=== PATIENT | female | born 1955 | race Caucasian/White ===

== ENCOUNTER 2023-01-31 12:35 | Outpatient (OUT) | payer MEDICARE, SELFPAY ==
[2023-01-31 12:54] LABS: Basophils Percent Auto 0.3 % (0.2-2.0); Eosinophils Absolute Auto 0.2 10^3/uL (0.0-0.7); Eosinophils Percent Auto 2.9 % (0.9-7.0); Hematocrit 38.9 % (36.0-48.0); Hemoglobin 12.6 g/dL (12.0-16.0); Immature Granulocytes Abs Auto 0.02 10^3/uL (0.00-0.03); Immature Granulocytes Pct Auto 0.3 % (0.0-0.5); Lymphocytes Absolute Auto 1.9 10^3/uL (1.2-3.8); Lymphocytes Percent Auto 31.1 % (20.5-60.0); Mean Corpuscular HGB Conc 32.4 g/dL (29.9-35.2); Mean Corpuscular Hemoglobin 25.6 pg (26.7-34.0); Mean Corpuscular Volume 78.9 fL (81.0-99.0); Mean Platelet Volume 9.3 fL (9.5-13.5); Monocytes Absolute Auto 0.4 10^3/uL (0.3-0.8); Monocytes Percent Auto 7.4 % (1.7-12.0); Neutrophils Absolute Auto 3.5 10^3/uL (1.4-6.5); Platelet Count 317 10^3/uL (150-450); Red Blood Count 4.93 10^6/uL (4.20-5.40); Red Cell Distribution Width 15.5 % (11.0-15.0)
== END 2023-01-31 12:36 ==
LOC: LAB 12:41
PROVIDERS: PCP Family Medicine
DX: H02.839 Dermatochalasis of unspecified eye, unspecified eyelid (principal); H57.819 Brow ptosis, unspecified
CPT/HCPCS: 36415; 85025

== ENCOUNTER 2023-05-22 10:56 | Outpatient (OUT) | payer MEDICARE, SELFPAY ==
--- NOTE | 2023-05-22 10:59 | MM_ITS ---
Patient: FELIBERTO ARMENTA Exam Date: 05/22/2023 : 1955 Gender:F Ordering : DR HERACLIO SAMSON . Admission #: [id number] Family : Order #: [id number] CLICK HERE TO VIEW EXAM RADIOLOGY REPORT PROCEDURE: MM TOMOSYNTHESIS SCREENING BI COMPARISON: MG MAMM SCREEN 3D ANGIE CAD, 04/18/2022. MG MAMM SCREEN 3D ANGIE CAD, 04/08/2021. MG MAMM SCREEN ANGIE W CAD, 04/07/2020. MG MAMM ANGIE SCRN W CAD DIG, 07/22/2013. INDICATIONS: Screening Calculator Name NCI Breast Cancer Risk Assessment Tool 5 Year Breast Cancer Risk 2.20% Lifetime Breast Cancer Risk 7.20% Personal Breast Cancer No Personal Ovarian Cancer No Treatments None Family Cancers Sister with ?uterine cancer at age 43. LOCATION: The [facility] BREAST COMPOSITION: Heterogeneously dense,which may obscure small masses. FINDINGS: DIAGNOSTIC CATEGORY 2--BENIGN FINDING: RIGHT BREAST: No significant suspicious finding. Stable, chronic partially circumscribed mass versus cyst within anterior upper outer quadrant. No significant change has occurred. LEFT BREAST: No significant suspicious finding. No significant change has occurred. RECOMMENDATIONS: ROUTINE MAMMOGRAM AND CLINICAL EVALUATION IN 12 MONTHS. PLEASE NOTE: A NORMAL MAMMOGRAM DOES NOT EXCLUDE THE POSSIBILITY OF BREAST CANCER. A CLINICALLY SUSPICIOUS PALPABLE LUMP SHOULD BE BIOPSIED. Dictated by: Zaheer Rojas M.D. on 05/23/2023 at 15:19 Approved by: Zaheer Rojas M.D. on 05/23/2023 at 15:25
== END 2023-05-22 10:57 | disposition home or self-care (01) ==
LOC: MAMMO 10:56
PROVIDERS: PCP Family Medicine; Visit Provider Family Medicine
DX: Z12.31 Encounter for screening mammogram for malignant neoplasm of breast (principal)
CPT/HCPCS: 77063; 77067

== ENCOUNTER 2023-10-23 13:30 | Outpatient (OUT) | payer MEDICARE, SELFPAY ==
--- NOTE | 2023-10-23 13:37 | XR_ITS ---
[address] [address] Patient Name: FELIBERTO ARMENTA MRN: [id number] date: 1955 Sex: F Assigned Patient Location: [facility] Current Patient Location: LAB Accession/Order Number: [id number] Exam Date: 10/23/2023 13:45 Report Date: 10/23/2023 14:10 At the request of: HERACLIO SAMSON Procedure: XR DEXA axial skeleton EXAMINATION: XR DEXA axial skeleton, 10/23/2023 1:45 PM EDT HISTORY: Age Related Osteoporosis M81.0 COMPARISON: 2013 TECHNIQUE: Dual-energy X-ray absorptiometry (DEXA) bone density study performed for the axial skeleton. HISTORY: Age Related Osteoporosis M81.0 FINDINGS: Bone mineral density AP spine L2-L4 measures 0.949 g/sq cm. T score -2.1. WHO classification: Osteopenia Bone mineral density right femoral neck measures 0.696 g/sq cm. T score -2.5. WHO classification: Osteoporosis XR/XR DEXA axial skeleton IMPRESSION: Osteoporosis. High fracture risk Electronically authenticated by: ZOE GIBSON Date: 10/23/2023 14:10
--- NOTE | 2023-10-23 13:37 | XR_ITS ---
The [address] [address] Patient Name: FELIBERTO ARMENTA MRN: [id number] date: 1955 Sex: F Assigned Patient Location: [facility] Current Patient Location: [facility] Accession/Order Number: [id number] Exam Date: 10/23/2023 13:44 Report Date: 10/23/2023 15:31 At the request of: HERACLIO SAMSON Procedure: XR foot LT min 3V PROCEDURE: XR foot LT min 3V COMPARISON: 05/04/2021 HISTORY: Pain In Left Foot M79.672 FINDINGS: BONES:No acute fracture or dislocation. Subtalar fusion. Remote transverse osteotomy of the medial cuneiform. Surgical basilia and screw transfixing the midfoot hindfoot. SOFT TISSUES:Negative. No visible soft tissue swelling. EFFUSION:None visible. OTHER: No plain film abnormality to correspond to the patient's palpable abnormality demarcated with the BB marker XR/XR foot LT min 3V IMPRESSION: No acute radiographic abnormality Electronically authenticated by: ZOE GIBSON Date: 10/23/2023 15:31
== END 2023-10-23 13:31 | disposition home or self-care (01) ==
LOC: RAD 13:30
PROVIDERS: PCP Family Medicine; Visit Provider Family Medicine
DX: M81.0 Age-related osteoporosis without current pathological fracture (principal); M79.672 Pain in left foot; R53.83 Other fatigue; Z79.899 Other long term (current) drug therapy; E78.5 Hyperlipidemia, unspecified; Z12.11 Encounter for screening for malignant neoplasm of colon; R73.09 Other abnormal glucose
CPT/HCPCS: 73630; 77080

== ENCOUNTER 2023-10-25 11:11 | Outpatient (OUT) | payer MEDICARE, SELFPAY ==
[2023-10-25 11:27] LABS: Basophils Percent Auto 0.6 % (0.2-2.0); Eosinophils Absolute Auto 0.2 10^3/uL (0.0-0.7); Eosinophils Percent Auto 3.1 % (0.9-7.0); Hematocrit 40.6 % (36.0-48.0); Hemoglobin 12.8 g/dL (12.0-16.0); Immature Granulocytes Abs Auto 0.02 10^3/uL (0.00-0.03); Immature Granulocytes Pct Auto 0.4 % (0.0-0.5); Lymphocytes Absolute Auto 1.5 10^3/uL (1.2-3.8); Lymphocytes Percent Auto 29.4 % (20.5-60.0); Mean Corpuscular HGB Conc 31.5 g/dL (29.9-35.2); Mean Corpuscular Hemoglobin 26.2 pg (26.7-34.0); Mean Platelet Volume 9.6 fL (9.5-13.5); Monocytes Absolute Auto 0.4 10^3/uL (0.3-0.8); Monocytes Percent Auto 8.2 % (1.7-12.0); Neutrophils Percent Auto 58.3 % (43.0-75.0); Platelet Count 287 10^3/uL (150-450); Red Blood Count 4.89 10^6/uL (4.20-5.40); Red Cell Distribution Width 14.8 % (11.0-15.0); White Blood Count 5.1 10^3/uL (4.0-11.0)
[2023-10-25 11:54] LABS: Estimated Average Glucose 117 mg/dL; Glycohemoglobin A1C 5.7 % (4.5-6.2)
[2023-10-25 13:40] LABS: Free T4 1.05 ng/dL (0.76-1.46)
[2023-10-25 13:43] LABS: Alanine Aminotransferase 22 U/L (14-59); Albumin Globulin Ratio 1.1; Albumin Level 4.1 g/dL (3.4-5.0); Alkaline Phosphatase 64 U/L (46-116); Aspartate Amino Transferase 17 U/L (15-37); BUN Creatinine Ratio 16.2; Bilirubin Total 0.5 mg/dL (0.2-1.0); Calcium 9.3 mg/dL (8.5-10.1); Carbon Dioxide 26.2 mmol/L (21.0-32.0); Chloride 99 mmol/L (98-107); Chol HDL Ratio 2.9; Cholesterol 231 mg/dL (<=200); Estimated GFR (African America >60 (>=60); Estimated GFR (Non-African Ame >60 (>=60); Globulin 3.6 g/dL; Glucose 91 mg/dL (74-106); HDL Cholesterol 80 mg/dL (40-60); Potassium 4.2 mmol/L (3.5-5.1); Sodium 135 mmol/L (136-145); Thyroid Stimulating Hormone 2.095 uIU/mL (0.358-3.740); Total Protein 7.7 g/dL (6.4-8.2); Triglycerides 74 mg/dL (<=150); VLDL CHOLESTEROL 14.8 mg/dL
--- OUTSIDE RECORDS SUMMARY | 2023-10-29 10:39 | XMS_ITS | CCD ---
Author Name Unknown Address [address] [place] [address] Organization [facility] Care Team Providers Care 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 Name Role Phone Heraclio Gomez Primary Care Physician Heraclio Gomez MD Primary Care Provider [phone] KENYETTA, Luis Monterroso Attending Unavailable Patricia PROVIDER, Heraclio Referring Unavailabl e NILL, Luis Monterroso Attending Unavailable Oriy PROVIDER, Heraclio Referring Unavailabl e NILL, Luis Monterroso Attending Unavailable NILL, Luis Monterroso Attending Unavailable Heraclio Gomez MD Primary Care Provider [phone] KAYLIE CHARLES Referring Unavailable HERACLIO GOMEZ Primary Care Unavailable HOY ., DR PULLIAM Primary Care Unavailable HOY ., DR PULLIAM Admitting Unavailable HOY ., DR PULLIAM Consulting Unavailable HOY ., DR PULLIAM Attending Unavailable HOY ., DR PULLIAM Consulting Unavailable HOY ., DR PULLIAM Admitting Unavailable HOY ., DR PULLIAM Primary Care Unavailable HOY ., DR PULLIAM Attending Unavailable NILL ., DR SMITH Consulting Unavailable HOY ., DR PULLIAM Primary Care Unavailable NILL ., DR SMITH Attending Unavailable NILL ., DR SMITH Admitting Unavailable KAYLIE CHARLES Admitting Unavailable HOY ., DR PULLIAM Primary Care Unavailable KAYLIE CHARLES Attending Unavailable CONTRERAS .REINA Attending Unavailable JOHN SANCHEZ Consulting Unavailable HOY ., DR PULLIAM Primary Care Unavailable CONTRERAS .REINA Admitting Unavailable CONTRERAS .REINA Consulting Unavailable HOY ., DR PULLIAM Primary Care Unavailable NILL ., DR SMITH Attending Unavailable NILL ., DR SMITH Admitting Unavailable NILL ., DR SMITH Consulting Unavailable YVETTE CERNA Consulting Unava ilVEDA Thompson Consulting Unavailable HOY ., DR PULLIAM Admitting Unavailable HOY ., DR PULLIAM Primary Care Unavailable HOY ., DR PULLIAM Consulting Unavailable HOY ., DR PULLIAM Attending Unavailable ZIEBER, DR LESLY Monterroso Consulting Unavailable HOY ., DR PULLIAM Attending Unavailable HOY ., DR PULLIAM Referring Unavailable HOY ., DR PULLIAM Admitting Unavailable HOY ., DR PULLIAM Primary Care Unavailable HOY ., DR PULLIAM Consulting Unavailable ZIEBER, DR LESLY Monterroso Consulting Unavailable HOY ., DR PULLIAM Attending Unavailable HOY ., DR PULLIAM Admitting Unavailable HOY ., DR PULLIAM Primary Care Unavailable HOY ., DR PULLIAM Consulting Unavailable Hoy Heraclio CAMPO Primary Care Provider [phone] KAYLIE CHARLES Attending Unavailable HOY, HERACLIO M Primary Care Unavailable HOY, HERACLIO M Primary Care Unavailable KAYLIE CHARLES W Referring Unavailable HOY, HERACLIO M Primary Care Unavailable KAYLIE CHARLES W Referring Unavailable HOY, HERACLIO M Primary Care Unavailable HOY, HERACLIO M Primary Care Unavailable KAYLIE CHARLES Attending Unavailable HOY, HERACLIO M Primary Care Unavailable HOY, HERACLIO M Primary Care Unavailable KAYLIE CHARLES Attending Unavailable HOY, HERACLIO M Primary Care Unavailable KAYLIE CHARLES W Referring Unavailable HOY, HERACLIO M Primary Care Unavailable KAYLIE CHARLES Referring Unavailable HOY, HERACLIO M Primary Care Unavailable KAYLIE CHARLES Attending Unavailable HOY, HERACLIO M Primary Care Unavailable KAYLIE CHARLES Attending Unavailable HOY, HERACLIO M Primary Care Unavailable KAYLIE CHARLES Referring Unavailable HOY, HERACLIO M Primary Care Unavailable HOY, HERACLIO M Primary Care Unavailable HOY, HERACLIO M Primary Care Unavailable SHARYN BROWNING Attending Unavailable Allergies Allergy Classification Reported Allergen(s) Allergy Type Date of Onset Reaction(s) Facility (3 sources) Amoxicillin / Clavulanate; Translations: [amoxicillin-cla vulanate] Drug Allergy Unknown (qualifier value) General Surgery [facility] (20 sources) Simvastatin; Translations: [simvastatin] Drug Allergy 5 Unknown (qualifier value), GI Upset General Surgery Eveline (3 sources) Sulfonamides (Antibiotic); Translations: [sulfa drugs] Drug allergy Unknown (qualifier value) General Surgery [place] (2 sources) EPINEPHrine; Translations: [EPINEPHRINE] Drug Allergy 7 GI Upset [facility] (20 sources) Latex; Translations: [LATEX] Drug Allergy 4 Itching [facility] (20 sources) Sulfonamides (Antibiotic); Translations: [SULFA (SULFONAMIDE ANTIBIOTICS)] Drug Allergy 4 Rash [facility] (20 sources) Bee Sting; Translations: [BEE STING] Allergy to substance 2 Hives [facility] (1 source) Amoxicillin Drug Allergy [facility] (1 source) bee venom Drug allergy (disorder) [facility] (1 source) EPINEPHrine Drug Allergy 7 [facility] (1 source) Latex Drug allergy (disorder) 4 [facility] (1 source) Simvastatin Drug Allergy 5 [facility] (1 source) Sulfonamides (Antibiotic) Drug allergy (disorder) 4 [facility] Medications Current Medications Medication Drug Class(es) Dates Sig (Normalized) Sig (Original) meloxicam (7 sources) Nonsteroidal Anti-inflammatory Drug Start: 05-23-2022 meloxicam Refills(s) 0 Start Date: 05/23/22 Status: Ordered End: 08-30-2022 MELOXICAM ORAL Take 15 mg by mouth. 0 08/30/2022 Discontinued (Changing Therapy/Dosage Form) MELOXICAM ORAL T jimmy by mouth. 0 Active Comment on above: Take by mouth. Take 15 mg by mouth. oxyCODONE hydrochloride 5 mg oral tablet (1 source) Opioid Agonist Start: 3 End: 3 take 1 tablet by mouth every six hours as needed for pain oxyCODONE IR (ROXICODONE) 5 mg immediate release tablet Indications: Primary osteoarthritis of left foot Take 1 tablet by mouth every 6 hours as needed for pain for up to 7 days. for more severe postop pain after surgery. 28 tablet 0 08/30/2022 09/06/2022 Active Comment on above: Take 1 tablet by irene every 6 hours as needed for pain for up to 7 days. for more severe postop pain after surgery. Completed/Discontinued Medications Medication Drug Class(es) Dates Sig (Normalized) Sig (Original) acetaminophen 325 mg oral tablet (5 sources) Start: 3 End: 3 take 2 tablets by mouth every four hours acetaminophen (TYLENOL) 325 mg tablet Take 2 tablets by mouth every 4 hours while awake. after surgery on 09/05/22 until no longer needed. 0 08/30/2022 09/20/2022 Discontinued (Course of therapy completed) Comment on above: Take 2 tablets by [facility] every 4 hours while awake. after surgery on 09/05/22 until no longer needed. amLODIPine 5 mg oral tablet (20 sources) Dihydropyridine Calcium Channel Cally Start: 2 amLODIPine (NORVASC) 5 mg tablet cephalexin 500 mg oral capsule (5 sources) Cephalosporin Antibacterial Start: 3 End: 3 take 1 capsule by mouth four times daily cephALEXin (KEFLEX) 500 mg capsule Take 1 capsule by mouth four times daily. 20 capsule 0 08/30/2022 09/20/2022 Discontinued (Course of therapy completed) Comment on above: Take 1 capsule by [facility] four times daily. cycloSPORINE 0.5 mg/ml ophthalmic suspension (20 sources) Calcineurin Inhibitor Immunosuppressant Start: 2 RESTASIS 0.05 % ophthalmic emulsion fexofenadine hydrochloride 180 mg oral tablet (17 sources) Histamine-1 Receptor Antagonist take 1 tablet by mouth once daily fexofenadine (JACKY) 180 mg tablet Take 180 mg by mouth once daily. 0 Active Comment on above: Take 180 mg by mouth once daily. INV VITAMIN D3 5000 UNITS CAPSULE (IRB 19-1548) (17 sources) take 1 capsule by mouth once daily INV VITAMIN D3 5000 UNITS CAPSULE (IRB [id number]) Take 5,000 Units by mouth once daily. For Investigational Drug Use Only. PI: Ce Batista, PhD. Take one capsule by mouth daily for 3 months prior to surgery and 3 months after surgery. 0 Active Comment on above: Take 5,000 Units by mouth once daily. For Investigational Drug Use Only. PI: Ce Batista, PhD. Take one capsule by mouth daily for 3 months prior to surgery and 3 months after surgery. ketorolac tromethamine 10 mg oral tablet (5 sources) Nonsteroidal Anti-inflammatory Drug, Cyclooxygenase Inhibitor Start: 3 End: 3 take 1 tablet by mouth every six hours as needed keTORolac (TORADOL) 10 mg tablet Take 1 tablet by mouth every 6 hours as needed. for moderate level of postoperative pain after surgery on 09/05/22. 20 tablet 0 08/30/2022 09/20/2022 Discontinued (Course of therapy completed) Comment on above: Take 1 tablet by irene th every 6 hours as needed. for moderate level of postoperative pain after surgery on 09/05/22. lisinopril 10 mg oral tablet (1 source) Angiotensin Converting Enzyme Inhibitor Start: 3 take 1 tablet by mouth once daily lisinopril (ZESTRIL) 10 mg tablet Take 10 mg by mouth once daily. 0 10/31/2022 Active Comment on above: Take 10 mg by mouth once daily. melatonin 1 mg oral tablet (17 sources) take 1 tablet by mouth once daily melatonin 1 mg tablet Take 1 mg by mouth once daily. 0 Active Comment on above: Take 1 mg by mouth o nce daily. omeprazole 40 mg delayed release oral capsule (20 sources) Proton Pump Inhibitor Start: 1 omeprazole (PRILOSEC) 40 mg capsule ondansetron 4 mg disintegrating oral tablet (3 sources) Serotonin-3 Receptor Antagonist Start: 1 End: 3 ondansetron orally disintegrating (ZOFRAN ODT) 4 mg disintegrating tablet Problems Active Problems Problem Classification Problem Date Documented Date Episodic/Chronic Anxiety disorders (4 sources) Anxiety disorder, unspecified; Translations: [ANXIETY DISORDER UNSPECIFIED] Onset: 09-26-2022 Chronic Deficiency and other anemia (1 source) Anemia, unspecified; Translations: [ANEMIA UNSPECIFIED] Onset: 10-13-2022 Episodic Diabetes mellitus without complication (1 source) Other abnormal glucose; Translations: [OTHER ABNORMAL GLUCOSE] Onset: 10-13-2022 Episodic Disorders of lipid metabolism (4 sources) Pure hypercholesterolemia; Translations: [Pure hypercholesterolemia, unspecified] Onset: 10-13-2022 05-12-2022 Chronic Esophageal disorders (3 sources) Gastroesophageal reflux disease; Translations: [Gastro-esophageal reflux disease without esophagitis] Onset: 09-27-2022 05-12-2022 Chronic Essential hypertension (20 sources) Hypertensive disorder; Translations: [Essential (primary) hypertension] Onset: 08-17-2022 05-12-2022 Chronic Headache; including migraine (2 sources) Migraine 05-12-2022 Chronic Mood disorders (2 sources) Mood disorder 05-12-2022 Chronic Nonmalignant breast conditions (2 sources) Fibrocystic disease of breast 05-12-2022 Chronic Nonspecific chest pain (1 source) Chest pain, unspecified; Translations: [CHEST PAIN UNSPECIFIED] Onset: 09-27-2022 Episodic Nutritional deficiencies (4 sources) Vitamin D deficiency, unspecified; Translations: [VITAMIN D DEFICIENCY UNSPECIFIED] Onset: 10-09-2022 Chronic Osteoarthritis (20 sources) Osteoarthritis of left foot; Translations: [Primary osteoarthritis, left ankle and foot] Onset: 05-31-2022 Chronic Other aftercare (1 source) half-way (current) use of aspirin; Translations: [COURTROOM CLERK CURRENT USE OF ASPIRIN] Onset: 09-27-2022 Episodic Other aftercare (1 source) Other joint terminal attack controller (current) drug therapy; Translations: [OTH COURTROOM CLERK CURRENT DRUG THERAPY] Onset: 09-27-2022 Episodic Other and unspecified benign neoplasm (3 sources) History of polyp of colon; Translations: [Personal history of colonic polyps] Onset: 05-23-2022 Episodic Other and unspecified benign neoplasm (2 sources) Benign neoplasm of ascending colon; Translations: [Benign neoplasm of ascending colon] Onset: 07-19-2022 Episodic Other and unspecified benign neoplasm (1 source) Benign neoplasm of colon; Translations: [Benign neoplasm of colon, unspecified] Onset: 07-19-2022 Episodic Other and unspecified benign neoplasm (1 source) Adenomatous polyp of colon 07-19-2022 Episodic Other and unspecified benign neoplasm (4 sources) Personal history of colonic polyps; Translations: [PERSONAL HISTORY OF COLONIC POLYPS] Onset: 07-12-2022 Episodic Other and unspecified benign neoplasm (1 source) Benign neoplasm of cecum; Translations: [BENIGN NEOPLASM OF CECUM] Onset: 07-17-2022 Episodic Other and unspecified benign neoplasm (1 source) Benign neoplasm of ascending colon; Translations: [BENIGN NEOPLASM OF ASCENDING COLON] Onset: 07-17-2022 Episodic Other non-traumatic joint disorders (1 source) Ankle pain; Translations: [Pain in left ankle and joints of left foot] Episodic Other nutritional; endocrine; and metabolic disorders (20 sources) Body mass index 30+ - obesity; Translations: [Obesity, unspecified] Onset: 08-18-2022 05-23-2022 Chronic Other nutritional; endocrine; and metabolic disorders (1 source) Obesity, unspecified; Translations: [Obesity (BMI 30-39.9)] Onset: 08-18-2022 Chronic Other nutritional; endocrine; and metabolic disorders (14 sources) Obese class I; Translations: [Obesity, unspecified] Onset: 09-04-2022 09-04-2022 Chronic Other screening for suspected conditions (not mental disorders or infectious disease) (5 sources) Encounter for screening for malignant neoplasm of rectum; Translations: [Encounter for screening mammogram for malignant neoplasm of breast] Onset: 04-18-2022 Episodic Other upper respiratory disease (2 sources) Seasonal allergic rhinitis 05-12-2022 Chronic Residual codes; unclassified (2 sources) Pain; Translations: [Pain, unspecified] Episodic Spondylosis; intervertebral disc disorders; other back problems (2 sources) Low back pain 05-12-2022 Episodic Unclassified (1 source) APPOINTMENT CANCELLED Unclassified (4 sources) CONTACT W/AND (SUSP) EXPOS COVID-19; Translations: [CONTACT W/AND (SUSP) EXPOS COVID-19] Onset: 03-17-2022 Unclassified (3 sources) COUGH, UNSPECIFIED; Translations: [COUGH, UNSPECIFIED] Onset: 03-19-2022 Viral infection (1 source) COVID-19; Translations: [COVID-19] Onset: 09-27-2022 Past or Other Problems Problem Classification Problem Date Documented Da te Episodic/Chronic Acquired foot deformities (20 sources) Talipes planus; Translations: [Flat foot [pes planus] (acquired), left foot] Onset: 05-31-2022 Episodic Other connective tissue disease (3 sources) H/O: arthrodesis; Translations: [Arthrodesis status] Onset: 01-10-2023 Episodic Other upper respiratory infections (1 source) Acute sinusitis, unspecified; Translations: [ACUTE SINUSITIS UNSPECIFIED] Onset: 03-17-2022 Episodic Residual codes; unclassified (1 source) Pain, unspecified; Translations: [Pain] Onset: 05-31-2022 Episodic Unclassified (1 source) COUGH, UNSPECIFIED; Translations: [COUGH, UNSPECIFIED] Onset: 03-15-2022 Unclassified (1 source) CONTACT W/AND (SUSP) EXPOS COVID-19; Translations: [CONTACT W/AND (SUSP) EXPOS COVID-19] Onset: 03-14-2022 Results Test Name Value Interpretation Reference Range Facility [facility] 01-10-2023 CNOV Office Visit (ORAV[facility] ) -------- LEEELENITA ([id number]) 1955 F Date Time Provider Department 01/10/23 11:30 AM KAYLIE CHARLES During your visit today, we recorded the following information about you: Kaylie Charles MD 01/10/2023 12:58 PM Signed Elenita Lee returns today to follow up osteoarthritis of left foot. She states that she is having having any pain today. She states that she is having some rubbing of her heel in the boot. She is walking with cane. She states she believes she is doing better since her last visit. Surgery: left triple arthrodesis, proximal tibia bone graft harvest, large, 30 cc, hardware removal calcaneus, surgeon monitored fluoroscopy on 09/05/22 Do you have a metal allergy?: No Current Dx: osteoarthritis of left foot Injury:No Pt. Feels their overall condition is better. Is the patient having any pain? No 0 on a scale of 0 to 10 Current treatment plan includes: Weight Bearing Status: fully Weight bearing status:Full Ambulatory Aids:Cane Physical Therapy:No Home Exercise Program: No NSAIDS: Aleve : Taking as directed and feels it is helping. Pain medication: None Activity Levels: Normal PHYSICAL EXAM: left foot Physical examination reveals an alert and oriented patient who is in no acute distress while sitting and is of normal mood and affect. LMP (LMP Unknown) Gait Cycle: Normal No, Limp: Wearing Aircast boot. Inspection: Alignment: neutral Symmetry: Swelling: no. Redness: no. Ecchymosis: no Effusion: 0 Palpation: Warmth: no, Tenderness:No ROM: Ankle- Normal. Subtalar stable Strength: 5 Stability: Ligamentous instability: no Specialized Tests: negative Neurologic Status: normal. Vascular Status: normal Skin: Incision: well healed, clean, dry and intact XRAYS: Arthrodeses look good DX: (Z98.1) History of arthrodesis (primary encounter diagnosis) BWC/Work status: NA Plan: Patient is instructed on how to wean from the boot and given appropriate recommendations for arch support and shoewear selection. Follow-up as needed HPI explored in detail with patient and edited as necessary. At the conclusion of the visit the patient voiced understanding and agreement with the plan. The patient knows to call us or present to the nearest Emergency Department if the patients pain increases. Patient knows how to reach us if there are any questions or problems. This visit required reviewed the patient's medical records, updating historical information, assessing changes in physical examination, and review of all testing information. It required patient-provider interaction for the medical decision making as documented. The time and /or expertise required in this decision-making process, communicating the results as such with the patient and developing the treatment protocol is reflected in the charge capture section of these electronic medical records. This note was partially generated using [employer] voice recognition system, and there may be some incorrect words, spellings, and punctuation that were not noted in checking the note before saving. Kaylie Charles M.D. Allergies As of Date: 01/10/2023 Noted Allergy Reaction BEE STING 08/31/2021 4 - Hives LATEX 09/24/2013 9 - Itching SIMVASTATIN 08/13/2014 8 - GI Upset SULFA (SULFONAMIDE ANTIBIOTICS) 09/24/2013 2 - Rash Date Reviewed: 01/10/2023 Reviewed by: Yong Valiente MA - Fully Assessed Reason for Visit: Follow Up [171] Primary Visit Diagnosis:History of arthrodesis [Z98.1] Prescriptions as of 01/10/2023 - lisinopril (ZESTRIL) 10 mg tablet Take 10 mg by mouth once daily. - INV VITAMIN D3 5000 UNITS CAPSULE (IRB 19-1548) Take 5,000 Units by mouth once daily. For Investigational Drug Use Only. PI: Ce Batista, PhD. Take one capsule by mouth daily for 3 months prior to surgery and 3 months after surgery. - fexofenadine (JACKY) 180 mg tablet Take 180 mg by mouth once daily. - melatonin 1 mg tablet Take 1 mg by mouth once daily. - amLODIPine (NORVASC) 5 mg tablet - RESTASIS 0.05 % ophthalmic emulsion - omeprazole (PRILOSEC) 40 mg capsule Problem List As Of Date 01/10/2023 Noted Resolved Primary osteoarthritis of left foot [M19.072] 05/31/2022 Pes planus of left foot [M21.42] 05/31/2022 Acquired valgus deformity of left ankle [M21.07*05/31/2022 Hypertension [I10] 08/17/2022 Obesity (BMI 30-39.9) [E66.9] 08/18/2022 Obesity, Class I, BMI 30-34.9 [E66.9] 09/04/2022 History of arthrodesis [Z98.1] 01/10/2023 Encounter Status:Closed by KAYLIE CHARLES on 01/10/23 Normal [facility] XR FOOT 3V AP/LAT/OBL LTon 0 01-10-2023 XR FOOT 3V AP/LAT/OBL LT * * *Final Report* * * DATE OF EXAM: Jan 10 2023 11:14AM AFR [id number] - XR FOOT 3V AP/LAT/OBL LT / PROCEDURE REASON: Primary osteoarthritis of left foot * * * * Physician Interpretation * * * * EXAMINATION / TECHNIQUE: XR FOOT 3V AP/LAT/OBL LT HISTORY: LEFT FOOT POST OP Primary osteoarthritis of left foot COMPARISON: 11/29/2022. RESULT: Status post triple arthrodesis with intact hardware. Bony alignment is unchanged. No new acute bony abnormality is identified. IMPRESSION: Healing postoperative changes. Wall Taper Helper: PSCB Transcribe Date/Time: Jan 10 2023 12:42P Dictated by : ANTHONY PIERCE MD This examination was interpreted and the report reviewed and electronically signed by: ANTHONY PIERCE MD on Jan 10 2023 12:42PM EST [id number] Normal [facility] XR FOOT GENERAL 3V AP/LAT/OB L LEFTon 01-10-2023 [facility] CNOVon 11-29-2022 CNOV Office Visit (ORAV[facility] ) -------- ELENITA HOWARD ([id number]) 1955 F Date Time Provider Department 11/29/22 3:30 PM CAST TECH STACI DYKES During your visit today, we recorded the following information about you: Antonieta Pa Cast 11/30/2022 7:18 AM Signed PT ASSESSMENT - CASTING ROOM Elenita presents for cast removal. Applied pneumatic aircast walker to Left leg non-weight bearing Patient has been instructed in Care of boot.. Antonieta Pa Cast Beeper: [id number] Referring Provider: KAYLIE CHARLES [[id number]] Allergies As of Date: 11/29/2022 Noted Allergy Reaction BEE STING 08/31/2021 4 - Hives LATEX 09/24/2013 9 - Itching SIMVASTATIN 08/13/2014 8 - GI Upset SULFA (SULFONAMIDE ANTIBIOTICS) 09/24/2013 2 - Rash Date Reviewed: 11/29/2022 Reviewed by: Lizette Bowden RN - Fully Assessed Primary Visit Diagnosis:Primary osteoarthritis of left foot [M19.072] Prescriptions as of 11/30/2022 - INV VITAMIN D3 5000 UNITS CAPSULE (IRB 19-1548) Take 5,000 Units by mouth once daily. For Investigational Drug Use Only. PI: Ce Batista, PhD. Take one capsule by mouth daily for 3 months prior to surgery and 3 months after surgery. - fexofenadine (JACKY) 180 mg tablet Take 180 mg by mouth once daily. - melatonin 1 mg tablet Take 1 mg by mouth once daily. - amLODIPine (NORVASC) 5 mg tablet - RESTASIS 0.05 % ophthalmic emulsion - omeprazole (PRILOSEC) 40 mg capsule Problem List As Of Date 11/29/2022 Noted Resolved Primary osteoarthritis of left foot [M19.072] 05/31/2022 Pes planus of left foot [M21.42] 05/31/2022 Acquired valgus deformity of left ankle [M21.07*05/31/2022 Hypertension [I10] 08/17/2022 Obesity (BMI 30-39.9) [E66.9] 08/18/2022 Obesity, Class I, BMI 30-34.9 [E66.9] 09/04/2022 Encounter Status:Closed by ANTONIETA GALLAGHER on 11/30/22 Normal [facility] CNOV Office Visit (ORAVON ) -------- ELENITA HOWARD ([id number]) 1955 F Date Time Provider Department 11/29/22 1:00 PM KAYLIE CHARLES During your visit today, we recorded the following information about you: Kaylie Charles MD 11/30/2022 6:54 PM Signed POD 12 weeks Surgery: left triple arthrodesis, proximal tibia bone graft harvest, large, 30 cc, hardware removal calcaneus, surgeon monitored fluoroscopy on 09/05/22 Dressings: short leg weight bearing cast removed to check incision and get xrays and replaced with short leg cast Incision: dry/intact/well-approxim ated, no redness Sutures: NA Drain: NA Pin sites: NA Left foot pain: minimal Calf assessment: soft, non-tender, no complaints of pain Concerns: none currently Xrays done today: Good progression of healing Followup and plan: We will continue with casting right now and attempt to get the remainder of the arthrodeses solid. Follow-up in 4 weeks with x-rays Kaylie Charles MD Allergies As of Date: 11/29/2022 Noted Allergy Reaction BEE STING 08/31/2021 4 - Hives LATEX 09/24/2013 9 - Itching SIMVASTATIN 08/13/2014 8 - GI Upset SULFA (SULFONAMIDE ANTIBIOTICS) 09/24/2013 2 - Rash Date Reviewed: 11/29/2022 Reviewed by: Lizette Bowden RN - Fully Assessed Reason for Visit: Post Op [174] Primary Visit Diagnosis:Primary osteoarthritis of left foot [M19.072] Order(s):XR FOOT GENERAL 3V AP/LAT/OBL LEFT [[id number]] Order #: [id number] FUTURE Prescriptions as of 11/30/2022 - INV VITAMIN D3 5000 UNITS CAPSULE (IRB 19-1548) Take 5,000 Units by mouth once daily. For Investigational Drug Use Only. PI: Ce Batista, PhD. Take one capsule by mouth daily for 3 months prior to surgery and 3 months after surgery. - fexofenadine (JACKY) 180 mg tablet Take 180 mg by mouth once daily. - melatonin 1 mg tablet Take 1 mg by mouth once daily. - amLODIPine (NORVASC) 5 mg tablet - RESTASIS 0.05 % ophthalmic emulsion - omeprazole (PRILOSEC) 40 mg capsule Problem List As Of Date 11/29/2022 Noted Resolved Primary osteoarthritis of left foot [M19.072] 05/31/2022 Pes planus of left foot [M21.42] 05/31/2022 Acquired valgus deformity of left ankle [M21.07*05/31/2022 Hypertension [I10] 08/17/2022 Obesity (BMI 30-39.9) [E66.9] 08/18/2022 Obesity, Class I, BMI 30-34.9 [E66.9] 09/04/2022 Encounter Status:Closed by KAYLIE CHARLES on 11/30/[address] [facility] XR FOOT 3V AP/LAT/OBL LTon 0 11-29-2022 XR FOOT 3V AP/LAT/OBL LT * * *Final Report* * * DATE OF EXAM: Nov 29 2022 1:12PM AFR 5336 - XR FOOT 3V AP/LAT/OBL LT / PROCEDURE REASON: Primary osteoarthritis of left foot * * * * Physician Interpretation * * * * HISTORY (as given from clinical provider): Primary osteoarthritis of left foot . Additional history provided by the performing technologist (if any): LEFT FOOT POSTOP TECHNIQUE: XR FOOT 3V AP/LAT/OBL LT COMPARISON: 10/18/2022 RESULT: Triple hindfoot arthrodesis with intact hardware and solid appearing joint effusion. Mild osteoarthritis of the IP joint of the great toe and first MTP joint. Osteopenia. No fractures. No other significant abnormality. IMPRESSION: EXPECTED POSTOPERATIVE APPEARANCE Wall Taper Helper: MARIA L Transcribe Date/Time: Nov 29 2022 1:44P Dictated by : NATALIE CHOPRA MD This examination was interpreted and the report reviewed and electronically signed by: NATALIE CHOPRA MD on Nov 29 2022 1:44PM EST [id number] Normal [facility] XR FOOT GENERAL 3V AP/LAT/OB L LEFTon 11-29-2022 [facility] CNOVon 11-13-2022 CNOV Office Visit (ORAVON ) -------- ELENITA HOWARD ([id number]) 1955 F Date Time Provider Department 11/13/22 1:00 PM CAST TECH STACI ORSTACI During your visit today, we recorded the following information about you: Antonieta Pa Cast 11/13/2022 2:49 PM Signed PT ASSESSMENT - CASTING ROOM Elenita presents for cast removal. Applied short cast: to Left leg weight bearing Patient has been instructed in Care of cast.. Antonietabryson Pa Cast Beeper: [id number] Allergies As of Date: 11/13/2022 Noted Allergy Reaction BEE STING 08/31/2021 4 - Hives LATEX 09/24/2013 9 - Itching SIMVASTATIN 08/13/2014 8 - GI Upset SULFA (SULFONAMIDE ANTIBIOTICS) 09/24/2013 2 - Rash Date Reviewed: 10/18/2022 Reviewed by: Lizette Bowden RN - Fully Assessed Primary Visit Diagnosis:Primary osteoarthritis of left foot [M19.072] Prescriptions as of 11/13/2022 - INV VITAMIN D3 5000 UNITS CAPSULE (IRB 19-1548) Take 5,000 Units by mouth once daily. For Investigational Drug Use Only. PI: Ce Batista, PhD. Take one capsule by mouth daily for 3 months prior to surgery and 3 months after surgery. - fexofenadine (JACKY) 180 mg tablet Take 180 mg by mouth once daily. - melatonin 1 mg tablet Take 1 mg by mouth once daily. - amLODIPine (NORVASC) 5 mg tablet - RESTASIS 0.05 % ophthalmic emulsion - omeprazole (PRILOSEC) 40 mg capsule Problem List As Of Date 11/13/2022 Noted Resolved Primary osteoarthritis of left foot [M19.072] 05/31/2022 Pes planus of left foot [M21.42] 05/31/2022 Acquired valgus deformity of left ankle [M21.07*05/31/2022 Hypertension [I10] 08/17/2022 Obesity (BMI 30-39.9) [E66.9] 08/18/2022 Obesity, Class I, BMI 30-34.9 [E66.9] 09/04/2022 Encounter Status:Closed by ANTONIETA GALLAGHER on 11/13/22 Normal [facility] Arianna 10-24-2022 CNPN Telephone (ORAVON) -------- ELENITA HOWARD ([id number]) 1955 F Date Time Provider Department 10/24/22 KAYLIE CHARLES During your visit today, we recorded the following information about you: Mable Gay, CONSTANTINO 10/24/2022 10:42 AM Signed Just here 10/18/22 Had Left leg weight bearing cast applied She's not sure if it's the right size? The cast hangs over the shoe part by over an inch She will try to upload some photos via [employer] Maybe this is normal but she was hoping to just have someone look at the pictures and tell her what they think Doesn't live close; so she was hoping not to have to drive up here if at all possible, but will do whatever you need her to do Also: She is c/o her heel (still) being very tender where the screws are She thought extra padding was applied in this region but it's just still quite tender When up, she's using a walker/crutches and doing all she's supposed to be doing She's leaving out of the [place] about a week - so she's just trying to make sure it's all good/comfortable and not making anything worse She said thanks and she'll await your response: Pt is asking for a call back [phone] Allergies As of Date: 10/24/2022 Noted Allergy Reaction BEE STING 08/31/2021 4 - Hives LATEX 09/24/2013 9 - Itching SIMVASTATIN 08/13/2014 8 - GI Upset SULFA (SULFONAMIDE ANTIBIOTICS) 09/24/2013 2 - Rash Date Reviewed: 10/18/2022 Reviewed by: Lizette Bowden RN - Fully Assessed Reason for Visit: cast issue [Other] Prescriptions as of 10/24/2022 - INV VITAMIN D3 5000 UNITS CAPSULE (IRB 19-1548) Take 5,000 Units by mouth once daily. For Investigational Drug Use Only. PI: Ce Batista, PhD. Take one capsule by mouth daily for 3 months prior to surgery and 3 months after surgery. - fexofenadine (JACKY) 180 mg tablet Take 180 mg by mouth once daily. - melatonin 1 mg tablet Take 1 mg by mouth once daily. - amLODIPine (NORVASC) 5 mg tablet - RESTASIS 0.05 % ophthalmic emulsion - omeprazole (PRILOSEC) 40 mg capsule Problem List As Of Date 10/24/2022 Noted Resolved Primary osteoarthritis of left foot [M19.072] 05/31/2022 Pes planus of left foot [M21.42] 05/31/2022 Acquired valgus deformity of left ankle [M21.07*05/31/2022 Hypertension [I10] 08/17/2022 Obesity (BMI 30-39.9) [E66.9] 08/18/2022 Obesity, Class I, BMI 30-34.9 [E66.9] 09/04/2022 Encounter Status:Closed by LIZETTE BOWDEN RN on 10/24/[address] [facility] CNOVon 10-18-2022 CNOV Office Visit (ORAVON ) -------- ELENITA HOWARD ([id number]) 1955 F Date Time Provider Department 10/18/22 1:45 PM KAYLIE CHARLES During your visit today, we recorded the following information about you: Kaylie Charles MD 10/18/2022 9:06 PM Signed POD 6 weeks Surgery: left triple arthrodesis, proximal tibia bone graft harvest, large, 30 cc, Hardware removal calcaneus, Surgeon monitored fluoroscopy on 10/17/22 Dressings: postop splint and dressings removed to check incision and replaced with short leg non weight bearing cast Incision: dry/intact/well-approxim ated, no redness Sutures: inta Drain: NA Pin sites: NA Left foot pain: 0/10 Calf assessment: soft, non-tender, no complaints of pain Concerns: none currently Followup and plan: into short leg wb cast today, follow up in 6 weeks with xrays out of cast Kaylie Charles MD Allergies As of Date: 10/18/2022 Noted Allergy Reaction BEE STING 08/31/2021 4 - Hives LATEX 09/24/2013 9 - Itching SIMVASTATIN 08/13/2014 8 - GI Upset SULFA (SULFONAMIDE ANTIBIOTICS) 09/24/2013 2 - Rash Date Reviewed: 10/18/2022 Reviewed by: Lizette Bowden RN - Fully Assessed Primary Visit Diagnosis:Primary osteoarthritis of left foot [M19.072] Order(s):XR FOOT GENERAL 3V AP/LAT/OBL LEFT [[id number]] Order #: [id number] FUTURE Prescriptions as of 10/18/2022 - INV VITAMIN D3 5000 UNITS CAPSULE (IRB 19-1548) Take 5,000 Units by mouth once daily. For Investigational Drug Use Only. PI: Ce Batista, PhD. Take one capsule by mouth daily for 3 months prior to surgery and 3 months after surgery. - fexofenadine (JACKY) 180 mg tablet Take 180 mg by mouth once daily. - melatonin 1 mg tablet Take 1 mg by mouth once daily. - amLODIPine (NORVASC) 5 mg tablet - RESTASIS 0.05 % ophthalmic emulsion - omeprazole (PRILOSEC) 40 mg capsule Problem List As Of Date 10/18/2022 Noted Resolved Primary osteoarthritis of left foot [M19.072] 05/31/2022 Pes planus of left foot [M21.42] 05/31/2022 Acquired valgus deformity of left ankle [M21.07*05/31/2022 Hypertension [I10] 08/17/2022 Obesity (BMI 30-39.9) [E66.9] 08/18/2022 Obesity, Class I, BMI 30-34.9 [E66.9] 09/04/2022 Encounter Status:Closed by KAYLIE CHARLES on 10/18/22 [facility] Office Visit (ORAVON ) -------- ELENITA HOWARD ([id number]) 1955 F Date Time Provider Department 10/18/22 1:30 PM CAST TECH STACI DYKES During your visit today, we recorded the following information about you: Antonieta Pa Cast 10/19/2022 8:01 AM Signed PT ASSESSMENT - CASTING ROOM Elenita presents for cast removal. Applied short cast: to Left leg weight bearing Patient has been instructed in Care of cast.. Antonieta Pa Cast Beeper: [id number] Allergies As of Date: 10/18/2022 Noted Allergy Reaction BEE STING 08/31/2021 4 - Hives LATEX 09/24/2013 9 - Itching SIMVASTATIN 08/13/2014 8 - GI Upset SULFA (SULFONAMIDE ANTIBIOTICS) 09/24/2013 2 - Rash Date Reviewed: 10/18/2022 Reviewed by: Lizette Bowden RN - Fully Assessed Primary Visit Diagnosis:Primary osteoarthritis of left foot [M19.072] Prescriptions as of 10/19/2022 - INV VITAMIN D3 5000 UNITS CAPSULE (IRB 19-1548) Take 5,000 Units by mouth once daily. For Investigational Drug Use Only. PI: Ce Batista, PhD. Take one capsule by mouth daily for 3 months prior to surgery and 3 months after surgery. - fexofenadine (JACKY) 180 mg tablet Take 180 mg by mouth once daily. - melatonin 1 mg tablet Take 1 mg by mouth once daily. - amLODIPine (NORVASC) 5 mg tablet - RESTASIS 0.05 % ophthalmic emulsion - omeprazole (PRILOSEC) 40 mg capsule Problem List As Of Date 10/18/2022 Noted Resolved Primary osteoarthritis of left foot [M19.072] 05/31/2022 Pes planus of left foot [M21.42] 05/31/2022 Acquired valgus deformity of left ankle [M21.07*05/31/2022 Hypertension [I10] 08/17/2022 Obesity (BMI 30-39.9) [E66.9] 08/18/2022 Obesity, Class I, BMI 30-34.9 [E66.9] 09/04/2022 Encounter Status:Closed by ANTONIETA GALLAGHER on 10/19/[address] [facility] XR FOOT 3V AP/LAT/OBL LTon 0 10-18-2022 XR FOOT 3V AP/LAT/OBL LT * * *Final Report* * * DATE OF EXAM: Oct 18 2022 2:21PM AFR 5336 - XR FOOT 3V AP/LAT/OBL LT / PROCEDURE REASON: Primary osteoarthritis of left foot * * * * Physician Interpretation * * * * EXAMINATION / TECHNIQUE: XR FOOT 3V AP/LAT/OBL LT HISTORY: FX F/U LT FOOT Primary osteoarthritis of left foot COMPARISON: 05/31/2022 RESULT: Calcaneocuboid, talonavicular, and subtalar fusion with 2 subtalar screws, a talonavicular screw and staple plate, and 2 calcaneocuboid staple plates. Hardware appears intact. Soft tissue swelling. Mild degenerative changes elsewhere throughout the midfoot is similar to preoperative exam. IMPRESSION: Postoperative findings, as described. Wall Taper Helper: MARIA L Culverribe Date/Time: Oct 18 2022 3:34P Dictated by : BEBETO JIANG MD This examination was interpreted and the report reviewed and electronically signed by: BEBETO JIANG MD on Oct 18 2022 6:02PM EST [id number] Normal [facility] XR FOOT GENERAL 3V AP/LAT/OB L LEFTon 10-18-2022 [facility] INSULINon 10-10-2022 Insulin 10.1 uIU/mL Normal 2.6-24.9 [facility] Comment on above: Performed By: #### I NSULIN #### [facility] [address] [place] [address] Dr. Nj Sarabia CBC AUTO DIFFon 10-09-2022 BASO # 0.0 103/ul Normal 0.0-0.1 [facility] Comment on above: Performed By: #### I KRYSTIN #### [facility] [address] [place] [address] Dr. Nj Sarabia Basophils/100 WBC (Bld) 0.6 % Normal 0.2-2.0 [facility] Comment on above: Performed By: #### I KRYSTIN #### [facility] [address] [place] [address] Dr. Nj Sarabia EO # 0.2 103/ul Normal 0.0-0.7 [facility] Comment on above: Performed By: #### I KRYSTIN #### [facility] [address] [place] [address] Dr. Nj Sarabia Eosinophils/100 WBC (Bld) 5.1 % Normal 0.9-7.0 [facility] Comment on above: Performed By: #### I KRYSTIN #### [facility] [address] [place] [address] Dr. Nj Sarabia Erythrocyte distribution width (RBC) [Ratio] 13.7 % Normal 11.0-15.0 [facility] Comment on above: Performed By: #### I KRYSTIN #### [facility] [address] [place] [address] Dr. Nj Sarabia Hematocrit (Bld) [Volume fraction] 39.0 % Normal 36.0-48.0 [facility] Comment on above: Performed By: #### I KRYSTIN #### [facility] [address] [place] [address] Dr. Nj Sarabia Hemoglobin (Bld) [Mass/Vol] 12.7 g/dL Normal 12.0-16.0 [facility] Comment on above: Performed By: #### I KRYSTIN #### [facility] [address] [place] [address] Dr. Nj Sarabia IG # 0.01 10e3/ul Normal 0.00-0.03 [facility] Comment on above: Performed By: #### I KRYSTIN #### [facility] [address] [place] [address] Dr. Nj Sarabia IG % 0.2 % Normal 0.0-0.5 [facility] Comment on above: Performed By: #### I KRYSTIN #### [facility] [address] [place] [address] Dr. Nj Sarabia LYMPH # 2.1 103/ul Normal 1.2-3.8 [facility] Comment on above: Performed By: #### I KRYSTIN #### [facility] [address] [place] [address] Dr. Nj Sarabia Lymphocytes/100 WBC (Bld) 43.8 % Normal 20.5-60.0 [facility] Comment on above: Performed By: #### I KRYSTIN #### [facility] [address] [place] [address] Dr. Nj Sarabia MANUAL DIFF REQ NO Normal [facility] Comment on above: Performed By: #### I KRYSTIN #### [facility] [address] [place] [address] Dr. Nj Sarabia MCH (RBC) [Entitic mass] 27.1 pg Normal 26.7-34.0 [facility] Comment on above: Performed By: #### I KRYSTIN #### [facility] [address] [place] [address] Dr. Nj Sarabia MCHC (RBC) [Mass/Vol] 32.6 g/dL Normal 29.9-35.2 [facility] Comment on above: Performed By: #### I KRYSTIN #### [facility] [address] [address] [address] Nj Sarabia MCV (RBC) [Entitic vol] 83.3 fL Normal 81.0-99.0 [facility] Comment on above: Performed By: #### I KRYSTIN #### [facility] [address] [address] [address] Nj Sarabia MONO # 0.4 103/ul Normal 0.3-0.8 [facility] Comment on above: Performed By: #### I KRYSTIN #### [facility] [address] [address] [address] Nj Sarabia Monocytes/100 WBC (Bld) 9.1 % Normal 1.7-12.0 [facility] Comment on above: Performed By: #### I KRYSTIN #### [facility] [address] [address] [address] Nj Sarabia NEUT # 2.0 103/ul Normal 1.4-6.5 [facility] Comment on above: Performed By: #### I KRYSTIN #### [facility] [address] [address] [address] Nj Sarabia Neutrophils/100 WBC (Bld) 41.2 % Critically low 43.0-75.0 [facility] Comment on above: Performed By: #### I KRYSTIN #### [facility] [address] [address] [address] Nj Sarabia Platelet mean volume (Bld) [Entitic vol] 9.0 fL Critically low 9.5-13.5 [facility] Comment on above: Performed By: #### I KRYSTIN #### [facility] [address] [address] [address] Nj Sarabia PLT 330 103/ul Normal 150-450 [facility] Comment on above: Performed By: #### I KRYSTIN #### [facility] [address] [address] [address] Nj Sarabia RBC 4.68 106/ul Normal 4.20-5.40 [facility] Comment on above: Performed By: #### I KRYSTIN #### [facility] [address] [address] [address] Nj Sarabia WBC 4.8 103/ul Normal 4.0-11.0 [facility] Comment on above: Performed By: #### I KRYSTIN #### [facility] [address] [address] [address] Nj Sarabia FREE THYROXINE INDEX T7on FTI 2.99 Normal 1.30-4.50 [facility] Comment on above: Performed By: #### C MP #### [facility] [address] [address] [address] Nj Sarabia T3U 34.0 % Normal 30.0-39.0 [facility] Comment on above: Performed By: #### C MP #### [facility] [address] [place] [address] Dr. Nj Sarabia T4 [Mass/Vol] 8.80 ug/dL Normal 4.80-13.90 [facility] Comment on above: Performed By: #### C MP #### [facility] [address] [place] [address] Dr. Nj Sarabia GLYCOHEMOGLOBIN A1Con 2022 ADA RECOMMENDATION SEE BELOW Normal [facility] Comment on above: Result Comment: ADA RECOMMENDED LIMIT 4.0 - 6.0 ADA THERAPEUTIC TARGET < 7.0 ACTION SUGGESTED > 7.0 Performed By: #### A 1C #### [facility] [address] [place] [address] Dr. Nj Sarabia Glucose [Mass/Vol] 120 mg/dL Normal [facility] Comment on above: Performed By: #### A 1C #### [facility] [address] [place] [address] Dr. Nj Sarabia HbA1c (Bld) [Mass fraction] 5.8 % Normal 4.5-6.2 [facility] Comment on above: Performed By: #### A 1C #### [facility] [address] [place] [address] Dr. Nj Sarabia IRONon 10-09-2022 Iron [Mass/Vol] 46.0 ug/dL Critically low 50.0-170.0 [facility] Comment on above: Performed By: #### I KRYSTIN #### [facility] [address] [address] [address] Nj Sarabia LIPID PROFILEon 10-09-2022 CHOL-HDL RATIO NORM SEE BELOW Normal [facility] Comment on above: Result Comment: 3.3 - 4.4 LOW RISK 4.4 - 7.1 AVERAGE RISK 7.1 - 11.0 MODERATE RISK >11.0 HIGH RISK Performed By: #### C MP #### [facility] [address] [address] [address] Nj Sarabia Cholesterol [Mass/Vol] 244 mg/dL Critically high <=200 [facility] Comment on above: Performed By: #### C MP #### [facility] [address] [address] [address] Nj Sarabia Cholesterol in HDL [Mass/Vol] 71 mg/dL Critically high 40-60 [facility] Comment on above: Performed By: #### C MP #### [facility] [address] [address] [address] Nj Sarabia Cholesterol in LDL [Mass/Vol] 150.8 mg/dL Normal [facility] Comment on above: Performed By: #### C MP #### [facility] [address] [address] [address] Nj Sarabia Cholesterol.total/C holesterol in HDL [Mass ratio] 3.4 {ratio} Normal [facility] Comment on above: Performed By: #### C MP #### [facility] [id number] Nj Sarabia HDL NORMAL > or = 60 mg/dl - LO W CARDIOVASCULAR RISK <40 mg/dl - HIGH CARDIOVASCULAR RISK Normal [facility] Comment on above: Performed By: #### C MP #### [facility] [id number] Nj Sarabia LDL CALC NORMAL SEE BELOW Normal [facility] Comment on above: Result Comment: <100 mg/dl OPTIMAL 100 - 129 mg/dl NEAR OR ABOVE OPTIMAL 130 - 159 mg/dl BORDERLINE HIGH 160 - 189 mg/dl HIGH >190 mg/dl VERY HIGH Performed By: #### C MP #### [facility] [address] [address] [address] Nj Sarabia Triglyceride [Mass/Vol] 111 mg/dL Normal <=150 [facility] Comment on above: Performed By: #### C MP #### [facility] [address] [address] [address] Nj Sarabia VLDL CALC 22.2 mg/dL Normal [facility] Comment on above: Performed By: #### C MP #### [facility] [address] [address] [address] Nj Sarabia PROF 14(COMP METB)on 023 Albumin [Mass/Vol] 4.0 g/dL Normal 3.4-5.0 [facility] Comment on above: Performed By: #### C MP #### [facility] [address] [place] [address] Dr. Nj Sarabia Albumin/Globulin [Mass ratio] 1.1 {ratio} Normal [facility] Comment on above: Performed By: #### C MP #### [facility] [address] [place] [address] Dr. Nj Sarabia ALP [Catalytic activity/Vol] 88 U/L Normal 46-116 [facility] Comment on above: Performed By: #### C MP #### [facility] [address] [place] [address] Dr. Nj Sarabia ALT [Catalytic activity/Vol] 20 U/L Normal 14-59 [facility] Comment on above: Performed By: #### C MP #### [facility] [address] [place] [address] Dr. Nj Sarabia Anion gap [Moles/Vol] 11.8 mmol/L Normal [facility] Comment on above: Performed By: #### C MP #### [facility] [address] [place] [address] Dr. Nj Sarabia AST [Catalytic activity/Vol] 16 U/L Normal 15-37 [facility] Comment on above: Performed By: #### C MP #### [facility] [address] [address] [address] Nj Sarabia Bilirubin [Mass/Vol] 0.3 mg/dL Normal 0.2-1.0 [facility] Comment on above: Performed By: #### C MP #### [facility] [address] [address] [address] Nj Sarabia Calcium [Mass/Vol] 9.7 mg/dL Normal 8.5-10.1 [facility] Comment on above: Performed By: #### C MP #### [facility] [address] [address] [address] Nj Sarabia Chloride [Moles/Vol] 100 mmol/L Normal 98-107 [facility] Comment on above: Performed By: #### C MP #### [facility] [address] [place] [address] Dr. Nj Sarabia CO2 [Moles/Vol] 28.3 mmol/L Normal 21.0-32.0 [facility] Comment on above: Performed By: #### C MP #### [facility] [address] [place] [address] Dr. Nj Sarabia Creatinine [Mass/Vol] 0.74 mg/dL Normal 0.55-1.02 [facility] Comment on above: Performed By: #### C MP #### [facility] [address] [place] [address] Dr. Nj Sarabia EGFR-AF QATARI >60 Normal >=60 [facility] Comment on above: Performed By: #### C MP #### [facility] [address] [place] [address] Dr. Nj Sarabia EGFR-NON AF QATARI >60 Normal >=60 [facility] Comment on above: Performed By: #### C MP #### [facility] [address] [place] [address] Dr. Nj Sarabia Globulin (S) [Mass/Vol] 3.6 g/dL Normal [facility] Comment on above: Performed By: #### C MP #### [facility] [address] [place] [address] Dr. Nj Sarabia Glucose [Mass/Vol] 104 mg/dL Normal 74-106 [facility] Comment on above: Performed By: #### C MP #### [facility] [address] [address] [address] Nj Sarabia Potassium [Moles/Vol] 4.1 mmol/L Normal 3.5-5.1 [facility] Comment on above: Performed By: #### C MP #### [facility] [address] [address] [address] Nj Sarabia Protein [Mass/Vol] 7.6 g/dL Normal 6.4-8.2 [facility] Comment on above: Performed By: #### C MP #### [facility] [address] [place] [address] Dr. Nj Sarabia Sodium [Moles/Vol] 136 mmol/L Normal 136-145 [facility] Comment on above: Performed By: #### C MP #### [facility] [address] [place] [address] Dr. Nj Sarabia Urea nitrogen [Mass/Vol] 16.0 mg/dL Normal 7.0-18.0 [facility] Comment on above: Performed By: #### C MP #### [facility] [address] [place] [address] Dr. Nj Sarabia Urea nitrogen/Creatinine [Mass ratio] 21.6 mg/mg Normal [facility] Comment on above: Performed By: #### C MP #### [facility] [address] [place] [address] Dr. Nj Sarabia TSHon 10-09-2022 TSH 3.812 uIU/mL Critically high 0.358-3.740 [facility] Comment on above: Performed By: #### C MP #### [facility] [address] [place] [address] Dr. Nj Sarabia CBC AUTO DIFFon 09-26-2022 BASO # 0.0 103/ul Normal 0.0-0.1 [facility] Comment on above: Performed By: #### C BC #### [facility] [address] [place] [address] Dr. Nj Sarabia Basophils/100 WBC (Bld) 0.3 % Normal 0.2-2.0 [facility] Comment on above: Performed By: #### C BC #### [facility] [address] [place] [address] Dr. Nj Sarabia EO # 0.1 103/ul Normal 0.0-0.7 [facility] Comment on above: Performed By: #### C BC #### [facility] [address] [place] [address] Dr. Nj Sarabia Eosinophils/100 WBC (Bld) 1.8 % Normal 0.9-7.0 [facility] Comment on above: Performed By: #### C BC #### [facility] [address] [place] [address] Dr. Nj Sarabia Erythrocyte distribution width (RBC) [Ratio] 13.7 % Normal 11.0-15.0 [facility] Comment on above: Performed By: #### C BC #### [facility] [address] [place] [address] Dr. Nj Sarabia Hematocrit (Bld) [Volume fraction] 37.3 % Normal 36.0-48.0 [facility] Comment on above: Performed By: #### C BC #### [facility] [address] [place] [address] Dr. Nj Sarabia Hemoglobin (Bld) [Mass/Vol] 12.5 g/dL Normal 12.0-16.0 [facility] Comment on above: Performed By: #### C BC #### [facility] [address] [place] [address] Dr. Nj Sarabia IG # 0.02 10e3/ul Normal 0.00-0.03 [facility] Comment on above: Performed By: #### C BC #### [facility] [address] [place] [address] Dr. Nj Sarabia IG % 0.3 % Normal 0.0-0.5 [facility] Comment on above: Performed By: #### C BC #### [facility] [address] [place] [address] Dr. Nj Sarabia LYMPH # 1.5 103/ul Normal 1.2-3.8 [facility] Comment on above: Performed By: #### C BC #### [facility] [address] [place] [address] Dr. Nj Sarabia Lymphocytes/100 WBC (Bld) 21.8 % Normal 20.5-60.0 [facility] Comment on above: Performed By: #### C BC #### [facility] [address] [place] [address] Dr. Nj Sarabia MANUAL DIFF REQ NO Normal [facility] Comment on above: Performed By: #### C BC #### [facility] [address] [place] [address] Dr. Nj Sarabia MCH (RBC) [Entitic mass] 27.8 pg Normal 26.7-34.0 [facility] Comment on above: Performed By: #### C BC #### [facility] [address] [place] [address] Dr. Nj Sarabia MCHC (RBC) [Mass/Vol] 33.5 g/dL Normal 29.9-35.2 [facility] Comment on above: Performed By: #### C BC #### [facility] [address] [place] [address] Dr. Nj Sarabia MCV (RBC) [Entitic vol] 83.1 fL Normal 81.0-99.0 [facility] Comment on above: Performed By: #### C BC #### [facility] [address] [place] [address] Dr. Nj Sarabia MONO # 0.4 103/ul Normal 0.3-0.8 [facility] Comment on above: Performed By: #### C BC #### [facility] [address] [place] [address] Dr. Nj Sarabia Monocytes/100 WBC (Bld) 6.5 % Normal 1.7-12.0 [facility] Comment on above: Performed By: #### C BC #### [facility] [address] [place] [address] Dr. Nj Sarabia NEUT # 4.7 103/ul Normal 1.4-6.5 [facility] Comment on above: Performed By: #### C BC #### [facility] [address] [place] [address] Dr. Nj Sarabia Neutrophils/100 WBC (Bld) 69.3 % Normal 43.0-75.0 [facility] Comment on above: Performed By: #### C BC #### [facility] [address] [place] [address] Dr. Nj Sarabia Platelet mean volume (Bld) [Entitic vol] 9.3 fL Critically low 9.5-13.5 [facility] Comment on above: Performed By: #### C BC #### [facility] [address] [place] [address] Dr. Nj Sarabia PLT 367 103/ul Normal 150-450 [facility] Comment on above: Performed By: #### C BC #### [facility] [address] [place] [address] Dr. Nj Sarabia RBC 4.49 106/ul Normal 4.20-5.40 [facility] Comment on above: Performed By: #### C BC #### [facility] [address] [place] [address] Dr. Nj Sarabia WBC 6.8 103/ul Normal 4.0-11.0 [facility] Comment on above: Performed By: #### C BC #### [facility] [address] [place] [address] Dr. Nj Sarabia PROF CHEM 8 (BAS METB)on Anion gap [Moles/Vol] 12.9 mmol/L Normal [facility] Comment on above: Performed By: #### H STROPN, BMP #### [facility] [address] [place] [address] Dr. Nj Sarabia Calcium [Mass/Vol] 9.9 mg/dL Normal 8.5-10.1 [facility] Comment on above: Performed By: #### H STROPN, BMP #### [facility] [address] [place] [address] Dr. Nj Sarabia Chloride [Moles/Vol] 98 mmol/L Normal 98-107 [facility] Comment on above: Performed By: #### H STROPN, BMP #### [facility] [address] [address] [address] Nj Sarabia CO2 [Moles/Vol] 27.2 mmol/L Normal 21.0-32.0 [facility] Comment on above: Performed By: #### H STROPN, BMP #### [facility] [address] [address] [address] Nj Sarabia Creatinine [Mass/Vol] 0.67 mg/dL Normal 0.55-1.02 [facility] Comment on above: Performed By: #### H STROPN, BMP #### [facility] [address] [place] [address] Dr. Nj Sarabia EGFR-AF QATARI >60 Normal >=60 [facility] Comment on above: Performed By: #### H STROPN, BMP #### [facility] [address] [place] [address] Dr. Nj Sarabia EGFR-NON AF QATARI >60 Normal >=60 [facility] Comment on above: Performed By: #### H STROPN, BMP #### [facility] [address] [place] [address] Dr. Nj Sarabia Glucose [Mass/Vol] 113 mg/dL Critically high 74-106 [facility] Comment on above: Performed By: #### H STROPN, BMP #### [facility] [address] [place] [address] Dr. Nj Sarabia Potassium [Moles/Vol] 4.1 mmol/L Normal 3.5-5.1 [facility] Comment on above: Performed By: #### H STROPN, BMP #### [facility] [address] [place] [address] Dr. Nj Sarabia Sodium [Moles/Vol] 134 mmol/L Critically low 136-145 [facility] Comment on above: Performed By: #### H STROPN, BMP #### [facility] [address] [place] [address] Dr. Nj Sarabia Urea nitrogen [Mass/Vol] 17.0 mg/dL Normal 7.0-18.0 [facility] Comment on above: Performed By: #### H FRANCIA, SIENA #### [facility] [address] [place] [address] Dr. Nj Sarabia Urea nitrogen/Creatinine [Mass ratio] 25.4 mg/mg Normal [facility] Comment on above: Performed By: #### H FRANCIA, SIENA #### [facility] [address] [place] [address] Dr. Nj Sarabia TROPONIN, HIGH SENSITIVITYon 09-26-2022 HSTROP 11.4 pg/mL Normal 4.0-51.3 [facility] Comment on above: Result Comment: CUT- OFF POINTS HAVE BEEN ESTABLISHED BASED ON THE FOURTH UNIVERSAL DEFINITIONS OF MYOCARDIAL INFARCTION. THE UPPER REFERENCE LIMIT (URL) OF TROPONIN, DEFINED THE 99TH PERCENTILE OF cTnI DISTRIBUTION IN A REFERENCE POPULATION, HAS BEEN CONFIRMED THE DECISION THRESHOLD FOR OK DIAGNOSIS. Performed By: #### H FRANCIA, SIENA #### [facility] [address] [place] [address] Dr. Nj Sarabia XR CHEST 1 Von 09-26-2022 XR CHEST 1 V EXAM: XR CHEST 1 V HISTORY: Chest pain. COMPARISON: 03/15/2022. TECHNIQUE: AP erect portable view of the chest performed. FINDINGS: The trachea air column is unremarkable. The heart size is upper limits normal and stable. The lung macias are clear. There is no consolidation or infiltrate. There is no pleural effusion or pulmonary vascular congestion. There is no pneumothorax. There is no acute osseous abnormality. IMPRESSION: Unremarkable AP erect portable chest radiograph. Electronically authenticated by: JOHN SANCHEZ Date: 2022-09-26 12:42 Normal [facility] CNOVon 09-20-2022 CNOV Office Visit (ORAVON ) -------- ELENITA HOWARD ([id number]) 1955 F Date Time Provider Department 09/20/22 11:15 AM KAYLIE CHARLES During your visit today, we recorded the following information about you: Kaylie Charles MD 09/22/2022 4:59 PM Signed POD #15 Surgery: left triple arthrodesis, proximal tibia bone graft harvest, large, 30 cc, hardware removal calcaneus, surgeon monitored fluoroscopy on 09/05/22 She is doing very well, swelling has come down, skin healing nicely Dressings: short leg non weight bearing cast removed to check incision and remove sutures, replaced with same Incision: dry/intact/well-approxim ated, no redness Sutures: removed today Drain: NA Pin sites: NA Left foot pain: 0/10 Calf assessment: soft, non-tender, no complaints of pain Concerns: none currently Followup and plan: follow up at 6 weeks postop for xrays of left foot out of the cast Kaylie Charles MD Allergies As of Date: 09/20/2022 Noted Allergy Reaction BEE STING 08/31/2021 4 - Hives LATEX 09/24/2013 9 - Itching SIMVASTATIN 08/13/2014 8 - GI Upset SULFA (SULFONAMIDE ANTIBIOTICS) 09/24/2013 2 - Rash Date Reviewed: 09/20/2022 Reviewed by: Lizette Bowden RN - Fully Assessed Reason for Visit: Post Op [174] Wound Check [133] Suture Removal [105] Primary Visit Diagnosis:Primary osteoarthritis of left foot [M19.072] Order(s):XR FOOT GENERAL 3V AP/LAT/OBL LEFT [[id number]] Order #: [id number] FUTURE Prescriptions as of 09/22/2022 - INV VITAMIN D3 5000 UNITS CAPSULE (IRB 19-1548) Take 5,000 Units by mouth once daily. For Investigational Drug Use Only. PI: Ce Batista, PhD. Take one capsule by mouth daily for 3 months prior to surgery and 3 months after surgery. - fexofenadine (JACKY) 180 mg tablet Take 180 mg by mouth once daily. - melatonin 1 mg tablet Take 1 mg by mouth once daily. - amLODIPine (NORVASC) 5 mg tablet - RESTASIS 0.05 % ophthalmic emulsion - omeprazole (PRILOSEC) 40 mg capsule Medication notes this encounter ACETAMINOPHEN 325 MG TABLET >> Lizette Bowden RN 09/20/2022 11:03 AM she takes them prn now, not ATC KETOROLAC 10 MG TABLET >> Lizette Bowden RN 09/20/2022 11:02 AM completed medication as directed, no tablets left CEPHALEXIN 500 MG CAPSULE >> Lizette Bowden RN 09/20/2022 11:02 AM completed medication as directed, no capsules left Problem List As Of Date 09/20/2022 Noted Resolved Primary osteoarthritis of left foot [M19.072] 05/31/2022 Pes planus of left foot [M21.42] 05/31/2022 Acquired valgus deformity of left ankle [M21.07*05/31/2022 Hypertension [I10] 08/17/2022 Obesity (BMI 30-39.9) [E66.9] 08/18/2022 Obesity, Class I, BMI 30-34.9 [E66.9] 09/04/2022 Medications Discontinued During This Encounter Prescriptions - keTORolac (TORADOL) 10 mg tablet (Discontinued) Take 1 tablet by mouth every 6 hours as needed. for moderate level of postoperative pain after surgery on 09/05/22. - cephALEXin (KEFLEX) 500 mg capsule (Discontinued) Take 1 capsule by mouth four times daily. - acetaminophen (TYLENOL) 325 mg tablet (Discontinued) Take 2 tablets by mouth every 4 hours while awake. after surgery on 09/05/22 until no longer needed. Encounter Status:Closed by KAYLIE CHARLES on 09/22/[address] [facility] CNOV Office Visit (JANIA ) -------- ELENITA HOWARD ([id number]) 1955 F Date Time Provider Department 09/20/22 10:30 AM CAST TECH STACI DYKES During your visit today, we recorded the following information about you: Sarah Kelly LPN 09/20/2022 4:08 PM Signed PT ASSESSMENT - CASTING ROOM Elenita presents for cast removal. Applied short cast: to Left leg Patient has been instructed in Care of cast.. Sarah Kelly LPN Beeper: [id number] Allergies As of Date: 09/20/2022 Noted Allergy Reaction BEE STING 08/31/2021 4 - Hives LATEX 09/24/2013 9 - Itching SIMVASTATIN 08/13/2014 8 - GI Upset SULFA (SULFONAMIDE ANTIBIOTICS) 09/24/2013 2 - Rash Date Reviewed: 09/20/2022 Reviewed by: Lizette Bowden RN - Fully Assessed Primary Visit Diagnosis:Pain in left foot [M79.672] Prescriptions as of 09/20/2022 - INV VITAMIN D3 5000 UNITS CAPSULE (IRB 19-1548) Take 5,000 Units by mouth once daily. For Investigational Drug Use Only. PI: Ce Batista, PhD. Take one capsule by mouth daily for 3 months prior to surgery and 3 months after surgery. - fexofenadine (JACKY) 180 mg tablet Take 180 mg by mouth once daily. - melatonin 1 mg tablet Take 1 mg by mouth once daily. - amLODIPine (NORVASC) 5 mg tablet - RESTASIS 0.05 % ophthalmic emulsion - omeprazole (PRILOSEC) 40 mg capsule Problem List As Of Date 09/20/2022 Noted Resolved Primary osteoarthritis of left foot [M19.072] 05/31/2022 Pes planus of left foot [M21.42] 05/31/2022 Acquired valgus deformity of left ankle [M21.07*05/31/2022 Hypertension [I10] 08/17/2022 Obesity (BMI 30-39.9) [E66.9] 08/18/2022 Obesity, Class I, BMI 30-34.9 [E66.9] 09/04/2022 Encounter Status:Closed by SARAH KELLY on 09/20/[address] [facility] Arianna 09-15-2022 SAMUEL Telephone ([place]) -------- LEEELENITA ([id number]) 1955 F Date Time Provider Department 09/15/22 KAYLIE CHARLES During your visit today, we recorded the following information about you: Shama Benito Pss 09/15/2022 1:53 PM Signed Elenita Lee called today. : 1955 Allergies: Bee Sting, Latex, Simvastatin, and Sulfa (Sulfonamide Antibiotics) (home) Reason for call: Patient wondering if she is able to take aleve since she is out of ketorlac. Also wondering about weaning herself off oxycodone. Please advise and call patient Patient last appointment: 09/08/2022 The patients preferred pharmacy has been captured for this encounter? not asked Shama Benito Pss Yong Valiente MA 09/15/2022 2:37 PM Signed Placed call to patient. Let her know that she can back off the oxt if she feeling okay and wants to that she does not have to take it if she does want to. Also let her know that she can take the aleve but not at the same time she is taking the ketorlac Allergies As of Date: 09/15/2022 Noted Allergy Reaction BEE STING 08/31/2021 4 - Hives LATEX 09/24/2013 9 - Itching SIMVASTATIN 08/13/2014 8 - GI Upset SULFA (SULFONAMIDE ANTIBIOTICS) 09/24/2013 2 - Rash Date Reviewed: 09/05/2022 Reviewed by: Alesia Hair RN - Fully Assessed Reason for Visit: Patient Update [1234] Prescriptions as of 09/15/2022 - acetaminophen (TYLENOL) 325 mg tablet Take 2 tablets by mouth every 4 hours while awake. after surgery on 09/05/22 until no longer needed. - keTORolac (TORADOL) 10 mg tablet Take 1 tablet by mouth every 6 hours as needed. for moderate level of postoperative pain after surgery on 09/05/22. - cephALEXin (KEFLEX) 500 mg capsule Take 1 capsule by mouth four times daily. - INV VITAMIN D3 5000 UNITS CAPSULE (IRB 19-1548) Take 5,000 Units by mouth once daily. For Investigational Drug Use Only. PI: Ce Batista, PhD. Take one capsule by mouth daily for 3 months prior to surgery and 3 months after surgery. - fexofenadine (JACKY) 180 mg tablet Take 180 mg by mouth once daily. - melatonin 1 mg tablet Take 1 mg by mouth once daily. - amLODIPine (NORVASC) 5 mg tablet - RESTASIS 0.05 % ophthalmic emulsion - omeprazole (PRILOSEC) 40 mg capsule Problem List As Of Date 09/15/2022 Noted Resolved Primary osteoarthritis of left foot [M19.072] 05/31/2022 Pes planus of left foot [M21.42] 05/31/2022 Acquired valgus deformity of left ankle [M21.07*05/31/2022 Hypertension [I10] 08/17/2022 Obesity (BMI 30-39.9) [E66.9] 08/18/2022 Obesity, Class I, BMI 30-34.9 [E66.9] 09/04/2022 Encounter Status:Closed by YONG VALIENTE on 09/15/[address] [facility] CNOVon 09-08-2022 CNOV Office Visit (ORAVON ) -------- ELENITA HOWARD ([id number]) 1955 F Date Time Provider Department 09/08/22 10:00 AM CAST TECH STACI DYKES During your visit today, we recorded the following information about you: Sarah Kelly LPN 09/08/2022 11:37 AM Signed PT ASSESSMENT - CASTING ROOM Elenita presents for cast removal. Applied short cast: to Left leg Patient has been instructed in Care of cast.. Sarah Kelly LPN Beeper: [id number] Allergies As of Date: 09/08/2022 Noted Allergy Reaction BEE STING 08/31/2021 4 - Hives LATEX 09/24/2013 9 - Itching SIMVASTATIN 08/13/2014 8 - GI Upset SULFA (SULFONAMIDE ANTIBIOTICS) 09/24/2013 2 - Rash Date Reviewed: 09/05/2022 Reviewed by: Alesia Hair RN - Fully Assessed Primary Visit Diagnosis:Left ankle pain, unspecified chronicity [M25.572] Prescriptions as of 09/08/2022 - acetaminophen (TYLENOL) 325 mg tablet Take 2 tablets by mouth every 4 hours while awake. after surgery on 09/05/22 until no longer needed. - keTORolac (TORADOL) 10 mg tablet Take 1 tablet by mouth every 6 hours as needed. for moderate level of postoperative pain after surgery on 09/05/22. - cephALEXin (KEFLEX) 500 mg capsule Take 1 capsule by mouth four times daily. - INV VITAMIN D3 5000 UNITS CAPSULE (IRB 19-1548) Take 5,000 Units by mouth once daily. For Investigational Drug Use Only. PI: Ce Batista, PhD. Take one capsule by mouth daily for 3 months prior to surgery and 3 months after surgery. - fexofenadine (JACKY) 180 mg tablet Take 180 mg by mouth once daily. - melatonin 1 mg tablet Take 1 mg by mouth once daily. - amLODIPine (NORVASC) 5 mg tablet - RESTASIS 0.05 % ophthalmic emulsion - omeprazole (PRILOSEC) 40 mg capsule Problem List As Of Date 09/08/2022 Noted Resolved Primary osteoarthritis of left foot [M19.072] 05/31/2022 Pes planus of left foot [M21.42] 05/31/2022 Acquired valgus deformity of left ankle [M21.07*05/31/2022 Hypertension [I10] 08/17/2022 Obesity (BMI 30-39.9) [E66.9] 08/18/2022 Obesity, Class I, BMI 30-34.9 [E66.9] 09/04/2022 Encounter Status:Closed by SARAH KELLY on 09/08/[address] [facility] CNOVon 09-06-2022 CNOV Office Visit (ORAVON ) -------- ELENITA HOWARD ([id number]) 1955 F Date Time Provider Department 09/06/22 3:15 PM KAYLIE CHARLES During your visit today, we recorded the following information about you: Kyle D Peña Pickett 09/14/2022 8:56 AM Signed The appointment was cancelled for this patient. Kyle D Peña Pickett Allergies As of Date: 09/06/2022 Noted Allergy Reaction BEE STING 08/31/2021 4 - Hives LATEX 09/24/2013 9 - Itching SIMVASTATIN 08/13/2014 8 - GI Upset SULFA (SULFONAMIDE ANTIBIOTICS) 09/24/2013 2 - Rash Date Reviewed: 09/05/2022 Reviewed by: Alesia Hair, RN - Fully Assessed Reason for Visit: Post Op [174] Wound Check [133] Appointment Cancelled [1023] Primary Visit Diagnosis:Primary osteoarthritis of left foot [M19.072] Other Visit Diagnosis:APPOINTMENT CANCELLED Prescriptions as of 09/14/2022 - acetaminophen (TYLENOL) 325 mg tablet Take 2 tablets by mouth every 4 hours while awake. after surgery on 09/05/22 until no longer needed. - keTORolac (TORADOL) 10 mg tablet Take 1 tablet by mouth every 6 hours as needed. for moderate level of postoperative pain after surgery on 09/05/22. - cephALEXin (KEFLEX) 500 mg capsule Take 1 capsule by mouth four times daily. - INV VITAMIN D3 5000 UNITS CAPSULE (IRB 19-1548) Take 5,000 Units by mouth once daily. For Investigational Drug Use Only. PI: Ce Batista, PhD. Take one capsule by mouth daily for 3 months prior to surgery and 3 months after surgery. - fexofenadine (JACKY) 180 mg tablet Take 180 mg by mouth once daily. - melatonin 1 mg tablet Take 1 mg by mouth once daily. - amLODIPine (NORVASC) 5 mg tablet - RESTASIS 0.05 % ophthalmic emulsion - omeprazole (PRILOSEC) 40 mg capsule Problem List As Of Date 09/06/2022 Noted Resolved Primary osteoarthritis of left foot [M19.072] 05/31/2022 Pes planus of left foot [M21.42] 05/31/2022 Acquired valgus deformity of left ankle [M21.07*05/31/2022 Hypertension [I10] 08/17/2022 Obesity (BMI 30-39.9) [E66.9] 08/18/2022 Obesity, Class I, BMI 30-34.9 [E66.9] 09/04/2022 Encounter Status:Closed by KYLE SCHMIDT on 09/14/22 Normal [facility] HISTORY PHYSICALon HISTORY PHYSICAL HNO ID: [id number] Author: Hodan Townsend PA-C Service: ? 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 Kaylie Charles for consultation. My final recommendation will be communicated back to the requesting physician by way of shared medical record or letter. The patient has the following: ACTIVE PROBLEM LIST Primary Osteoarthritis of Left Foot Pes Planus of Left Foot Acquired Valgus Deformity of Left Ankle Hypertension Obesity (Bmi 30-39.9) Subjective CHIEF COMPLAINT: Primary osteoarthritis of left foot, Pes planus of left foot, acquired valgus deformity of left ankle HPI: Patient is a 66 year old female presenting to pre-anesthesia consultation. Patient has has been experiencing left foot pain for approximately 20 years. She has had 2 previous foot surgeries which have not helped. She wears a brace which does help somewhat. Pain is worse with walking but does get alleviated with rest. She has been diagnosed with primary osteoarthritis of left foot, pes planus of left foot, and acquired valgus deformity of left ankle and has been recommended for the above surgery. History reviewed. No pertinent past medical history. PAST SURGICAL HISTORY Procedure Laterality Date COLONOSCOPY SCREENING x3 PAST SURGICAL HISTORY OF Left foot surgery x 2 (2019) FAMILY HISTORY Problem Relation Age of Onset Heart Failure Mother at age 93 Heart Failure Father at age 53 Cancer Sister at age 42 SOCIAL HISTORY: Social History Tobacco Use Smoking status: Former Years: 2.00 Types: Cigarettes Quit date: 1974 Years since quittin.0 Smokeless tobacco: Never Tobacco comments: Social smoker Substance Use Topics Alcohol use: Yes Alcohol/week: 4.0 standard drinks Types: 4 Glasses of wine per week Drug use: Never MEDICATIONS: Prior to Admission medications as of 08/18/22 1454 Medication Sig Last Dose Taking INV VITAMIN D3 5000 UNITS CAPSULE (IRB 19-1548) Take 5,000 Units by mouth once daily. For Investigational Drug Use Only. PI: Ce Batista, PhD. Take one capsule by mouth daily for 3 months prior to surgery and 3 months after surgery. Taking Yes fexofenadine (JACKY ALLERGY) 180 mg tablet Take 180 mg by mouth once daily. Taking Yes melatonin 1 mg tablet Take 1 mg by mouth once daily. Taking Yes amLODIPine (NORVASC) 5 mg tablet Taking Yes RESTASIS 0.05 % ophthalmic emulsion Taking Yes omeprazole (PRILOSEC) 40 mg capsule Taking Yes MELOXICAM ORAL Take 15 mg by mouth. Taking Yes No medication comments found. CURRENT ALLERGIES: ALLERGIES Allergen Reactions Bee Sting Hives Latex Itching Simvastatin GI Upset Sulfa (Sulfonamide * Rash COVID VACCINATION STATUS: Fully vaccinated REVIEW OF SYSTEMS: PAIN ASSESSMENT: General: No weight loss, malaise or fevers. Neuro: No history of TIA's, stroke, TREAD TUBER MACHINE OPERATOR tumor, impaired sensorium, hemiplegia, paraplegia or quadraplegia. No neurological symptoms or problems. Respiratory: No history of current cough or dyspnea, or pneumonia in the past 6 weeks. No history of respiratory/pulmonary symptoms or problems. Cardiovascular: +HTN Negative for Recent OK, Angina, CAD, Chest Pain, CHF, DVT/PE GI: No history of GI symptoms or problems. No history of esophageal varices, recent ascites, or ETOH greater than 2 drinks per day. : +frequency, incontinence Negative for dysuria and hematuria Endocrine: No history of diabetes. Has not taken steroids within the past 30 days. No history of endocrinological symptoms or problems. Hematology: No history of bleeding or clotting disorder. Pt is not taking anti-coagulation or platelet medications. No history of hematological symptoms or problems. Oncology: No history of CA metastasis, chemo within 30 days, or radiotherapy within 90 days. Has not lost 10% of body wt in 6 months. No history of oncological symptoms or problems. Psych: No history of psychiatric symptoms or problems. Musculoskeletal: See HPI Skin: Negative for lesions, rash and itching. Objective PHYSICAL EXAM: VITALS: BP 143/82 Pulse 80 Temp (Src) 97.4 (Oral) Resp 16 Ht 5' 2 (1.58m) Wt 187 lb (84.8kg) SpO2 97% BMI 34.19 kg/(m2). General: Alert and oriented, obese Skin: Normal color, no rash, no lesions. HEENT: EOM, pupils equal, round and reactive. Cardiovascular: Normal S1 AND S2, no rubs, murmurs or gallops. No JVD. Pulse regular. Lungs: Normal breath sounds, no wheezes or crackles. Abdomen: Soft, non-tender, no rigidity. Extremities: No deformity, no edema or tenderness, no joint swelling or clubbing. Neurological: Nor (more content not included)... Normal [facility] Facesheeton 07-20-2022 Facesheet [id number] [id number]: 127 Normal [facility] General Surgery Office/Clini c Noteon 07-19-2022 General Surgery Office/Clinic Note Chief Complaint colonoscopy follow up HPI Staff 7 day post operative follow up post colonoscopy with cecal and ascending colon polypectomies. History of Present Illness 1 week s/p colonoscopy with polypectomy x 2; removal of small cecal tubular adenoma, and 5 mm tubulovillous adenoma from ascending colon; also with moderate sigmoid diverticulosis. doing well, denies abd pain or blood in stools. Review of Systems ROS - Provider Constitutional: no fever, no sweats, no weight loss. Eyes: no glasses, no blurred vision, no visual loss. ENMT: no dentures, no hoarseness, no swallowing difficulties, no hearing loss, no ear infection(s), no nose bleeds. Cardiovascular: normal blood pressure, no chest pain, regular heartbeat, no heart murmur. Respiratory: no shortness of breath, no cough, no asthma, no wheezing. Gastrointestinal: no nausea, no vomiting, no diarrhea, no constipation, no blood in stool, no change in bowel habits, no abdominal pain, no hepatitis. Genitourinary: no kidney stones, no urine infection, no dysuria. Musculoskeletal: no pain, no weakness. Skin: no changing moles, no rash, no skin lumps. Neurologic: no seizures, no epilepsy, no headache. Psychiatric: no emotional or psychiatric problem. Heme/Lymph: no bleeding problems, no anemia, no blood clots, no transfusions. Allergy/Immunologic: no swollen lymph nodes/glands, no IV drug abuse. Other: Additional ROS info: Except as noted in the above Review of Systems and in the History of Present Illness, all other systems have been reviewed and are negative or noncontributory. Assessment/Plan 1. Tubulovillous adenoma of colon (D12.6: Benign neoplasm of colon, unspecified) plan surveillance colonoscopy in 3 years; call sooner if problems/questions. 2. Benign neoplasm of ascending colon (D12.2: Benign neoplasm of ascending colon) see # 1 Follow-up No qualifying data available Problem List/Past Medical History Ongoing BMI 32.0-32.9,adult Fibrocystic breast disease GERD (gastroesophageal reflux disease) HTN (hypertension) Low back pain syndrome Migraines Mood disorder Personal history of colonic polyps Pure hypercholesterolemia Seasonal allergic rhinitis Tubular adenoma of colon Tubulovillous adenoma of colon Historical No qualifying data Procedure/Surgical History Colonoscopy (07/12/2022), CE - Cataract extraction, Colonoscopy, Colonoscopy, Cryocautery of cervix, Dilation and curettage, LASIK. Medications amLODIPine 5 mg Tab, 5 mg= 1 tab(s), Oral, Daily meloxicam omeprazole 40 mg Cap-DR, 40 mg= 1 cap(s), Oral, Daily Allergies Augmentin (Unknown) simvastatin (Unknown) sulfa drugs (Unknown) Social History Alcohol Current, Wine, Liquor, 1-2 times per week, 05/23/2022 Substance Abuse - Denies Substance Abuse, 05/23/2022 Tobacco Never (less than 100 in lifetime) Tobacco Use:. Never Smokeless Tobacco Use:., 05/23/2022 Family History Cancer: Sister. Cardiac arrest: Father. Heart disease: Father. Heart failure: Mother. Hyperlipidemia: Brother. Hypertension: Mother and Father. Normal [facility] Comment on above: Result Comment: Elec tronically Signed By: KENYETTA CAMPO, Luis Abraham\Date and Time Signed: 07/19/22 16:25 EST Reminderson 07-19-2022 Reminders - From: Mariam Shin LPN To: aMriam Shin LPN; Sent: 07/19/2022 16:00:02 EST Show up: 06/11/2025 07:00:00 EDT Subject: colonoscopy recall Due Date/Time: 07/12/2025 07:00:00 EST Reminder/Recall Patient is due for colonoscopy 07/12/2025 due to history of tubulovillous adenoma. Normal [facility] Outside Colonoscopyon 2021 Outside Colonoscopy [id number] 2019 [id number]: 127 Normal [facility] Pathology Noteon 07-17-2022 Pathology Note [id number] :127 Normal [facility] Lab Reportson 07-10-2022 Lab Reports [id number]: 127 Normal [facility]14 SARS-CoV-2 (COVID-19) RNA LAMONTE+probe Ql (Unsp spec) Not detected Normal NOT DETECTED [facility] Comment on above: Result Comment: When diagnostic testing is negative, the possibility of a false negative should be considered in the context of a patient's recent exposures and the presence of clinical signs and symptoms consistent with SARS-CoV-2. This test is not yet approved or cleared by the [place] FDA. When there are no FDA-approved or cleared tests available, and other criteria are met, FDA can make tests available under an emergency access mechanism called an Emergency Use Authorization (EUA). The EUA for this test is supported by the [place] of Health and Human Service's declaration that circumstances exist to justify the emergency use of in vitro diagnostics for the detection and/or diagnosis of the virus that causes COVID-19. This EUA will remain in effect for the duration of the COVID-19 declaration justifying emergency of IVDs, unless it is terminated or revoked by the FDA (after which the test may no longer be used). Performed By: #### C VDTBH #### [facility] [address] [address] [address] Nj Sarabia VITAMIN D 25 OHon 07-08-2022 VIT D 25-OH 46.4 ng/mL Normal [facility] Comment on above: Performed By: #### V ITAD #### [facility] [id number] Nj Sarabia VIT D RANGES SEE BELOW Normal [facility] Comment on above: Result Comment: <20 ng/mL Vit D deficient 20 - <30 ng/mL Vit D insufficient 30 - 100 ng/mL Vit D sufficient >100 ng/mL Potential Toxicity Performed By: #### V ITAD #### [facility] [address] [address] [address] Nj Sarabia CNOVon 05-31-2022 CNOV Office Visit (ORAVON ) -------- ELENITA HOWARD ([id number]) 1955 F Date Time Provider Department 05/31/22 2:30 PM KAYLIE CHARLES During your visit today, we recorded the following information about you: Kaylie Charles MD 05/31/2022 10:00 PM Signed New Patient Referring Physician: self Elenita Howard is a 66 year old female referred by self for her left foot pain. She states that she has been feeling this pain for about 2 years since her surgery of her joints in 2019. She states that her pain is only off and on when she is not wearing the brace. She states that her pain level is 4/10. She states that her pain feels achy when she is stepping on its. She states that does take medication when she is in a lot of pain. Do you have a metal allergy?: No Current Outpatient Medications Medication Sig Dispense Refill amLODIPine (NORVASC) 5 mg tablet RESTASIS 0.05 % ophthalmic emulsion omeprazole (PRILOSEC) 40 mg capsule ondansetron orally disintegrating (ZOFRAN ODT) 4 mg disintegrating tablet MELOXICAM ORAL Take by mouth. No current facility-administered medications for this visit. Allergies As of Date: 05/31/2022 Allergen Noted Reaction BEE STING 08/31/2021 Hives EPINEPHRINE 01/11/2017 GI Upset LATEX 09/24/2013 Itching SIMVASTATIN 08/13/2014 GI Upset SULFA (SULFONAMIDE ANTIBIOTICS) 09/24/2013 Rash Fully Assessed 05/31/2022 No past medical history on file. No past surgical history on file. Occupation: Retired -occupational requirements: none Recreational Activities: swimming Activities restrictions as follows: none Location: Foot Left Is the patient having any pain? Yes PAIN SCALE: 4 on a scale of 0-10 Pain Onset:gradual Does the pain radiate? No Associated Factors: swelling and weakness Precipitating Factors: Standing, Walking, and As day progresses Relieving Factors: resting and medications - NSAIDs Progression: Worsening Previous Treatment as follows: Injections and surgery PT ROS: Have you had any problems or treatment of the following? If yes please describe. Head:No Eyes:Yes: Ears, nose or throat: No Lungs: No Heart or blood pressure: Yes: Stomach or Bowels: No Kidney or Bladder: No Female organs: Yes: Nerve or mental illness: No DM: No Peripheral Vascular Disease: No Inflammatory Arthritis: Yes: Other: none Bleeding Disorders: No FAMILY HISTORY: Has any member of your immediate family (parents or siblings) had this same problem? If so , who? and what? No SOCIAL HISTORY Marital Status: Tobacco: Non-smoker, never smoked Alcohol: Social drinker -------- WORKERS' COMPENSATION CLAIM Have you missed work for this problem? No If yes, what dates have you missed? Pending Litigation? No What tests have been done for this problem? X-Rays The patient's pertinent medical history from [facility] has been reviewed. PFOMIS forms have been reviewed. The patient's history of present illness has been confirmed. PHYSICAL EXAM: left foot Physical examination reveals an alert and oriented patient who is in no acute distress while sitting and is of normal mood and affect. There were no vitals taken for this visit. Gait Cycle: Normal No, Limp: antalgic:left. Inspection: Alignment: calcaneal valgus and Pes planus Symmetry: Swelling: yes. Redness: no. Ecchymosis: no Effusion: 0 Palpation: Warmth: no, Tenderness: Subfibular ROM: Ankle- Extension:0 Ankle-Flexion:30 Ankle- Inversion: 0 Ankle- Eversion: 10. Strength: 5 Stability: Ligamentous instability: no Specialized Tests: Single inversion heel rise: Unable Neurologic Status: normal. Vascular Status: normal Skin: Incision: well healed, clean, dry and intact Right Upper Extremities:No gross abnormalities Left Upper Extremities:No gross abnormalities Xrays: Severe pes planus with arthritic changes in the foot, retained hardware Dx: (M19.072) Primary osteoarthritis of left foot (primary encounter diagnosis) (M21.42) Pes planus of left foot (M21.072) Acquired valgus deformity of left ankle Plan: I had lengthy discussion with the patient and her today concerning all options for treatment. I did prescribe a Gali brace. If she does decide to go ahead with surgery talked about a triple arthrodesis with the possibility of medial column correction also. Proximal tibia bone graft harvest. Preoperative vitamin D and physical therapy. Surgical risk benefits outcomes and postoperative course were discussed in great detail. HPI explored in detail with patient and edited as necessary. This visit required reviewed the patient's medical records, updating historical information, assessing changes in physical examination, and review of all testing information. It required patient-provide (more content not included)... Normal [facility] No Panel Informationon 05-31 [facility] XR FOOT 3V AP/LAT/OBL LTon 1 XR FOOT 3V AP/LAT/OBL LT * * *Final Report* * * DATE OF EXAM: May 31 2022 1:50PM AFR [id number] - XR FOOT 3V AP/LAT/OBL LT / PROCEDURE REASON: Pain * * * * Physician Interpretation * * * * HISTORY (as given from clinical provider): Pain . Additional history provided by the performing technologist (if any): LATERAL LEFT FOOT PAIN TECHNIQUE: XR FOOT 3V AP/LAT/OBL LT COMPARISON: None RESULT: Calcaneal osteotomy transfixed by 2 screws. This appears to be healed. Moderate pes planus. Evaluation of the subtalar joints is limited. Mild osteoarthritis of the first MTP joint. No other significant abnormality. IMPRESSION: NO ACUTE OSSEOUS ABNORMALITY OTHER FINDINGS DESCRIBED Wall Taper Helper: MARIA L Transcribe Date/Time: May 31 2022 3:12P Dictated by : NATALIE CHOPRA MD This examination was interpreted and the report reviewed and electronically signed by: NATALIE CHOPRA MD on May 31 2022 3:13PM EST [id number] Normal [facility] Consent for Procedure/Surger yon 05-25-2022 Consent for Procedure/Surgery [id number]: 127 Normal [facility] Ambulatory Visit Summaryon 1 Ambulatory Visit Summary ELENITA HOWARD :1955 Visit Date:05/23/2022 Ambulatory Visit Instructions Your Diagnosis Personal history of colonic polyps Your Care Team Attending Physician - KENYETTA CAMPO, Luis Monterroso Primary Care Physician - Patricia CAMPO, Heraclio Referring Physician - Heraclio Gomez MD This Is Your Medications List Contact prescribing physician if questions or concerns amlodipine (amLODIPine 5 mg Tab) meloxicam omeprazole (omeprazole 40 mg Cap-DR) Procedures Performed CE - Cataract extraction, Colonoscopy, Colonoscopy, Cryocautery of cervix, Dilation and curettage, LASIK. Discharge Vitals Heart Rate (Peripheral) 76 Respiratory Rate 16 Blood Pressure 126/80 Height 162.5 cm Height 64 in Weight 84.8 kg Weight 186.56 lb BMI 32.11 Medications What How Much When Instructions Unchanged amlodipine (amLODIPine 5 mg Tab) 1 Tablets By Mouth Every day Contact prescribing physician if questions or concerns Unchanged meloxicam Contact prescribing physician if questions or concerns Unchanged omeprazole (omeprazole 40 mg Cap-DR) 1 Capsules By Mouth Every day Contact prescribing physician if questions or concerns Allergies Augmentin (Unknown) simvastatin (Unknown) sulfa drugs (Unknown) Problems Ongoing - Any problem that you are currently receiving treatment for. BMI 32.0-32.9,adult Fibrocystic breast disease GERD (gastroesophageal reflux disease) HTN (hypertension) Low back pain syndrome Migraines Mood disorder Personal history of colonic polyps Pure hypercholesterolemia Seasonal allergic rhinitis Normal [facility] Physician Referralon 022 Physician Referral [id number]: 127 Normal [facility] MG MAMM SCREEN 3D ANGIE CADon 04-18-2022 MG MAMM SCREEN 3D ANGIE CAD Patient: ELENITA HOWARD Exam Date: 04/18/2022 : 1955 Gender:F Ordering : DR HERACLIO GOMEZ . Admission #: [id number] Family : Order #: [id number] CLICK HERE TO VIEW EXAM RADIOLOGY REPORT PROCEDURE: MAMMOGRAM SCREENING 3D BILATERAL CAD COMPARISON: MG MAMM SCREEN 3D ANGIE CAD, 04/08/2021. MG MAMM SCREEN ANGIE W CAD, 04/07/2020. INDICATIONS: Screening mammography Calculator Name NCI Breast Cancer Risk Assessment Tool 5 Year Breast Cancer Risk 2.20% Lifetime Breast Cancer Risk 7.60% Personal Breast Cancer No Personal Ovarian Cancer No Treatments None Family Cancers Sister with ?uterine cancer at age 43. LOCATION: [facility] BREAST COMPOSITION: Heterogeneously dense,which may obscure small masses. FINDINGS: DIAGNOSTIC CATEGORY 2--BENIGN FINDING: RIGHT BREAST: No significant suspicious finding. Stable, chronic small asymmetry and biopsy marker clip within upper-outer quadrant. No significant change has occurred. LEFT BREAST: No significant suspicious finding. No significant change has occurred. RECOMMENDATIONS: ROUTINE MAMMOGRAM AND CLINICAL EVALUATION IN 12 MONTHS. PLEASE NOTE: A NORMAL MAMMOGRAM DOES NOT EXCLUDE THE POSSIBILITY OF BREAST CANCER. A CLINICALLY SUSPICIOUS PALPABLE LUMP SHOULD BE BIOPSIED. Dictated by: Lesly Rojas M.D. on 04/19/2022 at 10:23 Approved by: Lesly Rojas M.D. on 04/19/2022 at 10:33 Normal [facility] CBC AUTO DIFFon 03-15-2022 BASO # 0.0 103/ul Normal 0.0-0.1 [facility] Comment on above: Performed By: #### C MP #### [facility] [address] [address] [address] Nj Sarabia Basophils/100 WBC (Bld) 0.6 % Normal 0.2-2.0 [facility] Comment on above: Performed By: #### C MP #### [facility] [address] [address] [address] Nj Sarabia EO # 0.2 103/ul Normal 0.0-0.7 [facility] Comment on above: Performed By: #### C MP #### [facility] [address] [address] [address] Nj Sarabia Eosinophils/100 WBC (Bld) 3.6 % Normal 0.9-7.0 [facility] Comment on above: Performed By: #### C MP #### [facility] [address] [address] [address] Nj Sarabia Erythrocyte distribution width (RBC) [Ratio] 13.4 % Normal 11.0-15.0 [facility] Comment on above: Performed By: #### C MP #### [facility] [address] [address] [address] Nj Sarabia Hematocrit (Bld) [Volume fraction] 40.3 % Normal 36.0-48.0 [facility] Comment on above: Performed By: #### C MP #### [facility] [address] [address] [address] Nj Sarabia Hemoglobin (Bld) [Mass/Vol] 13.1 g/dL Normal 12.0-16.0 [facility] Comment on above: Performed By: #### C MP #### [facility] [address] [address] [address] Nj Sarabia IG # 0.09 10e3/ul Critically high 0.00-0.03 [facility] Comment on above: Performed By: #### C MP #### [facility] [address] [place] [address] Dr. Nj Sarabia IG % 1.4 % Critically high 0.0-0.5 [facility] Comment on above: Performed By: #### C MP #### [facility] [address] [place] [address] Dr. Nj Sarabia LYMPH # 2.0 103/ul Normal 1.2-3.8 [facility] Comment on above: Performed By: #### C MP #### [facility] [address] [place] [address] Dr. Nj Sarabia Lymphocytes/100 WBC (Bld) 30.6 % Normal 20.5-60.0 [facility] Comment on above: Performed By: #### C MP #### [facility] [address] [place] [address] Dr. Nj Sarabia MANUAL DIFF REQ NO Normal [facility] Comment on above: Performed By: #### C MP #### [facility] [address] [place] [address] Dr. Nj Sarabia MCH (RBC) [Entitic mass] 27.5 pg Normal 26.7-34.0 [facility] Comment on above: Performed By: #### C MP #### [facility] [address] [place] [address] Dr. Nj Sarabia MCHC (RBC) [Mass/Vol] 32.5 g/dL Normal 29.9-35.2 [facility] Comment on above: Performed By: #### C MP #### [facility] [address] [place] [address] Dr. Nj Sarabia MCV (RBC) [Entitic vol] 84.5 fL Normal 81.0-99.0 [facility] Comment on above: Performed By: #### C MP #### [facility] [address] [place] [address] Dr. Nj Sarabia MONO # 0.5 103/ul Normal 0.3-0.8 [facility] Comment on above: Performed By: #### C MP #### [facility] [address] [place] [address] Dr. Nj Sarabia Monocytes/100 WBC (Bld) 7.6 % Normal 1.7-12.0 [facility] Comment on above: Performed By: #### C MP #### [facility] [address] [place] [address] Dr. Nj Sarabia NEUT # 3.6 103/ul Normal 1.4-6.5 [facility] Comment on above: Performed By: #### C MP #### [facility] [address] [place] [address] Dr. Nj Sarabia Neutrophils/100 WBC (Bld) 56.2 % Normal 43.0-75.0 [facility] Comment on above: Performed By: #### C MP #### [facility] [address] [place] [address] Dr. Nj Sarabia Platelet mean volume (Bld) [Entitic vol] 8.8 fL Critically low 9.5-13.5 [facility] Comment on above: Performed By: #### C MP #### [facility] [address] [place] [address] Dr. Nj Sarabia PLT 327 103/ul Normal 150-450 [facility] Comment on above: Performed By: #### C MP #### [facility] [address] [place] [address] Dr. jN Sarabia RBC 4.77 106/ul Normal 4.20-5.40 [facility] Comment on above: Performed By: #### C MP #### [facility] [address] [place] [address] Dr. Nj Sarabia WBC 6.4 103/ul Normal 4.0-11.0 [facility] Comment on above: Performed By: #### C MP #### [facility] [address] [place] [address] Dr. Nj Sarabia CULTURE SPUTUMon 03-15-2022 CULTURE SPUTUM Culture Observations : NORMAL RESPIRATORY KAVITA. Normal [facility] Comment on above: Performed By: #### C MP #### [facility] [address] [place] [address] Dr. Nj Sarabia LACTATE/LACTIC ACIDon 2021 Lactate [Moles/Vol] 1.3 mmol/L Normal 0.4-1.9 [facility] Comment on above: Performed By: #### L ACT #### [facility] [address] [place] [address] Dr. Nj Sarabia PROF 14(COMP METB)on 022 Albumin [Mass/Vol] 3.6 g/dL Normal 3.4-5.0 [facility] Comment on above: Performed By: #### C MP #### [facility] [address] [place] [address] Dr. Nj Sarabia Albumin/Globulin [Mass ratio] 0.9 {ratio} Normal [facility] Comment on above: Performed By: #### C MP #### [facility] [address] [place] [address] Dr. Nj Sarabia ALP [Catalytic activity/Vol] 62 U/L Normal 46-116 [facility] Comment on above: Performed By: #### C MP #### [facility] [address] [place] [address] Dr. Nj Sarabia ALT [Catalytic activity/Vol] 27 U/L Normal 14-59 [facility] Comment on above: Performed By: #### C MP #### [facility] [address] [place] [address] Dr. Nj Sarabia Anion gap [Moles/Vol] 14.7 mmol/L Normal [facility] Comment on above: Performed By: #### C MP #### [facility] [address] [place] [address] Dr. Nj Sarabia AST [Catalytic activity/Vol] 15 U/L Normal 15-37 [facility] Comment on above: Performed By: #### C MP #### [facility] [address] [place] [address] Dr. Nj Sarabia Bilirubin [Mass/Vol] 0.3 mg/dL Normal 0.2-1.0 [facility] Comment on above: Performed By: #### C MP #### [facility] [address] [place] [address] Dr. Nj Sarabia Calcium [Mass/Vol] 9.7 mg/dL Normal 8.5-10.1 [facility] Comment on above: Performed By: #### C MP #### [facility] [address] [address] [address] Nj Sarabia Chloride [Moles/Vol] 100 mmol/L Normal 98-107 [facility] Comment on above: Performed By: #### C MP #### [facility] [address] [address] [address] Nj Sarabia CO2 [Moles/Vol] 26.9 mmol/L Normal 21.0-32.0 [facility] Comment on above: Performed By: #### C MP #### [facility] [address] [place] [address] Dr. Nj Sarabia Creatinine [Mass/Vol] 0.93 mg/dL Normal 0.55-1.02 [facility] Comment on above: Performed By: #### C MP #### [facility] [address] [place] [address] Dr. Nj Sarabia EGFR-AF QATARI >60 Normal >=60 [facility] Comment on above: Performed By: #### C MP #### [facility] [address] [place] [address] Dr. Nj Sarabia EGFR-NON AF QATARI =60 Normal >=60 [facility] Comment on above: Performed By: #### C MP #### [facility] [address] [place] [address] Dr. Nj Sarabia Globulin (S) [Mass/Vol] 4.1 g/dL Normal [facility] Comment on above: Performed By: #### C MP #### [facility] [address] [address] [address] Nj Sarabia Glucose [Mass/Vol] 114 mg/dL Critically high 74-106 [facility] Comment on above: Performed By: #### C MP #### [facility] [address] [place] [address] Dr. Nj Sarabia Potassium [Moles/Vol] 3.6 mmol/L Normal 3.5-5.1 [facility] Comment on above: Performed By: #### C MP #### [facility] [address] [address] [address] Nj Sarabia Protein [Mass/Vol] 7.7 g/dL Normal 6.4-8.2 [facility] Comment on above: Performed By: #### C MP #### [facility] [address] [address] [address] Nj Sarabia Sodium [Moles/Vol] 138 mmol/L Normal 136-145 [facility] Comment on above: Performed By: #### C MP #### [facility] [address] [address] [address] Nj Sarabia Urea nitrogen [Mass/Vol] 10.0 mg/dL Normal 7.0-18.0 [facility] Comment on above: Performed By: #### C MP #### [facility] [address] [address] [address] Nj Sarabia Urea nitrogen/Creatinine [Mass ratio] 10.8 mg/mg Normal [facility] Comment on above: Performed By: #### C MP #### [facility] [address] [address] [address] Nj Sarabia SPUTUM GRAM STAINon 03-15-20 COMMENTS Normal [facility] Comment on above: Performed By: #### I KRYSTIN #### [facility] [address] [address] [address] Nj Sarabia DIPHTHEROIDS Normal [facility] Comment on above: Performed By: #### I KRYSTIN #### [facility] [address] [address] [address] Nj Sarabia EPITHELIALS <25 Normal [facility] Comment on above: Performed By: #### I KRYSTIN #### [facility] [address] [address] [address] Nj Sarabia FUNGAL ELEMENTS Normal [facility] Comment on above: Performed By: #### I KRYSTIN #### [facility] [address] [place] [address] Dr. Nj Sarabia GRAM NEG BACILLI Normal [facility] Comment on above: Performed By: #### I KRYSTIN #### [facility] [address] [address] [address] Nj Sarabia GRAM NEG DIPPLOCOCCI Normal [facility] Comment on above: Performed By: #### I KRYSTIN #### [facility] [address] [address] [address] Nj Sarabia GRAM POS BACILLI Normal [facility] Comment on above: Performed By: #### I KRYSTIN #### [facility] [address] [address] [address] Nj Sarabia GRAM POSITIVE COCCI MODERATE Normal [facility] Comment on above: Performed By: #### I KRYSTIN #### [facility] [address] [address] [address] Nj Sarabia WBC (Bld) [#/Vol] 10*3/uL Normal [facility] Comment on above: Performed By: #### I KRYSTIN #### [facility] [address] [address] [address] Nj Sarabia XR CHEST 2 Von 03-15-2022 XR CHEST 2 V EXAMINATION: XR CHES T 2 V HISTORY: Cough , chest pain COMPARISON: XR chest 09/01/2015 FINDINGS: LUNGS: Hyperexpanded lungs suggestive COPD with mild chronic interstitial changes within lung bases. No acute infiltrates. VASCULATURE: No increased pulmonary vasculature. PLEURA: No pneumothorax, effusion, or pleural thickening. CARDIAC: No cardiomegaly or cardiac silhouette abnormality. MEDIASTINUM: No visible mass or adenopathy. BONES: No fracture or visible bone lesion. OTHER: Negative. IMPRESSION: 1. No acute cardiopulmonary process. Electronically authenticated by: LESLY ROJAS Date: 2022-03-15 16:18 Normal [facility] Covid-19 PCR (CVDTBH)on SARS-CoV-2 (COVID-19) RNA LAMONTE+probe Ql (Unsp spec) Not detected Normal NOT DETECTED [facility] Comment on above: Result Comment: This test is not yet approved or cleared by the [place] FDA. When there are no FDA-approved or cleared tests available, and other criteria are met, FDA can make tests available under an emergency access mechanism called an Emergency Use Authorization (EUA). The EUA for this test is supported by the Deputy Sheriff Lieutenant of Health and Human Service's (HHS's) declaration that circumstances exist to justify the emergency use of in vitro diagnostics for the detection and/or diagnosis of the virus that causes COVID-19. This EUA will remain in effect (meaning this test can be used) for the duration of the COVID-19 declaration justifying emergency of IVDs, unless it is terminated or revoked by FDA (after which the test may no longer be used). When diagnostic testing is negative, the possibility of a false negative should be considered in the context of a patient's recent exposures and the presence of clinical signs and symptoms consistent with SARS-CoV-2. Performed By: #### I KRYSTIN #### [facility] [address] [place] [address] Dr. Nj Sarabia Urine Cultureon 03-08-2019 Bacteria identified Cx Nom (U) <9,000 colonies/ml mixed bacterial skin contaminants 2 Days PERFORMED BY: [place] [address] PATHOLOGIST [employer]PHOL[employer] MELY TAVERAS M.D. [facility] Comment on above: Performed By: #### C UU #### [address] Vital Signs Date Time Vital Sign Value Performing Clinician Facility 08-18-2022 14:42-0500 Diastolic blood pressure 82 mm[Hg] Pacc 2 Work Phone: [facility] 08-18-2022 14:42-0500 Heart rate 80 /min Pacc 2 Work Phone: [facility] 08-18-2022 14:42-0500 SaO2% (BldA) [Mass fraction] 97 % Pacc 2 Work Phone: [facility] 08-18-2022 14:42-0500 Systolic blood pressure 143 mm[Hg] Pacc 2 Work Phone: [facility] 08-18-2022 14:35-0500 Body height 157.5 cm Pacc 2 Work Phone: [facility] 08-18-2022 14:35-0500 Body temperature 97.39 [degF] Pacc 2 Work Phone: [facility] 08-18-2022 14:35-0500 Body weight 84.82 kg Pacc 2 Work Phone: [facility] 08-18-2022 14:35-0500 Respiratory rate 16 /min Pacc 2 Work Phone: [facility] 05-23-2022 13:51-0400 Blood Pressure Location Luis NILL [facility] 05-23-2022 13:51-0400 Diastolic blood pressure 80 mm[Hg] Luis NILL [facility] 05-23-2022 13:51-0400 Heart rate 76 /min Luis NILL [facility] 05-23-2022 13:51-0400 Respiratory rate 16 /min Luis NILL [facility] 05-23-2022 13:51-0400 Systolic blood pressure 126 mm[Hg] Luis NILL [facility] [place] Encounters Encounter Date Encounter Type Care Provider Facility Start: 08-23-2023 End: 08-23-2023 ambulatory SHARYN GUEVARACyrus Not Available Start: 01-10-2023 End: 01-10-2023 ambulatory KAYLIE CHARLES Facility:[facility] Start: 01-10-2023 End: 01-10-2023 Patient encounter procedure Kaylie Charles MD Work Phone: Orthopaedics Comment on above: 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) Start: 01-10-2023 End: 01-10-2023 Subsequent hospital visit by physician Daisha Cevallos [facility] Work Phone: Radiology Comment on above: Primary osteoarthrit is of left foot [M19.072] Start: 01-05-2023 ambulatory Kaylie Christianson Work Phone: [facility] Start: 01-05-2023 Patient encounter procedure Kaylie Charles MD Work Phone: Orthopaedics Comment on above: Upcoming appointment Start: 11-29-2022 End: 11-29-2022 ambulatory KAYLIE CHARLES Facility:[facility] Start: 11-29-2022 End: 11-29-2022 ambulatory KAYLIE CHARLES Facility:[facility] Start: 11-29-2022 End: 11-29-2022 Patient encounter procedure Kaylie Charles MD Work Phone: Orthopaedics Comment on above: Primary osteoarthrit is of left foot (Primary Dx) Start: 11-29-2022 End: 11-29-2022 Subsequent hospital visit by physician [facility]r [facility] Work Phone: Radiology Comment on above: Primary osteoarthrit is of left foot [M19.072] Start: 11-13-2022 End: 11-13-2022 ambulatory HERACLIO GOMEZ Facility:[facility] Start: 11-13-2022 End: 11-13-2022 Patient encounter procedure [employer] [place] Work Phone: Orthopaedics Comment on above: Primary osteoarthrit is of left foot (Primary Dx) Start: 10-24-2022 ambulatory Kaylie Christianson Work Phone: Orthopaedics Comment on above: Walking cast concern s Start: 10-24-2022 Telephone encounter Kaylie ellsworth MD Work Phone: Orthopaedics Comment on above: cast issue Start: 10-18-2022 End: 10-18-2022 ambulatory HERACLIO GOMEZ Facility:[facility] Start: 10-18-2022 End: 10-18-2022 Patient encounter procedure Kyalie Charles MD Work Phone: Orthopaedics Comment on above: Primary osteoarthrit is of left foot (Primary Dx) Start: 10-18-2022 End: 10-18-2022 Subsequent hospital visit by physician [facility] Work Phone: Radiology Comment on above: Primary osteoarthrit is of left foot [M19.072] Start: 10-09-2022 End: 10-10-[address] HERACLIO GOMEZ . Facility: Start: 09-26-2022 End: 09-26-2022 ambulatory REINA CONTRREAS . Facility: Start: 09-20-2022 End: 09-20-2022 ambulatory HERACLIO GOMEZ Facility:[facility] Start: 09-20-2022 End: 09-20-2022 Patient encounter procedure Kaylie Charles MD Work Phone: Orthopaedics Comment on above: Primary osteoarthrit is of left foot (Primary Dx) Start: 09-15-2022 Telephone encounter Kaylie ellsworth MD Work Phone: Orthopaedics Comment on above: Patient Update Start: 09-08-2022 End: 09-08-2022 ambulatory HERACLIO GOMEZ Facility:[facility] Start: 09-08-2022 End: 09-08-2022 Patient encounter procedure Prabhakar Reveles Staci Work Phone: Orthopaedics Comment on above: Left ankle pain, uns pecified chronicity (Primary Dx) Start: 09-06-2022 End: 09-06-2022 Patient encounter procedure Kaylie Charles MD Work Phone: Orthopaedics Comment on above: Primary osteoarthrit is of left foot (Primary Dx); APPOINTMENT CANCELLED Start: 08-30-2022 Refill Kaylie Christianson Work Phone: Orthopaedics Comment on above: Refill Request Start: 08-29-2022 ambulatory KAYLIE CHARLES Facility:[facility] Start: 08-23-2022 Orders Only Kaylie Christianson Work Phone: Orthopaedics Comment on above: Primary osteoarthrit is of left foot (Primary Dx) Start: 08-18-2022 End: 08-19-2022 ambulatory KAYLIE CHARLES Facility:[facility] Start: 08-18-2022 Encounter for other preprocedural examination KAYLIE CHARLES [facility] Start: 08-18-2022 End: 08-18-2022 Admission to establishment Pacc Av 2 Work Phone: [facility] Start: 08-18-2022 End: 08-18-2022 ambulatory Pacc 2 Work Phone: Pre Anesthesia Comment on above: Pre-op evaluation (P rimary Dx); Hypertension, unspecified type; Obesity (BMI 30-39.9) Start: 08-18-2022 End: 08-18-2022 Preprocedural examination done [facility] 2 Work Phone: Pre Anesthesia Start: 07-25-2022 Orders Only Kaylie Christianson Work Phone: Orthopaedics Comment on above: Primary osteoarthrit is of left foot (Primary Dx); Pes planus of left foot; Acquired valgus deformity of left ankle Start: 07-19-2022 End: 07-20-2022 ambulatory Luis PADILLA Facility:[facility] [place] [facility] Start: 07-19-2022 End: 07-19-2022 Patient encounter procedure Luis PADILLA General Surgery Nill/Said Eveline Start: 07-12-2022 End: 07-13-2022 ambulatory Luis PADILLA Facility:[id number] Start: 07-11-2022 Encounter for preprocedural laboratory examination DR LUIS PADILLA . [facility] Start: 07-08-2022 End: 07-09-[address] HERACLIO GOMEZ . Facility: Start: 05-31-2022 End: 05-31-2022 ambulatory KAYLIE CHARLES Facility:[facility] Start: 05-31-2022 End: 05-31-2022 Patient encounter procedure Kaylie Charles MD Work Phone: Orthopaedics Comment on above: Primary osteoarthrit is of left foot (Primary Dx); Pes planus of left foot; Acquired valgus deformity of left ankle Start: 05-31-2022 End: 05-31-2022 Subsequent hospital visit by physician [facility] Work Phone: Radiology Comment on above: Pain [R52] Start: 05-23-2022 End: 05-24-2022 ambulatory Luis PADILLA Facility:[facility] [place] [facility] Start: 05-23-2022 End: 05-23-2022 Patient encounter procedure Luis PADILLA General Surgery Nill/Said Eveline Start: 05-22-2022 Orders Only Kaylie Charles DDS Work Phone: [facility] [place] Comment on above: Pain (Primary Dx) Start: 04-28-2022 ambulatory Luis PADILLA Facility :[facility] Start: 04-27-2022 ambulatory Luis PADILLA Facility:[facility] Start: 04-18-2022 End: 04-19-[address] HERACLIO GOMEZ . Facility: Start: 03-15-2022 End: 03-16-[address] HERACLIO GOMEZ . Facility:[facility] Start: 03-14-2022 End: 03-14-[address] HERACLIO GOMEZ . Facility: Procedures Date Procedure Procedure Detail Performing Clinician Start: 01-10-2023 Radex foot complete minimum 3 views Kaylie Charles MD Work Phone: Start: 11-29-2022 Radex foot complete minimum 3 views Kaylie Charles MD Work Phone: Start: 10-18-2022 Radex foot complete minimum 3 views Kaylie Charles MD Work Phone: Start: 07-12-2022 Colonoscopy Luis VELAZQUEZ Start: 05-31-2022 Radex foot complete minimum 3 views Kaylie Charles MD Work Phone: Colonoscopy Luis PADILLA Cryosurgery of lesio n of cervix Luis PADILLA Dilation and curettage Bradly PADILLA Extraction of cataract Bradly PADILLA Laser assisted in si tu keratomileusis Luis PADILLA Plan of Treatment Date Care Activity Detail Author Start: 04-13-2023 Covid-19 Vaccine () Covid-19 Vaccine () [facility] Start: 04-13-2023 Influenza vaccination C [facility] Start: 08-13-2022 ADVANCE DIRECTIVE DISCUSSION ADVANCE DIRECTIVE DISCUSSION [facility] Start: 08-13-2022 DEPRESSION ASSESSMENT DEPRESSION ASS ESSMENT [facility] Start: 04-13-2022 Influenza vaccination INFLUENZA (#1) [facility] Start: 09-24-2021 COVID-19 VACCINE (4 - Booster for Pfizer series) COVID-19 VACCINE (4 - Booster for Pfizer series) [facility] Start: 08-13-2021 ADVANCE DIRECTIVE DISCUSSION ADVANCE DIRECTIVE DISCUSSION [facility] Start: 08-13-2021 DEPRESSION ASSESSMENT DEPRESSION ASS ESSMENT [facility] Start: 2019 BONE DENSITY BONE DENSITY [facility] Start: 2019 Bone Density Screening Bone Density Screening [facility] Start: 2019 Pneumococcal Vaccine : 65+ (1 - PCV) Pneumococcal Vaccine: 65+ (1 - PCV) [facility] Start: 2019 PNEUMOCOCCAL: 65+ (1 - PCV) PNEUMOCOCCAL: 65+ (1 - PCV) [facility] Start: 2014 RSV Vaccine (1 - 1-d ose 60+ series) RSV Vaccine (1 - 1-dose 60+ series) [facility] Start: 2004 SHINGRIX VACCINE (1 of 2) SHINGRIX VACCINE (1 of 2) [facility] Start: 1999 COLOGUARD (FIT-DNA) COLOGUARD (FIT-D NA) [facility] Start: 1999 Colonoscopy COLONOSCOPY [facility] Start: 1999 COLORECTAL CANCER SCREENING COLORECTAL CANCER SCREENING [facility] Start: [address] COLONOGRAPHY [facility] Start: 1999 DIABETES SCREEN DIABETES SCREEN [facility] Start: 1999 Diabetes Screening Diabetes Screenin g [facility] Start: 1999 FECAL OCCULT BLOOD FECAL OCCULT BLOO D [facility] Start: 1999 Lipid 1996 panel - Serum or Plasma Lipid Screening [facility] Start: 1999 LIPID SCREEN LIPID SCREEN [facility] Start: 1999 SIGMOIDOSCOPY SIGMOIDOSCOPY [facility] Start: 1994 Mammography [facility] Start: 1973 Urine microalbumin profile [facility] Start: 1972 ANNUAL PCP TEAM CAMPUS RECRUITING INTERNSHIP MANDY DISEASE VISIT ANNUAL PCP TEAM CHRONIC DISEASE VISIT [facility] Start: 1972 BP CONTROLLED (<130/80) BP CONTROLLE D (<130/80) [facility] Start: 1972 HEPATITIS C SCREENING HEPATITIS C SC EMILIA [facility] End: 10-19-2023 XR FOOT GENERAL 3V AP/LAT/OBL LEFT XR FOOT GENERAL 3V AP/LAT/OBL LEFT Radiology Routine Primary osteoarthritis of left foot 1 Occurrences starting 09/22/2022 until 10/19/2023 [facility] Work Phone: Comment on above: 1 Occurrences starti ng 09/22/2022 until 10/19/2023 End: 11-17-2023 XR FOOT GENERAL 3V AP/LAT/OBL LEFT XR FOOT GENERAL 3V AP/LAT/OBL LEFT Radiology Routine Primary osteoarthritis of left foot 1 Occurrences starting 10/18/2022 until 11/17/2023 [facility] Work Phone: Comment on above: 1 Occurrences starti ng 10/18/2022 until 11/17/2023 End: 12-30-2023 XR FOOT GENERAL 3V AP/LAT/OBL LEFT XR FOOT GENERAL 3V AP/LAT/OBL LEFT Radiology Routine Primary osteoarthritis of left foot 1 Occurrences starting 11/30/2022 until 12/30/2023 [facility] Work Phone: Comment on above: 1 Occurrences starti ng 11/30/2022 until 12/30/2023 [facility] Immunizations Immunization Date Immunization Notes Care Provider Fa cili 07-15-2020 influenza virus vacc ine, unspecified formulation [facility] Work Phone: [facility] Payers Date Payer Category Payer Medicare [employer] MEDICARE A ETNA MEDICARE PPO [id number] 2021-Present [phone] [address] [place] [address] PPO [id number] 1959 Private Health Insurance [id number] 1954 Unknown [id number] 27 1954 Unknown [id number] 27 1954 Unknown [id number] 27 1954 Unknown [id number] [id number] 27 1954 Unknown [id number] [id number] 93 1954 Unknown [id number] [id number] 93 1954 Unknown [id number] [id number] 93 1954 Unknown [id number] [id number] 93 1954 Unknown [id number] [id number] 93 1954 Unknown [id number] [id number] 93 1954 Unknown [id number] [id number] 93 1954 Unknown [id number] [id number] 93 1954 Unknown [id number] [id number] 93 1954 Unknown [id number] 259 Social History Date Type Detail Facility Start: 05-23-2022 Tobacco smoking status Never smoked tobacco (finding) [facility] Tobacco smoking status Never [facility] Start: 08-18-2022 End: 09-06-2022 Sex Assigned At Female [facility] Tobacco smoking status NHIS Tobacco smoking consumption unknown [facility] Work Phone: Start: 1955 Sex Assigned At Not on file [facility] Start: 08-18-2022 Tobacco smoking status NHIS Ex-smoker [facility] Work Phone: End: 08-13-1974 History of tobacco use Current smoker [facility] Work Phone: End: 08-13-1974 History of tobacco use Cigarette Smoker [facility] Work Phone: Start: 08-18-2022 Tobacco use and exposure Smokeless tobacco non-user [facility] Work Phone: Start: 08-18-2022 Alcohol intake Current drinke r of alcohol (finding) [facility] Start: 08-18-2022 End: 09-06-2022 Alcohol intake [facility] Start: 08-18-2022 Tobacco Comment Social smoker [facility] Medical Equipment Procedure Code Equipment Code Equipment Origin al Text Equipment Identifier Dates Chips Bone Graft Cancellous Bone 4-10 Mm Container 15 Cc Volume - [id number] Start: 09-05-2022 Elite Comp Impl Kit [id number] Legs [id number] Start: 09-05-2022 Functional Status Date Assessment Result Facility 05-23-2022 Functional Status N/A [facility] Clinical Notes 05-23-2022 to 01-10-2023 Roxanna Herring RT(R) - 01/10/2023 11:15 AM Mecca Charles MD - 01/10/2023 11:08 AM Mecca Charles MD - 11/29/2022 1:02 PM Roxanna Bruce RT(R) - 11/29/2022 12:45 PM EDTPatient Instructions Note Date & Type Note Facility 01-10-2023 Note HNO ID: [id number] Author: Roxanna Herring RT(R) Service: Radiology Author Type: Technologist Type: Progress Notes Filed: 01/10/2023 11:14 AM Note Text: Radiology Service Progress Note PATIENT NAME: Elenita Howard DATE OF SERVICE: January 10, 2023 TIME: 11:13 AM PATIENT IDENTITY VERIFICATION COMPLETED USING TWO (2) IDENTIFIERS: Name and Date of confirmed by patient verbally. FALL SCREENING: Has the patient had 2 falls in the last year or 1 fall with injury or currently using an Ambulatory Assistive Device (Walker, Cane, Wheelchair, Crutches, etc.)? Yes, Patient High Risk for Falls What interventions were put in place to prevent falls during this visit? Instructed Patient to Call for Help if Needed, Offered Assistance with Transfers/Clothing, Instructed Patient to Remain Seated (Not on Exam Table) Until Exam, and Increased Observations by Caregivers PATIENT GENDER DATA: Female. status: : No status: NO. PATIENT RELEVANT IMPLANT DATA REVIEWED: Not Applicable RADIOLOGY DEPARTMENT: General X-ray: Exam(s) Completed: Lower Extremity X-Ray(s): Foot, Left PERIPHERAL IV DATA: Not applicable SIGNED BY: Roxanna Herring RT(R) January 10, 2023 11:13 AM [facility] 01-10-2023 Note HNO ID: [id number] Author: Kaylie Charles MD Service: ? Author Type: Physician Type: Progress Notes Filed: 01/10/2023 12:58 PM Note Text: Elenita Howard returns today to follow up osteoarthritis of left foot. She states that she is having having any pain today. She states that she is having some rubbing of her heel in the boot. She is walking with cane. She states she believes she is doing better since her last visit. Surgery: left triple arthrodesis, proximal tibia bone graft harvest, large, 30 cc, hardware removal calcaneus, surgeon monitored fluoroscopy on 09/05/22 Do you have a metal allergy?: No Current Dx: osteoarthritis of left foot Injury:No Pt. Feels their overall condition is better. Is the patient having any pain? No 0 on a scale of 0 to 10 Current treatment plan includes: Weight Bearing Status: fully Weight bearing status:Full Ambulatory Aids:Cane Physical Therapy:No Home Exercise Program: No NSAIDS: Aleve : Taking as directed and feels it is helping. Pain medication: None Activity Levels: Normal PHYSICAL EXAM: left foot Physical examination reveals an alert and oriented patient who is in no acute distress while sitting and is of normal mood and affect. LMP (LMP Unknown) Gait Cycle: Normal No, Limp: Wearing Aircast boot. Inspection: Alignment: neutral Symmetry: Swelling: no. Redness: no. Ecchymosis: no Effusion: 0 Palpation: Warmth: no, Tenderness:No ROM: Ankle- Normal. Subtalar stable Strength: 5 Stability: Ligamentous instability: no Specialized Tests: negative Neurologic Status: normal. Vascular Status: normal Skin: Incision: well healed, clean, dry and intact XRAYS: Arthrodeses look good DX: (Z98.1) History of arthrodesis (primary encounter diagnosis) BWC/Work status: NA Plan: Patient is instructed on how to wean from the boot and given appropriate recommendations for arch support and shoewear selection. Follow-up as needed HPI explored in detail with patient and edited as necessary. At the conclusion of the visit the patient voiced understanding and agreement with the plan. The patient knows to call us or present to the nearest Emergency Department if the patients pain increases. Patient knows how to reach us if there are any questions or problems. This visit required reviewed the patient's medical records, updating historical information, assessing changes in physical examination, and review of all testing information. It required patient-provider interaction for the medical decision making as documented. The time and /or expertise required in this decision-making process, communicating the results as such with the patient and developing the treatment protocol is reflected in the charge capture section of these electronic medical records. This note was partially generated using Prolify voice recognition system, and there may be some incorrect words, spellings, and punctuation that were not noted in checking the note before saving. Kaylie Charles M.D. [facility] 01-10-2023 History of Present illness Narrative Radiology Service Progress Note PATIENT NAME: Elenita Howard DATE OF SERVICE: January 10, 2023 TIME: 11:13 AM PATIENT IDENTITY VERIFICATION COMPLETED USING TWO (2) IDENTIFIERS: Name and Date of confirmed by patient verbally. FALL SCREENING: Has the patient had 2 falls in the last year or 1 fall with injury or currently using an Ambulatory Assistive Device (Walker, Cane, Wheelchair, Crutches, etc.)? Yes, Patient High Risk for Falls What interventions were put in place to prevent falls during this visit? Instructed Patient to Call for Help if Needed, Offered Assistance with Transfers/Clothing, Instructed Patient to Remain Seated (Not on Exam Table) Until Exam, and Increased Observations by Caregivers PATIENT GENDER DATA: Female. status: : No status: NO. PATIENT RELEVANT IMPLANT DATA REVIEWED: Not Applicable RADIOLOGY DEPARTMENT: General X-ray: Exam(s) Completed: Lower Extremity X-Ray(s): Foot, Left PERIPHERAL IV DATA: Not applicable SIGNED BY: RT Carina(R) January 10, 2023 11:13 AM documented in this encounter [facility] 01-10-2023 History of Present illness Narrative Elenita Howard returns today to follow up osteoarthritis of left foot. She states that she is having having any pain today. She states that she is having some rubbing of her heel in the boot. She is walking with cane. She states she believes she is doing better since her last visit. Surgery: left triple arthrodesis, proximal tibia bone graft harvest, large, 30 cc, hardware removal calcaneus, surgeon monitored fluoroscopy on 09/05/22 Do you have a metal allergy?: No Current Dx: osteoarthritis of left foot Injury:No Pt. Feels their overall condition is better. Is the patient having any pain? No 0 on a scale of 0 to 10 Current treatment plan includes: Weight Bearing Status: fully Weight bearing status:Full Ambulatory Aids:Cane Physical Therapy:No Home Exercise Program: No NSAIDS: Aleve : Taking as directed and feels it is helping. Pain medication: None Activity Levels: Normal PHYSICAL EXAM: left foot Physical examination reveals an alert and oriented patient who is in no acute distress while sitting and is of normal mood and affect. LMP (LMP Unknown) Gait Cycle: Normal No, Limp: Wearing Aircast boot. Inspection: Alignment: neutral Symmetry: Swelling: no. Redness: no. Ecchymosis: no Effusion: 0 Palpation: Warmth: no, Tenderness:No ROM: Ankle- Normal. Subtalar stable Strength: 5 Stability: Ligamentous instability: no Specialized Tests: negative Neurologic Status: normal. Vascular Status: normal Skin: Incision: well healed, clean, dry and intact XRAYS: Arthrodeses look good DX: (Z98.1) History of arthrodesis (primary encounter diagnosis) BWC/Work status: NA Plan: Patient is instructed on how to wean from the boot and given appropriate recommendations for arch support and shoewear selection. Follow-up as needed HPI explored in detail with patient and edited as necessary. At the conclusion of the visit the patient voiced understanding and agreement with the plan. The patient knows to call us or present to the nearest Emergency Department if the patients pain increases. Patient knows how to reach us if there are any questions or problems. This visit required reviewed the patient's medical records, updating historical information, assessing changes in physical examination, and review of all testing information. It required patient-provider interaction for the medical decision making as documented. The time and /or expertise required in this decision-making process, communicating the results as such with the patient and developing the treatment protocol is reflected in the charge capture section of these electronic medical records. This note was partially generated using Prolify voice recognition system, and there may be some incorrect words, spellings, and punctuation that were not noted in checking the note before saving. Kaylie Charles M.D. documented in this encounter [facility] 11-30-2022 Note HNO ID: [id number] Author: Antonieta Pa Cast Service: ? Author Type: ? Type: Progress Notes Filed: 11/30/2022 7:18 AM Note Text: PT ASSESSMENT - CASTING ROOM Elenita presents for cast removal. Applied pneumatic aircast walker to Left leg non-weight bearing Patient has been instructed in Care of boot.. Antonieta Pa Cast Beeper: [id number] [facility] 11-29-2022 Note HNO ID: [id number] Author: Kaylie Charles MD Service: ? Author Type: Physician Type: Progress Notes Filed: 11/30/2022 6:54 PM Note Text: POD 12 weeks Surgery: left triple arthrodesis, proximal tibia bone graft harvest, large, 30 cc, hardware removal calcaneus, surgeon monitored fluoroscopy on 09/05/22 Dressings: short leg weight bearing cast removed to check incision and get xrays and replaced with short leg cast Incision: dry/intact/well-approximated, no redness Sutures: NA Drain: NA Pin sites: NA Left foot pain: minimal Calf assessment: soft, non-tender, no complaints of pain Concerns: none currently Xrays done today: Good progression of healing Followup and plan: We will continue with casting right now and attempt to get the remainder of the arthrodeses solid. Follow-up in 4 weeks with x-rays Kaylie Charles MD [facility] 11-29-2022 Note HNO ID: [id number] Author: RT Carina(R) Service: Radiology Author Type: Technologist Type: Progress Notes Filed: 11/29/2022 1:11 PM Note Text: Radiology Service Progress Note PATIENT NAME: Elenita Howard DATE OF SERVICE: November 29, 2022 TIME: 1:11 PM PATIENT IDENTITY VERIFICATION COMPLETED USING TWO (2) IDENTIFIERS: Name and Date of confirmed by patient verbally. FALL SCREENING: Has the patient had 2 falls in the last year or 1 fall with injury or currently using an Ambulatory Assistive Device (Walker, Cane, Wheelchair, Crutches, etc.)? Yes, Patient High Risk for Falls What interventions were put in place to prevent falls during this visit? Instructed Patient to Call for Help if Needed, Offered Assistance with Transfers/Clothing, and Instructed Patient to Remain Seated (Not on Exam Table) Until Exam PATIENT GENDER DATA: Female. status: : No status: NO. PATIENT RELEVANT IMPLANT DATA REVIEWED: Not Applicable RADIOLOGY DEPARTMENT: General X-ray: Exam(s) Completed: Lower Extremity X-Ray(s): Foot, Left PERIPHERAL IV DATA: Not applicable SIGNED BY: RT Carina(R) November 29, 2022 1:11 PM [facility] 11-29-2022 History of Present illness Narrative POD 12 weeks Surgery: left triple arthrodesis, proximal tibia bone graft harvest, large, 30 cc, hardware removal calcaneus, surgeon monitored fluoroscopy on 09/05/22 Dressings: short leg weight bearing cast removed to check incision and get xrays and replaced with short leg cast Incision: dry/intact/well-approximated, no redness Sutures: NA Drain: NA Pin sites: NA Left foot pain: minimal Calf assessment: soft, non-tender, no complaints of pain Concerns: none currently Xrays done today: Good progression of healing Followup and plan: We will continue with casting right now and attempt to get the remainder of the arthrodeses solid. Follow-up in 4 weeks with x-rays Kaylie Charles MD documented in this encounter [facility] 11-29-2022 History of Present illness Narrative Radiology Service Progress Note PATIENT NAME: Elenita Howard DATE OF SERVICE: November 29, 2022 TIME: 1:11 PM PATIENT IDENTITY VERIFICATION COMPLETED USING TWO (2) IDENTIFIERS: Name and Date of confirmed by patient verbally. FALL SCREENING: Has the patient had 2 falls in the last year or 1 fall with injury or currently using an Ambulatory Assistive Device (Walker, Cane, Wheelchair, Crutches, etc.)? Yes, Patient High Risk for Falls What interventions were put in place to prevent falls during this visit? Instructed Patient to Call for Help if Needed, Offered Assistance with Transfers/Clothing, and Instructed Patient to Remain Seated (Not on Exam Table) Until Exam PATIENT GENDER DATA: Female. status: : No status: NO. PATIENT RELEVANT IMPLANT DATA REVIEWED: Not Applicable RADIOLOGY DEPARTMENT: General X-ray: Exam(s) Completed: Lower Extremity X-Ray(s): Foot, Left PERIPHERAL IV DATA: Not applicable SIGNED BY: RT Carina(R) November 29, 2022 1:11 PM documented in this encounter [facility] 11-13-2022 Note HNO ID: [id number] Author: Antonieta Pa Cast Service: ? Author Type: ? Type: Progress Notes Filed: 11/13/2022 2:49 PM Note Text: PT ASSESSMENT - CASTING ROOM Elenita presents for cast removal. Applied short cast: to Left leg weight bearing Patient has been instructed in Care of cast.. Antonieta Pa Cast Beeper: [id number] [facility] 11-13-2022 History of Present illness Narrative PT ASSESSMENT - CASTING ROOM Elenita presents for cast removal. Applied short cast: to Left leg weight bearing Patient has been instructed in Care of cast.. Antonieta Pa Cast Beeper: [id number] documented in this encounter [facility] 10-24-2022 Miscellaneous Notes Just here 10/18/22 Had Left leg weight bearing cast applied She's not sure if it's the right size? The cast hangs over the shoe part by over an inch She will try to upload some photos via [employer] Maybe this is normal but she was hoping to just have someone look at the pictures and tell her what they think Doesn't live close; so she was hoping not to have to drive up here if at all possible, but will do whatever you need her to do Also: She is c/o her heel (still) being very tender where the screws are She thought extra padding was applied in this region but it's just still quite tender When up, she's using a walker/crutches and doing all she's supposed to be doing She's leaving out [place] the [place] about a week - so she's just trying to make sure it's all good/comfortable and not making anything worse She said thanks and she'll await your response: Pt is asking for a call back [phone] documented in this encounter [facility] 10-19-2022 Note HNO ID: [id number] Author: Antonieta Pa Cast Service: ? Author Type: ? Type: Progress Notes Filed: 10/19/2022 8:01 AM Note Text: PT ASSESSMENT - CASTING ROOM Elenita presents for cast removal. Applied short cast: to Left leg weight bearing Patient has been instructed in Care of cast.. Antonieta Thierno Cast Beeper: [id number] [facility] 10-18-2022 Note HNO ID: [id number] Author: Kaylie Charles MD Service: ? Author Type: Physician Type: Progress Notes Filed: 10/18/2022 9:06 PM Note Text: POD 6 weeks Surgery: left triple arthrodesis, proximal tibia bone graft harvest, large, 30 cc, Hardware removal calcaneus, Surgeon monitored fluoroscopy on 10/17/22 Dressings: postop splint and dressings removed to check incision and replaced with short leg non weight bearing cast Incision: dry/intact/well-approximated, no redness Sutures: inta Drain: NA Pin sites: NA Left foot pain: 0/10 Calf assessment: soft, non-tender, no complaints of pain Concerns: none currently Followup and plan: into short leg wb cast today, follow up in 6 weeks with xrays out of cast Kaylie Charles MD [facility] 10-18-2022 Note HNO ID: [id number] Author: RT Ella(R) Service: Radiology Author Type: Technologist Type: Progress Notes Filed: 10/18/2022 2:19 PM Note Text: Radiology Service Progress Note PATIENT NAME: Elenita Howard DATE OF SERVICE: October 18, 2022 TIME: 2:18 PM PATIENT IDENTITY VERIFICATION COMPLETED USING TWO (2) IDENTIFIERS: Name and Date of confirmed by patient verbally. FALL SCREENING: Has the patient had 2 falls in the last year or 1 fall with injury or currently using an Ambulatory Assistive Device (Walker, Cane, Wheelchair, Crutches, etc.)? Yes, Patient High Risk for Falls What interventions were put in place to prevent falls during this visit? Instructed Patient to Remain Seated (Not on Exam Table) Until Exam PATIENT GENDER DATA: Female. status: : No status: NO. PATIENT RELEVANT IMPLANT DATA REVIEWED: Not Applicable RADIOLOGY DEPARTMENT: General X-ray: Exam(s) Completed: Lower Extremity X-Ray(s): Foot, Left PERIPHERAL IV DATA: Not applicable SIGNED BY: RT ESPERANZA AND RT Ella(R) October 18, 2022 2:18 PM [facility] 10-18-2022 History of Present illness Narrative POD 6 weeks Surgery: left triple arthrodesis, proximal tibia bone graft harvest, large, 30 cc, Hardware removal calcaneus, Surgeon monitored fluoroscopy on 10/17/22 Dressings: postop splint and dressings removed to check incision and replaced with short leg non weight bearing cast Incision: dry/intact/well-approximated, no redness Sutures: inta Drain: NA Pin sites: NA Left foot pain: 0/10 Calf assessment: soft, non-tender, no complaints of pain Concerns: none currently Followup and plan: into short leg wb cast today, follow up in 6 weeks with xrays out of cast Kaylie Charles MD documented in this encounter [facility] 10-18-2022 History of Present illness Narrative Radiology Service Progress Note PATIENT NAME: Elenita Howard DATE OF SERVICE: October 18, 2022 TIME: 2:18 PM PATIENT IDENTITY VERIFICATION COMPLETED USING TWO (2) IDENTIFIERS: Name and Date of confirmed by patient verbally. FALL SCREENING: Has the patient had 2 falls in the last year or 1 fall with injury or currently using an Ambulatory Assistive Device (Walker, Cane, Wheelchair, Crutches, etc.)? Yes, Patient High Risk for Falls What interventions were put in place to prevent falls during this visit? Instructed Patient to Remain Seated (Not on Exam Table) Until Exam PATIENT GENDER DATA: Female. status: : No status: NO. PATIENT RELEVANT IMPLANT DATA REVIEWED: Not Applicable RADIOLOGY DEPARTMENT: General X-ray: Exam(s) Completed: Lower Extremity X-Ray(s): Foot, Left PERIPHERAL IV DATA: Not applicable SIGNED BY: RT ESPERANZA AND RT Ella(R) October 18, 2022 2:18 PM documented in this encounter [facility] 09-20-2022 Note HNO ID: [id number] Author: Sarah Kelly LPN Service: ? Author Type: LICENSED NURSE Type: Progress Notes Filed: 09/20/2022 4:08 PM Note Text: PT ASSESSMENT - CASTING ROOM Elenita presents for cast removal. Applied short cast: to Left leg Patient has been instructed in Care of cast.. Sarah Kelly LPN Beeper: [id number] [facility] 09-19-2022 Note HNO ID: [id number] Author: Kaylie Charles MD Service: ? Author Type: Physician Type: Progress Notes Filed: 09/22/2022 4:59 PM Note Text: POD #15 Surgery: left triple arthrodesis, proximal tibia bone graft harvest, large, 30 cc, hardware removal calcaneus, surgeon monitored fluoroscopy on 09/05/22 She is doing very well, swelling has come down, skin healing nicely Dressings: short leg non weight bearing cast removed to check incision and remove sutures, replaced with same Incision: dry/intact/well-approximated, no redness Sutures: removed today Drain: NA Pin sites: NA Left foot pain: 0/10 Calf assessment: soft, non-tender, no complaints of pain Concerns: none currently Followup and plan: follow up at 6 weeks postop for xrays of left foot out of the cast Kaylie Charles MD [facility] 09-19-2022 History of Present illness Narrative POD #15 Surgery: left triple arthrodesis, proximal tibia bone graft harvest, large, 30 cc, hardware removal calcaneus, surgeon monitored fluoroscopy on 09/05/22 She is doing very well, swelling has come down, skin healing nicely Dressings: short leg non weight bearing cast removed to check incision and remove sutures, replaced with same Incision: dry/intact/well-approximated, no redness Sutures: removed today Drain: NA Pin sites: NA Left foot pain: 0/10 Calf assessment: soft, non-tender, no complaints of pain Concerns: none currently Followup and plan: follow up at 6 weeks postop for xrays of left foot out of the cast Kaylie Charles MD documented in this encounter [facility] 09-15-2022 Miscellaneous Notes Placed call to patient. Let her know that she can back off the oxt if she feeling okay and wants to that she does not have to take it if she does want to. Also let her know that she can take the aleve but not at the same time she is taking the ketorlac Elenita Howard called today. : 1955 Allergies: Bee Sting, Latex, Simvastatin, and Sulfa (Sulfonamide Antibiotics) (home) Reason for call: Patient wondering if she is able to take aleve since she is out of ketorlac. Also wondering about weaning herself off oxycodone. Please advise and call patient Patient last appointment: 09/08/2022 The patients preferred pharmacy has been captured for this encounter? not asked Shama Benito Pss documented in this encounter [facility] 09-14-2022 Note HNO ID: [id number] Author: Kyle Pickett Service: ? Author Type: ? Type: Progress Notes Filed: 09/14/2022 8:56 AM Note Text: The appointment was cancelled for this patient. Kyle Pickett [facility] 09-14-2022 History of Present illness Narrative The appointment was cancelled for this patient. Kyle Pickett documented in this encounter [facility] 09-08-2022 Note HNO ID: [id number] Author: Sarah Kelly LPN Service: ? Author Type: LICENSED NURSE Type: Progress Notes Filed: 09/08/2022 11:37 AM Note Text: PT ASSESSMENT - CASTING ROOM Elenita presents for cast removal. Applied short cast: to Left leg Patient has been instructed in Care of cast.. Sarah Kelly LPN Beeper: [id number] [facility] 09-08-2022 History of Present illness Narrative PT ASSESSMENT - CASTING ROOM Elneita presents for cast removal. Applied short cast: to Left leg Patient has been instructed in Care of cast.. Sarah Kelly LPN Beeper: [id number] documented in this encounter [facility] 08-18-2022 History and physical note HISTORY AND PHYSICAL EXAMINATION SERVICE DATE: 08/18/2022 SERVICE TIME: 2:31 PM PRIMARY CARE PHYSICIAN: Heraclio Gomez MD, MD REASON FOR VISIT: Elenita Howard is a 66 year old female who is scheduled for LEFT arthrodesis triple, graft bone extremity lower at the request of Dr. Kaylie Charles for consultation. My final recommendation will be communicated back to the requesting physician by way of shared medical record or letter. The patient has the following: ACTIVE PROBLEM LIST Primary Osteoarthritis of Left Foot Pes Planus of Left Foot Acquired Valgus Deformity of Left Ankle Hypertension Obesity (Bmi 30-39.9) Subjective CHIEF COMPLAINT: Primary osteoarthritis of left foot, Pes planus of left foot, acquired valgus deformity of left ankle HPI: Patient is a 66 year old female presenting to pre-anesthesia consultation. Patient has has been experiencing left foot pain for approximately 20 years. She has had 2 previous foot surgeries which have not helped. She wears a brace which does help somewhat. Pain is worse with walking but does get alleviated with rest. She has been diagnosed with primary osteoarthritis of left foot, pes planus of left foot, and acquired valgus deformity of left ankle and has been recommended for the above surgery. History reviewed. No pertinent past medical history. PAST SURGICAL HISTORY Procedure Laterality Date COLONOSCOPY SCREENING x3 PAST SURGICAL HISTORY OF Left foot surgery x 2 (2019) FAMILY HISTORY Problem Relation Age of Onset Heart Failure Mother at age 93 Heart Failure Father at age 53 Cancer Sister at age 42 SOCIAL HISTORY: Social History Tobacco Use Smoking status: Former Years: 2.00 Types: Cigarettes Quit date: 1974 Years since quittin.0 Smokeless tobacco: Never Tobacco comments: Social smoker Substance Use Topics Alcohol use: Yes Alcohol/week: 4.0 standard drinks Types: 4 Glasses of wine per week Drug use: Never MEDICATIONS: Prior to Admission medications as of 08/18/22 3564 Medication Sig Last Dose Taking INV VITAMIN D3 5000 UNITS CAPSULE (IRB [id number]) Take 5,000 Units by mouth once daily. For Investigational Drug Use Only. PI: Ce Batista, PhD. Take one capsule by mouth daily for 3 months prior to surgery and 3 months after surgery. Taking Yes fexofenadine (JACKY ALLERGY) 180 mg tablet Take 180 mg by mouth once daily. Taking Yes melatonin 1 mg tablet Take 1 mg by mouth once daily. Taking Yes amLODIPine (NORVASC) 5 mg tablet Taking Yes RESTASIS 0.05 % ophthalmic emulsion Taking Yes omeprazole (PRILOSEC) 40 mg capsule Taking Yes MELOXICAM ORAL Take 15 mg by mouth. Taking Yes No medication comments found. CURRENT ALLERGIES: ALLERGIES Allergen Reactions Bee Sting Hives Latex Itching Simvastatin GI Upset Sulfa (Sulfonamide * Rash COVID VACCINATION STATUS: Fully vaccinated REVIEW OF SYSTEMS: PAIN ASSESSMENT: General: No weight loss, malaise or fevers. Neuro: No history of TIA's, stroke, TREAD TUBER MACHINE OPERATOR tumor, impaired sensorium, hemiplegia, paraplegia or quadraplegia. No neurological symptoms or problems. Respiratory: No history of current cough or dyspnea, or pneumonia in the past 6 weeks. No history of respiratory/pulmonary symptoms or problems. Cardiovascular: +HTN Negative for Recent OK, Angina, CAD, Chest Pain, CHF, DVT/PE GI: No history of GI symptoms or problems. No history of esophageal varices, recent ascites, or ETOH greater than 2 drinks per day. : +frequency, incontinence Negative for dysuria and hematuria Endocrine: No history of diabetes. Has not taken steroids within the past 30 days. No history of endocrinological symptoms or problems. Hematology: No history of bleeding or clotting disorder. Pt is not taking anti-coagulation or platelet medications. No history of hematological symptoms or problems. Oncology: No history of CA metastasis, chemo within 30 days, or radiotherapy within 90 days. Has not lost 10% of body wt in 6 months. No history of oncological symptoms or problems. Psych: No history of psychiatric symptoms or problems. Musculoskeletal: See HPI Skin: Negative for lesions, rash and itching. Objective PHYSICAL EXAM: VITALS: BP 143/82 Pulse 80 Temp (Src) 97.4 (Oral) Resp 16 Ht 5' 2 (1.58m) Wt 187 lb (84.8kg) SpO2 97% BMI 34.19 kg/(m^2). General: Alert and oriented, obese Skin: Normal color, no rash, no lesions. HEENT: EOM, pupils equal, round and reactive. Cardiovascular: Normal S1 & S2, no rubs, murmurs or gallops. No JVD. Pulse regular. Lungs: Normal breath sounds, no wheezes or crackles. Abdomen: Soft, non-tender, no rigidity. Extremities: No deformity, no edema or tenderness, no joint swelling or clubbing. Neurological: Normal cognition and motor skills. Pulses: Carotid and radial pulses normal +2. Diagnostic tests reviewed for today's visit: Lab Value Units Date High Low HB No results within date range. HCT No results within date range. WBC No results within date range. PLT No results within date range. NA No results within date range. K No results within date range. GLUC No results within date range. BUN No results within date range. CREAT No results within date range. PTSEC No results within date range. INR No results within date range. APTT No results within date range. ALT No results within date range. AST No results within date range. TBILI No results within date range. TSH No results within date range. Lab Value Units Date High Low HCGQT No results within date range. UHCG No results within date range. HCG, BODY* No results within date range. Lab Value Units Date High Low ABORHD No results within date range. ABSCREEN No results within date range. No results found for: HBA1C No new labs or tests Assessment/Plan 1. Pre-op evaluation Surgery scheduled on 09/05/22. 2. Hypertension, unspecified type BP 143/82. Taking amlodipine (Norvasc). Denies any CP, dizziness, double vision, or LRAOSE. Stable. 3. Obesity (BMI 30-39.9) BMI 34.20 METS: Limited due to foot pain Climb a flight of stairs or walk up a hill (5.50 METs) Patient denies any chest pain or undue shortness of breath with the above physical activity. ASA Class: 2 ANESTHESIA FINDINGS: Intubation History: No history of difficult intubation Significant Anesthesia Considerations: Postop nausea/vomiting with colonoscopy, but has had surgeries after and had no issues. Airway Exam: General: Normal appearance, BMI 34.20 Mallampati Score is CLASS II ULBT: Class I - Lower incisors can bite the upper lip above the bessie line Neck: Normal appearance and function, Distance from hyoid to mentum during neck extension is at least 3 finger breaths Mouth: Normal tongue size and Mouth opening greater than 2 finger breaths Dentition: Intact and Caps/crowns Airway History: No abnormal airway history STOP BANG Score: Criteria: Snoring Hypertension Age over 50 (66 year old) Score = 3 PLAN This patient is optimally prepared for surgery. CONSULTS: Patient does not require consults for optimization at this time. Request for outside labs sent to PCP, Dr. Heraclio Gomez, in [place], [place]. The Following Tests/Procedures Have Been Initiated: Labs not indicated per [facility] protocol, EKG not indicated per [facility] protocol Planned Anesthetic: General Instructions Given to Patient: Instructions located in the after visit summary. Patient given verbal and written preop instructions and voices comprehension and compliance. SIGNATURE: Hodan Townsend PA-C PATIENT NAME: Elenita Howard DATE: August 18, 2022 TIME: 3:48 PM documented in this encounter [facility] 08-17-2022 Instructions Hodan Townsend PA-C - 08/17/2022 1:30 PM EST PATIENT PREOPERATIVE INSTRUCTIONS Kaylie Charles MD has scheduled you for your procedure at this surgery center: [facility]: [phone] --[address] [place] [address]. Arrival Time for Surgery: - The Surgery Center or hospital where you are having surgery will call the afternoon before surgery (or Sunday for Sunday surgery) with a scheduled arrival time. - If you have not heard by 4 pm, please contact the surgery center above. Please be aware that emergency situations arise, which may delay or change your surgical time. If this happens, we will notify you as soon as possible and regret any inconvenience. Please read below carefully for your personalized instructions. Dietary Restrictions: - No solid food after midnight. - You may have 12 ounces of clear liquids (water, clear juices such as apple juice or gatorade, carbonated beverages, clear tea, black coffee, jello) until 2 hours before scheduled arrival at facility. - Do not drink any alcohol after midnight the night before your surgery. Medications: Unless instructed differently below, stay on all of your medications until your surgery. Approved medications to take the morning of surgery with a sip of water: amlodipine (Norvasc), omeprazole (Prilosec) If you start any new medications after today's visit, please contact the surgeon's office. Blood Thinning Medications: - Stop NSAIDS (Ibuprofen, Advil, Aleve, Motrin, Celebrex, Mobic (meloxicam), etc.) 7 days before surgery, as directed by your surgeon. - Stop Aspirin 7 days before surgery, as directed by your surgeon. - Stop Vitamin E, ALL multi-vitamins, herbals and dietary supplements 7 days before surgery. - You may take Tylenol (Acetaminophen) or any of your pain medications that do not contain aspirin or NSAIDS as needed. -Stop Melatonin 7 days before surgery. Important Reminders: - Candy, mints, and tobacco products are NOT permitted the morning of surgery. - Hearing aids, dentures and glasses may be worn the morning of surgery. - NO jewelry, body piercings, makeup, hairpins or contacts are to be worn the day of surgery. If you develop symptoms such as a fever, cold, or flu, or have other changes to your health within TWO DAYS of scheduled surgery or the morning of surgery, please contact the surgery center above. Personal Belongings: -Please have photo ID and insurance cards. -If you do not have a copy of advance directives on file with us, please bring a copy with you on the day of surgery. - Leave ALL valuables and money at home or with family members. For Outpatient Procedures: - YOU MUST HAVE A RESPONSIBLE WINDOW SASH INSTALLER TAKE YOU HOME. A SEASONAL GREENERY BUNDLER OR DEPUTY COMMONWEALTH'S ATTORNEY CANNOT BE MADE A RESPONSIBLE WINDOW SASH INSTALLER. - We recommend that a responsible person stays with you overnight to take care of you. - You cannot stay in a hotel alone after outpatient surgery. You will not be permitted to have your surgery, if you do not have someone to take care of you. If you already have an Advance Directive, please fax a copy to [phone] or email to for it to be added to your chart. If you do not have an Advance Directive, you can find the appropriate form and more information at [email or web address]. We recommend that you complete the Advance Directive form found on the website and bring it with you the day of your surgery. It can be witnessed and scanned into your chart that day. Hodan Townsend PA-C documented in this encounter [facility] 07-12-2022 Note OPERATIVE NOTE OPERATION DATE: 07/12/2022 PREOPERATIVE DIAGNOSIS: Personal history of colon polyps. POSTOPERATIVE DIAGNOSIS: Cecal and ascending colon polyps as well as sigmoid diverticulosis. PROCEDURE: Colonoscopy to cecum with cold snare polypectomy x2. SURGEON: Luis Padilla M.D. ANESTHESIA: Monitored anesthesia care. ESTIMATED BLOOD LOSS: Less than 1 mL. INDICATIONS AND CONSENT: Patient is a 66-year-old female presents for surveillance colonoscopy. Last colonoscopy was in January of 2017, at which time she had a cecal tubular adenoma removed. Indications, risks, benefits, alternatives of proceeding with colonoscopy were explained extensively to the patient, including the risks of bleeding, colon perforation or anesthetic complications. All of her questions were answered. Informed consent was obtained. PROCEDURE: Patient brought to the operating room, placed in the left lateral decubitus position. Monitored anesthesia care was provided. Rectal exam was performed which showed no masses or blood. The scope was inserted into the anal canal. Under direct visualization was advanced. It was advanced to the cecum where cecal markings were clearly identified. Within the cecum, there was noted to be a 3 mm, irregular polyp that was removed with cold snare with good hemostasis. In the ascending colon, there was noted to be a 5 mm sessile polyp on a fold that was removed with a cold snare with good hemostasis. No other mass lesions or polyps were noted. There was moderate sigmoid diverticulosis without inflammatory changes or scarring. The scope was retroflexed in the anal canal. There was noted to be some small internal/external hemorrhoids, as well as external anal skin tags. Patient tolerated procedure well, was sent to recovery room in good condition. Follow up colonoscopy should be in three years, but will depend on pathology results. CC: Heraclio Gomez M.D. [facility] 05-31-2022 Note HNO ID: [id number] Author: Kaylie Charles MD Service: ? Author Type: Physician Type: Progress Notes Filed: 05/31/2022 10:00 PM Note Text: New Patient Referring Physician: self Elenita Howard is a 66 year old female referred by self for her left foot pain. She states that she has been feeling this pain for about 2 years since her surgery of her joints in 2019. She states that her pain is only off and on when she is not wearing the brace. She states that her pain level is 4/10. She states that her pain feels achy when she is stepping on its. She states that does take medication when she is in a lot of pain. Do you have a metal allergy?: No Current Outpatient Medications Medication Sig Dispense Refill amLODIPine (NORVASC) 5 mg tablet RESTASIS 0.05 % ophthalmic emulsion omeprazole (PRILOSEC) 40 mg capsule ondansetron orally disintegrating (ZOFRAN ODT) 4 mg disintegrating tablet MELOXICAM ORAL Take by mouth. No current facility-administered medications for this visit. Allergies As of Date: 05/31/2022 Allergen Noted Reaction BEE STING 08/31/2021 Hives EPINEPHRINE 01/11/2017 GI Upset LATEX 09/24/2013 Itching SIMVASTATIN 08/13/2014 GI Upset SULFA (SULFONAMIDE ANTIBIOTICS) 09/24/2013 Rash Fully Assessed 05/31/2022 No past medical history on file. No past surgical history on file. Occupation: Retired -occupational requirements: none Recreational Activities: swimming Activities restrictions as follows: none Location: Foot Left Is the patient having any pain? Yes PAIN SCALE: 4 on a scale of 0-10 Pain Onset:gradual Does the pain radiate? No Associated Factors: swelling and weakness Precipitating Factors: Standing, Walking, and As day progresses Relieving Factors: resting and medications - NSAIDs Progression: Worsening Previous Treatment as follows: Injections and surgery PT ROS: Have you had any problems or treatment of the following? If yes please describe. Head:No Eyes:Yes: Ears, nose or throat: No Lungs: No Heart or blood pressure: Yes: Stomach or Bowels: No Kidney or Bladder: No Female organs: Yes: Nerve or mental illness: No DM: No Peripheral Vascular Disease: No Inflammatory Arthritis: Yes: Other: none Bleeding Disorders: No FAMILY HISTORY: Has any member of your immediate family (parents or siblings) had this same problem? If so , who? and what? No SOCIAL HISTORY Marital Status: Tobacco: Non-smoker, never smoked Alcohol: Social drinker ------- ------ WORKERS' COMPENSATION CLAIM Have you missed work for this problem? No If yes, what dates have you missed? Pending Litigation? No What tests have been done for this problem? X-Rays The patient's pertinent medical history from [facility] has been reviewed. PFOMIS forms have been reviewed. The patient's history of present illness has been confirmed. PHYSICAL EXAM: left foot Physical examination reveals an alert and oriented patient who is in no acute distress while sitting and is of normal mood and affect. There were no vitals taken for this visit. Gait Cycle: Normal No, Limp: antalgic:left. Inspection: Alignment: calcaneal valgus and Pes planus Symmetry: Swelling: yes. Redness: no. Ecchymosis: no Effusion: 0 Palpation: Warmth: no, Tenderness: Subfibular ROM: Ankle- Extension:0 Ankle-Flexion:30 Ankle- Inversion: 0 Ankle- Eversion: 10. Strength: 5 Stability: Ligamentous instability: no Specialized Tests: Single inversion heel rise: Unable Neurologic Status: normal. Vascular Status: normal Skin: Incision: well healed, clean, dry and intact Right Upper Extremities:No gross abnormalities Left Upper Extremities:No gross abnormalities Xrays: Severe pes planus with arthritic changes in the foot, retained hardware Dx: (M19.072) Primary osteoarthritis of left foot (primary encounter diagnosis) (M21.42) Pes planus of left foot (M21.072) Acquired valgus deformity of left ankle Plan: I had lengthy discussion with the patient and her today concerning all options for treatment. I did prescribe a Gali brace. If she does decide to go ahead with surgery talked about a triple arthrodesis with the possibility of medial column correction also. Proximal tibia bone graft harvest. Preoperative vitamin D and physical therapy. Surgical risk benefits outcomes and postoperative course were discussed in great detail. HPI explored in detail with patient and edited as necessary. This visit required reviewed the patient's medical records, updating historical information, assessing changes in physical examination, and review of all testing information. It required patient-provider interaction for the medical decision making as documented. The time and /or expertise required in this decision-making process, communicating the results as such with the pa (more content not included)... [facility] 05-31-2022 Note HNO ID: [id number] Author: Melanie Dotson RT(R) Service: Radiology Author Type: Technologist Type: Progress Notes Filed: 05/31/2022 1:49 PM Note Text: Radiology Service Progress Note PATIENT NAME: Elenita Howard DATE OF SERVICE: May 31, 2022 TIME: 1:41 PM PATIENT IDENTITY VERIFICATION COMPLETED USING TWO (2) IDENTIFIERS: Name and Date of confirmed by patient verbally. FALL SCREENING: Has the patient had 2 falls in the last year or 1 fall with injury or currently using an Ambulatory Assistive Device (Walker, Cane, Wheelchair, Crutches, etc.)? No PATIENT GENDER DATA: Female. status: : No status: NO. PATIENT RELEVANT IMPLANT DATA REVIEWED: Not Applicable RADIOLOGY DEPARTMENT: General X-ray: Exam(s) Completed: Lower Extremity X-Ray(s): Foot, Left and Wt. Bearing PERIPHERAL IV DATA: Not applicable SIGNED BY: RT Ella(R) May 31, 2022 1:41 PM [facility] 05-31-2022 History of Present illness Narrative New Patient Referring Physician: self Elenita Howard is a 66 year old female referred by self for her left foot pain. She states that she has been feeling this pain for about 2 years since her surgery of her joints in 2019. She states that her pain is only off and on when she is not wearing the brace. She states that her pain level is 4/10. She states that her pain feels achy when she is stepping on its. She states that does take medication when she is in a lot of pain. Do you have a metal allergy?: No Current Outpatient Medications Medication Sig Dispense Refill amLODIPine (NORVASC) 5 mg tablet RESTASIS 0.05 % ophthalmic emulsion omeprazole (PRILOSEC) 40 mg capsule ondansetron orally disintegrating (ZOFRAN ODT) 4 mg disintegrating tablet MELOXICAM ORAL Take by mouth. No current facility-administered medications for this visit. Allergies As of Date: 05/31/2022 Allergen Noted Reaction BEE STING 08/31/2021 Hives EPINEPHRINE 01/11/2017 GI Upset LATEX 09/24/2013 Itching SIMVASTATIN 08/13/2014 GI Upset SULFA (SULFONAMIDE ANTIBIOTICS) 09/24/2013 Rash Fully Assessed 05/31/2022 No past medical history on file. No past surgical history on file. Occupation: Retired -occupational requirements: none Recreational Activities: swimming Activities restrictions as follows: none Location: Foot Left Is the patient having any pain? Yes PAIN SCALE: 4 on a scale of 0-10 Pain Onset:gradual Does the pain radiate? No Associated Factors: swelling and weakness Precipitating Factors: Standing, Walking, and As day progresses Relieving Factors: resting and medications - NSAIDs Progression: Worsening Previous Treatment as follows: Injections and surgery PT ROS: Have you had any problems or treatment of the following? If yes please describe. Head:No Eyes:Yes: Ears, nose or throat: No Lungs: No Heart or blood pressure: Yes: Stomach or Bowels: No Kidney or Bladder: No Female organs: Yes: Nerve or mental illness: No DM: No Peripheral Vascular Disease: No Inflammatory Arthritis: Yes: Other: none Bleeding Disorders: No FAMILY HISTORY: Has any member of your immediate family (parents or siblings) had this same problem? If so , who? and what? No SOCIAL HISTORY Marital Status: Tobacco: Non-smoker, never smoked Alcohol: Social drinker WORKERS' COMPENSATION CLAIM Have you missed work for this problem? No If yes, what dates have you missed? Pending Litigation? No What tests have been done for this problem? X-Rays The patient's pertinent medical history from [facility] has been reviewed. PFOMIS forms have been reviewed. The patient's history of present illness has been confirmed. PHYSICAL EXAM: left foot Physical examination reveals an alert and oriented patient who is in no acute distress while sitting and is of normal mood and affect. There were no vitals taken for this visit. Gait Cycle: Normal No, Limp: antalgic:left. Inspection: Alignment: calcaneal valgus and Pes planus Symmetry: Swelling: yes. Redness: no. Ecchymosis: no Effusion: 0 Palpation: Warmth: no, Tenderness: Subfibular ROM: Ankle- Extension:0 Ankle-Flexion:30 Ankle- Inversion: 0 Ankle- Eversion: 10. Strength: 5 Stability: Ligamentous instability: no Specialized Tests: Single inversion heel rise: Unable Neurologic Status: normal. Vascular Status: normal Skin: Incision: well healed, clean, dry and intact Right Upper Extremities:No gross abnormalities Left Upper Extremities:No gross abnormalities Xrays: Severe pes planus with arthritic changes in the foot, retained hardware Dx: (M19.072) Primary osteoarthritis of left foot (primary encounter diagnosis) (M21.42) Pes planus of left foot (M21.072) Acquired valgus deformity of left ankle Plan: I had lengthy discussion with the patient and her today concerning all options for treatment. I did prescribe a Gali brace. If she does decide to go ahead with surgery talked about a triple arthrodesis with the possibility of medial column correction also. Proximal tibia bone graft harvest. Preoperative vitamin D and physical therapy. Surgical risk benefits outcomes and postoperative course were discussed in great detail. HPI explored in detail with patient and edited as necessary. This visit required reviewed the patient's medical records, updating historical information, assessing changes in physical examination, and review of all testing information. It required patient-provider interaction for the medical decision making as documented. The time and /or expertise required in this decision-making process, communicating the results as such with the patient and developing the treatment protocol is reflected in the charge capture section of these electronic medical records. This note was partially generated using [employer] voice recognition system, and there may be some incorrect words, spellings, and punctuation that were not noted in checking the note before saving. Kaylie Charles M.D. documented in this encounter [facility] 05-31-2022 History of Present illness Narrative Radiology Service Progress Note PATIENT NAME: Elenita Howard DATE OF SERVICE: May 31, 2022 TIME: 1:41 PM PATIENT IDENTITY VERIFICATION COMPLETED USING TWO (2) IDENTIFIERS: Name and Date of confirmed by patient verbally. FALL SCREENING: Has the patient had 2 falls in the last year or 1 fall with injury or currently using an Ambulatory Assistive Device (Walker, Cane, Wheelchair, Crutches, etc.)? No PATIENT GENDER DATA: Female. status: : No status: NO. PATIENT RELEVANT IMPLANT DATA REVIEWED: Not Applicable RADIOLOGY DEPARTMENT: General X-ray: Exam(s) Completed: Lower Extremity X-Ray(s): Foot, Left and Wt. Bearing PERIPHERAL IV DATA: Not applicable SIGNED BY: RT Ella(R) May 31, 2022 1:41 PM documented in this encounter [facility] 05-23-2022 Note Chief Complaint consultation for colonoscopy recall HPI Staff 66 year old female presents on consultation from Dr. Gomez for colonoscopy recall. Denies abdominal or rectal pain. No rectal bleeding or change in bowel habits. Denies nausea or vomiting. No unexplained weight loss. Last colonoscopy completed 01/2017 with tubular adenoma and chronic active inflammation. No known family history colon cancer. History of Present Illness 66 yo female with h/o htn, hypercholesterolemia, GERD, referred for surveillance colonoscopy; last colonoscopy 01/2017 with 4 mm tubular adenoma in cecum; denies change in bms or blood in stools, no previous abdominal operations; on meloxicam prn, no asa, no SBE prophylaxis; no fmhx of GI malignancy or IBD. no tobacco use. Review of Systems PHQ Score Initial Depression Screen Score: 0 ROS - Provider Constitutional: no fever, no sweats, no weight loss. Eyes: no glasses, no blurred vision, no visual loss. ENMT: no dentures, no hoarseness, no swallowing difficulties, no hearing loss, no ear infection(s), no nose bleeds. Cardiovascular: normal blood pressure, no chest pain, regular heartbeat, no heart murmur. Respiratory: no shortness of breath, no cough, no asthma, no wheezing. Gastrointestinal: no nausea, no vomiting, no diarrhea, no constipation, no blood in stool, no change in bowel habits, no abdominal pain, no hepatitis. Genitourinary: no kidney stones, no urine infection, no dysuria. Musculoskeletal: no pain, no weakness. Skin: no changing moles, no rash, no skin lumps. Neurologic: no seizures, no epilepsy, no headache. Psychiatric: no emotional or psychiatric problem. Heme/Lymph: no bleeding problems, no anemia, no blood clots, no transfusions. Allergy/Immunologic: no swollen lymph nodes/glands, no IV drug abuse. Other: Additional ROS info: Except as noted in the above Review of Systems and in the History of Present Illness, all other systems have been reviewed and are negative or noncontributory. Physical Exam Vitals & Measurements HR: 76(Peripheral) RR: 16 BP: 126/80 HT: 64 in HT: 162.5 cm WT: 84.8 kg WT: 186.56 lb BMI: 32.11 HEENT: normal conjunctiva, sclera clear, no scleral icterus, EOM intact, PERRLA, oral mucosa moist without lesions. Neck: trachea midline, no mass, symmetric, no thyromegaly or nodules, no adenopathy Respiratory: lungs CTA, respirations non labored. Cardiovascular: regular rate and rhythm, no murmur, no pedal edema or varicosities. Gastrointestinal: soft, non distended, no tenderness, no masses, no palpable hernias, diastasis recti no, no hepatosplenomegaly; normal bs Lymphatic: no cervical adenopathy, Musculoskeletal: normal gait, digits and nails without infection, nodes, cyanosis, clubbing. Skin: no rashes, no lesions, no ulcers, no subcutaneous nodules, induration. Psychiatric/Neuro: oriented to time, place, person, judgement normal, affect appropriate for age, insight intact, no focal deficits. Tests: review of old records completed, Discussed surgical options, risks, and possible complications with patient. Assessment/Plan 1. Personal history of colonic polyps (Z86.010: Personal history of colonic polyps) plan surveillance colonoscopy under anesthesia, informed consent obtained. Follow-up No qualifying data available Problem List/Past Medical History Ongoing BMI 32.0-32.9,adult Fibrocystic breast disease GERD (gastroesophageal reflux disease) HTN (hypertension) Low back pain syndrome Migraines Mood disorder Personal history of colonic polyps Pure hypercholesterolemia Seasonal allergic rhinitis Historical No qualifying data Procedure/Surgical History CE - Cataract extraction, Colonoscopy, Colonoscopy, Cryocautery of cervix, Dilation and curettage, LASIK. Medications amLODIPine 5 mg Tab, 5 mg= 1 tab(s), Oral, Daily meloxicam omeprazole 40 mg Cap-DR, 40 mg= 1 cap(s), Oral, Daily Allergies Augmentin (Unknown) simvastatin (Unknown) sulfa drugs (Unknown) Social History Alcohol Current, Wine, Liquor, 1-2 times per week, 05/23/2022 Substance Abuse - Denies Substance Abuse, 05/23/2022 Tobacco Never (less than 100 in lifetime) Tobacco Use:. Never Smokeless Tobacco Use:., 05/23/2022 Family History Cancer: Sister. Cardiac arrest: Father. Heart disease: Father. Heart failure: Mother. Hyperlipidemia: Brother. Hypertension: Mother and Father. [facility] Comment on above: Result Comment: Elec tronically Signed By: KENYETTA CAMPO, Luis Abraham\Date and Time Signed: 05/23/22 14:16 EDT Evaluation + Plan note No data available for this section General Surgery [place] Evaluation note Diagnosis Primary osteoarthritis of left foot- Primary Pes planus of left foot Acquired valgus deformity of left ankle [facility] [place] [facility] Diagnosis Pre-op evaluation- Primary Preoperative examination, unspecified Hypertension, unspecified type Obesity (BMI 30-39.9) Obesity, unspecified Primary osteoarthritis of left foot Pes planus of left foot Acquired valgus deformity of left ankle [facility] [place] [facility] Diagnosis Primary osteoarthritis of left foot- Primary Primary osteoarthritis of left foot Pes planus of left foot Acquired valgus deformity of left ankle documented [facility] [place] [facility]* Diagnosis Primary osteoarthritis of left foot- Primary Primary osteoarthritis of left foot Pes planus of left foot Acquired valgus deformity of left ankle [facility] [place] [facility] Diagnosis Primary osteoarthritis of left foot- Primary Pes planus of left foot Acquired valgus deformity of left ankle Primary osteoarthritis of left foot- Primary [facility] [place] [facility]* Diagnosis Pain- Primary Generalized pain Primary osteoarthritis of left foot- Primary [facility] [place] [facility]* Diagnosis Left ankle pain, unspecified chronicity- Primary [facility] Diagnosis Primary osteoarthritis of left foot- Primary APPOINTMENT CANCELLED documented [facility] [place] [facility]* Diagnosis Primary osteoarthritis of left foot- Primary [facility] [place] [facility]* Diagnosis Primary osteoarthritis of left foot- Primary documented in this encounter [facility] note* Diagnosis Primary osteoarthritis of left foot- Primary documented in this encounter [facility] note* Diagnosis Primary osteoarthritis of left foot- Primary documented in this encounter [facility] note* Diagnosis History of arthrodesis- Primary Arthrodesis status documented in this encounter [facility] note* Diagnosis Pain Generalized pain documented in this encounter [facility] note* Diagnosis Primary osteoarthritis of left foot documented in this encounter [facility] note* Diagnosis Primary osteoarthritis of left foot documented in this encounter [facility] Discharge instructions No data available for this section General Surgery [place] Progress note No data available for this section General Surgery [place] Reason for referral (narrative)* Diagnostic Procedure Only (Routine) - Closed Specialty Diagnoses / Procedures Referred By Monserratac t Referred To Contact XR IMAGING Diagnoses Pain Procedures XR FOOT GENERAL 3V AP/LAT/OBL LEFT RADEX FOOT COMPLETE MINIMUM 3 VIEWS Kaylie Charles DDS [address] [place] [address] Xr Imaging Referral ID Status Reason Start Date Expiration Date V isits Requested Visits Authorized [id number] Closed Auto-Generate d Referral 05/22/2022 06/21/2023 1 1 [facility] for referral (narrative)* Diagnostic Procedure Only (Routine) - Pending Review Specialty Diagnoses / Procedures Referred By Krystina black Referred To Contact XR IMAGING Diagnoses Primary osteoarthritis of left foot Procedures XR FOOT GENERAL 3V AP/LAT/OBL LEFT RADEX FOOT COMPLETE MINIMUM [address] [place] [address] [place] [address] Xr Imaging Referral ID Status Reason Start Date Expiration Date Visits Requested Visits Authorized [id number] Pending Review Auto-Generat ed Referral 09/22/2022 10/19/2023 1 1 [facility] for referral (narrative)* Diagnostic Procedure Only (Routine) - Pending Review Specialty Diagnoses / Procedures Referred By Contac t Referred To Contact XR IMAGING Diagnoses Primary osteoarthritis of left foot Procedures XR FOOT GENERAL 3V AP/LAT/OBL LEFT RADEX FOOT COMPLETE MINIMUM [address] [place] [address] [place] [address] Xr Imaging Referral ID Status Reason Start Date Expiration Date Visits Requested Visits Authorized [id number] Pending Review Auto-Generat ed Referral 10/18/2022 11/17/2023 1 1 [facility] for referral (narrative)* Diagnostic Procedure Only (Routine) - Pending Review Specialty Diagnoses / Procedures Referred By Contac t Referred To Contact XR IMAGING Diagnoses Primary osteoarthritis of left foot Procedures XR FOOT GENERAL 3V AP/LAT/OBL LEFT RADEX FOOT COMPLETE MINIMUM [address] [place] [address] [place] [address] Xr Imaging Referral ID Status Reason Start Date Expiration Date Visits Requested Visits Authorized [id number] Pending Review Auto-Generat ed Referral 11/30/2022 12/30/2023 1 1 T [facility] for referral (narrative)* Diagnostic Procedure Only (Routine) - Closed Specialty Diagnoses / Procedures Referred By Contac t Referred To Contact XR IMAGING Diagnoses Pain Procedures XR FOOT GENERAL 3V AP/LAT/OBL LEFT RADEX FOOT COMPLETE MINIMUM 3 VIEWS Kaylie Charles, DMD [address] [place] [address] [place] [address] Referral ID Status Reason Start Date Expiration Date V isits Requested Visits Authorized [id number] Closed Auto-Generate d Referral 05/22/2022 06/21/2023 1 1 [facility] for referral (narrative)* Diagnostic Procedure Only (Routine) - Closed Specialty Diagnoses / Procedures Referred By Contac t Referred To Contact XR IMAGING Diagnoses Primary osteoarthritis of left foot Procedures XR FOOT GENERAL 3V AP/LAT/OBL LEFT RADEX FOOT COMPLETE MINIMUM [address] [place] [address] [place] [address] [place] [address] Referral ID Status Reason Start Date Expiration Date V isits Requested Visits Authorized [id number] Closed Auto-Generate d Referral 09/22/2022 10/19/2023 1 1 [facility] for referral (narrative)* Diagnostic Procedure Only (Routine) - Closed Specialty Diagnoses / Procedures Referred By Contac t Referred To Contact XR IMAGING Diagnoses Primary osteoarthritis of left foot Procedures XR FOOT GENERAL 3V AP/LAT/OBL LEFT RADEX FOOT COMPLETE MINIMUM [address] [place] [address] [place] [address] [place] [address] Referral ID Status Reason Start Date Expiration Date V isits Requested Visits Authorized [id number] Closed Auto-Generate d Referral 11/30/2022 12/30/2023 1 1 [facility] for referral (narrative)* Diagnostic Procedure Only (Routine) - Closed Specialty Diagnoses / Procedures Referred By Contac t Referred To Contact XR IMAGING Diagnoses Primary osteoarthritis of left foot Procedures XR FOOT GENERAL 3V AP/LAT/OBL LEFT RADEX FOOT COMPLETE MINIMUM [address] [place] [address] [place] [address] [place] [address] Referral ID Status Reason Start Date Expiration Date V isits Requested Visits Authorized [id number] Closed Auto-Generate d Referral 10/18/2022 11/17/2023 1 1 [facility] Summary Purpose Family History No Family History Records FoundNo Family History Records FoundNo Family History Records FoundNo Family History Records FoundNo Family History Records FoundNo Family History Records Found Advance Directives No Advanced Directives Records FoundNo Advanced Directives Records FoundNo Advanced Directives Records FoundNo Advanced Directives Records FoundNo Advanced Directives Records FoundNo Advanced Directives Records Found Reason for Referral Specialty Diagnoses / Procedures Referred By Krystina black Referred To Contact [facility] Diagnoses Primary osteoarthritis of left foot Procedures CONSULT TO PHYSICAL THERAPY PHYSICAL THERAPY EVALUATION HIGH COMPLEX [address] [place] [address] [place] [address] [facility] [address] [place] [address] Referral ID Status Reason Start Date Expiration Date Visits Requested Visits Authorized [id number] Pending Review Auto-Generat ed Referral 08/23/2022 08/23/2023 1 1 Additional Source Comments INFORMATION SOURCE (unrecogn ized section and content) DATE CREATED AUTHOR 03/29/2019 [facility] DATE CREATED AUTHOR AUTHOR'S ORGANIZ ATION 07/22/2022 [facility] DATE CREATED AUTHOR AUTHOR'S ORGANIZ ATION 08/22/2022 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 Relationship Specialty Start Date End Date Heraclio Gomez MD PCP - General Family Medicine 09/10/15 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 Relationship Specialty Start Date End Date Heraclio Gomez MD PCP - General Family Medicine 09/10/15 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 Relationship Specialty Start Date End Date Heraclio Gomez MD PCP - General Family Medicine 09/10/15 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 Relationship Specialty Start Date End Date Heraclio Gomez MD PCP - General Family Medicine 09/10/15 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 Relationship Specialty Start Date End Date Heraclio Gomez MD PCP - General Family Medicine 09/10/15 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 Relationship Specialty Start Date End Date Heraclio Gomez MD PCP - General Family Medicine 09/10/15 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 Relationship Specialty Start Date End Date Heraclio Gomez MD PCP - General Family Medicine 09/10/15 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 Relationship Specialty Start Date End Date Heraclio Gomez MD PCP - General Family Medicine 09/10/15 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 Relationship Specialty Start Date End Date Heraclio Gomez MD PCP - General Family Medicine 09/10/15 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 Relationship Specialty Start Date End Date Heraclio Gomez MD PCP - General Family Medicine 09/10/15 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 Relationship Specialty Start Date End Date Heraclio Gomez MD PCP - General Family Medicine 09/10/15 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 Relationship Specialty Start Date End Date Heraclio Gomez MD PCP - General Family Medicine 09/10/15 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 Relationship Specialty Start Date End Date Heraclio Gomez MD PCP - General Family Medicine 09/10/15 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 Relationship Specialty Start Date End Date Heraclio Gomez MD PCP - General Family Medicine 09/10/15 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 Relationship Specialty Start Date End Date Heraclio Gomez MD PCP - General Family Medicine 09/10/15 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 Relationship Specialty Start Date End Date Heraclio Gomez MD PCP - General Family Medicine 09/10/15 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 Relationship Specialty Start Date End Date Heraclio Gomez MD PCP - General Family Medicine 09/10/15 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 Relationship Specialty Start Date End Date Heraclio Gomez MD PCP - General Family Medicine 09/10/15 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 Relationship Specialty Start Date End Date Heraclio Gomez MD PCP - General Family Medicine 09/10/15 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 Relationship Specialty Start Date End Date Heraclio Gomez MD PCP - General Family Medicine 09/10/15 Source Comments (unrecognize d section and content) In the event this informatio n is protected by the Federal Confidentiality of Alcohol and Drug Abuse Patient Records regulations: The Federal rules restrict any use of the information to criminally investigate or prosecute any alcohol or drug abuse patient.[facility] the event this information is protected by the Federal Confidentiality of Alcohol and Drug Abuse Patient Records regulations: The Federal rules restrict any use of the information to criminally investigate or prosecute any alcohol or drug abuse patient.[facility] the event this information is protected by the Federal Confidentiality of Alcohol and Drug Abuse Patient Records regulations: The Federal rules restrict any use of the information to criminally investigate or prosecute any alcohol or drug abuse patient.[facility] the event this information is protected by the Federal Confidentiality of Alcohol and Drug Abuse Patient Records regulations: The Federal rules restrict any use of the information to criminally investigate or prosecute any alcohol or drug abuse patient.[facility] the event this information is protected by the Federal Confidentiality of Alcohol and Drug Abuse Patient Records regulations: The Federal rules restrict any use of the information to criminally investigate or prosecute any alcohol or drug abuse patient.[facility] the event this information is protected by the Federal Confidentiality of Alcohol and Drug Abuse Patient Records regulations: The Federal rules restrict any use of the information to criminally investigate or prosecute any alcohol or drug abuse patient.[facility] the event this information is protected by the Federal Confidentiality of Alcohol and Drug Abuse Patient Records regulations: The Federal rules restrict any use of the information to criminally investigate or prosecute any alcohol or drug abuse patient.[facility] the event this information is protected by the Federal Confidentiality of Alcohol and Drug Abuse Patient Records regulations: The Federal rules restrict any use of the information to criminally investigate or prosecute any alcohol or drug abuse patient.[facility] the event this information is protected by the Federal Confidentiality of Alcohol and Drug Abuse Patient Records regulations: The Federal rules restrict any use of the information to criminally investigate or prosecute any alcohol or drug abuse patient.[facility] the event this information is protected by the Federal Confidentiality of Alcohol and Drug Abuse Patient Records regulations: The Federal rules restrict any use of the information to criminally investigate or prosecute any alcohol or drug abuse patient.[facility] the event this information is protected by the Federal Confidentiality of Alcohol and Drug Abuse Patient Records regulations: The Federal rules restrict any use of the information to criminally investigate or prosecute any alcohol or drug abuse patient.[facility] Center[facility] the event this information is protected by the Federal Confidentiality of Alcohol and Drug Abuse Patient Records regulations: The Federal rules restrict any use of the information to criminally investigate or prosecute any alcohol or drug abuse patient.[facility] Center[facility] the event this information is protected by the Federal Confidentiality of Alcohol and Drug Abuse Patient Records regulations: The Federal rules restrict any use of the information to criminally investigate or prosecute any alcohol or drug abuse patient.[facility] Center[facility] the event this information is protected by the Federal Confidentiality of Alcohol and Drug Abuse Patient Records regulations: The Federal rules restrict any use of the information to criminally investigate or prosecute any alcohol or drug abuse patient.[facility] Center[facility] the event this information is protected by the Federal Confidentiality of Alcohol and Drug Abuse Patient Records regulations: The Federal rules restrict any use of the information to criminally investigate or prosecute any alcohol or drug abuse patient.[facility] Center[facility] the event this information is protected by the Federal Confidentiality of Alcohol and Drug Abuse Patient Records regulations: The Federal rules restrict any use of the information to criminally investigate or prosecute any alcohol or drug abuse patient.[facility] Center[facility] the event this information is protected by the Federal Confidentiality of Alcohol and Drug Abuse Patient Records regulations: The Federal rules restrict any use of the information to criminally investigate or prosecute any alcohol or drug abuse patient.[facility] Center[facility] the event this information is protected by the Federal Confidentiality of Alcohol and Drug Abuse Patient Records regulations: The Federal rules restrict any use of the information to criminally investigate or prosecute any alcohol or drug abuse patient.[facility] Center[facility] the event this information is protected by the Federal Confidentiality of Alcohol and Drug Abuse Patient Records regulations: The Federal rules restrict any use of the information to criminally investigate or prosecute any alcohol or drug abuse patient.[facility] Center[facility] the event this information is protected by the Federal Confidentiality of Alcohol and Drug Abuse Patient Records regulations: The Federal rules restrict any use of the information to criminally investigate or prosecute any alcohol or drug abuse patient.[facility] Center[facility] the event this information is protected by the Federal Confidentiality of Alcohol and Drug Abuse Patient Records regulations: The Federal rules restrict any use of the information to criminally investigate or prosecute any alcohol or drug abuse patient.[facility] Reason for Visit (unrecogniz ed section and content) Reason Comments Radiology XR Specialty Diagnoses / Procedures Referred By Contac t Referred To Contact XR IMAGING Diagnoses Primary osteoarthritis of left foot Procedures XR FOOT GENERAL 3V AP/LAT/OBL LEFT RADEX FOOT COMPLETE MINIMUM [address] [place] [address] [place] [address] [place] [address] Referral ID Status Reason Start Date Expiration Date V isits Requested Visits Authorized [id number] Closed Auto-Generate d Referral 11/30/2022 12/30/2023 1 1 Reason Comments New Reason Onset Date Comments Refill Request 08/30/2022 Reason Onset Date Comments Post Op Wound Check Appointment Cancelled 09/14/2022 Reason Comments Patient Update Reason Comments Post Op Wound Check Suture Removal Reason Comments cast issue Reason Comments Post Op Reason Comments Follow Up Reason Comments Radio Gen RMP Specialty Diagnoses / Procedures Referred By Contac t Referred To Contact XR IMAGING Diagnoses Pain Procedures XR FOOT GENERAL 3V AP/LAT/OBL LEFT RADEX FOOT COMPLETE MINIMUM 3 VIEWS Kaylie Charles, DARLIN [address] [place] [address] [place] [address] Referral ID Status Reason Start Date Expiration Date V isits Requested Visits Authorized [id number] Closed Auto-Generate d Referral 05/22/2022 06/21/2023 1 1 Referral ID Status Reason Start Date Expiration Date V isits Requested Visits Authorized [id number] Closed Auto-Generate d Referral 09/22/2022 10/19/2023 1 1 Referral ID Status Reason Start Date Expiration Date V isits Requested Visits Authorized [id number] Closed Auto-Generate d Referral 10/18/2022 11/17/2023 1 1 FOR RECORDS PERTAINING TO PATIENTS WHO ARE OR HAVE BEEN ENROLLED IN A CHEMICAL DEPENDENCY/SUBSTANCEABUSE PROGRAM, SOME INFORMATION MAY BE OMITTED. This clinical summary was aggregated from multiple sources. Caution should be exercised in using it in the provision of clinical care. This summary normalizes information from multiple sources, and as a consequence, information in this document may materially change the coding, format and clinical context of patient data. In addition, data may be omitted in some cases. CLINICAL DECISIONS SHOULD BE BASED ON THE PRIMARY CLINICAL RECORDS. [employer] provides no warranty or guarantee of the accuracy or completeness of information in this document.
== END 2023-10-25 11:12 | disposition home or self-care (01) ==
LOC: LAB 10-29 10:30
PROVIDERS: PCP Family Medicine; Visit Provider Family Medicine
DX: R53.83 Other fatigue (principal); Z79.899 Other long term (current) drug therapy; E78.5 Hyperlipidemia, unspecified; Z12.11 Encounter for screening for malignant neoplasm of colon; R73.09 Other abnormal glucose
CPT/HCPCS: 36415; 80053; 80061; 83036; 84439; 84443; 85025

== ENCOUNTER 2023-11-08 07:29 | Outpatient (RCR) | payer MEDICARE, SELFPAY ==
[2023-11-08 10:00] VITALS: BP 144/86; PULSE 80; RESP 18; O2SAT 99
[2023-11-08] MEDS: DENOSUMAB 60 MG/ML SYRINGE SUBQ (10:18)
--- NOTE | 2023-11-08 10:24 | PC.NURSE ---
Patient is here for prolia injection, she had blood work completed. Vitals are stable, she tolerated injection well and denies any complaints. She was discharged home ambulatory.
== END 2023-11-08 10:26 | disposition home or self-care (01) ==
LOC: INF 07:29
PROVIDERS: PCP Family Medicine; Visit Provider Family Medicine
DX: M81.0 Age-related osteoporosis without current pathological fracture (principal)
CPT/HCPCS: 96372; J0897

== ENCOUNTER 2023-12-31 08:55 | Outpatient (RCR) | payer MEDICARE, SELFPAY | END 2024-02-06 15:40 | disposition home or self-care (01) | LOC: PT 08:55 | PROVIDERS: PCP Family Medicine; Visit Provider Family Medicine | DX: M19.072 Primary osteoarthritis, left ankle and foot (principal) | CPT/HCPCS: 20560; 97035; 97140; 97161 ==

== ENCOUNTER 2024-06-30 13:57 | Outpatient (OUT) | payer MEDICARE, SELFPAY ==
--- NOTE | 2024-06-30 14:03 | MM_ITS ---
Patient Name: FELIBERTO ARMENTA MR#: [id number] : 1955 Exam Date: 06/30/2024 Ordering Doctor: DR Flavio Gomez . RADIOLOGY REPORT PROCEDURE: MM TOMOSYNTHESIS SCREENING BI COMPARISON: MM TOMOSYNTHESIS SCREENING BI, 05/22/2023. MG MAMM SCREEN 3D ANGIE CAD, 04/18/2022. MG MAMM SCREEN 3D ANGIE CAD, 04/08/2021. MG MAMM ANGIE SCRN W CAD DIG, 07/22/2013. INDICATIONS: Screening Calculator Name NCI Breast Cancer Risk Assessment Tool 5 Year Breast Cancer Risk 2.30% Lifetime Breast Cancer Risk 6.90% Personal Breast Cancer No Personal Ovarian Cancer No Treatments None Family Cancers Sister with ?uterine cancer at age 43. LOCATION: [facility] BREAST COMPOSITION: The breasts are heterogeneously dense,which may obscure small masses. FINDINGS: DIAGNOSTIC CATEGORY 2--BENIGN FINDING: RIGHT BREAST: No significant suspicious finding. Stable asymmetric opacity/fibroglandular tissue. No significant change has occurred. LEFT BREAST: No significant suspicious finding. Stable asymmetric opacity/fibroglandular tissue. No significant change has occurred. RECOMMENDATIONS: ROUTINE MAMMOGRAM AND CLINICAL EVALUATION IN 12 MONTHS. PLEASE NOTE: A NORMAL MAMMOGRAM DOES NOT EXCLUDE THE POSSIBILITY OF BREAST CANCER. A CLINICALLY SUSPICIOUS PALPABLE LUMP SHOULD BE BIOPSIED. Dictated by: Zaheer Rojas M.D. on 06/30/2024 at 15:15 Approved by: Zaheer Rojas M.D. on 06/30/2024 at 15:19
== END 2024-06-30 13:58 | disposition home or self-care (01) ==
LOC: MAMMO 13:57
PROVIDERS: PCP Family Medicine; Visit Provider Family Medicine
DX: Z12.31 Encounter for screening mammogram for malignant neoplasm of breast (principal); Z80.8 Family history of malignant neoplasm of other organs or systems
CPT/HCPCS: 77063; 77067

== ENCOUNTER 2024-10-10 11:57 | Outpatient (OUT) | payer MEDICARE, SELFPAY ==
--- OUTSIDE RECORDS SUMMARY | 2024-10-10 12:16 | XMS_ITS | CCD ---
Author Organization [facility] CliniSytn Care Team Providers Care Pattern Grader Supervisor Name Role Phone Heraclio Gomez Primary Care Physician Heraclio Gomez MD Primary Care Provider [phone] Luis PADILLA Attending Unavailable Patricia PROVIDERHeraclio Referring Unavailabl e NILL, Luis Monterroso Attending Unavailable Oriy PROVIDER, Heraclio Referring Unavailabl e NILL, Luis Monterroso Attending Unavailable NILL, Luis Monterroso Attending Unavailable Heraclio Gomez MD Primary Care Provider [phone] KAYLIE CHARLES Referring Unavailable HERACLIO GOMEZ [...] .REINA Admitting Unavailable CONTRERAS .REINA Consulting Unavailable ORIY ., DR PULLIAM Primary Care Unavailable NILL ., DR SMITH Attending Unavailable NILL ., DR SMITH Admitting Unavailable NILL ., DR SMITH Consulting Unavailable ERYN, YVETTE VANESSA Consulting Unava VEDA Treadwell Consulting Unavailable HOY ., DR PULLIAM Admkeith Unavailable HOY ., DR PULLIAM Primary Care [...] Unavailable HOY ., DR PULLIAM Consulting Unavailable Oriy Heraclio CAMPO Primary Care Provider [phone] KAYLIE CHARLES Attending Unavailable HOY, HERACLIO M Primary Care Unavailable HOY, HERACLIO M Primary Care Unavailable KAYLIE CHARLES Referring Unavailable HOY, HERACLIO M Primary Care Unavailable KAYLIE CHARLES Referring Unavailable HOY, HERACLIO M Primary Care Unavailable HOY, HERACLIO M Primary Care Unavailable KAYLIE CHARLES Attending Unavailable HOY, HERACILO M Primary Care Unavailable HOY, HERACLIO M [...] Unavailable HOY, HERACLIO M Primary Care Unavailable Unavailable Primary Care Provider UnavailSHARYN Serra Attending Unavailable Allergies Allergy Classification Reported Allergen(s) Allergy Type Date of Onset Reaction(s) Facility (3 sources) Amoxicillin / Clavulanate; Translations: [amoxicillin-cla vulanate] Drug Allergy Unknown (qualifier value) General Surgery [facility] (20 sources) Simvastatin; Translations: [simvastatin] Drug Allergy 5 Unknown (qualifier value), GI Upset [facility] [place] (3 sources) Sulfonamides (Antibiotic); Translations: [sulfa drugs] Drug allergy Unknown (qualifier value) General Surgery [place] (2 sources) EPINEPHrine; Translations: [EPINEPHRINE] Drug Allergy 7 GI Upset [facility] (20 sources) Latex; Translations: [LATEX] Drug Allergy 4 Itching [facility] (20 sources) Sulfonamides (Antibiotic); Translations: [SULFA (SULFONAMIDE ANTIBIOTICS)] Drug Allergy 4 Rash, Unknown [facility] (20 sources) Bee Sting; Translations: [BEE STING] Allergy to substance 2 Hives [facility] (1 source) Amoxicillin Drug Allergy [facility] (1 source) bee venom Drug allergy (disorder) [facility] (1 source) EPINEPHrine Drug Allergy 7 [facility] (1 source) Latex Drug allergy (disorder) 4 [facility] (1 source) Simvastatin Drug Allergy 5 [facility] (1 source) Sulfonamides (Antibiotic) Drug allergy (disorder) 4 [facility] (3 sources) EPINEPHrine Drug Allergy 4 GI intolerance [facility] (3 sources) Honey bee venom Allergy to substance 2 Hives, Unknown [facility] (3 sources) Latex Allergy to substance 4 Itching [facility] (3 sources) Simvastatin Allergy to substance 5 GI intolerance, Unknown [facility] (3 sources) Amoxicillin-Pot Clavulanate Drug Allergy 4 Unknown [facility] Work Phone: Medications Current Medications Medication Drug Class(es) Dates Sig (Normalized) Sig (Original) calcitriol 0.32172 mg oral capsule (3 sources) Vitamin D3 Analog take 1 capsule by mouth in the morning calcitriol (Rocaltrol) 0.25 MCG capsule Take 0.25 mcg by mouth in the morning. Active ciclopirox 7.7 mg/ml topical cream (5 sources) Start: 09-01-2024 ciclopirox (Loprox) 0.77 % cream Indications: Onychomycosis Apply thin layer to affected area on feet once a day, 30 day supply 30 g 09/01/2024 Active Start: 09-01-2024 ciclopirox (Lo prox) 0.77 % cream Indications: Onychomycosis Apply thin layer to affected area on feet once a day, 30 day supply 30 g 09/01/2024 Active Start: 08-23-2023 End: 09-01-2024 Ciclopirox 8 % kit Indicatio ns: Onychomycosis Apply to affected nails once a day, remove once weekly to avoid build up, 30 day supply 6.6 mL 08/23/2023 09/01/2024 Discontinued (Ineffective) fexofenadine hydrochloride 180 mg oral tablet (20 sources) Histamine-1 Receptor Antagonist take 1 tablet by mouth in the morning fexofenadine (Shannan) 180 MG tablet Take 180 mg by mouth in the morning. Active Comment on above: Take 180 mg by mouth once daily. melatonin 1 mg oral capsule (20 sources) Melatonin 1 MG c apsule Take by mouth Active take 1 tablet by mouth once jerad y melatonin 1 mg tablet Take 1 mg by mouth once daily. 0 Active Comment on above: Take 1 mg by mouth o nce daily. meloxicam (7 sources) Nonsteroidal Anti-inflammatory Drug Start: 05-23-2022 meloxicam Refills(s) 0 Start Date: 05/23/22 Status: Ordered End: 08-30-2022 MELOXICAM ORAL Take 15 mg by mouth. 0 08/30/2022 Discontinued (Changing Therapy/Dosage Form) MELOXICAM ORAL T jimmy by mouth. 0 Active Comment on above: Take by mouth. Take 15 mg by mouth. oxyCODONE hydrochloride 5 mg oral tablet (1 source) Opioid Agonist Start: 08-30-19 End: 09-06-19 23 take 1 tablet by mouth every six [...] for more severe postop pain after surgery. triamcinolone acetonide 1 mg/ml topical cream (3 sources) Corticosteroid Start: 08-23-19 24 triamcinolone (Kenalog) 0.1 % cream Indications: Other atopic dermatitis Apply to affected area on back, up to twice a day when flared, do not use one the face, groin, or underarms, 30 day supply 80 g 08/23/2023 Active Completed/Discontinued Medications Medication Drug Class(es) Dates Sig (Normalized) Sig (Original) acetaminophen 325 mg oral tablet (8 sources) Start: 08-30-2022 End: 09-20-2022 take 2 tablets by mouth every four hours acetaminophen (TYLENOL) 325 mg tablet Take 2 tablets by mouth every 4 hours while awake. after surgery on 09/05/22 until no longer needed. 0 08/30/2022 09/20/2022 Discontinued (Course of therapy completed) [facility] as needed for pain acetaminophen (Tylenol 8 Hour) 650 MG ER tablet Take 650 mg by mouth every 8 (eight) hours if needed for mild pain Do not crush, chew, or split. Active Comment on above: Take 2 tablets by mo [facility] every 4 hours while awake. after surgery on 09/05/22 until no longer needed. amLODIPine 5 mg oral tablet (20 sources) Dihydropyridine Calcium Channel Cally Start: 2021 amLODIPine (NORVASC) 5 mg tablet cephalexin 500 mg oral capsule (5 sources) Cephalosporin Antibacterial Start: 2022 End: 2022 take 1 capsule by mouth four times daily cephALEXin (KEFLEX) 500 mg capsule Take 1 capsule by mouth four times daily. 20 capsule 0 08/30/2022 09/20/2022 Discontinued (Course of therapy completed) Comment on above: Take 1 capsule by mo [facility] four times daily. cycloSPORINE 0.5 mg/ml ophthalmic suspension (20 sources) Calcineurin Inhibitor Immunosuppressant Start: 2021 RESTASIS 0.05 % ophthalmic emulsion INV VITAMIN D3 5000 UNITS CAPSULE (IRB [...] sources) Nonsteroidal Anti-inflammatory Drug, Cyclooxygenase Inhibitor Start: 2022 End: 2022 take 1 tablet by mouth every six [...] on 09/05/22. lisinopril 10 mg oral tablet (4 sources) Angiotensin Converting Enzyme Inhibitor Start: 2022 take 1 tablet by mouth once daily lisinopril (ZESTRIL) 10 mg tablet Take 10 mg by mouth once daily. 0 10/31/2022 Active Comment on above: Take 10 mg by mouth once daily. omeprazole 40 mg delayed release oral capsule (20 sources) Proton Pump Inhibitor Start: 2020 omeprazole (PRILOSEC) 40 mg capsule ondansetron 4 mg disintegrating oral tablet (3 sources) Serotonin-3 Receptor Antagonist Start: 2020 End: 2022 ondansetron orally disintegrating (ZOFRAN ODT) 4 mg [...] disorders (2 sources) Mood disorder 05-12-2022 Chronic Mycoses (2 sources) Onychomycosis; Translations: [Tinea unguium] 09-01-2024 Episodic Nonmalignant breast conditions (2 sources) Fibrocystic disease of breast 05-12-2022 Chronic Nonspecific chest pain (1 source) Chest pain, unspecified; Translations: [CHEST PAIN UNSPECIFIED] Onset: 09-27-2022 Episodic Nutritional deficiencies (4 sources) Vitamin D deficiency, unspecified; Translations: [VITAMIN D DEFICIENCY UNSPECIFIED] Onset: 10-09-2022 Chronic Osteoarthritis (20 sources) Osteoarthritis of left foot; Translations: [Primary osteoarthritis, left ankle and foot] Onset: 05-31-2022 Chronic Other aftercare (1 source) [facility] (current) use of aspirin; Translations: [SUPERVISOR INTERNATIONAL RESERVATIONS CURRENT USE OF ASPIRIN] Onset: 09-27-2022 Episodic Other aftercare (1 source) Other [facility]p (current) drug therapy; Translations: [OTH NURSING HOME CURRENT DRUG THERAPY] Onset: 09-27-2022 Episodic Other [...] OF ASCENDING COLON] Onset: 07-17-2022 Episodic Other and unspecified benign neoplasm (2 sources) Melanocytic nevus of trunk; Translations: [Melanocytic nevi of trunk] 09-01-2024 Episodic Other non-traumatic joint disorders (1 source) [...] neoplasm of breast] Onset: 04-18-2022 Episodic Other skin disorders (2 sources) Seborrheic keratosis; Translations: [Other seborrheic keratosis] 09-01-2024 Episodic Other skin disorders (2 sources) Inflamed seborrheic keratosis; Translations: [Inflamed seborrheic keratosis] 09-01-2024 Episodic Other upper respiratory disease (2 sources) [...] Test Name Value Interpretation Reference Range Facility No Panel Informationon 09-01 [facility] CNOVon 01-10-2023 CNOV Office Visit (ORAVON ) -------- ELENITA HOWARD ([id number]) 1955 F Date Time Provider Department 01/10/23 11:30 AM KAYLIE CHARLES During your visit today, we recorded the following information about you: Kaylie Charles MD 01/10/2023 12:58 PM Signed Elenita Howard returns today to follow up [...] records. This note was partially generated using XLerant voice recognition system, and there may be [...] and 3 months after surgery. - fexofenadine (SHANNAN) 180 mg tablet Take 180 mg by [...] Encounter Status:Closed by KAYLIE CHARLES on 01/10/23 [facility] XR FOOT 3V AP/LAT/OBL LTon 0 [...] abnormality is identified. IMPRESSION: Healing postoperative changes. Director Of Physical Security: PSCB Transcribe Date/Time: Jan 10 2023 12:42P Dictated by : ANTHONY PIERCE MD This examination was interpreted and the report reviewed and electronically signed by: ANTHONY PIERCE MD on Jan 10 2023 12:42PM EST [id number] Normal [facility] XR FOOT GENERAL 3V AP/LAT/OB L LEFTon 01-10-2023 [facility] CNOVon 11-29-2022 CNOV Office Visit (ORAVON ) -------- ELENITA HOWARD ([id number]) 1955 F Date Time Provider Department 11/29/22 3:30 PM CAST TECH STACI ORAVON During your visit today, we recorded the following information about you: Antonietabryson Jhaveriey Cast 11/30/2022 7:18 AM Signed PT ASSESSMENT - CASTING ROOM Elenita presents for cast removal. Applied pneumatic aircast walker to Left leg non-weight bearing Patient has been instructed in Care of boot.. Antonieta Pa Cast Beeper: [id number] Referring Provider: KAYLIE CHARLES [[id number]] Allergies As [...] and 3 months after surgery. - fexofenadine (SHANNAN) 180 mg tablet Take 180 mg by [...] Encounter Status:Closed by ANTONIETA GALLAGHER on 11/30/22 [facility] CNOV Office Visit (JANIA ) -------- ELENITA HOWARD ([id number]) 1955 F Date Time Provider Department 11/29/22 [...] [M19.072] Order(s):XR FOOT GENERAL 3V AP/LAT/OBL LEFT [[id number]] Order #: [id number] FUTURE Prescriptions as of 11/30/2022 - INV VITAMIN D3 5000 UNITS CAPSULE (IRB [id number]) Take 5,000 Units by mouth once daily. For Investigational Drug Use Only. PI: Ce Batista, PhD. Take one capsule by mouth daily for 3 months prior to surgery and 3 months after surgery. - fexofenadine (SHANNAN) 180 mg tablet Take 180 mg by [...] Encounter Status:Closed by KAYLIE CHARLES on 11/30/22 Normal [facility] XR FOOT 3V AP/LAT/OBL LTon 0 - XR FOOT 3V AP/LAT/OBL LT * * [...] other significant abnormality. IMPRESSION: EXPECTED POSTOPERATIVE APPEARANCE Director Of Physical Security: MARIA L Transcribe Date/Time: Nov 29 2022 1:44P Dictated by : NATALIE CHOPRA MD This examination was interpreted and the report reviewed and electronically signed by: NATALIE CHOPRA MD on Nov 29 2022 1:44PM EST [id number] Normal [facility] XR FOOT GENERAL 3V AP/LAT/OB L LEFTon 11-29-2022 [facility] CNOVon 11-13-2022 CNOV Office Visit (ORAVON ) -------- ELENITA HOWARD ([id number]) 1955 F Date Time Provider Department 11/13/22 1:00 PM CAST TECH STACI DYKES During your visit today, we recorded the following information about you: Antonieta Pa Cast 11/13/2022 2:49 PM Signed PT ASSESSMENT - CASTING ROOM Elenita presents for cast removal. Applied short cast: to Left leg weight bearing Patient has been instructed in Care of cast.. Antonieta Pa Cast Beeper: [id number] Allergies As of Date: 11/13/2022 Noted Allergy [...] and 3 months after surgery. - fexofenadine (SHANNAN) 180 mg tablet Take 180 mg by [...] Encounter Status:Closed by ANTONIETA GALLAGHER on 11/13/22 [facility] Arianna 10-24-2022 SAMUEL Telephone (ORAVON) -------- ELENITA HOWARD ([id number]) 1955 F Date Time Provider Department 10/24/22 KAYLIE CHARLES During your visit today, we recorded the following information about you: Mable Gay RN 10/24/2022 10:42 AM Signed Just here 10/18/22 Had Left leg weight bearing cast applied She's not sure if it's the right size? The cast hangs over the shoe part by over an inch She will try to upload some photos via [employer] Maybe this is normal but she was [...] Pt is asking for a call back [phone] Allergies As of Date: 10/24/2022 Noted Allergy [...] and 3 months after surgery. - fexofenadine (SHANNAN) 180 mg tablet Take 180 mg by [...] Status:Closed by LIZETTE BOWDEN RN on 10/24/22 [facility] CNOVon 10-18-2022 CNOV Office Visit (ORAVON ) -------- ELENITA HOWARD ([id number]) 1955 F Date Time Provider Department 10/18/22 [...] [M19.072] Order(s):XR FOOT GENERAL 3V AP/LAT/OBL LEFT [[id number]] Order #: [id number] FUTURE Prescriptions as of 10/18/2022 - INV VITAMIN D3 5000 UNITS CAPSULE (IRB [id number]) Take 5,000 Units by mouth once daily. For Investigational Drug Use Only. PI: Ce Batista, PhD. Take one capsule by mouth daily for 3 months prior to surgery and 3 months after surgery. - fexofenadine (SHANNAN) 180 mg tablet Take 180 mg by [...] Encounter Status:Closed by KAYLIE CHARLES on 10/18/22 [facility] TYSONOV Office Visit (ORAVON ) -------- ELENITA HOWARD ([id number]) 1955 F Date Time Provider Department 10/18/22 1:30 PM [facility] STACI DYKES During your visit today, we recorded the following information about you: Antonieta Jhavericrystal Radford 10/19/2022 8:01 AM Signed PT ASSESSMENT - CASTING ROOM Elenita presents for cast removal. Applied short cast: to Left leg weight bearing Patient has been instructed in Care of cast.. Antonieta Pa Cast Beeper: [id number] Allergies As of Date: 10/18/2022 Noted Allergy [...] and 3 months after surgery. - fexofenadine (SHANNAN) 180 mg tablet Take 180 mg by [...] BMI 30-34.9 [E66.9] 09/04/2022 Encounter Status:Closed by THIERNO RADFORDROVERTON on 10/19/22 Normal [facility] XR FOOT 3V AP/LAT/OBL LTon 0 10-18-2022 [...] preoperative exam. IMPRESSION: Postoperative findings, as described. Director Of Physical Security: PSCB Transcribe Date/Time: Oct 18 2022 3:34P Dictated by : BEBETO JIANG MD This examination was interpreted and the report reviewed and electronically signed by: BEBETO JIANG MD on Oct 18 2022 6:02PM EST [id number] Normal [facility] XR FOOT GENERAL 3V AP/LAT/OB L LEFTon 10-18-2022 [facility] INSULINon 10-10-2022 Insulin 10.1 uIU/mL Normal 2.6-24.9 [facility] Comment on above: Performed By: #### I NSULIN #### [facility] [address] [place] [address] Dr. Nj Sarabia CBC AUTO DIFFon 10-09-2022 BASO # 0.0 103/ul Normal 0.0-0.1 [facility] Comment on above: Performed By: #### I KRYSTIN #### [facility] [address] [place] [address] Dr. Nj Sarabia Basophils/100 WBC (Bld) 0.6 % Normal 0.2-2.0 [facility] Comment on above: Performed By: #### I KRYSTIN #### [facility] [address] [place] [address] Dr. Nj Sarabia EO # 0.2 103/ul Normal 0.0-0.7 [facility] Comment on above: Performed By: #### I KRYSTIN #### [facility] [address] [place] [address] Dr. Nj Sarabia Eosinophils/100 WBC (Bld) 5.1 % Normal 0.9-7.0 [facility] Comment on above: Performed By: #### I KRYSTIN #### [facility] [address] [place] [address] Dr. Nj Sarabia Erythrocyte distribution width (RBC) [Ratio] 13.7 % Normal 11.0-15.0 [facility] Comment on above: Performed By: #### I KRYSTIN #### [facility] [address] [place] [address] Dr. Nj Sarabia Hematocrit (Bld) [Volume fraction] 39.0 % Normal 36.0-48.0 [facility] Comment on above: Performed By: #### I KRYSTIN #### [facility] [address] [place] [address] Dr. Nj Sarabia Hemoglobin (Bld) [Mass/Vol] 12.7 g/dL Normal 12.0-16.0 [facility] Comment on above: Performed By: #### I KRYSTIN #### [facility] [address] [place] [address] Dr. Nj Sarabia IG # 0.01 10e3/ul Normal 0.00-0.03 [facility] Comment on above: Performed By: #### I KRYSTIN #### [facility] [address] [place] [address] Dr. Nj Sarabia IG % 0.2 % Normal 0.0-0.5 [facility] Comment on above: Performed By: #### I KRYSTIN #### [facility] [address] [place] [address] Dr. Nj Sarabia LYMPH # 2.1 103/ul Normal 1.2-3.8 [facility] Comment on above: Performed By: #### I KRYSTIN #### [facility] [address] [place] [address] Dr. Nj Sarabia Lymphocytes/100 WBC (Bld) 43.8 % Normal 20.5-60.0 [facility] Comment on above: Performed By: #### I KRYSTIN #### [facility] [address] [place] [address] Dr. Nj Sarabia MANUAL DIFF REQ NO Normal [facility] Comment on above: Performed By: #### I KRYSTIN #### [facility] [address] [place] [address] Dr. Nj Sarabia MCH (RBC) [Entitic mass] 27.1 pg Normal 26.7-34.0 [facility] Comment on above: Performed By: #### I KRYSTIN #### [facility] [address] [place] [address] Dr. Nj Sarabia MCHC (RBC) [Mass/Vol] 32.6 g/dL Normal 29.9-35.2 [facility] Comment on above: Performed By: #### I KRYSTIN #### [facility] [address] [place] [address] Dr. Nj Sarabia MCV (RBC) [Entitic vol] 83.3 fL Normal 81.0-99.0 [facility] Comment on above: Performed By: #### I KRYSTIN #### [facility] [address] [place] [address] Dr. Nj Sarabia MONO # 0.4 103/ul Normal 0.3-0.8 [facility] Comment on above: Performed By: #### I KRYSTIN #### [facility] [address] [place] [address] Dr. Nj Sarabia Monocytes/100 WBC (Bld) 9.1 % Normal 1.7-12.0 [facility] Comment on above: Performed By: #### I KRYSTIN #### [facility] [address] [place] [address] Dr. Nj Sarabia NEUT # 2.0 103/ul Normal 1.4-6.5 [facility] Comment on above: Performed By: #### I KRYSTIN #### [facility] [address] [place] [address] Dr. Nj Sarabia Neutrophils/100 WBC (Bld) 41.2 % Critically low 43.0-75.0 [facility] Comment on above: Performed By: #### I KRYSTIN #### [facility] [address] [place] [address] Dr. Nj Sarabia Platelet mean volume (Bld) [Entitic vol] 9.0 fL Critically low 9.5-13.5 [facility] Comment on above: Performed By: #### I KRYSTIN #### [facility] [address] [place] [address] Dr. Nj Sarabia PLT 330 103/ul Normal 150-450 [facility] Comment on above: Performed By: #### I KRYSTIN #### [facility] [address] [place] [address] Dr. Nj Sarabia RBC 4.68 106/ul Normal 4.20-5.40 [facility] Comment on above: Performed By: #### I KRYSTIN #### [facility] [address] [place] [address] Dr. Nj Sarabia WBC 4.8 103/ul Normal 4.0-11.0 [facility] Comment on above: Performed By: #### I KRYSTIN #### [facility] [address] [place] [address] Dr. Nj Sarabia FREE THYROXINE INDEX T7on FTI 2.99 Normal 1.30-4.50 [facility] Comment on above: Performed By: #### C MP #### [facility] [address] [place] [address] Dr. Nj Sarabia T3U 34.0 % Normal 30.0-39.0 [facility] Comment on above: Performed By: #### C MP #### [facility] [address] [place] [address] Dr. Nj Sarabia T4 [Mass/Vol] 8.80 ug/dL Normal 4.80-13.90 [facility] Comment on above: Performed By: #### C MP #### [facility] [address] [place] [address] Dr. Nj Sarabia GLYCOHEMOGLOBIN A1Con 2022 ADA RECOMMENDATION SEE BELOW Normal [facility] Comment on above: Result Comment: ADA RECOMMENDED LIMIT 4.0 - 6.0 ADA THERAPEUTIC TARGET < 7.0 ACTION SUGGESTED > 7.0 Performed By: #### A 1C #### [facility] [address] [place] [address] Dr. Nj Sarabia Glucose [Mass/Vol] 120 mg/dL Normal [facility] Comment on above: Performed By: #### A 1C #### [facility] [address] [place] [address] Dr. Nj Sarabia HbA1c (Bld) [Mass fraction] 5.8 % Normal 4.5-6.2 [facility] Comment on above: Performed By: #### A 1C #### [facility] [address] [place] [address] Dr. Nj Sarabia IRONon 10-09-2022 Iron [Mass/Vol] 46.0 ug/dL Critically low 50.0-170.0 [facility] Comment on above: Performed By: #### I KRYSTIN #### [facility] [address] [place] [address] Dr. Nj Sarabia LIPID PROFILEon 10-09-2022 CHOL-HDL RATIO NORM SEE BELOW Normal [facility] Comment on above: Result Comment: 3.3 - 4.4 LOW RISK 4.4 - 7.1 AVERAGE RISK 7.1 - 11.0 MODERATE RISK >11.0 HIGH RISK Performed By: #### C MP #### [facility] [address] [place] [address] Dr. Nj Sarabia Cholesterol [Mass/Vol] 244 mg/dL Critically high <=200 [facility] Comment on above: Performed By: #### C MP #### [facility] [address] [place] [address] Dr. Nj Sarabia Cholesterol in HDL [Mass/Vol] 71 mg/dL Critically high 40-60 [facility] Comment on above: Performed By: #### C MP #### [facility] [address] [place] [address] Dr. Nj aSrabia Cholesterol in LDL [Mass/Vol] 150.8 mg/dL Normal [facility] Comment on above: Performed By: #### C MP #### [facility] [address] [place] [address] Dr. Nj Sarabia Cholesterol.total/C holesterol in HDL [Mass ratio] 3.4 {ratio} Normal [facility] Comment on above: Performed By: #### C MP #### [facility] [address] [id number] Dr. Nj Sarabia HDL NORMAL > or = 60 mg/dl - LO W CARDIOVASCULAR RISK <40 mg/dl - HIGH CARDIOVASCULAR RISK Normal [facility] Comment on above: Performed By: #### C MP #### [facility] [address] [address] [address] Nj Sarabia LDL CALC NORMAL SEE BELOW Normal [facility] Comment on above: Result Comment: <100 mg/dl OPTIMAL 100 - 129 mg/dl NEAR OR ABOVE OPTIMAL 130 - 159 mg/dl BORDERLINE HIGH 160 - 189 mg/dl HIGH >190 mg/dl VERY HIGH Performed By: #### C MP #### [facility] [address] [place] [address] Dr. Nj Sarabia Triglyceride [Mass/Vol] 111 mg/dL Normal <=150 [facility] Comment on above: Performed By: #### C MP #### [facility] [address] [address] [address] Nj Sarabia VLDL CALC 22.2 mg/dL Normal [facility] Comment on above: Performed By: #### C MP #### [facility] [address] [place] [address] Dr. Nj Sarabia PROF 14(COMP METB)on 023 Albumin [Mass/Vol] 4.0 g/dL Normal 3.4-5.0 [facility] Comment on above: Performed By: #### C MP #### [facility] [address] [place] [address] Dr. Nj Sarabia Albumin/Globulin [Mass ratio] 1.1 {ratio} Normal [facility] Comment on above: Performed By: #### C MP #### [facility] [address] [place] [address] Dr. Nj Sarabia ALP [Catalytic activity/Vol] 88 U/L Normal 46-116 [facility] Comment on above: Performed By: #### C MP #### [facility] [address] [place] [address] Dr. Nj Sarabia ALT [Catalytic activity/Vol] 20 U/L Normal 14-59 [facility] Comment on above: Performed By: #### C MP #### [facility] [address] [address] [address] Nj Sarabia Anion gap [Moles/Vol] 11.8 mmol/L Normal [facility] Comment on above: Performed By: #### C MP #### [facility] [address] [address] [address] Nj Sarabia AST [Catalytic activity/Vol] 16 U/L Normal 15-37 [facility] Comment on above: Performed By: #### C MP #### [facility] [address] [address] [address] Nj Sarabia Bilirubin [Mass/Vol] 0.3 mg/dL Normal 0.2-1.0 [facility] Comment on above: Performed By: #### C MP #### [facility] [address] [address] [address] Nj Sarabia Calcium [Mass/Vol] 9.7 mg/dL Normal 8.5-10.1 [facility] Comment on above: Performed By: #### C MP #### [facility] [address] [address] [address] Nj Sarabia Chloride [Moles/Vol] 100 mmol/L Normal 98-107 [facility] Comment on above: Performed By: #### C MP #### [facility] [address] [address] [address] Nj Sarabia CO2 [Moles/Vol] 28.3 mmol/L Normal 21.0-32.0 [facility] Comment on above: Performed By: #### C MP #### [facility] [address] [address] [address] Nj Sarabia Creatinine [Mass/Vol] 0.74 mg/dL Normal 0.55-1.02 [facility] Comment on above: Performed By: #### C MP #### [facility] [address] [address] [address] Nj Sarabia EGFR-AF [place] >60 Normal >=60 [facility] Comment on above: Performed By: #### C MP #### [facility] [address] [address] [address] Nj Sarabia EGFR-NON AF [place] >60 Normal >=60 [facility] Comment on above: Performed By: #### C MP #### [facility] [address] [address] [address] Nj Sarabia Globulin (S) [Mass/Vol] 3.6 g/dL Normal [facility] Comment on above: Performed By: #### C MP #### [facility] [address] [address] [address] Nj Sarabia Glucose [Mass/Vol] 104 mg/dL Normal 74-106 [facility] Comment on above: Performed By: #### C MP #### [facility] [address] [place] [address] Dr. Nj Sarabia Potassium [Moles/Vol] 4.1 mmol/L Normal 3.5-5.1 [facility] Comment on above: Performed By: #### C MP #### [facility] [address] [place] [address] Dr. Nj Sarabia Protein [Mass/Vol] 7.6 g/dL Normal 6.4-8.2 [facility] Comment on above: Performed By: #### C MP #### [facility] [address] [place] [address] Dr. Nj Sarabia Sodium [Moles/Vol] 136 mmol/L Normal 136-145 [facility] Comment on above: Performed By: #### C MP #### [facility] [address] [place] [address] Dr. Nj Sarabia Urea nitrogen [Mass/Vol] 16.0 mg/dL Normal 7.0-18.0 [facility] Comment on above: Performed By: #### C MP #### [facility] [address] [place] [address] Dr. Nj Sarabia Urea nitrogen/Creatinine [Mass ratio] 21.6 mg/mg Normal [facility] Comment on above: Performed By: #### C MP #### [facility] [address] [place] [address] Dr. Nj Sarabia TSHon 10-09-2022 TSH 3.812 uIU/mL Critically high 0.358-3.740 [facility] Comment on above: Performed By: #### C MP #### [facility] [address] [place] [address] Dr. Nj Sarabia CBC AUTO DIFFon 09-26-2022 BASO # 0.0 103/ul Normal 0.0-0.1 [facility] Comment on above: Performed By: #### C BC #### [facility] [address] [place] [address] Dr. Nj Sarabia Basophils/100 WBC (Bld) 0.3 % Normal 0.2-2.0 [facility] Comment on above: Performed By: #### C BC #### [facility] [address] [place] [address] Dr. Nj Sarabia EO # 0.1 103/ul Normal 0.0-0.7 [facility] Comment on above: Performed By: #### C BC #### [facility] [address] [place] [address] Dr. Nj Sarabia Eosinophils/100 WBC (Bld) 1.8 % Normal 0.9-7.0 [facility] Comment on above: Performed By: #### C BC #### [facility] [address] [place] [address] Dr. Nj Sarabia Erythrocyte distribution width (RBC) [Ratio] 13.7 % Normal 11.0-15.0 [facility] Comment on above: Performed By: #### C BC #### [facility] [address] [place] [address] Dr. Nj Sarabia Hematocrit (Bld) [Volume fraction] 37.3 % Normal 36.0-48.0 [facility] Comment on above: Performed By: #### C BC #### [facility] [address] [place] [address] Dr. Nj Sarabia Hemoglobin (Bld) [Mass/Vol] 12.5 g/dL Normal 12.0-16.0 [facility] Comment on above: Performed By: #### C BC #### [facility] [address] [place] [address] Dr. Nj Sarabia IG # 0.02 10e3/ul Normal 0.00-0.03 [facility] Comment on above: Performed By: #### C BC #### [facility] [address] [place] [address] Dr. Nj Sarabia IG % 0.3 % Normal 0.0-0.5 [facility] Comment on above: Performed By: #### C BC #### [facility] [address] [place] [address] Dr. Nj Sarabia LYMPH # 1.5 103/ul Normal 1.2-3.8 [facility] Comment on above: Performed By: #### C BC #### [facility] [address] [place] [address] Dr. Nj Sarabia Lymphocytes/100 WBC (Bld) 21.8 % Normal 20.5-60.0 [facility] Comment on above: Performed By: #### C BC #### [facility] [address] [place] [address] Dr. Nj Sarabia MANUAL DIFF REQ NO Normal [facility] Comment on above: Performed By: #### C BC #### [facility] [address] [place] [address] Dr. Nj Sarabia MCH (RBC) [Entitic mass] 27.8 pg Normal 26.7-34.0 [facility] Comment on above: Performed By: #### C BC #### [facility] [address] [place] [address] Dr. Nj Sarabia MCHC (RBC) [Mass/Vol] 33.5 g/dL Normal 29.9-35.2 [facility] Comment on above: Performed By: #### C BC #### [facility] [address] [place] [address] Dr. Nj Sarabia MCV (RBC) [Entitic vol] 83.1 fL Normal 81.0-99.0 [facility] Comment on above: Performed By: #### C BC #### [facility] [address] [place] [address] Dr. Nj Sarabia MONO # 0.4 103/ul Normal 0.3-0.8 [facility] Comment on above: Performed By: #### C BC #### [facility] [address] [place] [address] Dr. Nj Sarabia Monocytes/100 WBC (Bld) 6.5 % Normal 1.7-12.0 [facility] Comment on above: Performed By: #### C BC #### [facility] [address] [place] [address] Dr. Nj Sarabia NEUT # 4.7 103/ul Normal 1.4-6.5 [facility] Comment on above: Performed By: #### C BC #### [facility] [address] [place] [address] Dr. Nj Sarabia Neutrophils/100 WBC (Bld) 69.3 % Normal 43.0-75.0 [facility] Comment on above: Performed By: #### C BC #### [facility] [address] [place] [address] Dr. Nj Sarabia Platelet mean volume (Bld) [Entitic vol] 9.3 fL Critically low 9.5-13.5 [facility] Comment on above: Performed By: #### C BC #### [facility] [address] [place] [address] Dr. Nj Sarabia PLT 367 103/ul Normal 150-450 [facility] Comment on above: Performed By: #### C BC #### [facility] [address] [place] [address] Dr. Nj Sarabia RBC 4.49 106/ul Normal 4.20-5.40 [facility] Comment on above: Performed By: #### C BC #### [facility] [address] [place] [address] Dr. Nj Sarabia WBC 6.8 103/ul Normal 4.0-11.0 [facility] Comment on above: Performed By: #### C BC #### [facility] [address] [place] [address] Dr. Nj Sarabia PROF CHEM 8 (BAS METB)on Anion gap [Moles/Vol] 12.9 mmol/L Normal [facility] Comment on above: Performed By: #### H FRANCIA, BMP #### [facility] [address] [place] [address] Dr. Nj Sarabia Calcium [Mass/Vol] 9.9 mg/dL Normal 8.5-10.1 [facility] Comment on above: Performed By: #### H STROPN, BMP #### [facility] [address] [place] [address] Dr. Nj Sarabia Chloride [Moles/Vol] 98 mmol/L Normal 98-107 [facility] Comment on above: Performed By: #### H FAYPN, BMP #### [facility] [address] [place] [address] Dr. Nj Sarabia CO2 [Moles/Vol] 27.2 mmol/L Normal 21.0-32.0 [facility] Comment on above: Performed By: #### H STROPN, BMP #### [facility] [address] [place] [address] Dr. Nj Sarabia Creatinine [Mass/Vol] 0.67 mg/dL Normal 0.55-1.02 [facility] Comment on above: Performed By: #### H FRANCIA, BMP #### [facility] [address] [place] [address] Dr. Nj Sarabia EGFR-AF [place] >60 Normal >=60 [facility] Comment on above: Performed By: #### H FAYPN, BMP #### [facility] [address] [place] [address] Dr. Nj Sarabia EGFR-NON AF [place] >60 Normal >=60 [facility] Comment on above: Performed By: #### H STROPN, BMP #### [facility] [address] [place] [address] Dr. Nj Sarabia Glucose [Mass/Vol] 113 mg/dL Critically high 74-106 [facility] Comment on above: Performed By: #### H FAYPN, BMP #### [facility] [address] [place] [address] Dr. Nj Sarabia Potassium [Moles/Vol] 4.1 mmol/L Normal 3.5-5.1 [facility] Comment on above: Performed By: #### H FRANCIA, BMP #### [facility] [address] [address] [address] Nj Sarabia Sodium [Moles/Vol] 134 mmol/L Critically low 136-145 [facility] Comment on above: Performed By: #### H FRANCIA, BMP #### [facility] [address] [address] [address] Nj Sarabia Urea nitrogen [Mass/Vol] 17.0 mg/dL Normal 7.0-18.0 [facility] Comment on above: Performed By: #### H FRANCIA, BMP #### [facility] [address] [address] [address] Nj Sarabia Urea nitrogen/Creatinine [Mass ratio] 25.4 mg/mg Normal [facility] Comment on above: Performed By: #### H FRANCIA, BMP #### [facility] [address] [address] [address] Nj Sarabia TROPONIN, HIGH SENSITIVITYon 09-26-2022 HSTROP 11.4 pg/mL Normal 4.0-51.3 [facility] Comment on above: Result Comment: CUT- OFF POINTS HAVE BEEN ESTABLISHED BASED ON THE FOURTH UNIVERSAL DEFINITIONS OF MYOCARDIAL INFARCTION. THE UPPER REFERENCE LIMIT (URL) OF TROPONIN, DEFINED THE 99TH PERCENTILE OF cTnI DISTRIBUTION IN A REFERENCE POPULATION, HAS BEEN CONFIRMED THE DECISION THRESHOLD FOR ID DIAGNOSIS. Performed By: #### H FRANCIA, BMP #### [facility] [address] [place] [address] Dr. Nj Sarabia XR CHEST 1 Von [...] by: JOHN SANCHEZ Date: 2022-09-26 12:42 Normal [facility] CNOVon 09-20-2022 CNOV Office Visit (ORAVON ) -------- ELENITA HOWARD ([id number]) 1955 F Date Time Provider Department 09/20/22 [...] [M19.072] Order(s):XR FOOT GENERAL 3V AP/LAT/OBL LEFT [1221362] Order #: [id number] FUTURE Prescriptions as of 09/22/2022 - INV VITAMIN D3 5000 UNITS CAPSULE (IRB 19-1548) Take 5,000 Units by mouth once daily. For Investigational Drug Use Only. PI: Ce Batista, PhD. Take one capsule by mouth daily for 3 months prior to surgery and 3 months after surgery. - fexofenadine (SHANNAN) 180 mg tablet Take 180 mg by [...] Encounter Status:Closed by KAYLIE CHARLES on 09/22/22 Normal [facility] Office Visit (ORAVON ) -------- ELENITA HOWARD ([id number]) 1955 F Date Time Provider Department 09/20/22 10:30 AM CAST TECH STACI DYKES During your visit today, we recorded the following information about you: Sarah Kelly LPN 09/20/2022 4:08 PM Signed PT ASSESSMENT - CASTING ROOM Elenita presents for cast removal. Applied short cast: to Left leg Patient has been instructed in Care of cast.. Sarah Kelly LPN Beeper: [id number] Allergies As of Date: 09/20/2022 Noted Allergy [...] and 3 months after surgery. - fexofenadine (SHANNAN) 180 mg tablet Take 180 mg by [...] Encounter Status:Closed by SARAH KELLY on 09/20/22 [facility] Arianna 09-15-2022 CNPN Telephone (ORAVON) -------- ELENITA HOWARD ([id number]) 1955 F Date Time Provider Department 09/15/22 KAYLIE CHARLES During your visit today, we recorded the following information about you: Shama Benito Pss 09/15/2022 1:53 PM Signed Elenita Howard called today. : 1955 Allergies: [...] daily. For Investigational Drug Use Only. PI: eC Batista, PhD. Take one capsule by mouth daily for 3 months prior to surgery and 3 months after surgery. - fexofenadine (SHANNAN) 180 mg tablet Take 180 mg by [...] Encounter Status:Closed by YONG VALIENTE on 09/15/22 Normal [facility] CNOVon 09-08-2022 CNOV Office Visit (ORAVON ) -------- ELENITA HOWARD ([id number]) 1955 F Date Time Provider Department 09/08/22 10:00 AM CAST TECH STACI DYKES During your visit today, we recorded the following information about you: Sarah Kelly LPN 09/08/2022 11:37 AM Signed PT ASSESSMENT - CASTING ROOM Elenita presents for cast removal. Applied short cast: to Left leg Patient has been instructed in Care of cast.. Saarh Kelly LPN Beeper: [id number] Allergies As of Date: 09/08/2022 Noted Allergy [...] and 3 months after surgery. - fexofenadine (SHANNAN) 180 mg tablet Take 180 mg by [...] Encounter Status:Closed by SARAH KELLY on 09/08/22 [facility] CNOVon 09-06-2022 CNOV Office Visit (ORAVON ) -------- ELENITA HOWARD ([id number]) 1955 F Date Time Provider Department 09/06/22 3:15 PM KAYLIE CHARLES During your visit today, we recorded the following information about you: Kyle Pickett 09/14/2022 8:56 AM Signed The appointment was cancelled for this patient. Kyle Pickett Allergies As of Date: 09/06/2022 Noted [...] INV VITAMIN D3 5000 UNITS CAPSULE (IRB 19-1546) Take 5,000 Units by mouth once daily. For Investigational Drug Use Only. PI: Ce Batista, PhD. Take one capsule by mouth daily for 3 months prior to surgery and 3 months after surgery. - fexofenadine (SHANNAN) 180 mg tablet Take 180 mg by [...] Status:Closed by KYLE SCHMIDT on 09/14/22 Normal [facility] HISTORY PHYSICALon HISTORY PHYSICAL HNO ID: [id number] Author: Hodan Townsend PA-C Service: ? Author Type: Physician Hydrometallurgical Engineer Type: HANDP Filed: 08/22/2022 10:00 AM Note [...] 3 months after surgery. Taking Yes fexofenadine (SHANNAN ALLERGY) 180 mg tablet Take 180 mg [...] fevers. Neuro: No history of TIA's, stroke, REPLANTER tumor, impaired sensorium, hemiplegia, paraplegia or quadraplegia. No neurological symptoms or problems. Respiratory: No history of current cough or dyspnea, or pneumonia in the past 6 weeks. No history of respiratory/pulmonary symptoms or problems. Cardiovascular: +HTN Negative for Recent ID, Angina, CAD, Chest Pain, CHF, DVT/PE GI: [...] Neurological: Nor (more content not included)... Normal [facility] Facesheeton 07-20-2022 Facesheet [id number]#1.00CD: 127 Normal [facility] General Surgery Office/Clini c Noteon 07-19-2022 General [...] Hyperlipidemia: Brother. Hypertension: Mother and Father. Normal [facility] Comment on above: Result Comment: Elec tronically Signed By: KENYETTA CAMPO, Luis Abraham\Date and Time Signed: 07/19/22 16:25 EST Reminderson 07-19-2022 Reminders - From: Mariam Shin LPN To: Mariam Shin LPN; Sent: 07/19/2022 16:00:02 EST Show up: 06/11/2025 07:00:00 EDT Subject: colonoscopy recall Due Date/Time: 07/12/2025 07:00:00 EST Reminder/Recall Patient is due for colonoscopy 07/12/2025 due to history of tubulovillous adenoma. Normal [facility] Outside Colonoscopyon 2021 Outside Colonoscopy [id number]#1.00CD: 127 [facility] Pathology Noteon 07-17-2022 Pathology Note [id number] :127 Normal [facility] Lab Reportson 07-10-2022 Lab Reports [id number]#1.00CD: 127 [facility] Covid-19 PCR (CVDTB)on 06-14 SARS-CoV-2 (COVID-19) RNA LAMONTE+probe Ql (Unsp spec) Not detected Normal NOT DETECTED [facility] Comment on above: Result Comment: When diagnostic [...] for this test is supported by the [place] of Health and Human Service's declaration that [...] used). Performed By: #### C VDTBH #### [facility] [address] [place] [address] Dr. Nj Sarabia VITAMIN D 25 OHon 07-08-2022 VIT D 25-OH 46.4 ng/mL Normal [facility] Comment on above: Performed By: #### V ITAD #### [facility] [address] [place] [address] Dr. Nj Sarabia VIT D RANGES SEE BELOW Normal [facility] Comment on above: Result Comment: <20 ng/mL Vit D deficient 20 - <30 ng/mL Vit D insufficient 30 - 100 ng/mL Vit D sufficient >100 ng/mL Potential Toxicity Performed By: #### V ITAD #### [facility] [address] [place] [address] Dr. Nj Sarabia CNOVon 05-31-2022 CNOV Office Visit (JANIA ) -------- ELENITA HOWARD ([id number]) 1955 F Date Time Provider Department 05/31/22 2:30 PM KAYLIE CHARLES During your visit today, we recorded the following information about you: Kaylie Charles MD 05/31/2022 10:00 PM Signed New Patient Referring Physician: bran Elenita Howard is a 66 year old [...] X-Rays The patient's pertinent medical history from [facility] has been reviewed. PFOMIS forms have been [...] required patient-provide (more content not included)... Normal [facility] No Panel Informationon 05-31 [facility] XR FOOT 3V AP/LAT/OBL LTon 1 XR [...] NO ACUTE OSSEOUS ABNORMALITY OTHER FINDINGS DESCRIBED Director Of Physical Security: MARIA L Transcribe Date/Time: May 31 2022 3:12P Dictated by : NATALIE CHOPRA MD This examination was interpreted and the report reviewed and electronically signed by: NATALIE CHOPRA MD on May 31 2022 3:13PM EST [id number] Normal [facility] Consent for Procedure/Surger yon 05-25-2022 Consent for Procedure/Surgery [id number]: 127 Normal [facility] Ambulatory Visit Summaryon 1 Ambulatory Visit Summary ELENITA HOWARD :1955 Visit Date:05/23/2022 Ambulatory Visit Instructions Your Diagnosis Personal history of colonic polyps Your Care Team Attending Physician - KENYETTA CAMPO, Luis Monterroso Primary Care Physician - Heraclio Gomez MD Referring Physician - Heraclio Gomez MD This [...] polyps Pure hypercholesterolemia Seasonal allergic rhinitis Normal [facility] Physician Referralon 022 Physician Referral [id number]: 127 Normal [facility] MG MAMM SCREEN 3D ANGIE CADon 04-18-2022 MG MAMM SCREEN 3D ANGIE CAD Patient: ELENITA HOWARD Exam Date: 04/18/2022 : 1955 Gender:F Ordering : DR HERACLIO GOMEZ . Admission #: [id number] Family : Order #: [id number] CLICK HERE TO VIEW EXAM RADIOLOGY REPORT [...] ?uterine cancer at age 42. LOCATION: [facility] BREAST COMPOSITION: Heterogeneously dense,which may obscure small [...] M.D. on 04/19/2022 at 10:33 Normal [facility] CBC AUTO DIFFon 03-15-2022 BASO # 0.0 103/ul Normal 0.0-0.1 [facility] Comment on above: Performed By: #### C MP #### [facility] [address] [address] [address] Nj Sarabia Basophils/100 WBC (Bld) 0.6 % Normal 0.2-2.0 [facility] Comment on above: Performed By: #### C MP #### [facility] [address] [address] [address] Nj Sarabia EO # 0.2 103/ul Normal 0.0-0.7 [facility] Comment on above: Performed By: #### C MP #### [facility] [address] [address] [address] Nj Sarabia Eosinophils/100 WBC (Bld) 3.6 % Normal 0.9-7.0 [facility] Comment on above: Performed By: #### C MP #### [facility] [address] [address] [address] Nj Sarabia Erythrocyte distribution width (RBC) [Ratio] 13.4 % Normal 11.0-15.0 [facility] Comment on above: Performed By: #### C MP #### [facility] [address] [place] [address] Dr. Nj Sarabia Hematocrit (Bld) [Volume fraction] 40.3 % Normal 36.0-48.0 [facility] Comment on above: Performed By: #### C MP #### [facility] [address] [address] [address] Nj Sarabia Hemoglobin (Bld) [Mass/Vol] 13.1 g/dL Normal 12.0-16.0 [facility] Comment on above: Performed By: #### C MP #### [facility] [address] [address] [address] Nj Sarabia IG # 0.09 10e3/ul Critically high 0.00-0.03 [facility] Comment on above: Performed By: #### C MP #### [facility] [address] [address] [address] Nj Sarabia IG % 1.4 % Critically high 0.0-0.5 [facility] Comment on above: Performed By: #### C MP #### [facility] [address] [address] [address] Nj Sarabia LYMPH # 2.0 103/ul Normal 1.2-3.8 [facility] Comment on above: Performed By: #### C MP #### [facility] [address] [address] [address] Nj Sarabia Lymphocytes/100 WBC (Bld) 30.6 % Normal 20.5-60.0 [facility] Comment on above: Performed By: #### C MP #### [facility] [address] [address] [address] Nj Sarabia MANUAL DIFF REQ NO Normal The [facility] Comment on above: Performed By: #### C MP #### [facility] [address] [address] [address] Nj Sarabia MCH (RBC) [Entitic mass] 27.5 pg Normal 26.7-34.0 [facility] Comment on above: Performed By: #### C MP #### [facility] [address] [address] [address] Nj Sarabia MCHC (RBC) [Mass/Vol] 32.5 g/dL Normal 29.9-35.2 [facility] Comment on above: Performed By: #### C MP #### [facility] [address] [address] [address] Nj Sarabia MCV (RBC) [Entitic vol] 84.5 fL Normal 81.0-99.0 [facility] Comment on above: Performed By: #### C MP #### [facility] [address] [address] [address] Nj Sarabia MONO # 0.5 103/ul Normal 0.3-0.8 [facility] Comment on above: Performed By: #### C MP #### [facility] [address] [address] [address] Nj Sarabia Monocytes/100 WBC (Bld) 7.6 % Normal 1.7-12.0 [facility] Comment on above: Performed By: #### C MP #### [facility] [address] [address] [address] Nj Sarabia NEUT # 3.6 103/ul Normal 1.4-6.5 [facility] Comment on above: Performed By: #### C MP #### [facility] [address] [address] [address] Nj Sarabia Neutrophils/100 WBC (Bld) 56.2 % Normal 43.0-75.0 [facility] Comment on above: Performed By: #### C MP #### [facility] [address] [address] [address] Nj Sarabia Platelet mean volume (Bld) [Entitic vol] 8.8 fL Critically low 9.5-13.5 [facility] Comment on above: Performed By: #### C MP #### [facility] [address] [address] [address] Nj Sarabia PLT 327 103/ul Normal 150-450 [facility] Comment on above: Performed By: #### C MP #### [facility] [address] [address] [address] Nj Sarabia RBC 4.77 106/ul Normal 4.20-5.40 [facility] Comment on above: Performed By: #### C MP #### [facility] [address] [place] [address] Dr. Nj Sarabia WBC 6.4 103/ul Normal 4.0-11.0 [facility] Comment on above: Performed By: #### C MP #### [facility] [address] [place] [address] Dr. Nj Sarabia CULTURE SPUTUMon 03-15-2022 CULTURE SPUTUM Culture Observations : NORMAL RESPIRATORY KAVITA. Normal [facility] Comment on above: Performed By: #### C MP #### [facility] [address] [place] [address] Dr. Nj Sarabia LACTATE/LACTIC ACIDon 2021 Lactate [Moles/Vol] 1.3 mmol/L Normal 0.4-1.9 [facility] Comment on above: Performed By: #### L ACT #### [facility] [address] [place] [address] Dr. Nj Sarabia PROF 14(COMP METB)on 022 Albumin [Mass/Vol] 3.6 g/dL Normal 3.4-5.0 [facility] Comment on above: Performed By: #### C MP #### [facility] [address] [place] [address] Dr. Nj Sarabia Albumin/Globulin [Mass ratio] 0.9 {ratio} Normal [facility] Comment on above: Performed By: #### C MP #### [facility] [address] [place] [address] Dr. Nj Sarabia ALP [Catalytic activity/Vol] 62 U/L Normal 46-116 [facility] Comment on above: Performed By: #### C MP #### [facility] [address] [place] [address] Dr. Nj Sarabia ALT [Catalytic activity/Vol] 27 U/L Normal 14-59 [facility] Comment on above: Performed By: #### C MP #### [facility] [address] [place] [address] Dr. Nj Sarabia Anion gap [Moles/Vol] 14.7 mmol/L Normal [facility] Comment on above: Performed By: #### C MP #### [facility] [address] [address] [address] Nj Sarabia AST [Catalytic activity/Vol] 15 U/L Normal 15-37 [facility] Comment on above: Performed By: #### C MP #### [facility] [address] [address] [address] Nj Sarabia Bilirubin [Mass/Vol] 0.3 mg/dL Normal 0.2-1.0 [facility] Comment on above: Performed By: #### C MP #### [facility] [address] [place] [address] Dr. Nj Sarabia Calcium [Mass/Vol] 9.7 mg/dL Normal 8.5-10.1 [facility] Comment on above: Performed By: #### C MP #### [facility] [address] [place] [address] Dr. Nj Sarabia Chloride [Moles/Vol] 100 mmol/L Normal 98-107 [facility] Comment on above: Performed By: #### C MP #### [facility] [address] [place] [address] Dr. Nj Sarabia CO2 [Moles/Vol] 26.9 mmol/L Normal 21.0-32.0 [facility] Comment on above: Performed By: #### C MP #### [facility] [address] [place] [address] Dr. Nj Sarabia Creatinine [Mass/Vol] 0.93 mg/dL Normal 0.55-1.02 [facility] Comment on above: Performed By: #### C MP #### [facility] [address] [place] [address] Dr. Nj Sarabia EGFR-AF [place]IZ[place] >60 Normal >=60 [facility] Comment on above: Performed By: #### C MP #### [facility] [address] [place] [address] Dr. Nj Sarabia EGFR-NON AF [place] CITIZEN =60 Normal >=60 [facility] Comment on above: Performed By: #### C MP #### [facility] [address] [place] [address] Dr. Nj Sarabia Globulin (S) [Mass/Vol] 4.1 g/dL Normal [facility] Comment on above: Performed By: #### C MP #### [facility] [address] [place] [address] Dr. Nj Sarabia Glucose [Mass/Vol] 114 mg/dL Critically high 74-106 [facility] Comment on above: Performed By: #### C MP #### [facility] [address] [place] [address] Dr. Nj Sarabia Potassium [Moles/Vol] 3.6 mmol/L Normal 3.5-5.1 [facility] Comment on above: Performed By: #### C MP #### [facility] [address] [place] [address] Dr. Nj Sarabia Protein [Mass/Vol] 7.7 g/dL Normal 6.4-8.2 [facility] Comment on above: Performed By: #### C MP #### [facility] [address] [place] [address] Dr. Nj Sarabia Sodium [Moles/Vol] 138 mmol/L Normal 136-145 [facility] Comment on above: Performed By: #### C MP #### [facility] [address] [place] [address] Dr. Nj Sarabia Urea nitrogen [Mass/Vol] 10.0 mg/dL Normal 7.0-18.0 [facility] Comment on above: Performed By: #### C MP #### [facility] [address] [place] [address] Dr. Nj Sarabia Urea nitrogen/Creatinine [Mass ratio] 10.8 mg/mg Normal [facility] Comment on above: Performed By: #### C MP #### [facility] [address] [place] [address] Dr. Nj Sarabia SPUTUM GRAM STAINon 03-15-20 COMMENTS [facility] Comment on above: Performed By: #### I KRYSTIN #### [facility] [address] [place] [address] Dr. Nj Sarabia DIPHTHEROIDS Normal [facility] Comment on above: Performed By: #### I KRYSTIN #### [facility] [address] [address] [address] Nj Sarabia EPITHELIALS <25 Normal [facility] Comment on above: Performed By: #### I KRYSTIN #### [facility] [address] [address] [address] Nj Sarabia FUNGAL ELEMENTS Normal [facility] Comment on above: Performed By: #### I KRYSTIN #### [facility] [address] [address] [address] Nj Sarabia GRAM NEG BACILLI Normal [facility] Comment on above: Performed By: #### I KRYSTIN #### [facility] [address] [address] [address] Nj Sarabia GRAM NEG DIPPLOCOCCI Normal [facility] Comment on above: Performed By: #### I KRYSTIN #### [facility] [address] [address] [address] Nj Sarabia GRAM POS BACILLI Normal [facility] Comment on above: Performed By: #### I KRYSTIN #### [facility] [address] [address] [address] Nj Sarabia GRAM POSITIVE COCCI MODERATE Normal [facility] Comment on above: Performed By: #### I KRYSTIN #### [facility] [address] [address] [address] Nj Sarabia WBC (Bld) [#/Vol] 10*3/uL Normal [facility] Comment on above: Performed By: #### I KRYSTIN #### [facility] [address] [address] [address] Nj Sarabia XR CHEST 2 Von [...] LESLY ROJAS Date: 2022-03-15 16:18 Normal [facility] Covid-19 PCR (CVDTB)on SARS-CoV-2 (COVID-19) RNA LAMONTE+probe Ql (Unsp spec) Not detected Normal NOT DETECTED [facility] Comment on above: Result Comment: This test is not yet approved or cleared by the [place] FDA. When there are no FDA-approved or cleared tests available, and other criteria are met, FDA can make tests available under an emergency access mechanism called an Emergency Use Authorization (EUA). The EUA for this test is supported by the [employer] of Health and Human Service's (HHS's) declaration [...] SARS-CoV-2. Performed By: #### I KRYSTIN #### [facility] [address] [place] [address] Dr. Nj Sarabia Urine Cultureon 03-08-2019 Bacteria identified Cx Nom (U) <9,000 colonies/ml mixed bacterial skin contaminants 2 Days PERFORMED BY: [place] [address] PATHOLOGIST CNA HHA MELY TAVERAS M.D. Normal [facility] Comment on above: Performed By: #### C UU #### [address] Vital Signs Date Time Vital Sign Value Performing Clinician Facility 08-18-2022 14:42-0500 Diastolic blood pressure 82 mm[Hg] Pacc 2 Work Phone: [facility] 08-18-2022 14:42-0500 Heart rate 80 /min Pacc 2 Work Phone: [facility] 08-18-2022 14:42-0500 SaO2% (BldA) [Mass fraction] 97 % Pacc 2 Work Phone: [facility] 08-18-2022 14:42-0500 Systolic blood pressure 143 mm[Hg] Pacc 2 Work Phone: [facility] 08-18-2022 14:35-0500 Body height 157.5 cm Pacc 2 Work Phone: [facility] 08-18-2022 14:35-0500 Body temperature 97.39 [degF] Pacc 2 Work Phone: [facility] 08-18-2022 14:35-0500 Body weight 84.82 kg Pacc 2 Work Phone: [facility] 08-18-2022 14:35-0500 Respiratory rate 16 /min Pacc 2 Work Phone: [facility] 05-23-2022 13:51-0400 Blood Pressure Location Luis PADILLA [facility] [place] 05-23-2022 13:51-0400 Diastolic blood pressure 80 mm[Hg] Luis PADILLA [facility] [place] 05-23-2022 13:51-0400 Heart rate 76 /min Luis PADILLA [facility] [place] 05-23-2022 13:51-0400 Respiratory rate 16 /min Luis PADILLA [facility] [place] 05-23-2022 13:51-0400 Systolic blood pressure 126 mm[Hg] Luis PADILLA [facility] [place] Encounters Encounter Date Encounter Type Care Provider Facility Start: 09-01-2024 End: 09-01-2024 Kesha Browning MD Work Phone: [facility] Start: 09-01-2024 End: 09-01-2024 Kesha Browning MD Work Phone: [facility] Start: 09-01-2024 End: 09-01-2024 ambulatory SHARYN BROWNING Not Available Start: 09-01-2024 End: 09-01-2024 Office outpatient visit 15 minutes Sharyn Browning MD Work Phone: [facility] Comment on above: Melanocytic nevus of trunk (Primary Dx); Seborrheic keratosis; Onychomycosis; Seborrheic keratosis, inflamed Start: 01-10-2023 End: 01-10-2023 ambulatory KAYLIE CHARLES Facility:[facility] Start: 01-10-2023 End: 01-10-2023 Patient encounter procedure Kaylie Charles MD Work Phone: Orthopaedics Comment on above: 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) Start: 01-10-2023 End: 01-10-2023 Subsequent hospital visit by physician Xr Orth[facility] Rej Work Phone: Radiology Comment on above: Primary osteoarthrit is of left foot [M19.072] Start: 01-05-2023 ambulatory Kaylie Christianson Work Phone: [facility] Start: 01-05-2023 Patient encounter procedure Kaylie Charles MD Work Phone: Orthopaedics Comment on above: Upcoming appointment Start: 11-29-2022 End: 11-29-2022 ambulatory KAYLIE CHARLES Facility:[facility] Start: 11-29-2022 End: 11-29-2022 ambulatory KAYLIE CHARLES Facility:[facility] Start: 11-29-2022 End: 11-29-2022 Patient encounter procedure Kaylie Charles MD Work Phone: Orthopaedics Comment on above: Primary osteoarthrit is of left foot (Primary Dx) Start: 11-29-2022 End: 11-29-2022 Subsequent hospital visit by physician Xr Orth[facility] Rej Work Phone: Radiology Comment on above: Primary osteoarthrit is of left foot [M19.072] Start: 11-13-2022 End: 11-13-2022 ambulatory HERACLIO GOMEZ Facility:[facility] Start: 11-13-2022 End: 11-13-2022 Patient encounter procedure Cast Tech Staci Work Phone: Orthopaedics Comment on above: Primary osteoarthrit is of left foot (Primary Dx) Start: 10-24-2022 ambulatory Kaylie Christianson Work Phone: Orthopaedics Comment on above: Walking cast concern s Start: 10-24-2022 Telephone encounter Kaylie ellsworth MD Work Phone: Orthopaedics Comment on above: cast issue Start: 10-18-2022 End: 10-18-2022 ambulatory HERACLIO GOMEZ Facility:[facility] Start: 10-18-2022 End: 10-18-2022 Patient encounter procedure Kaylie Charles MD Work Phone: Orthopaedics Comment on above: Primary osteoarthrit is of left foot (Primary Dx) Start: 10-18-2022 End: 10-18-2022 Subsequent hospital visit by physician Xr Ortho [facility] Rej Work Phone: Radiology Comment on above: Primary osteoarthrit is of left foot [M19.072] Start: 10-09-2022 End: 10-10-[address] HERACLIO GOMEZ . Facility: Start: 09-26-2022 End: 09-26-2022 ambulatory REINA CHAIREZ . Facility:[facility] Start: 09-20-2022 End: 09-20-2022 ambulatory HERACLIO GOMEZ Facility:[facility] Start: 09-20-2022 End: 09-20-2022 Patient encounter procedure Kaylie Charles MD Work Phone: Orthopaedics Comment on above: Primary osteoarthrit is of left foot (Primary Dx) Start: 09-15-2022 Telephone encounter Kaylie ellsworth MD Work Phone: Orthopaedics Comment on above: Patient Update Start: 09-08-2022 End: 09-08-2022 ambulatory HERACLIO GOMEZ Facility:[facility] Start: 09-08-2022 End: 09-08-2022 Patient encounter procedure [employer] Staci Work Phone: Orthopaedics Comment on above: [...] Start: 08-18-2022 End: 08-19-2022 ambulatory KAYLIE CHARLES Facility:[facility] Start: 08-18-2022 Encounter for other preprocedural examination KAYLIE [facility] Start: 08-18-2022 End: 08-18-2022 Admission to establishment Pac Av 2 Work Phone: [facility] Start: 08-18-2022 End: 08-18-2022 ambulatory [facility] 2 Work Phone: Pre Anesthesia Comment on above: Pre-op evaluation (P rimary Dx); Hypertension, unspecified type; Obesity (BMI 30-39.9) Start: 08-18-2022 End: 08-18-2022 Preprocedural examination done Pac 2 Work Phone: Pre Anesthesia Start: 07-25-2022 Orders Only Kaylie Christianson Work Phone: Orthopaedics Comment on above: Primary osteoarthrit is of left foot (Primary Dx); Pes planus of left foot; Acquired valgus deformity of left ankle Start: 07-19-2022 End: 07-20-2022 ambulatory Luis PADILLA Facility:[facility] Start: 07-19-2022 End: 07-19-2022 Patient encounter procedure Luis PADILLA [facility] [place] Start: 07-12-2022 End: 07-13-2022 ambulatory Luis PADILLA Facility:[id number] Start: 07-11-2022 Encounter for preprocedural laboratory examination DR LUIS PADILLA . [facility] Start: 07-08-2022 End: 07-09-[address] HERACLIO GOMEZ . Facility:[facility] Start: 05-31-2022 End: 05-31-2022 ambulatory KAYLIE CHARLES Facility:[facility] Start: 05-31-2022 End: 05-31-2022 Patient encounter procedure Kaylie Charles MD Work Phone: Orthopaedics Comment on above: Primary osteoarthrit is of left foot (Primary Dx); Pes planus of left foot; Acquired valgus deformity of left ankle Start: 05-31-2022 End: 05-31-2022 Subsequent hospital visit by physician Xr Ortho [facility] Rej Work Phone: Radiology Comment on above: Pain [R52] Start: 05-23-2022 End: 05-24-2022 ambulatory Luis PADILLA Facility:[facility]] Start: 05-23-2022 End: 05-23-2022 Patient encounter procedure Luis PADILLA [facility] [place] Start: 05-22-2022 Orders Only Kaylie Charles DDS Work Phone: [facility] [place] Comment on above: Pain (Primary Dx) Start: 04-28-2022 ambulatory Luis PADILLA Facility :[facility]3] Start: 04-27-2022 ambulatory Luis PADILLA Facility:[facility] Start: 04-18-2022 End: 04-19-[address] HERACLIO GOMEZ . Facility:[facility] Start: 03-15-2022 End: 03-16-[address] HERACLIO GOMEZ . Facility:[facility] Start: 03-14-2022 End: 03-14-[address] HERACLIO GOMEZ . Facility:[facility] Procedures Date Procedure Procedure Detail Performing Clinician Start: 09-01-2024 CRYOTHERAPY SKIN LESION Sharyn Browning MD Work Phone: Start: 01-10-2023 Radex foot complete minimum 3 views Kaylie Charles MD Work Phone: Start: 11-29-2022 Radex foot complete minimum 3 views Kaylie Charles MD Work Phone: Start: 10-18-2022 Radex foot complete minimum 3 views Kaylie Charles MD Work Phone: Start: 07-12-2022 Colonoscopy Shrayn lemus MD Work Phone: Start: 07-12-2022 Colonoscopy Luis JESSICA LL Start: 05-31-2022 Radex foot complete minimum 3 views Kaylie Charles MD Work Phone: Colonoscopy Luis MCKAYL Cryosurgery of lesio n of cervix Luis MCKAYL Dilation and curettage Bradly el NILL Extraction of cataract Bradly pressley NILL Laser assisted in si tu keratomileusis Luis NILL Plan of Treatment Date Care Activity Detail Author Start: 07-12-2032 Screening for malign ant neoplasm of colon [facility] Start: 09-09-2025 End: 09-09-2025 Patient encounter procedure 09/09/2025 1:00 PM EST Office Visit [facility] [address] [place] [address] Sharyn Browning MD [address] [place] [address] [facility] Start: 04-13-2024 Influenza vaccination Influenza Vacc ine (#1) [facility] Start: 04-13-2023 Covid-19 Vaccine ( season) Covid-19 Vaccine ( season) [facility] Start: 04-13-2023 Influenza vaccination C [facility] Start: 08-13-2022 ADVANCE DIRECTIVE DISCUSSION ADVANCE DIRECTIVE DISCUSSION [facility] Start: 08-13-2022 DEPRESSION ASSESSMENT DEPRESSION ASS ESSMENT [facility] Start: 04-13-2022 Influenza vaccination INFLUENZA (#1) [facility] Start: 09-24-2021 COVID-19 VACCINE (4 - Booster for Pfizer series) COVID-19 VACCINE (4 - Booster for Pfizer series) [facility] Start: 08-13-2021 ADVANCE DIRECTIVE DISCUSSION ADVANCE DIRECTIVE DISCUSSION [facility] Start: 08-13-2021 DEPRESSION ASSESSMENT DEPRESSION ASS ESSMENT [facility] Start: 2019 BONE DENSITY BONE DENSITY [facility] Start: 2019 Bone Density Screening Bone Density Screening [facility] Start: 2019 Pneumococcal Vaccine : 65+ (1 - PCV) Pneumococcal Vaccine: 65+ (1 - PCV) [facility] Start: 2019 Pneumococcal Vaccine : 65+ Years (1 of 1 - PCV) Pneumococcal Vaccine: 65+ Years (1 of 1 - PCV) [facility] Start: 2019 PNEUMOCOCCAL: 65+ (1 - PCV) PNEUMOCOCCAL: 65+ (1 - PCV) [facility] Start: 2014 RSV Vaccine (1 - 1-d ose 60+ series) RSV Vaccine (1 - 1-dose 60+ series) [facility] Start: 2004 SHINGRIX VACCINE (1 of 2) SHINGRIX VACCINE (1 of 2) [facility] Start: 1999 COLOGUARD (FIT-DNA) COLOGUARD (FIT-D NA) [facility] Start: 1999 Colonoscopy COLONOSCOPY [facility] Start: 1999 COLORECTAL CANCER SCREENING COLORECTAL CANCER SCREENING [facility] Start: [address] COLONOGRAPHY [facility] Start: 1999 DIABETES SCREEN DIABETES SCREEN [facility] Start: 1999 Diabetes Screening Diabetes Screenin g [facility] Start: 1999 FECAL OCCULT BLOOD FECAL OCCULT BLOO D [facility] Start: 1999 Lipid 1996 panel - Serum or Plasma Lipid Screening [facility] Start: 1999 LIPID SCREEN LIPID SCREEN [facility] Start: 1999 SIGMOIDOSCOPY SIGMOIDOSCOPY [facility] Start: 1994 Mammography [facility] Start: 1994 Screening for malign ant neoplasm of breast Mammogram [facility] Start: 1973 Urine microalbumin profile [facility] Start: 1972 ANNUAL PCP TEAM PRECISION FILER HAND MANDY DISEASE VISIT ANNUAL PCP TEAM CHRONIC DISEASE VISIT [facility] Start: 1972 BP CONTROLLED (<130/80) BP CONTROLLE D (<130/80) [facility] Start: 1972 HEPATITIS C SCREENING HEPATITIS C SC REENING [facility] Start: 1954 Screening for malign ant neoplasm of colon [facility] End: 10-19-2023 XR FOOT GENERAL 3V AP/LAT/OBL LEFT XR FOOT GENERAL 3V AP/LAT/OBL LEFT Radiology Routine Primary osteoarthritis of left foot 1 Occurrences starting 09/22/2022 until 10/19/2023 [facility] Work Phone: Comment on above: 1 Occurrences starti ng 09/22/2022 until 10/19/2023 End: 11-17-2023 XR FOOT GENERAL 3V AP/LAT/OBL LEFT XR FOOT GENERAL 3V AP/LAT/OBL LEFT Radiology Routine Primary osteoarthritis of left foot 1 Occurrences starting 10/18/2022 until 11/17/2023 [facility] Work Phone: Comment on above: 1 Occurrences starti ng 10/18/2022 until 11/17/2023 End: 12-30-2023 XR FOOT GENERAL 3V AP/LAT/OBL LEFT XR FOOT GENERAL 3V AP/LAT/OBL LEFT Radiology Routine Primary osteoarthritis of left foot 1 Occurrences starting 11/30/2022 until 12/30/2023 [facility] Work Phone: Comment on above: 1 Occurrences starti ng 11/30/2022 until 12/30/2023 [facility] Immunizations Immunization Date Immunization Notes Care Provider Kimberly faria 07-15-2020 influenza virus vacc ine, unspecified formulation Xr Rej Work Phone: [facility] Payers Date Payer Category Payer Medicaid [employer] MEDICARE A DVANTAGE [id number] 2021 Medicare [employer] MEDICARE A ETNA MEDICARE PPO [id number] 2021-Present [phone] [address] [place] [address] PPO [id number] 1959 Private Health Insurance [id number] 1954 Unknown [id number] [id number]. 727 1954 Unknown [id number] 2.16.840.1.367320.3.579.2. 727 1954 Unknown [id number] 2.16.840.1.732222.3.579.2. 727 1954 Unknown [id number] 2.16.840.1.603939.3.579.2. 727 1954 Unknown [id number] 2.16.840.1.632538.3.579.2. 593 1954 Unknown [id number] 2.16.840.1.878288.3.579.2. 593 1954 Unknown [id number] 2.16.840.1.036333.3.579.2. 593 1954 Unknown [id number] 2.16.840.1.625180.3.579.2. 593 1954 Unknown [id number] 2.16.840.1.262092.3.579.2. 593 1954 Unknown [id number] 2.16.840.1.132356.3.579.2. 593 1954 Unknown [id number] 2.16.840.1.785810.3.579.2. 593 1954 Unknown [id number] 2.16.840.1.039906.3.579.2. 593 1954 Unknown [id number] 2.16.840.1.158013.3.579.2. 593 1954 Unknown [id number] 2.16.840.1.329558.3.579.2. 1259 Social History Date Type Detail Facility Start: 05-23-2022 Tobacco smoking status Never s moked tobacco (finding) [facility] Tobacco smoking status Never [facility] Start: 08-18-2022 End: 09-01-2024 Sex Assigned At Female [facility] Tobacco smoking stat [facility] Tobacco smoking consumption unknown [facility] Work Phone: Start: 1955 Sex Assigned At Not on file C [facility] Start: 08-18-2022 End: 08-23-2023 Tobacco smoking status NYIS Ex-smoker [facility] Work Phone: End: 08-13-1974 History of tobacco use Current smoker [facility] Work Phone: End: 08-13-1974 History of tobacco use Cigarette Smoker [facility] Work Phone: Start: 08-18-2022 End: 08-23-2023 Tobacco use and exposure Smokeless tobacco non-user [facility] Work Phone: Start: 08-18-2022 Alcohol intake Current drinke r of alcohol (finding) [facility] Start: 08-18-2022 End: 09-01-2024 Alcohol intake [facility] Start: 08-18-2022 Tobacco Comment Social smoker [facility] Start: 08-30-2023 End: 09-01-2024 Alcoholic beverage intake Not Asked [facility] Start: 01-18-2024 Alcohol Comment caffeine 1-2 c ups/day; coffee/tea [facility] Medical Equipment Procedure Code Equipment Code Equipment Origin al Text Equipment Identifier Dates Chips Bone Graft Cancellous Bone 4-10 Mm Container 15 Cc Volume - [id number] Start: 09-05-2022 Elite Comp Impl Kit [id number] Legs [id number] Start: 09-05-2022 Functional Status Date Assessment Result Facility 05-23-2022 Functional Status N/A [facility] vamsi [facility] Clinical Notes 05-23-2022 to 09-01-2024 Sharyn Browning MD - 09/01/2024 1:00 PM Roxanna Bray RT(R) - 01/10/2023 11:15 AM Mecca Charles MD - 01/10/2023 11:08 AM Mecca Charles MD - 11/29/2022 1:02 PM EDTPatient Instructions Note Date & Type Note Facility 09-01-2024 History of Present illness Narrative Skin Check Location: Patient requests a full body skin examination Dermatologic history: history of atypical mole(s) (mildly atypical) Last visit: 1 year ago Lesions: Location: abdomen, back Duration: months Quality: itchy Modifying factors: rubs on clothing Associated symptoms: enlarged, rough Treatments: none Established patient All pertinent medical history, medications, and allergies were reviewed. General Exam: alert, oriented to person, place, and time, normal affect, well appearing Accompanied by spouse Areas not examined despite medical recommendation: Under socks Scalp, Examined , exam limited by hair Right leg Examined Head, Face Examined Left leg Examined Neck Examined Right foot Examined Chest Examined Left foot Not Examined Back Examined Buttocks Examined Abdomen Examined Digits,nails: Examined Right arm Examined Patient wearing nail frisian, Denies dark streaks under finger nails Left arm Examined Lymphatics: Not examined Hands Examined 1. Melanocytic nevus of trunk Torso - Posterior (Back) Scattered benign appearing, regular brown to light brown melanocytic papules and macules with similar morphology Counseled regarding these benign growths. Rarely, a nevus can develop into malignant melanoma, so any changing nevi should be promptly re-evaluated. 2. Seborrheic keratosis Torso - Posterior (Back) Stuck on verrucous, dolan-brown papules and plaques. Patient was counseled regarding these benign growths. Removal is normally not necessary, but they may be removed if they are symptomatic or for cosmetic reasons. 3. Onychomycosis Right Hallux Toe Nail Plate Subungual hyperkeratosis with nail thickening. No improvement since last visit. The patient was informed that onychomycosis is a fungal infection of the nails. Treatment is not necessary, but can be treated with topical or oral antifungal agents. Recurrence can occur despite treatment in some cases. The goal is to grow out a normal nail which can take several months to occur. Start cliclpirox cream every day, patient had difficulty complying with laquer. Instructed on use of prescribed medication. ciclopirox (Loprox) 0.77 % cream - Right Hallux Toe Nail Plate Apply thin layer to affected area on feet once a day, 30 day supply 4. Seborrheic keratosis, inflamed (10) Left Inframammary Fold, Right Breast, Right Flank (3), Right Lower Back (5) [place] and brown stuck on verrucous scaly papule with surrounding erythema The patient was informed that symptomatic seborrheic keratoses are benign growths that become inflamed, itchy, tender, traumatized, caught on clothing, or bleed. Symptomatic lesions can be treated with cryotherapy or curretage. Thicker lesions treated with cryotherapy may require more than one treatment. The patient was instructed to notify the office if abnormal redness or tenderness develops at the treatment site. Cryotherapy today, see procedure note. Diagnosis: Inflamed seborrheic keratosis Indication: Inflamed Consent: Verbal consent was obtained and risks were discussed, including, but not limited to risks of scarring, darker or soakers supervisor pigmentary changes, recurrence, incomplete removal and infection. Method: Liquid nitrogen was used to treat the lesion(s) with two 5-10 second freeze-thaw cycles Number of lesions treated: 10 Post-procedure instructions: Instructions were given orally and in writing. The office will be contacted if the lesion fails to resolve despite treatment, or if a side effect develops such as abnormal crusting, scabbing, redness or tenderness Cryotherapy, skin lesion - Left Inframammary Fold, Right Breast, Right Flank (3), Right Lower Back (5) Next Visit: 1 year documented in this encounter [facility] 01-10-2023 Note HNO ID: [id number] Author: RT Carina(R) Service: Radiology Author Type: [...] RT Carina(R) January 10, 2023 11:13 AM [facility] 01-10-2023 Note HNO ID: [id number] Author: Kaylie Charles MD Service: ? Author [...] records. This note was partially generated using XLerant voice recognition system, and there may be some incorrect words, spellings, and punctuation that were not noted in checking the note before saving. Kaylie Charles M.D. [facility] 01-10-2023 History of Present illness Narrative [...] 2023 11:13 AM documented in this encounter [facility] 01-10-2023 History of Present illness Narrative Elenita [...] records. This note was partially generated using XLerant voice recognition system, and there may be some incorrect words, spellings, and punctuation that were not noted in checking the note before saving. Kaylie Charles M.D. documented in this encounter [facility] 11-30-2022 Note HNO ID: [id number] Author: Antonieta Pa Cast Service: ? Author Type: ? Type: Progress Notes Filed: 11/30/2022 7:18 AM Note Text: PT ASSESSMENT - CASTING ROOM Elenita presents for cast removal. Applied pneumatic aircast walker to Left leg non-weight bearing Patient has been instructed in Care of boot.. Antonieta Pa Cast Beeper: [id number] [facility] 11-29-2022 Note HNO ID: [id number] Author: Kaylie Charles MD Service: ? Author [...] 4 weeks with x-rays Kaylie Charles MD [facility] 11-29-2022 Note HNO ID: [id number] Author: RT Carina(R) Service: Radiology Author Type: [...] RT Carina(R) November 29, 2022 1:11 PM [facility] 11-29-2022 History of Present illness Narrative [...] Kaylie Charles MD documented in this encounter [facility] 11-29-2022 History of Present illness Narrative Radiology [...] 2022 1:11 PM documented in this encounter [facility] 11-13-2022 Note HNO ID: [id number] Author: Antonieta Radford Service: ? Author Type: ? Type: Progress Notes Filed: 11/13/2022 2:49 PM Note Text: PT ASSESSMENT - CASTING ROOM Elenita presents for cast removal. Applied short cast: to Left leg weight bearing Patient has been instructed in Care of cast.. Antonieta Pa Cast Beeper: [id number] [facility] 11-13-2022 History of Present illness Narrative PT ASSESSMENT - CASTING ROOM Elenita presents for cast removal. Applied short cast: to Left leg weight bearing Patient has been instructed in Care of cast.. Antonieta Pa Cast Beeper: [id number] documented in this encounter [facility] 10-24-2022 Miscellaneous Notes Just here 10/18/22 Had Left leg weight bearing cast applied She's not sure if it's the right size? The cast hangs over the shoe part by over an inch She will try to upload some photos via [employer] Maybe this is normal but she was [...] Pt is asking for a call back [phone] documented in this encounter [facility] 10-19-2022 Note HNO ID: [id number] Author: Antonieta Thierno Cast Service: ? Author Type: ? Type: Progress Notes Filed: 10/19/2022 8:01 AM Note Text: PT ASSESSMENT - CASTING ROOM Elenita presents for cast removal. Applied short cast: to Left leg weight bearing Patient has been instructed in Care of cast.. Antonieta Pa Cast Beeper: [id number] [facility] 10-18-2022 Note HNO ID: [id number] Author: Kaylie Charles MD Service: ? Author [...] xrays out of cast Kaylie Charles MD [facility] 10-18-2022 Note HNO ID: [id number] Author: RT Ella(Kriss) Service: Radiology Author Type: Technologist Type: Progress [...] RT Ella(R) October 18, 2022 2:18 PM [facility] 10-18-2022 History of Present illness Narrative [...] Kaylie Charles MD documented in this encounter [facility] 10-18-2022 History of Present illness Narrative Radiology [...] PERIPHERAL IV DATA: Not applicable SIGNED BY: MOON AURT AND RT Ella(R) October 18, 2022 2:18 PM documented in this encounter [facility] 09-20-2022 Note HNO ID: [id number] Author: Sarah Kelly LPN Service: ? Author Type: LICENSED NURSE Type: Progress Notes Filed: 09/20/2022 4:08 PM Note Text: PT ASSESSMENT - CASTING ROOM Elenita presents for cast removal. Applied short cast: to Left leg Patient has been instructed in Care of cast.. Sarah Kelly LPN Beeper: [id number] [facility] 09-19-2022 Note HNO ID: [id number] Author: Kaylie Charles MD Service: ? Author [...] out of the cast Kaylie Charles MD [facility] 09-19-2022 History of Present illness Narrative [...] Kaylie Charles MD documented in this encounter [facility] 09-15-2022 Miscellaneous Notes Placed call to patient. [...] captured for this encounter? not asked Shama Vital documented in this encounter [facility] 09-14-2022 Note HNO ID: [id number] Author: Kyle Pickett Service: ? Author Type: ? Type: Progress Notes Filed: 09/14/2022 8:56 AM Note Text: The appointment was cancelled for this patient. Kyle Pickett [facility] 09-14-2022 History of Present illness Narrative The appointment was cancelled for this patient. Kyle Pickett documented in this encounter [facility] 09-08-2022 Note HNO ID: [id number] Author: Sarah Kelly LPN Service: ? Author Type: LICENSED NURSE Type: Progress Notes Filed: 09/08/2022 11:37 AM Note Text: PT ASSESSMENT - CASTING ROOM Elenita presents for cast removal. Applied short cast: to Left leg Patient has been instructed in Care of cast.. Sarah Kelly LPN Beeper: [id number] [facility] 09-08-2022 History of Present illness Narrative PT ASSESSMENT - CASTING ROOM Elenita presents for cast removal. Applied short cast: to Left leg Patient has been instructed in Care of cast.. Sarah Kelly LPN Beeper: [id number] documented in this encounter [facility] 08-18-2022 History and physical note HISTORY AND [...] 3 months after surgery. Taking Yes fexofenadine (SHANNAN ALLERGY) 180 mg tablet Take 180 mg [...] fevers. Neuro: No history of TIA's, stroke, REPLANTER tumor, impaired sensorium, hemiplegia, paraplegia or quadraplegia. No neurological symptoms or problems. Respiratory: No history of current cough or dyspnea, or pneumonia in the past 6 weeks. No history of respiratory/pulmonary symptoms or problems. Cardiovascular: +HTN Negative for Recent ID, Angina, CAD, Chest Pain, CHF, DVT/PE GI: [...] Denies any CP, dizziness, double vision, or LAROSE. Stable. 3. Obesity (BMI 30-39.9) BMI 34.20 [...] sent to PCP, Dr. Heraclio Gomez, in [place], [place]. The Following Tests/Procedures Have Been Initiated: [...] TIME: 3:48 PM documented in this encounter [facility] 08-17-2022 Instructions Hodan Townsend PA-C - 08/17/2022 1:30 PM EST PATIENT PREOPERATIVE INSTRUCTIONS Kaylie Charles MD has scheduled you for your procedure at this surgery center: [facility]: [phone] --[address] [place] [address]. Arrival Time for Surgery: - The Surgery [...] Procedures: - YOU MUST HAVE A RESPONSIBLE SALES DEVELOPMENT MANAGER TAKE YOU HOME. A CONSOLIDATOR OR RETAIL MARKETING MANAGER CANNOT BE MADE A RESPONSIBLE SALES DEVELOPMENT MANAGER. - We recommend that a responsible person stays with you overnight to take care of you. - You cannot stay in a hotel alone after outpatient surgery. You will not be permitted to have your surgery, if you do not have someone to take care of you. If you already have an Advance Directive, please fax a copy to [phone] or email to for it to be [...] Hodan Townsend PA-C documented in this encounter [facility] 07-12-2022 Note OPERATIVE NOTE OPERATION DATE: 07/12/2022 [...] on pathology results. CC: Heraclio Gomez M.D. [facility] 05-31-2022 Note HNO ID: [id number] Author: Kaylie Charles MD Service: ? Author [...] X-Rays The patient's pertinent medical history from [facility] has been reviewed. PFOMIS forms have been [...] with the pa (more content not included)... [facility] 05-31-2022 Note HNO ID: [id number] Author: RT Ella(R) Service: Radiology Author Type: [...] RT Ella(R) May 31, 2022 1:41 PM [facility] 05-31-2022 History of Present illness Narrative [...] X-Rays The patient's pertinent medical history from [facility] has been reviewed. PFOMIS forms have been [...] records. This note was partially generated using XLerant voice recognition system, and there may be some incorrect words, spellings, and punctuation that were not noted in checking the note before saving. Kaylie Charles M.D. documented in this encounter [facility] 05-31-2022 History of Present illness Narrative Radiology [...] 2022 1:41 PM documented in this encounter [facility] 05-23-2022 Note Chief Complaint consultation for colonoscopy [...] Mother. Hyperlipidemia: Brother. Hypertension: Mother and Father. [facility] Comment on above: Result Comment: Elec tronically Signed By: KENYETTA CAMPO, Luis Abraham\Date and Time Signed: 05/23/22 14:16 EDT Evaluation + Plan note No data available for this section [facility] Evaluation note Diagnosis Primary osteoarthritis of left foot- Primary Pes planus of left foot Acquired valgus deformity of left ankle [facility] Diagnosis Pre-op evaluation- Primary Preoperative examination, unspecified Hypertension, unspecified type Obesity (BMI 30-39.9) Obesity, unspecified Primary osteoarthritis of left foot Pes planus of left foot Acquired valgus deformity of left ankle [facility] Diagnosis Primary osteoarthritis of left foot- Primary Primary osteoarthritis of left foot Pes planus of left foot Acquired valgus deformity of left ankle [facility] Diagnosis Primary osteoarthritis of left foot- Primary Primary osteoarthritis of left foot Pes planus of left foot Acquired valgus deformity of left ankle [facility]* Diagnosis Primary osteoarthritis of left foot- Primary Pes planus of left foot Acquired valgus deformity of left ankle Primary osteoarthritis of left foot- Primary [facility] Diagnosis Pain- Primary Generalized pain Primary osteoarthritis of left foot- Primary documented in this encounter [facility] note* Diagnosis Left ankle pain, unspecified chronicity- Primary documented in this encounter [facility] note* Diagnosis Primary osteoarthritis of left foot- Primary APPOINTMENT CANCELLED documented in this encounter [facility] note* Diagnosis Primary osteoarthritis of left foot- Primary documented in this encounter [facility] note* Diagnosis Primary osteoarthritis of left foot- Primary documented in this encounter [facility] note* Diagnosis Primary osteoarthritis of left foot- Primary documented in this encounter [facility] note* Diagnosis Primary osteoarthritis of left foot- Primary documented in this encounter [facility] note* Diagnosis History of arthrodesis- Primary Arthrodesis status documented in this encounter [facility] note* Diagnosis Pain Generalized pain documented in this encounter [facility] note* Diagnosis Primary osteoarthritis of left foot documented in this encounter [facility] note* Diagnosis Primary osteoarthritis of left foot documented in this encounter [facility] note* Diagnosis Melanocytic nevus of trunk- Primary Benign neoplasm of skin of trunk, except scrotum Seborrheic keratosis Onychomycosis Dermatophytosis of nail Seborrheic keratosis, inflamed documented in this encounter [facility] Discharge instructions No data available for this section [facility] Progress note No data available for this section [facility] Reason for referral (narrative)* Diagnostic Procedure Only (Routine) - Closed Specialty Diagnoses / Procedures Referred By Krystina black Referred To Contact XR IMAGING Diagnoses Pain Procedures XR FOOT GENERAL 3V AP/LAT/OBL LEFT RADEX FOOT COMPLETE MINIMUM 3 VIEWS Kaylie Charles DDS [address] [place] [address] Xr Imaging Referral ID Status Reason Start Date Expiration Date V isits Requested Visits Authorized [id number] Closed Auto-Generate d Referral 05/22/2022 06/21/2023 1 1 [facility] for referral (narrative)* Diagnostic Procedure Only (Routine) - Pending Review Specialty Diagnoses / Procedures Referred By Contac t Referred To Contact XR IMAGING Diagnoses Primary osteoarthritis of left foot Procedures XR FOOT GENERAL 3V AP/LAT/OBL LEFT RADEX FOOT COMPLETE MINIMUM [address] [place] [address] [place] [address] Xr Imaging Referral ID Status Reason Start Date Expiration Date Visits Requested Visits Authorized [id number] Pending Review Auto-Generat ed Referral 09/22/2022 10/19/2023 1 1 [facility] for referral (narrative)* Diagnostic Procedure Only (Routine) - Pending Review Specialty Diagnoses / Procedures Referred By Contac t Referred To Contact XR IMAGING Diagnoses Primary osteoarthritis of left foot Procedures XR FOOT GENERAL 3V AP/LAT/OBL LEFT RADEX FOOT COMPLETE MINIMUM 3 [place] [address] [place] [address] Xr Imaging Referral ID Status Reason Start Date Expiration Date Visits Requested Visits Authorized [id number] Pending Review Auto-Generat ed Referral 10/18/2022 11/17/2023 1 1 [facility] for referral (narrative)* Diagnostic Procedure Only (Routine) - Pending Review Specialty Diagnoses / Procedures Referred By Contac t Referred To Contact XR IMAGING Diagnoses Primary osteoarthritis of left foot Procedures XR FOOT GENERAL 3V AP/LAT/OBL LEFT RADEX FOOT COMPLETE MINIMUM [address] [place] [address] [place] [address] Xr Imaging Referral ID Status Reason Start Date Expiration Date Visits Requested Visits Authorized [id number] Pending Review Auto-Generat ed Referral 11/30/2022 12/30/2023 1 1 [facility] for referral (narrative)* Diagnostic Procedure Only (Routine) - Closed Specialty Diagnoses / Procedures Referred By Contac t Referred To Contact XR IMAGING Diagnoses Pain Procedures XR FOOT GENERAL 3V AP/LAT/OBL LEFT RADEX FOOT COMPLETE MINIMUM 3 VIEWS Kaylie Charles, DMD [address] [place] [address] [place] [address] Referral ID Status Reason Start Date Expiration Date V isits Requested Visits Authorized [id number] Closed Auto-Generate d Referral 05/22/2022 06/21/2023 1 1 [facility] for referral (narrative)* Diagnostic Procedure Only (Routine) - Closed Specialty Diagnoses / Procedures Referred By Contac t Referred To Contact XR IMAGING Diagnoses Primary osteoarthritis of left foot Procedures XR FOOT GENERAL 3V AP/LAT/OBL LEFT RADEX FOOT COMPLETE MINIMUM [address] [place] [address] [place] [address] [place] [address] Referral ID Status Reason Start Date Expiration Date V isits Requested Visits Authorized [id number] Closed Auto-Generate d Referral 09/22/2022 10/19/2023 1 1 [facility] for referral (narrative)* Diagnostic Procedure Only (Routine) - Closed Specialty Diagnoses / Procedures Referred By Contac t Referred To Contact XR IMAGING Diagnoses Primary osteoarthritis of left foot Procedures XR FOOT GENERAL 3V AP/LAT/OBL LEFT RADEX FOOT COMPLETE MINIMUM [address] [place] [address] [place] [address] [place] [address] Referral ID Status Reason Start Date Expiration Date V isits Requested Visits Authorized [id number] Closed Auto-Generate d Referral 11/30/2022 12/30/2023 1 1 [facility] for referral (narrative)* Diagnostic Procedure Only (Routine) - Closed Specialty Diagnoses / Procedures Referred By Contac t Referred To Contact XR IMAGING Diagnoses Primary osteoarthritis of left foot Procedures XR FOOT GENERAL 3V AP/LAT/OBL LEFT RADEX FOOT COMPLETE MINIMUM 3 [place] [address] [place] [address] [facility] [address] Referral ID Status Reason Start Date Expiration Date V isits Requested Visits Authorized [id number] Closed Auto-Generate d Referral 10/18/2022 11/17/2023 1 1 [facility] Summary Purpose Family History No Family History [...] Referral Specialty Diagnoses / Procedures Referred By Contac t Referred To Contact [facility] Diagnoses Primary osteoarthritis of left foot Procedures CONSULT TO PHYSICAL THERAPY PHYSICAL THERAPY EVALUATION HIGH COMPLEX [address] [place] [address] [place] [address] [facility] [address] [place] [address] Referral ID Status Reason Start Date Expiration Date Visits Requested Visits Authorized [id number] Pending Review Auto-Generat ed Referral 08/23/2022 08/23/2023 1 1 Additional Source Comments INFORMATION SOURCE (unrecogn ized section and content) DATE CREATED AUTHOR 03/29/2019 [facility] DATE CREATED AUTHOR AUTHOR'S ORGANIZ ATION 07/22/2022 [facility] DATE CREATED AUTHOR AUTHOR'S ORGANIZ ATION 08/22/2022 [facility] DATE CREATED AUTHOR AUTHOR'S ORGANIZ ATION 10/14/2022 [facility] DATE CREATED AUTHOR AUTHOR'S ORGANIZ ATION 01/19/2023 [facility] DATE CREATED AUTHOR AUTHOR'S ORGANIZ ATION 09/02/2024 [facility] EPIC Patient Care team informatio n (unrecognized section and content) Pattern Grader Supervisor Relationship Specialty Start Date End Date Heraclio Gomez MD PCP - General Family Medicine 09/10/15 Pattern Grader Supervisor Relationship Specialty Start Date End Date Heraclio Gomez MD PCP - General Family Medicine 09/10/15 Pattern Grader Supervisor Relationship Specialty Start Date End Date Heraclio Gomez MD PCP - General Family Medicine 09/10/15 Pattern Grader Supervisor Relationship Specialty Start Date End Date Heraclio Gomez MD PCP - General Family Medicine 09/10/15 Pattern Grader Supervisor Relationship Specialty Start Date End Date Heraclio Gomez MD PCP - General Family Medicine 09/10/15 Pattern Grader Supervisor Relationship Specialty Start Date End Date Heraclio Gomez MD PCP - General Family Medicine 09/10/15 Pattern Grader Supervisor Relationship Specialty Start Date End Date Heraclio Gomez MD PCP - General Family Medicine 09/10/15 Pattern Grader Supervisor Relationship Specialty Start Date End Date Heraclio Gomez MD PCP - General Family Medicine 09/10/15 Pattern Grader Supervisor Relationship Specialty Start Date End Date Heraclio Gomez MD PCP - General Family Medicine 09/10/15 Pattern Grader Supervisor Relationship Specialty Start Date End Date Heraclio Gomez MD PCP - General Family Medicine 09/10/15 Pattern Grader Supervisor Relationship Specialty Start Date End Date Heraclio Gomez MD PCP - General Family Medicine 09/10/15 Pattern Grader Supervisor Relationship Specialty Start Date End Date Heraclio Gomez MD PCP - General Family Medicine 09/10/15 Pattern Grader Supervisor Relationship Specialty Start Date End Date Heraclio Gomez MD PCP - General Family Medicine 09/10/15 Pattern Grader Supervisor Relationship Specialty Start Date End Date Heraclio Gomez MD PCP - General Family Medicine 09/10/15 Pattern Grader Supervisor Relationship Specialty Start Date End Date Heraclio Gomez MD PCP - General Family Medicine 09/10/15 Pattern Grader Supervisor Relationship Specialty Start Date End Date Heraclio Gomez MD PCP - General Family Medicine 09/10/15 Pattern Grader Supervisor Relationship Specialty Start Date End Date Heraclio Gomez MD PCP - General Family Medicine 09/10/15 Pattern Grader Supervisor Relationship Specialty Start Date End Date Heraclio Gomez MD PCP - General Family Medicine 09/10/15 Pattern Grader Supervisor Relationship Specialty Start Date End Date Heraclio Gomez MD PCP - General Family Medicine 09/10/15 Pattern Grader Supervisor Relationship Specialty Start Date End Date Heraclio Gomez MD PCP - General Family Medicine 09/10/15 Source Comments (unrecognize d section and content) In the event this informatio n is protected by the Federal Confidentiality of Alcohol and Drug Abuse Patient Records regulations: The Federal rules restrict any use of the information to criminally investigate or prosecute any alcohol or drug abuse patient.[facility] the event this information is protected by the Federal Confidentiality of Alcohol and Drug Abuse Patient Records regulations: The Federal rules restrict any use of the information to criminally investigate or prosecute any alcohol or drug abuse patient.[facility] the event this information is protected by the Federal Confidentiality of Alcohol and Drug Abuse Patient Records regulations: The Federal rules restrict any use of the information to criminally investigate or prosecute any alcohol or drug abuse patient.[facility] the event this information is protected by the Federal Confidentiality of Alcohol and Drug Abuse Patient Records regulations: The Federal rules restrict any use of the information to criminally investigate or prosecute any alcohol or drug abuse patient.[facility] the event this information is protected by the Federal Confidentiality of Alcohol and Drug Abuse Patient Records regulations: The Federal rules restrict any use of the information to criminally investigate or prosecute any alcohol or drug abuse patient.[facility] the event this information is protected by the Federal Confidentiality of Alcohol and Drug Abuse Patient Records regulations: The Federal rules restrict any use of the information to criminally investigate or prosecute any alcohol or drug abuse patient.[facility] the event this information is protected by the Federal Confidentiality of Alcohol and Drug Abuse Patient Records regulations: The Federal rules restrict any use of the information to criminally investigate or prosecute any alcohol or drug abuse patient.[facility] the event this information is protected by the Federal Confidentiality of Alcohol and Drug Abuse Patient Records regulations: The Federal rules restrict any use of the information to criminally investigate or prosecute any alcohol or drug abuse patient.[facility] the event this information is protected by the Federal Confidentiality of Alcohol and Drug Abuse Patient Records regulations: The Federal rules restrict any use of the information to criminally investigate or prosecute any alcohol or drug abuse patient.[facility] the event this information is protected by the Federal Confidentiality of Alcohol and Drug Abuse Patient Records regulations: The Federal rules restrict any use of the information to criminally investigate or prosecute any alcohol or drug abuse patient.[facility] the event this information is protected by the Federal Confidentiality of Alcohol and Drug Abuse Patient Records regulations: The Federal rules restrict any use of the information to criminally investigate or prosecute any alcohol or drug abuse patient.[facility] the event this information is protected by the Federal Confidentiality of Alcohol and Drug Abuse Patient Records regulations: The Federal rules restrict any use of the information to criminally investigate or prosecute any alcohol or drug abuse patient.[facility] the event this information is protected by the Federal Confidentiality of Alcohol and Drug Abuse Patient Records regulations: The Federal rules restrict any use of the information to criminally investigate or prosecute any alcohol or drug abuse patient.[facility] HospitalIn the event this information is protected by the Federal Confidentiality of Alcohol and Drug Abuse Patient Records regulations: The Federal rules restrict any use of the information to criminally investigate or prosecute any alcohol or drug abuse patient.[facility] HospitalIn the event this information is protected by the Federal Confidentiality of Alcohol and Drug Abuse Patient Records regulations: The Federal rules restrict any use of the information to criminally investigate or prosecute any alcohol or drug abuse patient.[facility] HospitalIn the event this information is protected by the Federal Confidentiality of Alcohol and Drug Abuse Patient Records regulations: The Federal rules restrict any use of the information to criminally investigate or prosecute any alcohol or drug abuse patient.[facility] HospitalIn the event this information is protected by the Federal Confidentiality of Alcohol and Drug Abuse Patient Records regulations: The Federal rules restrict any use of the information to criminally investigate or prosecute any alcohol or drug abuse patient.[facility] HospitalIn the event this information is protected by the Federal Confidentiality of Alcohol and Drug Abuse Patient Records regulations: The Federal rules restrict any use of the information to criminally investigate or prosecute any alcohol or drug abuse patient.[facility] HospitalIn the event this information is protected by the Federal Confidentiality of Alcohol and Drug Abuse Patient Records regulations: The Federal rules restrict any use of the information to criminally investigate or prosecute any alcohol or drug abuse patient.[facility] HospitalIn the event this information is protected by the Federal Confidentiality of Alcohol and Drug Abuse Patient Records regulations: The Federal rules restrict any use of the information to criminally investigate or prosecute any alcohol or drug abuse patient.[facility] HospitalIn the event this information is protected by the Federal Confidentiality of Alcohol and Drug Abuse Patient Records regulations: The Federal rules restrict any use of the information to criminally investigate or prosecute any alcohol or drug abuse patient.[facility] Reason for Visit (unrecogniz ed section and content) Reason Comments Radiology XR Specialty Diagnoses / Procedures Referred By Contac t Referred To Contact XR IMAGING Diagnoses Primary osteoarthritis of left foot Procedures XR FOOT GENERAL 3V AP/LAT/OBL LEFT RADEX FOOT COMPLETE MINIMUM [address] [place] [address] [place] [address] [place] [address] Referral ID Status Reason Start Date Expiration Date V isits Requested Visits Authorized [id number] Closed Auto-Generate d Referral 11/30/2022 12/30/2023 1 [...] FOOT COMPLETE MINIMUM 3 VIEWS Kaylie Charles DMD [address] [place] [address] [place] [address] Referral ID Status Reason Start Date Expiration Date V isits Requested Visits Authorized [id number] Closed Auto-Generate d Referral 05/22/2022 06/21/2023 1 1 Referral ID Status Reason Start Date Expiration Date V isits Requested Visits Authorized [id number] Closed Auto-Generate d Referral 09/22/2022 10/19/2023 1 1 Referral ID Status Reason Start Date Expiration Date V isits Requested Visits Authorized [id number] Closed Auto-Generate d Referral 10/18/2022 11/17/2023 1 1 Reason Comments Skin Check FOR RECORDS PERTAINING TO PATIENTS WHO ARE [...] BE BASED ON THE PRIMARY CLINICAL RECORDS. [facility]. provides no warranty or guarantee of the accuracy or completeness of information in this document.
[2024-10-10 12:44] LABS: Basophils Percent Auto 0.5 % (0.2-2.0); Eosinophils Absolute Auto 0.2 10^3/uL (0.0-0.7); Eosinophils Percent Auto 4.1 % (0.9-7.0); Hematocrit 40.5 % (36.0-48.0); Hemoglobin 13.4 g/dL (12.0-16.0); Lymphocytes Absolute Auto 1.6 10^3/uL (1.2-3.8); Lymphocytes Percent Auto 41.3 % (20.5-60.0); Mean Corpuscular HGB Conc 33.1 g/dL (29.9-35.2); Mean Corpuscular Hemoglobin 28.2 pg (26.7-34.0); Mean Corpuscular Volume 85.1 fL (81.0-99.0); Mean Platelet Volume 9.9 fL (9.5-13.5); Monocytes Absolute Auto 0.3 10^3/uL (0.3-0.8); Monocytes Percent Auto 8.4 % (1.7-12.0); Neutrophils Absolute Auto 1.8 10^3/uL (1.4-6.5); Neutrophils Percent Auto 45.7 % (43.0-75.0); Platelet Count 253 10^3/uL (150-450); Red Blood Count 4.76 10^6/uL (4.20-5.40); Red Cell Distribution Width 13.5 % (11.0-15.0)
[2024-10-10 12:55] LABS: Estimated Average Glucose 126 mg/dL
[2024-10-10 14:05] LABS: Alanine Aminotransferase 30 U/L (14-59); Albumin Globulin Ratio 1.1; Alkaline Phosphatase 58 U/L (46-116); Anion Gap 10.7; Aspartate Amino Transferase 18 U/L (15-37); BUN Creatinine Ratio 17.2; Bilirubin Total 0.4 mg/dL (0.2-1.0); Calcium 9.2 mg/dL (8.5-10.1); Carbon Dioxide 27.8 mmol/L (21.0-32.0); Chloride 102 mmol/L (98-107); Chol HDL Ratio 3.1; Cholesterol 234 mg/dL (<=200); Estimated GFR (African America >60 (>=60 mL/min/1.73m^2); Estimated GFR (Non-African Ame >60 (>=60 mL/min/1.73m^2); Free T3 2.87 pg/mL (2.18-3.98); Globulin 3.7 g/dL; Glucose 104 mg/dL (74-106); HDL Cholesterol 75 mg/dL (40-60); Potassium 4.5 mmol/L (3.5-5.1); Sodium 136 mmol/L (136-145); Thyroid Stimulating Hormone 1.826 uIU/mL (0.358-3.740); Total Protein 7.7 g/dL (6.4-8.2); Triglycerides 60 mg/dL (<=150)
== END 2024-10-10 11:58 | disposition home or self-care (01) ==
LOC: LAB 11:58
PROVIDERS: PCP Family Medicine; Visit Provider Family Medicine
DX: E78.5 Hyperlipidemia, unspecified (principal); I10 Essential (primary) hypertension; R53.83 Other fatigue; R73.09 Other abnormal glucose; D64.9 Anemia, unspecified
CPT/HCPCS: 36415; 80053; 80061; 83036; 83540; 84436; 84443; 84481; 85025

== ENCOUNTER 2025-03-04 08:51 | Outpatient (OUT) | payer MEDICARE, SELFPAY ==
--- NOTE | 2025-03-04 08:59 | US_ITS ---
[place] [id number] Patient Name: FELIBERTO ARMENTA MRN: [id number] date: 1955 Sex: F Assigned Patient Location: US Current Patient Location: US Accession/Order Number: [id number] Exam Date: 03/04/2025 10:25 Report Date: 03/04/2025 10:26 At the request of: HERACLIO SAMSON MD Procedure: US right upper quadrant LIMITED ABDOMINAL ULTRASOUND: CLINICAL HISTORY: Right Upper Quadrant Pain COMPARISON: None TECHNIQUE: Grayscale and color Doppler images of the right upper quadrant organs were obtained. FINDINGS: Pancreas: Visualized portions appear unremarkable. Liver: Unremarkable. Gallbladder: Unremarkable. CBD: 5.5 mm. RT KIDNEY: No Hydronephrosis US/US right upper quadrant IMPRESSION: NO ACUTE PROCESS. . Impression dictated by: Magdy Syed Jr., D.O. 03/04/2025 10:26 AM Dictation Location: [place] [address] Electronically authenticated by: [id number] Y Date: 03/04/2025 10:26
== END 2025-03-04 08:52 | disposition home or self-care (01) ==
LOC: US 08:52
PROVIDERS: PCP Family Medicine; Visit Provider Family Medicine
DX: R10.11 Right upper quadrant pain (principal)
CPT/HCPCS: 76705

== ENCOUNTER 2025-05-11 08:07 | Outpatient (OUT) | payer MEDICARE, SELFPAY ==
--- OUTSIDE RECORDS SUMMARY | 2025-01-20 10:02 | XMS_ITS ---
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) Monet Clark Active [facility] 11/26/2024 Unknown Encounter for preprocedural laboratory examination / Z01.812(ICD-10) Monet Clark Active [facility] PROCEDURES No Procedure Records Found RESULTS L Observed: 12/11/2024 8:25 AM Status: Ade Source: [facility] ----- ------- Specimen: [id number] Received: 12/11/24 Status: MARILU Metzsuzanna Num: [id number] Spec Type: Surgical Subm Dr: Monet Clark DO Tissues: A Uterus w/ or w/o tubes ovaries except neoplastic or prolap (UTERUS, CERVIX Procedures: Jonathon Briones/Yuliya L5 ----- ------- Age/ Patient Sex Location Account Attending Physician ----- ------- Feilberto Howard 69/F [place] [id number] Monet Clark DO ----- ------- SPEC NUM: [id number] RECD: 12/11/24 STATUS: MARILU JIANG NUM: [id number] ALBERTO: 12/11/[address] [facility] [address]: Monet Clark, DO ENTERED: 12/11/[address]: ALPHONSE TYPE: Surgical DEPT: S ENTERED BY: [id number] RECV BY: [id number] ORDERED: HE/, Gross/Micro L5 ORDERED: HE, Gross/Micro L5 Pathological Diagnosis Uterus, cervix, bilateral fallopian tubes and ovaries, vaginal mucosa, hysterectomy and bilateral salpingo-oophorectomy: Atrophic endometrium. Multiple leiomyomas. Focal serosal adhesions. Mild chronic cervicitis. Fallopian tubes and ovaries with multiple corporeal albicans. Separate portion of squamous mucosa with reactive changes. Clinical Information Uterine prolapse, cystocele Gross Description Part A is received in formalin labeled with the patients name, date of , and uterus, cervix, nikkie. tubes and ovaries; vaginal mucosa Is a hysterectomy specimen identified by the surgeon as weighing 72 g, which consists of a uterine corpus with attached cervix, resected with attached bilateral adnexa and 2 detached sheets of mucosal lined tissue. The uterine corpus is symmetrical, 3.2 cm cornu to cornu, 3 cm anterior to posterior and 8 cm fundus to ectocervical face. The serosa is dolan-pink, smooth and glistening. The ectocervical face is 1.5 cm in length by up to 3.5 cm in diameter, and exhibits dolan- pink, smooth, glistening mucosa. The cervical os is slitlike, up to 0.8 cm in diameter. The specimen is opened to reveal a dolan-pink, wrinkled and glistening endocervical canal. The endometrial cavity is dolan-pink, focally erythematous, glistening and triangular, 2.5 x 1.5 cm with endometrium, up to 0.2 cm in thickness. The myometrium is dolan-pink and ----- ------- Specimen: [id number] Received: 12/11/24 Status: MARILU Jiang Num: [id number] Spec Type: Surgical Subm Dr: Monet Clark DO Tissues: A Uterus w/ or w/o tubes ovaries except neoplastic or prolap (UTERUS, CERVIX Procedures: , Gross/Micro L5 ----- ------- Patient: Feliberto Howard [id number] (Continued) ----- ------- Specimen: Received: 12/11/24 (Continued) Gross Description (Continued) Signed (signature on file) Martha James MD 12/12/24 1024 ----- ------- Specimen: Received: 12/11/24 Status: MARILU Jiang Num: [id number] Spec Type: Surgical Subm Dr: Monet Clark DO Tissues: A Uterus w/ or w/o tubes ovaries except neoplastic or prolap (UTERUS, CERVIX Procedures: , Gross/Micro L5 ----- ------- Patient: Feliberto Howard [id number] (Continued) ----- ------- Specimen: [id number] Received: 12/11/241015 (Continued) Gross Description (Continued) trabecular, up to 1.7 cm in thickness. Within the myometrium are 4 well- circumscribed intramural nodules, ranging from 0.8 to 1.7 cm in greatest dimension. The cut surfaces of the nodules are white, whirled, rubbery and uniform with no hemorrhage or degeneration identified. The left fallopian tube with fimbriated distal end is 7.5 cm in length by up to 0.6 cm in diameter, and the right fallopian tube with fimbriated distal end is 8 cm in length by 0.6 cm in diameter. The serosa is corrales purple, smooth and glistening with paratubal cysts, 0.5 cm in greatest dimension. Serial sections reveal pinpoint lumen within each segment. The left ovary is 2.3 x 1.1 x 1 cm, and the right ovary is 3.2 x 1 x 1 cm. The capsular surfaces are dolan-pink to yellow, and bosselated. Serial sections reveal dolan-pink to yellow ovarian parenchyma with focal simple cysts. No papillations or excrescences are identified. The detached strips of mucosal lined tissue are 4 x 2 x 0.3 cm, and 5 x 2.3 x 0.3 cm. One surface of each specimen is dolan-pink, ranging from smooth and glistening to wrinkled and dull, while the opposing surfaces are focally adhesed. Serial sections reveal corrales-dolan to pink, glistening and uniform cut surfaces. Cassettes: A1 Cervix A2 Serosa (to include posterior cul-de-sac) A3-A4 Full-thickness cross-sections of anterior endomyometrium A5-A6 Full-thickness cross-sections of posterior endomyometrium A7 Entirety of trisected fimbriated end and financial services representative cross-sections from left tube A8 Entirety of trisected fimbriated end and financial services representative cross-sections from right tube A9 Left ovary A10 Right ovary A11 Detached mucosal lined tissue (, L30-7107 A) CPT Codes 74820 ----- ------- ----- ------- Specimen: [id number] Received: 12/11/24 Status: MARILU Jiang Num: [id number] Spec Type: Surgical Subm Dr: Monet Clark, Tissues: A Uterus w/ or w/o tubes ovaries except neoplastic or prolap (UTERUS, CERVIX Procedures: , Gross/Micro L5 ----- ------- Patient: Feliberto Howard [id number] (Continued) ----- ------- Signed (signature on file) Shannan James MD 12/12/24 1024 ABO/RH RETYPE Collected: 12/11/2024 6:35 AM Status: F Source: [facility] TYPE CODE TESTS RESULT OUT OF RANGE REFERENCE UNITS LAB BT2V ABO/RH Recheck Result A Positive Result Comment: PERFORMED BY : [address] [place] [address] PATHOLOGIST SHIP ENGINEER ARTIE PEREZ M.D. PST TYPE AND SCREEN Collected: 11/26/2024 2:[address] atus: F Source: [facility] Order Comment: Date of Surge ry: 20241211 TYPE CODE TESTS RESULT OUT OF RANGE REFERENCE UNITS LAB BTV Blood Type A Positive LAB ABS Antibody Screen NEGATIVE Result Comment: PERFORMED BY : [address] [address] PATHOLOGIST SHIP ENGINEER ARTIE PEREZ M.D. PST TYPE AND SCREEN Collected: 11/26/2024 2:[address] atus: F Source: [facility] Order Comment: Date of Surge ry: 20241211 TYPE CODE TESTS RESULT OUT OF RANGE REFERENCE UNITS LAB BTV Blood Type A Positive Result Comment: PERFORMED BY : [address] [place] [address] PATHOLOGIST SHIP ENGINEER ARTIE PEREZ M.D. LAB ABS Antibody Screen NEGATIVE Result Comment: PERFORMED BY : [address] [place] [address] PATHOLOGIST SHIP ENGINEER ARTIE PEREZ M.D. COMPLETE BLOOD COUNT AUTO DIFF Collected: 11/26/2024 2:15 PM Status: F Source: Ade [facility] TYPE CODE TESTS RESULT OUT OF RANGE REFERENCE UNITS LAB WBC White Blood Count 5.3 Normal 3.8-11.6 10*3/uL LAB UNWBC Uncorrected WBC 5.3 Normal 3.8-11.6 10*3/uL LAB RBC Red Blood Count 4.77 Normal 3.60-5.00 10*6/u L LAB HGB Hemoglobin 13.5 Normal 11.8-15.4 g/dL LAB HCT Hematocrit 40.2 Normal 34.0-46.4 % LAB MCV Mean Corpuscular Volume 84.5 Normal 80-100 fL LAB MCH Mean Corpuscular Hemoglobin 28.3 Normal 24.7-34.3 pg LAB MCHC Mean Corpuscular HGB Conc 33.5 Normal 32.0-35.0 g/dL LAB RDW Red Cell Distribution Width 14.8 Normal 11.9-15.3 % LAB PLT Platelet Count 264 Normal 150-450 10*3/uL LAB MPV Mean Platelet Volume 7.6 Normal 6.3-10.7 fL LAB NE% Neutrophils % (Auto) 59.5 . % LAB LY% Lymphocytes % (Auto) 29.7 . % LAB MO% Monocytes % (Auto) 8.4 . % LAB EO% Eosinophils % (Auto) 1.9 . % LAB BA% Basophils % (Auto) 0.5 . % LAB NRBC% NRBC% 0.1 Normal 0-0.5 /100{WBC} LAB NE# Neutrophils # (Auto) 3.2 Normal 1.8-7.7 10*3/uL LAB LY# Lymphocytes # (Auto) 1.6 Normal 1.00-4.8 10*3/uL LAB MO# Monocytes # (Auto) 0.4 Normal 0.0-0.8 10*3/uL LAB EO# Eosinophils # (Auto) 0.1 Normal 0.0-0.45 10*3/uL LAB BA# Basophils # (Auto) 0.0 Normal 0.0-0.2 10*3/uL Result Comment: PERFORMED BY : [facility] [address] [id number] PATHOLOGIST SHIP ENGINEER ARTIE PEREZ M.D. Performed By: #### CBC #### [place] [id number] [facility] PROTHROMBIN TIME INR Collected: 11/26/2024 2:15 PM S tatus: F Source: [facility] TYPE CODE TESTS RESULT OUT OF RANGE REFERENCE UNITS LAB R PT Prothrombin Time 10.7 Normal 9.0-12.9 s Result Comment: A hematocrit value greater than 55% may lead to inaccurate results in coagulation testing. Patients having hematocrit values >55% require a special collection tube for coagulation studies. Please contact the laboratory at [phone] for redraw instructions. LAB INR INR 0.9 Result Comment: INR Therapeu tic Range A) Pre- and Peroperative OAT started two weeks before surgery. NOT HIP SURGERY: 1.5 - 2.5 HIP SURGERY: 2 - 3 B) Primary and secondary prevention of venous THROMBOSIS: 2 - 3 C) Active venous thrombosis, pulmonary embolism and prevention of recurrent venous thrombosis: 2 - 3 D) Prevention of arterial thromboembolism including patients with mechanical heart valves: 3 - 4.5 Performed By: #### PT, PTT, BMP #### [place] [id number] [facility] PARTIAL THROMBOPLASTIN TIME Collected: 11/26/2024 2:1 5 PM Status: F Source: [facility] TYPE CODE TESTS RESULT OUT OF RANGE REFERENCE UNITS LAB PTT Partial Thromboplastin Time 22.3 Low 25.1-36.5 s Result Comment: A hematocrit value greater than 55% may lead to inaccurate results in coagulation testing. Patients having hematocrit values >55% require a special collection tube for coagulation studies. Please contact the laboratory at [phone] for redraw instructions. PERFORMED BY: [place] [id number] PATHOLOGIST SHIP ENGINEER ARTIE PEREZ M.D. Performed By: #### PT, PTT, BMP #### [place] [id number] [facility] BASIC METABOLIC PANEL Collected: 11/26/2024 2:15 PM Status: F Source: [facility] TYPE CODE TESTS RESULT OUT OF RANGE REFERENCE UNITS LAB GLU Glucose 102 High 70-100 mg/dL Result Comment: Random Gluco se Reference Range is dependent on time and content of last meal. Glucose of more than 200 mg/dL in a nonstressed, ambulatory subject supports the diagnosis of Diabetes Mellitus. ADA recommended reference range LAB BUN Blood Urea Nitrogen 19 Normal 7-25 mg/dL LAB CREATT Creatinine 0.91 Normal 0.60-1.20 mg/dL LAB GFReNR Estimated GFR >60.0 mL/Min LAB NA Sodium 137 Normal 136-145 mmol/L LAB K Potassium 4.9 Normal 3.5-5.1 mmol/L LAB CL Chloride 101 Normal 98-107 mmol/L LAB CO2 Carbon Dioxide 27.6 Normal 21.0-31.0 mmol/L LAB GAP Anion Gap 13.3 Normal 6.0-15.0 meq/L LAB CA Calcium 10.3 Normal 8.6-10.3 mg/dL Result Comment: PERFORMED BY : [place] [address] PATHOLOGIST SHIP ENGINEER ARTIE PEREZ M.D. Performed By: #### PT, PTT, BMP #### [facility] [address] [place] [address] ECG 12 LEAD ECG Observed: 11/26/2024 1:55 PM Status: COMPLETED Source: [facility] [place] [place] [address] Electrocardiograph Report Signed Patient: Feliberto Howard MR#: [id number] : 1955 Acct:[id number] Age/Sex: 69 / F ADM Date: 11/26/24 Loc: PS Room: Type: [facility] Attending Dr: Monet Clark DO Ordering Provider: Monet Clark DO Date of Service: 11/26/24 ECG/ECG 12 lead ECG: pst Copies to: Test Reason : Blood Pressure : */* mmHG Vent. Rate : 67 BPM Atrial Rate : 67 BPM P-R Int : 166 ms QRS Dur : 82 ms QT Int : 378 ms P-R-T Axes : 37 13 67 degrees QTcB Int : 399 ms Normal sinus rhythm Normal ECG No previous ECGs available Confirmed by AURELIA DARLING MD ([id number]) on 11/26/2024 5:38:34 PM Referred By: Electronically Signed By: AURELIA DARLING MD Transcribed By: MUS Signed By Aurelia Darling MD 0 11/26/24 1738 ALLERGIES DATE TYPE / CODE NAME / CODE REACTION SEVERITY SOURCE 11/26/2024 Drug Allergy/603398 002(SNOMED CT) Penicillins/F00 4894324(RXNORM) Unknown Reaction Unknown [facility] 11/26/2024 Drug Allergy/727022 002(SNOMED CT) Sulfa (Sulfonamide Antibiotics)/F0 97437351(RXNORM ) Rash [facility] 11/26/2024 Drug Allergy/899525 002(SNOMED CT) epinephrine/F00 0355643(RXNORM) Nausea [facility] 11/26/2024 Drug Allergy/849212 002(SNOMED CT) latex/W61667749 1(RXNORM) Itching [facility] ENCOUNTERS ADMIT/DISCHARGE ACCOUNT NUMBER ADMITTING ENCOUNTER CLASS LOCATION SOURCE 01/20/2025/01/21/20 [id number] Ambulatory Building:[facility] 12/25/2024/12/26/19 [id number] Ambulatory Building:[facility] 12/11/2024/12/12/19 [id number] [facility] 11/26/2024/11/27/19 [id number] [facility] 11/06/2024/11/07/19 [id number] Ambulatory Building:[facility] 10/30/2024/10/31/19 [id number] Ambulatory Building:[facility] 10/23/2024/10/24/19 [id number] Ambulatory Building:[facility] 09/01/2024/09/01/19 [id number] [facility] EPIC PAYERS ENCOUNTER GUARANTOR PAYER SUBSCRIBER SOURCE 01/20/2025 FELIBERTO KELLY: [place] [address]Fnf: (HP) Primary Insurance:AETNA MEDICARE ADVANTAGEPolicy Number: [id number] Date:2022-12-11 FELIBERTO KELLY: [id number] [place] [address] [facility] 12/25/2024 FELIBERTO KELLY: [place] [address]Zwe: (HP) Primary Insurance:AETNA MEDICARE ADVANTAGEPolicy Number: [id number] Date:2022-12-11 FELIBERTO KELLY: [id number] [place] [address] [facility] EPIC 12/11/[address] [place] [phone]: (HP) Primary Insurance:Aetna [facility] PFFSPolicy Number: [id number] Date:[id number] [address]AG: Feliberto Kelly: [id number] [place] [phone]: (HP) [facility] 12/11/2024 Secondary Insurance:Self PayPolicy Number: Effective Date:2024-11-13 [facility]/26/20[address] Felib[address] Howard[address] [place] [address]Yli: (HP) Primary Insurance:Aetna [facility] PFFSPolicy Number: [id number] Date:[id number] [place] [address]LX: Feliberto StubbsB: [id number] [facility] [place] [address]Lll: (HP) [facility] 11/26/2024 Secondary Insurance:Self PayPolicy Number: Effective Date:2024-11-13 NOT GIVENUNK [facility] 11/06/2024 FELIBERTO STUBBSB: [place] [address]Cbk: (HP) Primary Insurance:AETNA MEDICARE ADVANTAGEPolicy Number: [id number] Date:2022-12-11 FELIBERTO STUBBSB: [id number] [place] [address] [facility] 10/30/2024 FELIBERTO STUBBSB: [place] [address]Yui: (HP) Primary Insurance:AETNA MEDICARE ADVANTAGEPolicy Number: [id number] Date:2022-12-11 FELIBERTO STUBBSB: [id number] [place] [address] [facility] 10/23/2024 FELIBERTO STUBBSB: [place] [address]Ymb: (HP) Primary Insurance:AETNA MEDICARE ADVANTAGEPolicy Number: [id number] Date:2022-12-11 FELIBERTO STUBBSB: [id number] [place] [address] [facility] 09/01/2024 FELIBERTO STUBBSB: [place] [address]Hfv: (HP) Primary Insurance:AETNA MEDICARE ADVANTAGEPolicy Number: [id number] Date:2022-12-11 FELIBERTO STUBBSB: [id number] [place] [address] [facility] EPIC
--- NOTE | 2025-05-11 08:05 | NM_ITS ---
The [address] [address] Patient Name: FELIBERTO ARMENTA MRN: [id number] date: 1955 Sex: F Assigned Patient Location: MS Current Patient Location: MS Accession/Order Number: [id number] Exam Date: 05/11/2025 08:05 Report Date: 05/11/2025 13:07 At the request of: HERACLIO SAMSON MD Procedure: NM hepatobiliary w pharm HIDA SCAN WITH CCK CLINICAL HISTORY: ABDOMINAL PAIN, GERD COMPARISON: None. TECHNIQUE:Following the intravenous administration of 4.8 mCi of technetium 99m labeled Mebrofenin, anterior imaging of the abdomen was performed out to 60 minutes.The patient was subsequently given 8 ounces of unsure and gallbladder ejection fraction was calculated. FINDINGS: There is uniform distribution of radionuclide within the liver. Normal gallbladder activity is seen within the first 60 minutes. The gallbladder ejection fraction is 29%. Normal is greater than 40%. MS/MS hepatobiliary w pharm IMPRESSION: LOW GALLBLADDER EJECTION FRACTION SUGGESTIVE OF BILIARY DYSKINESIA. Impression dictated by: Magdy Syed Jr., DTerrieOTerrie 05/11/2025 1:07 PM Dictation Location: [place] [address] Electronically authenticated by: [id number] Y Date: 05/11/2025 13:07
== END 2025-05-11 08:08 | disposition home or self-care (01) ==
LOC: NM 08:08
PROVIDERS: PCP Family Medicine; Visit Provider Family Medicine
DX: K21.9 Gastro-esophageal reflux disease without esophagitis (principal)
CPT/HCPCS: 78227; A9537

== ENCOUNTER 2025-07-13 09:47 | Outpatient (OUT) | payer MEDICARE, SELFPAY ==
--- OUTSIDE RECORDS SUMMARY | 2025-07-13 09:52 | XMS_ITS | Patient Health Record ---
Author Organization [facility] in [place] Address [address] [place] [address] Care Team Providers Care Manager Maintenance Name Role Phone Ryan Samson Primary Care Provider Allergies Allergen (clinical drug ingredient) Drug/Non Drug Allergy documented on EMR Reaction Allergy Type Onset Date Status amoxicillin / clavulanate Augmentin made her feel weird D rug Allergy ActiveSulfarashDrug AllergyActivesimvastatinSimvastatinbody achesDrug Allergy Active Results Component Value Reference Range Notes FREE T3 Reviewed date:10/12/2024 12:53:50 PM Interpretation: Performing Lab: Notes/Report: [facility] , Free T3 2.87 2.18-3.98 pg/mL Performing Lab:see noteML - [facility] LBLIPID PROFILE Reviewed date:10/12/2024 12:53:50 PM Interpretation: Performing Lab: Notes/Report: [facility] ,Szxvjicfvvpfx34<=150 mg/sWKwwzrcetvpm785<=200 mg/dLHDL Gspofdyvcck4872-23 mg/dL > or =60 mg/dl - LOW CARDIOVASCULAR RISK <40 mg/dl - HIGH CARDIOVASCULAR RISK LDL Cholesterol Oxhmgsszni582.0 <100 mg/dl OPTIMAL 100-129 mg/dl NEAR OR ABOVE OPTIMAL 130-159 mg/dl BORDERLINE HIGH 160-189 mg/dl HIGH >190 mg/dl VERY HIGH VLDL OFHWXQNJJLV67.0Chol HDL Ratio3.1 3.3 - 4.4 LOW RISK 4.4 - 7.1 AVERAGE RISK 7.1 - 11.0 MODERATE RISK >11.0 HIGH RISK Performing Lab:see noteML - [facility] LBPROF 14(COMP METB) Reviewed date:10/12/2024 12:53:50 PM Interpretation: Performing Lab: Notes/Report: [facility] ,Egqmtn599904-195 mmol/LPotassium4.53.5-5.1 mmol/KJnclusgo22759-115 mmol/LCarbon Qujmzpp87.821.0-32.0 mmol/LAnion Gap10.3Zfnusyx17001-211 mg/dLBlood Urea Ydpfsfda02.07.0-18.0 mg/dLCreatinine0.870.55-1.02 mg/dLEstimated GFR ( Nasra>60>=60 mL/min/1.73m 2Estimated GFR (Non- Velia>60>=60 mL/min/1.73m 2BUN Creatinine Ratio17.2Gcbyevq6.28.5-10.1 mg/dLBilirubin Total0.40.2-1.0 mg/dL Aspartate Amino Qvgmahpbrsj2010-42 U/LAlanine Ynzjkaihkinswxju8571-57 U/L Alkaline Zntahdgxynn0614-097 U/LTotal Protein7.76.4-8.2 g/dLAlbumin Level4.03.4- 5.0 g/dLGlobulin3.7Albumin Globulin Ratio1.1Performing Lab:see noteML - [facility] LBT4 Reviewed date:10/12/2024 12:53:50 PM Interpretation: Performing Lab: Notes/Report: [facility] ,T4 Thyroxine8.704.80-13.90 ug/dLPerforming Lab:see noteML - [facility] LBTSH Reviewed date:10/12/2024 12:53:50 PM Interpretation: Performing Lab: Notes/Report: [facility] ,Thyroid Stimulating Hormone1.8260.358-3.740 uIU/mLPerforming Lab:see noteML - [facility] LBGLYCOHEMOGLOBIN A1C Reviewed date:10/10/2024 01:13:33 PM Interpretation: Performing Lab: Notes/Report: [facility] ,Glycohemoglobin A1C6.04.5-6.2 % ADA RECOMMENDED LIMIT 4.0 - 6.0 ADA THERAPEUTIC TARGET < 7.0 ACTION SUGGESTED > 7.0 Estimated Average Wjuvrmt963Pegjhcyrex Lab:see noteML - [facility] LB CBC AUTO DIFF Reviewed date:10/10/2024 12:57:33 PM Interpretation: Performing Lab: Notes/Report: [facility] ,White Blood Count4.04.0-11.0 10 3/uLRed Blood Count4.764.20-5.40 10 6/uL Ssbouteebw07.412.0-16.0 g/zOXeukefrkdv97.536.0-48.0 %Mean Corpuscular Nflqlh02.1 81.0-99.0 fLMean Corpuscular Zrirjtyhtd60.226.7-34.0 pgMean Corpuscular HGB Conc 33.129.9-35.2 g/dLRed Cell Distribution Width13.511.0-15.0 %Platelet Wwsgc815 150-450 10 3/uLMean Platelet Volume9.99.5-13.5 fLNeutrophils Percent Auto45.7 43.0-75.0 %Lymphocytes Percent Auto41.320.5-60.0 %Monocytes Percent Auto8.41.7- 12.0 %Eosinophils Percent Auto4.10.9-7.0 %Basophils Percent Auto0.50.2-2.0 % Immature Granulocytes Pct Auto0.00.0-0.5 %Neutrophils Absolute Auto1.81.4-6.5 10 3/uLLymphocytes Absolute Auto1.61.2-3.8 10 3/uLMonocytes Absolute Auto0.30.3-0.8 10 3/uLEosinophils Absolute Auto0.20.0-0.7 10 3/uLBasophils Absolute Auto0.00.0- 0.1 10 3/uLImmature Granulocytes Abs Auto0.000.00-0.03 10 3/uLPerforming Lab:see noteML - [facility] LBUS right upper quadrant Reviewed date:03/04/2025 01:03:14 PM Interpretation: Performing Lab: Notes/Report: Source Facility: [facility] [place] [address] [place] [address] Ultrasound Report Signed Patient: FELIBERTO HOWARD MR#: [id number] : 1955 Acct:[id number] Age/Sex: 69 / F ADM Date: 03/04/25 Loc: US Attending Dr: Heraclio Samson M.D. Ordering Physician: Heraclio Samson M.D. Date of Service: 03/04/25 Procedure(s): US right upper quadrant Accession Number(s): [id number] cc: Heraclio Samson M.D. [place] [address] Patient Name: FELIBERTO HOWARD MRN: [id number] date: 1955 Sex: F Assigned Patient Location: US Current Patient Location: [place] Accession/Order Number: [id number] Exam Date: 03/04/2025 10:25 Report Date: 03/04/2025 10:26 At the request of: HERACLIO SAMSON MD Procedure: US right upper quadrant LIMITED ABDOMINAL ULTRASOUND: CLINICAL HISTORY: Right Upper Quadrant Pain COMPARISON: None TECHNIQUE: Grayscale and color Doppler images of the right upper quadrant organs were obtained. FINDINGS: Pancreas: Visualized portions appear unremarkable. Liver: Unremarkable. Gallbladder: Unremarkable. CBD: 5.5 mm. RT KIDNEY: No Hydronephrosis US/US right upper quadrant IMPRESSION: NO ACUTE PROCESS. . Impression dictated by: Magdy Syed Jr., D.O. 03/04/2025 10:26 AM Dictation Location: [place] [address] Electronically authenticated by: [id number] Y Date: 03/04/2025 10:26 Dictated By: Magdy Syed M.D. Signed By: 03/04/25 1028 DD/ 1026 TD/TT: Secondary Spanish Teacher:LETTY Reviewed date:10/12/2024 12:53:50 PM Interpretation: Performing Lab: Notes/Report: [facility] ,Iron60.050.0-170.0 ug/dLPerforming Lab:see noteML - [facility] LBCA hepatobiliary w pharm Reviewed date:05/11/2025 02:34:52 PM Interpretation: Performing Lab: Notes/Report: Source Facility: [facility]-[address] [place] [address] [place] [address] Nuclear Medicine Report Signed Patient: FELIBERTO HOWARD MR#: [id number] : 1955 Acct:[id number] Age/Sex: 69 / F ADM Date: 05/11/25 Loc: [place] Attending Dr: Heraclio Samson M.D. Ordering Physician: Heraclio Samson M.D. Date of Service: 05/11/25 Procedure(s): VASYL hepatobiliary w pharm Accession Number(s): [id number] cc: Heraclio Samson M.D. [facility] [address] [place] [address] Patient Name: FELIBERTO HOWARD MRN: [id number] date: 1955 Sex: F Assigned Patient Location: [place] Current Patient Location: [place] Accession/Order Number: [id number] Exam Date: 05/11/2025 08:05 Report Date: 05/11/2025 13:07 At the request of: HERACLIO SAMSON MD Procedure: NM hepatobiliary w pharm HIDA SCAN WITH CCK CLINICAL HISTORY: ABDOMINAL PAIN, GERD COMPARISON: None. TECHNIQUE:Following the intravenous administration of 4.8 mCi of technetium 99m labeled Mebrofenin, anterior imaging of the abdomen was performed out to 60 minutes.The patient was subsequently given 8 ounces of unsure and gallbladder ejection fraction was calculated. FINDINGS: There is uniform distribution of radionuclide within the liver. Normal gallbladder activity is seen within the first 60 minutes. The gallbladder ejection fraction is 29%. Normal is greater than 40%. CA/CA hepatobiliary w pharm IMPRESSION: LOW GALLBLADDER EJECTION FRACTION SUGGESTIVE OF BILIARY DYSKINESIA. Impression dictated by: Magdy Syed Jr., D.O. 05/11/2025 1:07 PM Dictation Location: [place] [address] Electronically authenticated by: [id number] Y Date: 05/11/2025 13:07 Dictated By: Magdy Syed M.D. Signed By: 05/11/25 1310 DD/ 1307 TD/TT: Secondary Spanish Teacher: Reason For Referral Reason recurrent despite PP I Diagnosis 1 GERD (gastroesophage al reflux disease) (K21.9) Referral Organization [facility] Referring Provider First Name Ryan Referring Provider Last Name Patricia Referring Provider Speciality Family Med linda Referred Provider Allen Padilla Referred Provider Specialty General Surg matt Referral Priority Routine Medications Medication SIG (Take, Route, Frequency, Duration) Notes Start Date End Date Status Hyoscyamine Sulfate 0.125 MG 1-2 tabs SL SL ever y 4 hrs PRN abd pain 5ActiveOndansetron 4 MG1 tablet on the tongue and allow to dissolve Orally qid; Duration: 5 days5ActiveMelatonin 10 MGas directed Orally ActiveLisinopril 10 MGTAKE 1 TABLET BY MOUTH EVERY DAY FOR 90 DAYS; Duration: 90 ActiveCyclobenzaprine HCl 10 MG1 tablet Orally tid; Duration: 30 days06/26/2025 ActiveFish Oil 1000 MG1 capsule Orally Three times a dayDosage UnknownActive amLODIPine Besylate 5 MGTAKE 1 TABLET BY MOUTH EVERY DAY FOR 90 DAYS; Duration: 90ActiveAllegra Allergy 180 MG1 tablet Swallow whole with water; do not take with fruit juices. Orally Once a dayPRNActiveVitamin D 50 MCG (2000 UT)1 tablet Orally Once a dayDosage UnknownActiveVitamin C 500 MGas directed OrallyDosage UnknownActiveVitamin B Complex -as directed OrallyActiveTylenol PM Extra Strength 500-25 MG1 tablet at bedtime as needed Orally Once a dayPRNActive Protonix 40 MG1 tablet Orally Once a day; Duration: 30 days5Active Social History Tobacco Use: Social History Observation Description Date Details (start date - stop date) Never Smoker NA - NA Tobacco Use/Smoking Question Answer Notes Patient is a nonsmoker Alcohol Screen (Audit-C) Question Answer Notes Did you have a drink containing alcohol in the p ast year? Yes How often did you have 6 or more drinks on one occasion in the past year?Two to three times per week (3 points)How many drinks did you have on a typical day when you were drinking in the past year?1 or 2 drinks (0 point)How often did you have a drink containing alcohol in the past year?Weekly (3 points)Points6 InterpretationPositiveAUDIT-C (Standard) Question Answer Notes Did you have a drink containing alcohol in the p ast year? Yes How often did you have six or more drinks on one occasion in the past year?Never (0 point)How many drinks did you have on a typical day when you were drinking in the past year?1 or 2 drinks (0 point)How often did you have a drink containing alcohol in the past year?2 to 3 times a week (3 points)Ffdkvv1Xlhlfxmhesjccv Positive Problems Problem Type SNOMED Code ICD Code Onset Dates Problem Status W/U Status Risk Notes Problem Age-related osteoporosis (568838 002) Age-related osteoporosis without current pathological fracture (M81.0) ActiveconfirmedProblemBenign neoplastic disease (27313758)Benign neoplasm, unspecified site (D36.9)ActiveconfirmedProblemHyperlipidemia (28315178) Hyperlipidemia, unspecified (E78.5)ActiveconfirmedProblemHypertension (84762984) Hypertension (I10)ActiveconfirmedProblemGastroesophageal reflux disease (403044741)GERD (gastroesophageal reflux disease) (K21.9)ActiveconfirmedProblem 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)ActiveconfirmedProblemTinea unguium (656459698)Tinea unguium (B35.1) ActiveconfirmedProblemTinea pedis (1980266)Tinea pedis (B35.3)Activeconfirmed ProblemArthralgia of the ankle and/or foot (109159102)Pain in left ankle and joints of left foot (M25.572)ActiveconfirmedProblemPain in left foot (392111450038040)Pain in left foot (M79.672)ActiveconfirmedProblemRight upper quadrant pain (246210141)Right upper quadrant abdominal pain (R10.11)Active confirmedProblemAbnormal gait (44714142)Gait instability (R26.81)Activeconfirmed ProblemLocalized, primary osteoarthritis of the ankle and/or foot (462453277) Degenerative joint disease of ankle or foot, left (M19.072)Activeconfirmed ProblemPeroneal tenosynovitis (870801011)Peroneal tenosynovitis (M65.9)Active confirmedProblemTibialis posterior tendinitis (112656993)Tibialis posterior tendinitis (M76.829)Activeconfirmed Vital Signs Blood pressure diastolic 80 mm Hg 05/04/2025 Awpwqb92 in05/04/2025lood pressure mm Hg05/04/20257275Lygkye926.8 lbs 05/04/2025BMI32.91 kg/m205/04/2025 Encounters Encounter Location Date Provider Diagnosis [facility] [address] [place] [address] 05/18/2025 Ryan Hoy Abdominal pain R10. 9 and Right upper quadrant abdominal pain R10.11 [facility] [address] [facility]], [place] [address] 06/26/2025 Ryan Hoy [facility] [facility]], [place] [address] 10/12/2024[facility] [place] [address]/06/2025Doug HoyHyperlipidemia, unspecified E78.5[facility] [place] [address]/Doug [facility] [place] [address] 05/11/2025Doug [facility] [place] [address]/10/2024Doug [facility] [place] [address]/Doug HoyHyperlipidemia, unspecified E78.5 ; Hypertension I10 and Other fatigue R53.83[facility] [place] [address]/Doug HoyRight upper quadrant abdominal pain R10.11 and GERD (gastroesophageal reflux disease) K21.9BPark[facility] [place] [address]/ Ryan HoyRight upper quadrant abdominal pain R10.11 Assessments Encounter Date Diagnosis (ICD Code) Assessment Notes Treatment Notes Treatment Clinical Notes Section Notes 03/02/2025 Right upper quadrant abdominal p ain (ICD-10 - R10.11) 05/04/2025Right upper quadrant abdominal pain (ICD-10 - R10.11)05/04/2025GERD (gastroesophageal reflux disease) (ICD-10 - K21.9)10/10/2024Hyperlipidemia, unspecified (ICD-10 - E78.5)10/10/2024Hypertension (ICD-10 - I10)01/21/2025 Hyperlipidemia, unspecified (ICD-10 - E78.5)05/18/2025bdominal pain (ICD-10 - R10.9)05/18/2025Right upper quadrant abdominal pain (ICD-10 - R10.11)10/10/2024 Other fatigue (ICD-10 - R53.83) Plan Of Treatment Pending Test Test Name Order Date HEMOGLOBIN A1C (GLYCO) 10/10/2024 IRON, TOTAL 10/10/2024 LIPID PANEL (CHOL/TRIG/HDL/LDL) 10/10/19 25 CBC WITH DIFF (EXP 06/2025) 10/10/2024 FECAL OCCULT BLOOD 10/18/2023 Orthotics 11/16/2015 Orthotics 01/18/2016 Injection Trigger Point - performed 03/2016 Inj. Intermediate Joint - performed 05/14 Inj. Intermediate Joint - performed 11/11 Inj. Intermediate Joint - performed 09/13 THYROID PROFILE WITH TSH 10/18/2023 US ABD 05/18/2025 US ABD 03/02/2025 XR DEXA BONE DENSITY 10/18/2023 XR FOOT LT MIN 3 VIEWS 10/18/2023 THYROID PANEL (T4/TSH/FREE T3) 5 NUC MED Hida with Ejection Fraction * CMP (COMP MET MUSTAFA) w/eGFR CKD-EPI 2024 Insurance Providers Payer Name Payer Address Payer Phone Subscriber Number Group Number Insured Name Patient Relationship to Insured Coverage Start Date Coverage End Date [employer] [address] [place] [address] [id number], JulieSelf - patient is the insured Medications Administered Medication Instructions Date of Administration Dosage Notes Bupivacaine mLleft utiweImxciyqaimz62/25/20162 mLleft okanOuskbuymhbp20/14/20172 mLLEFT NMUDHGtrurngaupt77/22/20172 mLleft subtailor wktsxBdoqnvdbpyl30/13/20182 mLLEFT UQBEDmcskrwhoxm42/18/20182 mLleft lchynSjdewjgplzl57/30/20192 mLleft foot Depo-Medrol, 40 mg/mL mLleft ankleDepo-Medrol, 40 mg/mL mL left footDepo-Medrol, 40 mg/mL mLLEFT ANKLEDepo-Medrol, 40 mg/mL mLleft subtailor jointDepo-Medrol, 40 mg/mL mLLEFT FOOT Depo-Medrol, 40 mg/mL mLleft ankleDepo-Medrol, 40 mg/mL mL left foot Medical (General) History Medical History History ICD Code Vitamin D deficiency, unspecified E55.9 Hypertension I10 Arthritis M19.90 GERD (gastroesophageal reflux disease) K 21.9 Hypercholesteremia E78.00 Seasonal allergic rhinitis J30.2 Fibrocystic breast N60.19 Osteoporosis M81.0 Surgical History Surgery Date(Month/Year) Total Hysterectomy, BSO, anterior colpor rhaphy- Dr Clark 12/11/2024 Eye Lid Lift- Bilateral Cataract Removal- BilateralFoot surgery - KIDNER PROCEDURE LEFT MEDIAL FOOT X 3 Colonoscopy/Egd
--- OUTSIDE RECORDS SUMMARY | 2025-07-13 09:52 | XMS_ITS | Clinical Summary ---
Author Organization [facility] Address [address] [place] [address] Care Team Providers Care Store Gift Wrap Associate Name Role Phone Flavio Gomez MD Primary Care Provider [phone] Allergies Active AllergyReactionsCriticalityNoted DateCommentsBee CpqvdFutew40/19/2022 ShthdVvflrfk01/12/2014SimvastatinGI Upset08/13/2014Sulfa (Sulfonamide Antibiotics)Rash09/24/2013 Medications MedicationSigDispense QuantityRefillsLast FilledStart DateEnd DateStatus amLODIPine (NORVASC) 5 mg tablet 08/15/2021ctive RESTASIS 0.05 % ophthalmic emulsion 08/26/2021ctive omeprazole (PRILOSEC) 40 mg capsule 07/14/2021ctive INV VITAMIN D3 5000 UNITS CAPSULE ([facility] 19-1548) Take 5,000 Units by mouth once daily. For Investigational Drug Use Only. PI: Ce Batista,PhD. Take one capsule by mouth daily for 3 months prior to surgery and 3 months after surgery.Active fexofenadine (JACKY) 180 mg tablet Take 180 mg by mouth once daily.Active melatonin 1 mg tablet Take 1 mg by mouth once daily.Active lisinopril (ZESTRIL) 10 mg tablet Take 10 mg by mouth once daily.10/31/2022ctive Active Problems ProblemNoted DateDiagnosed DateHistory of rzggiveelwn96/31/2023Obesity, Class I, BMI 30-34.9009/04/2022Obesity (BMI 30-39.9)08/18/20229909Nsjjclzmajqk46/05/2023 Primary osteoarthritis of left foot05/31/2022es planus of left foot05/31/2022 Acquired valgus deformity of left ankle05/31/2022 Family History Medical HistoryRelationCommentsHeart FailureFatherdied at age 53Heart Failure Motherdied at age 93CancerSisterdied at age 42RelationStatusCommentsFather DeceasedMotherDeceasedSisterDeceased Social History Tobacco UseTypesPacks/DayYears UsedDateSmoking Tobacco: QzgwvvCzgtqmalxg1901 - 1974Smokeless Tobacco: Never Tobacco Cessation:Counseling Given: Not Answered Comments:Social smoker Alcohol UseStandard Drinks/WeekCommentsYes4 (1 standard drink = 0.6 oz pure alcohol)Area Deprivation IndexAnswerDate RecordedNational Score (1-100), lower number is lower avjv521701/10/2023State Score (1-10), lower number is lower risk4 3Data from: https://www.neighborhoodatlas.medicine.[facility].edu/. Last address used for ftgrgxmcmyf[address] [facility]3CommentsNoSex and Gender InformationValueDate RecordedSex Assigned at BirthNot on fileLegal Sex Aghcba8909/10/2015 1:49 PM ESTGender IdentityNot on fileSexual OrientationNot on file Last Filed Vital Signs Vital SignReadingTime TakenCommentsBlood Isswzpsc936/75009/05/2022 4:00 PM EST Napxr988009/05/2022 4:00 PM YXHBghjlaebtmu75.6 ??C (97.9 ??F)09/05/2022 3:16 PM ESTRespiratory Rfkq532209/05/2022 4:00 PM ESTOxygen Joyvyasmbq85%09/05/2022 4:00 PM ESTInhaled Oxygen Concentration--Tnbvwm99.8 kg (187 lb)08/18/2022 2:35 PM EST Bdkxwx220.5 cm (5' 2 )08/18/2022 2:35 PM ESTBody Mass Index34. 2:35 PM EST Plan of Treatment Health MaintenanceDue DateLast DoneCommentsAnnual PCP Team Chronic Disease Visit 1972Anxiety Pefklgtxk41/13/1973Depression Cdikobewg69/13/1973Hepatitis C Wjghagqvw55/13/1973DTaP,Tdap,Td Vaccine (1 - Tdap)1973Mammogram Screening 1994CT Azklkthzhqtc84/13/2000Cologuard (FIT-DNA)1999Colonoscopy 1999Colorectal Cancer Hcaehpkbd70/13/2000Diabetes Gtyjcapus45/13/2000Fecal Occult Blood1999Lipid Sznaxhabx67/13/3666Hkdaarkznfdin09/13/2000 Pneumococcal Vaccine: 50+ (1 of 1 - PCV)2004Shingrix Vaccine (1 of 2) 2004Bone Density Gbdssytxs63/13/2020Advance Directive Oiswruzpbl30/01/2025 Medicare Advantage Annual Wellness Visit08/13/2024ovid-19 Vaccine (2024- season)/, 11/02/2020, 10/11/2020Influenza Vaccine (#1) /10/2019, 06/07/2017, 09/15/2009RSV Vaccine (1 - 1-dose 75+ series) 2029 Medical Devices ImplantedTypeAreaManufacturerDevice IdentifierShelf Expiration DateModel / Serial / LotChips Bone Graft Cancellous Bone 4-10 Mm Container 15 Cc Volume - [id number] Implanted:Qty: 1 on 09/05/2022 by Frandy Charles MD at [facility] BoneLeft: Bone - AnkleSEASPINE SALES [id number] / [id number] / [id number] Bone Graft Cancellous Bone 4-10 Mm Container 15 Cc Volume - [id number] Implanted:Qty: 1 on 09/05/2022 by Frandy Charles MD at [facility] BoneLeft: Bone - AnkleSEASPINE SALES [id number] / [id number] / [id number] Ti Joselin Comp Hdless Scr-St-80 Implanted:Qty: 1 on 09/05/2022 by Frandy Charles MD at [facility] ImplantLeft: Bone - AnkleBRENDA AND [id number] / / 6.5 Ti Joselin Comp Hdless Scr-St-35 Implanted:Qty: 1 on 09/05/2022 by Frandy Charles MD at [facility] ImplantLeft: Bone - AnkleJOHNSON AND EVIEWMB65.333.735 / / 6.5 Ti Joselin Comp Hdless Scr-St-70 Implanted:Qty: 1 on 09/05/2022 by Frandy Charles MD at [facility] ImplantLeft: Bone - AnkleJOHNSON AND [id number] / / 6.5 Ti Joselin Comp Hdless Scr-St-75 Implanted:Qty: 1 on 09/05/2022 by Frandy Charles MD at [facility] ImplantLeft: Bone - AnkleJOHNSON AND [id number] / / Elite Comp Impl Kit [id number] 2 Legs Implanted:Qty: 1 on 09/05/2022 by Frandy Charles MD at [facility] ImplantLeft: Bone - AnkleJOHNSON AND JOHNSONEL-2020S2 / / [id number] S Impl Kit/2 Legs 25 X 20 X 20/-S Implanted:Qty: 1 on 09/05/2022 by Frandy Charles MD at [facility] ImplantLeft: Bone - AnkleJOHNSON AND JOHNSONEL-2520S2 / / [id number] Comp Impl Kit [id number] 2 Legs Implanted:Qty: 1 on 09/05/2022 by Frandy Charles MD at [facility] ImplantLeft: Bone - AnkleSYNTHES INC SYNTHES USAEL-2020S2 / / [id number] Insurance Care Teams Team MemberRelationshipSpecialtyStart DateEnd Flavio Gomez MD [facility] - [facility]15
--- OUTSIDE RECORDS SUMMARY | 2025-07-13 09:52 | XMS_ITS | Clinical Summary ---
Author Organization [facility] Address [address] [place] [address] Care Team Providers Care Cut And Print Machine Operator Name Role Phone Unallocated, Noms Provider Primary Care Provi roseanne Allergies Active AllergyReactionsCriticalityNoted DateCommentsAmoxicillin-Pot Clavulanate Wzyimti0708/23/2023ee VenomHives,Byhmmpz1708/31/2021EpinephrineGI intolerance 08/23/20238832JmrkuLszetge74/12/2014SimvastatinGI intolerance,Cmsrdwm6408/13/2014Sulfa CfeaztpatzkAuznmeq26/11/2024 Medications MedicationSigDispense QuantityRefillsLast FilledStart DateEnd DateStatus omeprazole (PriLOSEC) [address] capsule Take 40 mg by mouth in the morning. Take before meals. Do not crush or chew.. Active amLODIPine (Norvasc) 5 MG tablet Take by mouth DailyActive calcitriol (Rocaltrol) 0.25 MCG capsule Take 0.25 mcg by mouth in the morning.Active fexofenadine (Shannan) 180 MG tablet Take 180 mg by mouth in the morning.Active Melatonin 1 MG capsule Take by mouthActive lisinopril 10 MG tablet Take by mouth DailyActive triamcinolone (Kenalog) 0.1 % cream Indications:Other atopic dermatitisApply to affected area on back, up to twice a day when flared, do not use one the face, groin, or underarms, 30 day supply 80 g 08/23/2023ctive ciclopirox (Loprox) 0.77 % cream Indications:OnychomycosisApply thin layer to affected area on feet once a day, 30 day supply 30 g 1105Active Active Problems No known active problems Family History Medical HistoryRelationNameCommentsHeart attackFatherHeart diseaseFatherCancer Father's SisterArthritisMotherCoronary artery diseasePaternal GrandfatherUterine cancerSisterRelationNameStatusCommentsFatherDeceasedFather's SisterMother DeceasedPaternal GrandfatherSister Social History Tobacco UseTypesPacks/DayYears UsedDateSmoking Tobacco: FormerCigarettes Smokeless Tobacco: Never Tobacco Cessation:Counseling Given: Not Answered Alcohol UseStandard Drinks/WeekCommentsNot Asked0 (1 standard drink = 0.6 oz pure alcohol)caffeine 1-2 cups/day; coffee/teaCommentsUnknownSex and Gender InformationValueDate RecordedSex Assigned at BirthNot on fileLegal Sex Xevqsi8610/25/2022 6:35 PM EDTGender IdentityNot on fileSexual OrientationNot on file Last Filed Vital Signs Vital SignReadingTime TakenCommentsBlood Ffkebezb561/80001/20/2025 10:05 AM EDT Pulse--Temperature--Respiratory Rate--Oxygen Saturation--Inhaled Oxygen Concentration--Badfxi86.8 kg (187 lb)01/20/2025 10:05 AM LCLXtezwp454 cm (5' 3 ) 07/19/2022 12:00 PM ESTBody Mass Index33.13109/19/2021 12:00 PM EST Plan of Treatment DateTypeDepartmentCare Team (Latest Contact Info)Cngptoqumip77/28/2026 1:00 PM ESTOffice Visit [facility] [address] [place] [address] Melina Ballard MD [address] [place] [address] 01/20/2026 10:30 AM EDTOffice Visit [facility] [address] [place] [address] Monet Clark DO [address] [place] [address] Health MaintenanceDue DateLast DoneCommentsCT Mcmsprxhjhzx24/13/1955FIT-DNA 1954FIT1954FOBT1954 8104Ltwulsqxwzyeu09/13/0427Axikrlyve84/13/1995 Pneumococcal Vaccine: 65+ Years (1 of 1 - PCV)2004COVID-19 Vaccine ( - 2024- season)/, 11/02/2020, 10/11/2020Influenza Vaccine (#1)/10/2019, 06/07/2017Medicare Annual Wellness (AWV)10/23/2025 10/23/20243676Zozwvzjyljz422Colorectal Cancer Ocowgdpur52/30/2032 Insurance Care Teams Team MemberRelationshipSpecialtyStart DateEnd Date Unallocated, Noms MD [address] [place], [place] [id number] PCP - GeneralFamily Medicine10/30/24
--- NOTE | 2025-07-13 09:53 | MM_ITS ---
Patient Name: FELIBERTO ARMENTA MR#: [id number] : 1955 Exam Date: 07/13/2025 Ordering Doctor: DR. KYELR DICK D.O. RADIOLOGY REPORT PROCEDURE: MM TOMOSYNTHESIS SCREENING BI COMPARISON: MM TOMOSYNTHESIS SCREENING BI, 06/30/2024. MM TOMOSYNTHESIS SCREENING BI, 05/22/2023. MG MAMM SCREEN 3D ANGIE CAD, 04/18/2022. MG MAMM ANGIE SCRN W CAD DIG, 07/22/2013. INDICATIONS: Screening Calculator Name NCI Breast Cancer Risk Assessment Tool 5 Year Breast Cancer Risk 2.30% Lifetime Breast Cancer Risk 6.60% Personal Breast Cancer No Personal Ovarian Cancer No Treatments None Family Cancers Sister with ?uterine cancer at age 43. LOCATION: [facility] BREAST COMPOSITION: The breasts are heterogeneously dense, which may obscure small masses. FINDINGS: RIGHT BREAST: No significant suspicious finding. LEFT BREAST: There is a new area of focal asymmetry within the left breast at the 3 o'clock position 9 cm from the nipple. This measures approximately 8 millimeters greatest limits impaired there is a larger 2.1 cm focus of asymmetry along the left chest wall seen only on MLO view 13.7 cm deep to the nipple . DIAGNOSTIC CATEGORY 0--INCOMPLETE: NEED ADDITIONAL IMAGING EVALUATION. RECOMMENDATIONS: ADDITIONAL MAMMOGRAPHIC VIEWS REQUIRED: LEFT BREAST - follow-up with spot compressed views of the left breast and ultrasound if necessary is recommended. Dictated by: Kishore Crabtree MD on 07/13/2025 at 13:35 Approved by: Kishore Crabtree MD on 07/13/2025 at 13:52
== END 2025-07-13 09:48 | disposition home or self-care (01) ==
PROVIDERS: PCP Family Medicine; Visit Provider Obstetrics & Gynecology
DX: Z12.31 Encounter for screening mammogram for malignant neoplasm of breast (principal); Z80.8 Family history of malignant neoplasm of other organs or systems; R92.8 Other abnormal and inconclusive findings on diagnostic imaging of breast
CPT/HCPCS: 77063; 77067

== ENCOUNTER 2025-07-13 13:37 | Outpatient (OUT) | payer MEDICARE, SELFPAY ==
--- OUTSIDE RECORDS SUMMARY | 2025-07-13 13:41 | XMS_ITS | Clinical Summary ---
Author Organization [facility] Address [address] [place] [address] Care Team Providers Care Regional Operations Director Name Role Phone Flavio Gomez MD Primary Care Provider [phone] Allergies Active AllergyReactionsCriticalityNoted DateCommentsBee FwpccEnerf15/19/2022 ZqgvaGcophaq88/12/2014SimvastatinGI Upset08/13/2014Sulfa (Sulfonamide Antibiotics)Rash09/24/2013 Medications MedicationSigDispense QuantityRefillsLast FilledStart DateEnd DateStatus amLODIPine (NORVASC) 5 mg tablet 08/15/2021ctive RESTASIS 0.05 % ophthalmic emulsion 08/26/2021ctive omeprazole (PRILOSEC) 40 mg capsule 07/14/2021ctive INV VITAMIN D3 5000 UNITS CAPSULE ([facility] 19-1548) Take 5,000 Units by mouth once [...] daily.10/31/2022ctive Active Problems ProblemNoted DateDiagnosed DateHistory of hhogthycwye84/31/2023Obesity, Class I, BMI 30-34.9009/04/2022Obesity (BMI 30-39.9)08/18/20222532Oaawnqkstcqj44/05/2023 Primary osteoarthritis of left foot05/31/2022es planus of left foot05/31/2022 Acquired valgus deformity of left ankle05/31/2022 Family History Medical HistoryRelationCommentsHeart FailureFatherdied at age 53Heart Failure Motherdied at age 93CancerSisterdied at age 42RelationStatusCommentsFather DeceasedMotherDeceasedSisterDeceased Social History Tobacco UseTypesPacks/DayYears UsedDateSmoking Tobacco: YgxbvxSszqplskse1380 - 1974Smokeless Tobacco: Never Tobacco Cessation:Counseling Given: Not Answered Comments:Social smoker Alcohol UseStandard Drinks/WeekCommentsYes4 (1 standard drink = 0.6 oz pure alcohol)Area Deprivation IndexAnswerDate RecordedNational Score (1-100), lower number is lower ikxm278501/10/2023State Score (1-10), lower number is lower risk4 3Data from: https://www.neighborhoodatlas.medicine.[facility].edu/. Last address used for [address] [facility]3CommentsNoSex and Gender InformationValueDate RecordedSex Assigned at BirthNot on fileLegal Sex Bcnpxe5109/10/2015 1:49 PM ESTGender IdentityNot on fileSexual OrientationNot on file Last Filed Vital Signs Vital SignReadingTime TakenCommentsBlood Kkysenlb319/75009/05/2022 4:00 PM EST Bwmgs642309/05/2022 4:00 PM SUTLegigmiiuxy46.6 ??C (97.9 ??F)09/05/2022 3:16 PM ESTRespiratory Bbvt333809/05/2022 4:00 PM ESTOxygen Dnakuszslo11%09/05/2022 4:00 PM ESTInhaled Oxygen Concentration--Fimjis88.8 kg (187 lb)08/18/2022 2:35 PM EST Rvkdli596.5 cm (5' 2 )08/18/2022 2:35 PM ESTBody Mass Index34. 2:35 PM EST Plan of Treatment Health MaintenanceDue DateLast DoneCommentsAnnual PCP Team Chronic Disease Visit 1972Anxiety Bkvwclwwi95/13/1973Depression Bpczjgeoq22/13/1973Hepatitis C Turzjycmh52/13/1973DTaP,Tdap,Td Vaccine (1 - Tdap)1973Mammogram Screening 1994CT Ipjyaayxvufb07/13/2000Cologuard (FIT-DNA)1999Colonoscopy 1999Colorectal Cancer Ywslejtmi37/13/2000Diabetes Yqugbdfob02/13/2000Fecal Occult Blood1999Lipid Lodostglc55/13/0444Lrgdrelttveqd01/13/2000 Pneumococcal Vaccine: 50+ (1 of 1 - PCV)2004Shingrix Vaccine (1 of 2) 2004Bone Density Nbbebcsaq65/13/2020Advance Directive Gjizvxgueg91/01/2025 Medicare Advantage Annual Wellness Visit08/13/2024ovid-19 Vaccine (2024- season)/, 11/02/2020, 10/11/2020Influenza Vaccine (#1) /10/2019, 06/07/2017, 09/15/2009RSV Vaccine (1 - 1-dose 75+ series) 2029 Medical Devices ImplantedTypeAreaManufacturerDevice IdentifierShelf Expiration DateModel / Serial / LotChips Bone Graft Cancellous Bone 4-10 Mm Container 15 Cc Volume - [id number] Implanted:Qty: 1 on 09/05/2022 by Frandy Charles MD at [facility] BoneLeft: Bone - AnkleSEASPINE SALES [id number] / [id number] / [id number] Bone Graft Cancellous Bone 4-10 Mm Container 15 Cc Volume - [id number] Implanted:Qty: 1 on 09/05/2022 by Frandy Charles MD at [facility] BoneLeft: Bone - AnkleSEASPINE SALES [id number] / [id number] / [id number] Ti Joselin Comp Hdless Scr-St-80 Implanted:Qty: 1 on 09/05/2022 by Frandy Charles MD at [facility] ImplantLeft: Bone - AnkleBRENDA AND [id number] / / 6.5 Ti Joselin Comp Hdless Scr-St-35 Implanted:Qty: 1 on 09/05/2022 by Frandy Charles MD at [facility] ImplantLeft: Bone - AnkleJOHNSON AND [id number] / / 6.5 Ti Joselin Comp Hdless Scr-St-70 Implanted:Qty: 1 on 09/05/2022 by Frandy Charles MD at [facility] ImplantLeft: Bone - AnkleJOHNSON AND [id number] / / 6.5 Ti Joselin Comp Hdless Scr-St-75 Implanted:Qty: 1 on 09/05/2022 by Frandy Charles MD at [facility] ImplantLeft: Bone - AnkleJOHNSON AND [id number] / / Elite Comp Impl Kit [id number] 2 Legs Implanted:Qty: 1 on 09/05/2022 by Frandy Charles MD at [facility] ImplantLeft: Bone - AnkleJOHNSON AND JOHNSONEL-2020S2 / / [id number] S Impl Kit/2 Legs 25 X 20 X 20/-S Implanted:Qty: 1 on 09/05/2022 by Frandy Charles MD at [facility] ImplantLeft: Bone - AnkleJOHNSON AND JOHNSONEL-2520S2 / / [id number] Comp Impl Kit [id number] 2 Legs Implanted:Qty: 1 on 09/05/2022 by Frandy Charles MD at [facility] ImplantLeft: Bone - AnkleSYNTHES INC SYNTHES USAEL-2020S2 / / [id number] Insurance Care Teams Team MemberRelationshipSpecialtyStart DateEnd Flavio Gomez MD [facility]CP [facility]09/10/15
--- OUTSIDE RECORDS SUMMARY | 2025-07-13 13:41 | XMS_ITS | Clinical Summary ---
Author Organization [facility] Address [address] [place] [address] Care Team Providers Care Dice Maker Name Role Phone Unallocated, Noms Provider Primary Care Provi roseanne Allergies Active AllergyReactionsCriticalityNoted DateCommentsAmoxicillin-Pot Clavulanate Actefyy0908/23/2023ee VenomHives,Ldapplm7208/31/2021EpinephrineGI intolerance 08/23/20236336BiexkBcxsyex48/12/2014SimvastatinGI intolerance,Ewnxwuc3208/13/2014Sulfa HoosdffswehOaxttcc89/11/2024 Medications MedicationSigDispense QuantityRefillsLast FilledStart DateEnd DateStatus omeprazole [...] RecordedSex Assigned at BirthNot on fileLegal Sex Utqsqa1810/25/2022 6:35 PM EDTGender IdentityNot on fileSexual OrientationNot on file Last Filed Vital Signs Vital SignReadingTime TakenCommentsBlood Dfnaqxql159/80001/20/2025 10:05 AM EDT Pulse--Temperature--Respiratory Rate--Oxygen Saturation--Inhaled Oxygen Concentration--Tbwbzh44.8 kg (187 lb)01/20/2025 10:05 AM NHROhbuhl090 cm (5' 3 ) 07/19/2022 12:00 PM ESTBody Mass Index33.13109/19/2021 12:00 PM EST Plan of Treatment DateTypeDepartmentCare Team (Latest Contact Info)Nduaqajxlwc07/28/2026 1:00 PM ESTOffice Visit [facility] [address] [place] [address] Melina Ballard MD [address] [place] [address] 01/20/2026 10:30 AM EDTOffice Visit [facility]A [facility] [address] [place] [address] Monet Clark DO [address] [place] [address] Health MaintenanceDue DateLast DoneCommentsCT Jdweucozjehp85/13/1955FIT-DNA 1954FIT1954FOBT1954 4491Niwtjoonbvjkm22/13/2702Jkvlsvfba83/13/1995 Pneumococcal Vaccine: 65+ Years (1 of 1 - PCV)2004COVID-19 Vaccine ( - 2024- season)/, 11/02/2020, 10/11/2020Influenza Vaccine (#1)/10/2019, 06/07/2017Medicare Annual Wellness (AWV)10/23/2025 10/23/20244735Oliwramkzsj842Colorectal Cancer Ghwhqjhmf75/30/2032 Insurance Care Teams Team MemberRelationshipSpecialtyStart DateEnd Date Unallocated, Noms MD Santino [address] [place], [place] [id number] PCP - GeneralFamily Medicine10/30/24
--- OUTSIDE RECORDS SUMMARY | 2025-07-13 13:46 | XMS_ITS | CCD ---
Author Organization [facility] Care Team Providers Care Plastics Bench Mechanic Name Role Phone Heraclio Samson Primary Care Physician [phone] Heraclio Samson MD Primary Care Provider [phone] Heraclio Samson MD Primary Care Provider [phone] KAYLIE CHARLES Referring Unavailable HERACLIO SAMSON Primary Care Unavailable HOY ., DR PULLIAM [...] Unavailable NILL ., DR SMITH Consulting Unavailable ERYNYVETTE Consulting Unava ilable VEDA TOL[place] Consulting Unavailable HOY ., DR PULLIAM Admitting [...] Unavailable HOY ., DR PULLIAM Consulting Unavailable Heraclio Samson MD Primary Care Provider [phone] KAYLIE CHARLES Attending Unavailable HOY, HERACLIO M [...] Primary Care Unavailable Unavailable Primary Care Provider Unavailabl e Unallocathari CAMPO, Noms Provider Primary Care Provi roseanne Monet Clark DO Attending Provider [phone] Heraclio Samson MD Primary Care Provider [phone] Hoy, Heraclio M Primary Care Unavailable Rinkes, Monet Admitting Unavailable Rinkes, Monet Attending Unavailable Rinkes, Monet Attending Unavailable Hoy, Heraclio M Primary Care Unavailable Rinkes, Monet Admitting Unavailable RINCLARE, MONET E Attending Unavailable MAYELIN, MONET E Attending Unavailable MAYELIN, MONET E Attending Unavailable MAYELIN, MONET E Attending Unavailable SHARYN BALLARD Attending Unavailable Luis KUMARI Attending Unavailable Mali, Heraclio Referring Unavailable Allergies Allergy ClassificationReported Allergen(s)Allergy TypeDate of OnsetReaction(s) Facility (4 sources)Amoxicillin / Clavulanate; Translations: [amoxicillin-clavulanate] Drug AllergyUnknown (qualifier value), Malaise (finding)[facility] [place] (20 sources)Simvastatin; Translations: [simvastatin]Drug Ztlppyn91-70-1411 Unknown (qualifier value), GI Upset, Muscle pain (finding)[facility] [place] (4 sources)Sulfonamides (Antibiotic); Translations: [sulfa drugs]Drug allergy Unknown (qualifier value), Eruption of skin (disorder)[facility] [place] (4 sources)EPINEPHrine; Translations: [EPINEPHRINE]Drug Dlemptg74-88-1486OL UpsetGreen Cross HospitalComment on above:possible reaction, not for sure, only had for dental procedure. nausea and light headed (20 sources)Latex; Translations: [LATEX]Drug Vgywqsq77-79-4913[facility]fyrwo[facility] (20 sources)Sulfonamides (Antibiotic); Translations: [SULFA (SULFONAMIDE ANTIBIOTICS)]Drug [facility]cssxkj33-24-1960[facility] ([facility] sources)Bee Sting; Translations: [BEE STING]Allergy to tkpvhoihf01-31-6926 [facility] (1 source)AmoxicillinDrug AllergyThe [facility] (1 source)bee venomDrug allergy (disorder)The [facility] (1 source)EPINEPHrineDrug Cucrsqf08-59-5450Xew [facility] (1 source)LatexDrug allergy (disorder)87-91-3504Ogn [facility] (1 source)SimvastatinDrug Ksfozxp62-45-6362Obj [facility] (1 source)Sulfonamides (Antibiotic)Drug allergy (disorder)14-36-7982Drm [facility] (14 sources)EPINEPHrineDrug Kjdneii02-41-7549DS intoleranceNOMS Healthcare (14 sources)Honey bee venomAllergy to -32-2884Ptsou, UnknownNOMS Healthcare (14 sources)LatexAllergy to bmuptjrjg06-29-0324OzvkhcgGHQG Healthcare (14 sources)SimvastatinAllergy to ldpvlzmcu88-06-1181IO intolerance, UnknownNOMS Healthcare (14 sources)Amoxicillin-Pot ClavulanateDrug Puqoqqq80-09-6599[facility] Work Phone: (3 sources)Penicillins; Translations: [Penicillins]Allergy to substance 00-39-4635Oancriu ReactionPromedica Tol[facility] Hospital (1 source)EPINEPHrineDrug Ycjtcmv00-62-2909FwkwlrawhPromedica Toledo [facility] (1 source)LatexDrug allergy (disorder)74-09-9634ZhdsezrdzPromedica [facility] (1 source)Sulfonamides (Antibiotic)Drug allergy (disorder)16-91-7737StdycvqtkPromedica Toledo [facility] Medications Current Medications MedicationDrug Class(es)DatesSig (Normalized)Sig (Original)acetaminophen 500 mg / diphenhydrAMINE hydrochloride 25 mg oral tablet (3 sources)Histamine-1 Receptor AntagonistStart: 91-99-0209motu 1 tablet by mouth once daily at bedtimeTylenol Extra Strength PM oral tablet 1 tab(s), Oral, Once a day (at bedtime), Refill(s) 0 Start Date: 05/22/25 Status: Ordered Medication Dispense Status: Completed Total Allowed Fills: 1 Fills Dispensed: 0 Start: 19-07-2869zmma 1 tablet by mouth once daily at bedtimeDiphenhydramine- Acetaminophen (Acetaminophen Pm) 25-500 mg tablet Active 1 TAB PO Daily at bedtime November 26, 2024 12:00amamLODIPine 5 mg oral tablet (20 sources)Dihydropyridine Calcium Channel BlockerStart: 73-78-6744mzwn 1 tablet by mouth once dailyamLODIPine 5 mg Tab 5 mg = 1 tab(s), Oral, Daily, Refills(s) 0 Start Date: 05/12/22 Status: Ordered Medication Dispense Status: Completed Total Allowed Fills: 1 Fills Dispensed: 0ascorbic acid 500 mg extended release oral tablet (2 sources)Vitamin CStart: 90-03-5713seun 1 tablet by mouth once dailyAscorbic Acid (Vitamin C) (C-500) 500 mg tablet extended release Active 500 MG PO Daily November 12:00amcalcitriol 0.05818 mg oral capsule (14 sources)Vitamin D3 Analogtake 1 capsule by mouth in the morningcalcitriol (Rocaltrol) 0.25 MCG capsule Take 0.25 mcg by mouth in the morning. Active calcium carbonate 1250 mg oral tablet (2 sources)Start: 16-73-4926lxyz 1 tablet by mouth once dailyCalcium Carbonate (Oyster Shell Calcium) 500 mg calcium (1,250 mg) tablet Active 500 MG PO Daily November 26, 2024 12:00amFiber Tab (1 source)Start: 74-75-0923ogtx 2-4 tablets by mouth once dailyFiber Tabs 2-4 tabs, Oral, Daily, Refills(s) 0 Start Date: 06/09/25 Status: Ordered Medication Dispense Status: Completed Total Allowed Fills: 1 Fills Dispensed: 0 cholecalciferol 0.025 mg oral capsule (2 sources)Vitamin DStart: 59-39-8752frwm 1 capsule by mouth once daily Cholecalciferol (Vitamin D3) (Vitamin D3) 25 mcg (1,000 unit) capsule Active 25 MCG PO Daily November 26, 2024 12:00amciclopirox 7.7 mg/ml topical cream (16 sources)Start: 98-85-6769blxsbarwcd (Loprox) 0.77 % cream Indications: Onychomycosis Apply thin layer to affected area on feet once a day, 30 day supply 30 g 11 09/01/2024 ActiveStart: 08-23-2023 End: 01-88-6907Gtbxjwtvbg 8 % kit Indications: Onychomycosis Apply to affected nails once a day, remove once weekly to avoid build up, 30 day supply 6.6 mL 08/23/2023 09/01/2024 Discontinued (Ineffective)docusate sodium 100 mg oral capsule (1 source)Start: 51-74-7390obac 1 capsule by mouth twice daily as needed for constipationDocusate Sodium (Colace) 100 mg capsule Active 100 MG PO Twice daily as needed for constipation 60 December 11, 2024 9:53amelderberry fruit 200 mg oral capsule (2 sources)Start: 37-45-6147rvqn 1 capsule by mouth once dailyElderberry Fruit 200 mg capsule Active 200 MG PO Daily November 26, 2024 12:00amfamotidine 20 mg oral tablet (1 source)Histamine-2 Receptor AntagonistStart: 50-96-7000sxxe 1 tablet by mouth twice dailyfamotidine 20 mg Tab 20 mg = 1 tab(s), Oral, BID, Refills(s) 0 Start Date: 06/09/25 Status: OrderedMedication Dispense Status: Completed Total Allowed Fills: 1 Fills Dispensed: 0fexofenadine hydrochloride 180 mg oral tablet (20 sources)Histamine-1 Receptor AntagonistStart: 54-21-2963wgsi 1 tablet by mouth once dailyfexofenadine 180 mg Tab 180 mg = 1 tab(s), Oral, Daily, Refills(s) 0 Start Date: 05/22/25 Status: Ordered Medication Dispense Status: Completed Total Allowed Fills: 1 Fills Dispensed: 0take 1 tablet by mouth in the morningfexofenadine (Shannan) 180 MG tablet Take 180 mg by mouth in the morning. ActiveComment on above:Take 180 mg by mouth once daily.hyoscyamine sulfate 0.125 mg oral tablet (1 source)Start: 37-97-3953rmmt 1 tablet by mouth four times dailyLevsin 0.125 mg SL Tab 0.125 mg = 1 tab(s), Oral, QID, Refills(s) 0 Start Date: 06/09/25 Status: Ordered Medication Dispense Status: Completed Total Allowed Fills: 1 Fills Dispensed: 0ibuprofen 600 mg oral tablet (1 source)Nonsteroidal Anti-inflammatory DrugStart: 65-41-2478efen 1 tablet by mouth every six hours as needed for painIbuprofen 600 mg tablet Active 600 MG PO Every 6 hours as needed for pain December 11, 2024 12:00amlisinopril 10 mg oral tablet (18 sources)Angiotensin Converting Enzyme InhibitorStart: 33-68-8352rxpt 1 tablet by mouth once dailylisinopril 10 mg Tab 10 mg = 1 tab(s), Oral, Daily, Refills(s) 0 Start Date: 05/22/25 Status: Ordered Medication Dispense Status: Completed Total Allowed Fills: 1 Fills Dispensed: 0Start: 33-50-9610amrd 1 tablet by mouth once daily in the morningLisinopril 10 mg tablet Active 10 MG PO Every morning November 26, 2024 12:00amComment on above:Take 10 mg by mouth once daily.melatonin 10 mg oral capsule (20 sources)Start: 25-91-8928ufsl 1 capsule by mouth once daily at bedtime melatonin 10 mg oral capsule 10 mg = 1 cap(s), Oral, Once a day (at bedtime), Refills(s) 0 Start Date: 05/22/25 Status: Ordered Medication Dispense Status: Completed Total Allowed Fills: 1 Fills Dispensed: 0Start: 98-54-4913ikng 1 capsule by mouth once daily at bedtimeMelatonin 10 mg capsule Active 10 MG PO Daily at bedtime November 26, 2024 12:00amMelatonin 1 MG capsule Take by mouth Activetake 1 tablet by mouth once dailymelatonin 1 mg tablet Take 1 mg by mouth once daily. 0 ActiveComment on above:Take 1 mg by mouth once daily.meloxicam (7 sources)Nonsteroidal Anti-inflammatory DrugStart: 70-61-3981olmwoepeh Refills(s) 0 Start Date: 05/23/22 Status: Ordered End: 09-38-9099UFXFMGDXA ORAL Take 15 mg by mouth. 0 08/30/2022 Discontinued (Changing Therapy/Dosage Form)MELOXICAM ORAL Take by mouth. 0 ActiveComment on above:Take by mouth.Take 15 mg by mouth.Closter 3-Ner-Lmn-Fish Oil (Fish Oil) 1,000 (120-180) mg capsule (2 sources)Start: 42-81-7294gjur 1 capsule by mouth once dailyOmega 5-Dnh-Scf-Fish Oil (Fish Oil) 1,000 (120-180) mg capsule Active 1 CAP PO Daily November 26, 2024 12:00amomeprazole 40 mg delayed release oral capsule (20 sources)Proton Pump InhibitorStart: 57-84-0452dnuz 1 capsule by mouth once daily in the morningOmeprazole 40 mg capsule,delayed release(DR/EC) Active 40 MG PO Every morning November 26, 2024 12:00amoxyCODONE hydrochloride 5 mg oral tablet (1 source)Opioid AgonistStart: 08-30-2022 End: 17-80-0549zsca 1 tablet by mouth every six hours as needed for pain oxyCODONE IR (ROXICODONE) 5 mg immediate release tablet Indications: Primary osteoarthritis of leftfoot Take 1 tablet by mouth every 6 hours as needed for pain for up to 7 days. for more severe postop pain after surgery. 28 tablet 0 08/30/2022 09/06/2022 ActiveComment on above:Take 1 tablet by mouth every 6 hours as needed for pain for up to 7 days. for more severe postop pain after surgery.pantoprazole 40 mg delayed release oral tablet (1 source)Proton Pump InhibitorStart: 69-62-6333winq 1 tablet by mouth once dailyProtonix 40 mg Tab-DR 40 mg = 1 tab(s), Oral, Daily, Refills(s) 0 Start Date: 05/22/25 Status: Ordered Medication Dispense Status: Completed Total Allowed Fills: 1 Fills Dispensed: 0traMADol hydrochloride 50 mg oral tablet (1 source)Opioid AgonistStart: 72-78-3524joiq 1 tablet by mouth every six hours as needed for painTramadol 50 mg tablet Active 50 MG PO Every 6 hours as needed for pain 30 December 11, 2024 12:00amtriamcinolone acetonide 1 mg/ml topical cream (14 sources)CorticosteroidStart: 85-44-1272isegwkfdddayo (Kenalog) 0.1 % cream Indications: Other atopic dermatitis Apply to affected area on back, up to twice a day when flared, do not use one the face, groin, or underarms, 30 day supply 80 g 08/23/2023 ActiveVitamin B Complex oral tablet (1 source)Start: 26-64-3305ogwr 1 tablet by mouth once dailyVitamin B Complex oral tablet 1 tab(s), Oral, Daily, Refill(s) 0 Start Date: 05/22/25 Status: Ordered Medication Dispense Status: Completed Total Allowed Fills: 1 Fills Dispensed: 0vitamin b12 1 mg oral tablet (2 sources)Vitamin R96Gsbci: 61-74-5951rwpl 1 tablet by mouth once daily Cyanocobalamin (Vitamin B-12) (Vitamin B-12) 1,000 mcg tablet Active 1000 MCG PO Daily November 26, 2024 12:00am Completed/Discontinued Medications MedicationDrug Class(es)DatesSig (Normalized)Sig (Original)acetaminophen 325 mg oral tablet (11 sources)Start: 08-30-2022 End: 82-55-0732mtih 2 tablets by mouth every four hoursacetaminophen (TYLENOL) 325 mg tablet Take 2 tablets by mouth every 4 hours while awake. after surgery on 09/05/22 until no longer needed. 0 08/30/2022 09/20/2022 Discontinued (Course of therapy completed) End: 92-63-9403slqt 1 tablet by mouth every eight hours as needed for pain acetaminophen (Tylenol 8 Hour) 650 MG ER tablet Take 650 mg by mouth every 8 (eight) hours if needed for mild pain Do not crush, chew, or split. 10/23/2024 DiscontinuedComment on above:Take 2 tablets by mouth every 4 hours while awake. after surgery on 09/05/22 until no longer needed.cephalexin 500 mg oral capsule (5 sources)Cephalosporin AntibacterialStart: 08-30-2022 End: 42-31-4958qvhp 1 capsule by mouth four times dailycephALEXin (KEFLEX) 500 mg capsule Take 1 capsule by mouth four times daily. 20 capsule 0 08/30/2022 09/20/2022 Discontinued (Course of therapy completed)Comment on above:Take 1 capsule by mouth four times daily.cycloSPORINE 0.5 mg/ml ophthalmic suspension (20 sources)Calcineurin Inhibitor ImmunosuppressantStart: 16-18-5614WZMAJHLK 0.05 % ophthalmic emulsionINV VITAMIN D3 5000 UNITS CAPSULE (IRB 19-1548) (17 sources)take 1 capsule by mouth once dailyINV VITAMIN D3 5000 UNITS CAPSULE ([facility] 19-1548) Take 5,000 Units by mouth once daily. For Investigational Drug Use Only. PI: Ce Batista, PhD. Take one capsule by mouth daily for 3 months prior to surgery and 3 months after surgery. 0 ActiveComment on above: Take 5,000 Units by mouth once daily. For Investigational Drug Use Only. PI: Ce Batista,PhD. Take one capsule by mouth daily for 3 months prior to surgery and 3 months after surgery.ketorolac tromethamine 10 mg oral tablet (5 sources)Nonsteroidal Anti-inflammatory Drug, Cyclooxygenase InhibitorStart: 08-30-2022 End: 48-12-7302hnwx 1 tablet by mouth every six hours as neededkeTORolac (TORADOL) 10 mg tablet Take 1 tablet by mouth every 6 hours as needed. for moderate levelof postoperative pain after surgery on 09/05/22. 20 tablet 0 08/30/2022 09/20/2022 Discontinued (Course of therapy completed)Comment on above:Take 1 tablet by mouth every 6 hours as needed. for moderate level of postoperative pain after surgery on 09/05/22.ondansetron 4 mg disintegrating oral tablet (3 sources)Serotonin-3 Receptor AntagonistStart: 07-01-2021 End: 26-93-9772sumsjnmiqfn orally disintegrating (ZOFRAN ODT) 4 mg disintegrating tablet Problems Active Problems Problem ClassificationProblemDateDocumented DateEpisodic/ChronicAbdominal pain (2 sources)Epigastric pain; Translations: [Epigastric pain]Onset: 06-09-2025 EpisodicAnxiety disorders (4 sources)Anxiety disorder, unspecified; Translations: [ANXIETY DISORDER UNSPECIFIED]Onset: 76-09-7432RprbombVfqbtkbgas and other anemia (1 source)Anemia, unspecified; Translations: [ANEMIA UNSPECIFIED]Onset: 83-14-7003TeoifyohNmmlipku mellitus without complication (1 source)Other abnormal glucose; Translations: [OTHER ABNORMAL GLUCOSE]Onset: 63-71-2492KfnehtzkBevxdgztr of lipid metabolism (6 sources)Pure hypercholesterolemia; Translations: [Pure hypercholesterolemia, unspecified]Onset: 797917-11-6584JwbzzhwLkypgysdkj disorders (6 sources)Gastroesophageal reflux disease; Translations: [Gastro-esophageal reflux disease without esophagitis]Onset: 077395-27-3318LmuphnfSgafflkae hypertension (20 sources)Hypertensive disorder; Translations: [Essential (primary) hypertension]Onset: 346105-88-5539TjzhtmgTiwllzws; including migraine (3 sources)Xlwsqckz18-99-8124NzyzrosLebb disorders (3 sources)Mood lipjnrxv20-94-2967LgdlnbzMaduxew (2 sources)Onychomycosis; Translations: [Tinea unguium]88-88-8879Xsryqyqj Nonmalignant breast conditions (3 sources)Fibrocystic disease of zimukg93-85-1566LvsningHowfavnkwab chest pain (1 source)Chest pain, unspecified; Translations: [CHEST PAIN UNSPECIFIED]Onset: 62-61-3801XgxihpzkZeiaodwhspb deficiencies (4 sources)Vitamin D deficiency, unspecified; Translations: [VITAMIN D DEFICIENCY UNSPECIFIED]Onset: 56-99-6286YmqcjidZhpahbjuhvtbag (20 sources)Osteoarthritis of left foot; Translations: [Primary osteoarthritis, left ankle and foot]Onset: 35-45-8722QtnwkteEnhjgeynaase (1 source)Yinvzyzmkldd06-36-1970DrvprnsDkcqz aftercare (1 source)long term care administrator (current) use of aspirin; Translations: [SAFETY LEADER CURRENT USE OF ASPIRIN]Onset: 85-57-7673PnhlzelpRdyoa aftercare (1 source)Other long term care administrator (current) drug therapy; Translations: [OTH SAFETY LEADER CURRENT DRUG THERAPY]Onset: 04-34-8014FuxvkuxwCejxx aftercare (4 sources)Surgical follow-up; Translations: [Encounter for follow-up examination after completed treatment for conditions other than malignant neoplasm]10-24-3940UpjpjuimGeljq and unspecified benign neoplasm (4 sources)History of polyp of colon; Translations: [Personal history of colonic polyps]Onset: 62-02-8599UyfbekcrUxstw and unspecified benign neoplasm (3 sources)Benign neoplasm of ascending colon; Translations: [Benign neoplasm of ascending colon]Onset: 15-36-7939XwgyigumAnjwn and unspecified benign neoplasm (1 source)Benign neoplasm of colon; Translations: [Benign neoplasm of colon, unspecified]Onset: 76-04-6409PanliaqiSwmuh and unspecified benign neoplasm (2 sources)Adenomatous polyp of tyxmv76-54-7206RmgzgcgyNclzx and unspecified benign neoplasm (4 sources)Personal history of colonic polyps; Translations: [PERSONAL HISTORY OF COLONIC POLYPS]Onset: 77-80-1670PzqytzdoBoojn and unspecified benign neoplasm (1 source)Benign neoplasm of cecum; Translations: [BENIGN NEOPLASM OF CECUM] Onset: 16-38-4818MkrtnkmtWtmwf and unspecified benign neoplasm (1 source)Benign neoplasm of ascending colon; Translations: [BENIGN NEOPLASM OF ASCENDING COLON]Onset: 65-60-8462IuxkazlhZezqu and unspecified benign neoplasm (2 sources)Melanocytic nevus of trunk; Translations: [Melanocytic nevi of trunk] 05-27-1572MzmlbafmSriur congenital anomalies (1 source)Herniated urinary jyhszmw76-28-4204KahpwjqFtkfc non-traumatic joint disorders (1 source)Ankle pain; Translations: [Pain in left ankle and joints of left foot] EpisodicOther nutritional; endocrine; and metabolic disorders (20 sources)Body mass index 30+ - obesity; Translations: [Obesity, unspecified] Onset: 484370-23-9415IzztiemEwoug nutritional; endocrine; and metabolic disorders (1 source)Obesity, unspecified; Translations: [Obesity (BMI 30-39.9)]Onset: 85-60-1985RdmgkfmLdtvs nutritional; endocrine; and metabolic disorders (14 sources)Obese class I; Translations: [Obesity, unspecified]Onset: 09-04-2022 36-48-4652KbopoghGikrx screening for suspected conditions (not mental disorders or infectious disease) (11 sources)Encounter for screening for malignant neoplasm of rectum; Translations: [Encounter for screening mammogram for malignant neoplasm of breast]Onset: 61-36-5279ZyivtksxTwlku skin disorders (2 sources)Seborrheic keratosis; Translations: [Other seborrheic keratosis] 29-27-7823IxrcuqahZgkaq skin disorders (2 sources)Inflamed seborrheic keratosis; Translations: [Inflamed seborrheic keratosis]72-50-3351DtaacyvfEttou upper respiratory disease (3 sources)Seasonal allergic bocudnce32-54-0651UmtlpmiCfivhykh of female genital organs (8 sources)Uterine prolapse; Translations: [Uterovaginal prolapse, unspecified] Onset: 394737-33-4626NzsmzciAmhmtgub codes; unclassified (2 sources)Pain; Translations: [Pain, unspecified]EpisodicResidual codes; unclassified (2 sources)Postmenopausal state; Translations: [Asymptomatic menopausal state] 42-30-8143HdzkhvysXyapxdlskrh; intervertebral disc disorders; other back problems (2 sources)Low back qzjq42-12-8065YoowfemlMpdhppfvxguc (1 source)APPOINTMENT CANCELLEDUnclassified (4 sources)CONTACT W/AND (SUSP) EXPOS COVID-19; Translations: [CONTACT W/AND (SUSP) EXPOS COVID-19]Onset: 68-46-2000Aminiewvttoj (3 sources)COUGH, UNSPECIFIED; Translations: [COUGH, UNSPECIFIED]Onset: 96-18-1018Lqfkl infection (1 source)COVID-19; Translations: [COVID-19]Onset: 09-27-2022 Past or Other Problems Problem ClassificationProblemDateDocumented DateEpisodic/ChronicAcquired foot deformities (20 sources)Talipes planus; Translations: [Flat foot [pes planus] (acquired), left foot]Onset: 06-49-3594PguzplamKnzkr connective tissue disease (3 sources)H/O: arthrodesis; Translations: [Arthrodesis status]Onset: 01-10-2023 EpisodicOther upper respiratory infections (1 source)Acute sinusitis, unspecified; Translations: [ACUTE SINUSITIS UNSPECIFIED]Onset: 11-92-5301TjokhzeuFyxwhqqi codes; unclassified (1 source)Pain, unspecified; Translations: [Pain]Onset: 33-12-2523Ejoydpiu Unclassified (1 source)COUGH, UNSPECIFIED; Translations: [COUGH, UNSPECIFIED]Onset: 56-35-1106Pckhxsdaydfw (1 source)CONTACT W/AND (SUSP) EXPOS COVID-19; Translations: [CONTACT W/AND (SUSP) EXPOS COVID-19]Onset: 96-59-4298Oxtfxmhctyyz (1 source)Personal history of adenomatous and serrated colon polypsOnset: 06-09-2025 Results Test NameValueInterpretationReference RangeFacilityAmbulatory Visit Summaryon 12-65-5270Zpqtkxlyly Visit SummaryAmbulatory Visit Summary ELENITA HOWARD :1955 Visit Date:06/09/2025 Ambulatory Visit Instructions Your Care Team Attending Physician - Luis KUMARI MD Primary Care Physician - Heraclio Samson MD Referring Physician - Heraclio Samson MD This Is Your Medications List Contact prescribing physician if questions or concerns acetaminophen-diphenhydrAMINE (Tylenol Extra Strength PM oral tablet) amlodipine (amLODIPine 5 mg Tab) famotidine (famotidine 20 mg Tab) fexofenadine (fexofenadine 180 mg Tab) hyoscyamine (Levsin 0.125 mg SL Tab) lisinopril (lisinopril 10 mg Tab) melatonin (melatonin 10 mg oral capsule) multivitamin (Vitamin B Complex oral tablet) pantoprazole (Protonix 40 mg Tab-DR) polycarbophil (Fiber Tabs) Procedures Performed Colonoscopy (07/12/2022), Blepharoplasty, CE - Cataract extraction, Colonoscopy, Colonoscopy, Cryocautery of cervix, Dilation and curettage, EGD - esophagogastroduodenoscopy, Fusion of tarsal joints,Kidner operation, LASIK, DIDI BSO - Total abdominal hysterectomy and bilateral salpingo-oophorectomy. Discharge Vitals Heart Rate (Peripheral) 76 Respiratory Rate 16 Blood Pressure 156/91 Height 160 cm Height 63 in Weight 86.2 kg Weight 190.038 lb BMI 33.67 Medications What How Much When Instructions Unchanged acetaminophen-diphenhydrAMINE (Tylenol Extra Strength PM oral tablet) 1 Tablets By Mouth Once a day (at bedtime) Contact prescribing physician if questions or concerns Unchanged amlodipine (amLODIPine 5 mg Tab) 1 Tablets By Mouth Every day Contact prescribing physician if questions or concerns Unchanged famotidine (famotidine 20 mg Tab) 1 Tablets By Mouth 2 times a day Contact prescribing physician if questions or concerns Unchanged fexofenadine (fexofenadine 180 mg Tab) 1 Tablets By Mouth Every day Contact prescribing physician if questions or concerns Unchanged hyoscyamine (Levsin 0.125 mg SL Tab) 1 Tablets By Mouth 4 times a day Contact prescribingphysician if questions or concerns Unchanged lisinopril (lisinopril 10 mg Tab) 1 Tablets By Mouth Every day Contact prescribing physician if questions or concerns Unchanged melatonin (melatonin 10 mg oral capsule) 1 Capsules By Mouth Once a day (at bedtime) Contact prescribing physician if questions or concerns Unchanged multivitamin (Vitamin B Complex oral tablet) 1 Tablets By Mouth Every day Contact prescribing physician if questions or concerns Unchanged pantoprazole (Protonix 40 mg Tab-DR) 1 Tablets By Mouth Every day Contact prescribing physician if questions or concerns Unchanged polycarbophil (Fiber Tabs) 2-4 tabs By Mouth Every day Contact prescribing physician if questions or concerns Allergies Augmentin (Feels unwell) simvastatin (Myalgia) sulfa drugs (Rash) Problems Ongoing - Any problem that you are currently receiving treatment for. BMI 33.0-33.9,adult Fibrocystic breast disease GERD (gastroesophageal reflux disease) HTN (hypertension) Hyperlipemia Migraines Mood disorder Osteoporosis Pure hypercholesterolemia Seasonal allergic rhinitis Tubular adenoma of colon Tubulovillous adenoma of colon Patient Survey You may receive a survey via text or e-mail asking about your office visit. Please share your experience with us by completing your survey. We appreciate your feedback and thank you for choosing us for your care. Patient Portal You may access all of your results and other medical record information on our secure patient portal. If you are not signed up for this yet, please contact [employer] at [phone] to get signed up today. Language Information Language assistance services are available as needed. NormalMercy Health West HospitalABO/Rh Retypeon 20-38-9773IAI/RH Recheck ResultPositiveNormalThe [facility] Physician GroupComment on above:Result Comment: PERFORMED BY: [facility] [place] [id number] PATHOLOGIST CODING SPECIALIST HOME HEALTH ARTIE PEREZ M.D.Anibal 12-11-2024L Specimen: [id number] Received: 12/11/24 Status: MARILU Elliott Num: [id number] Spec Type: Surgical Subm Dr: Monet Clark DO Tissues: A Uterus w/ or w/o tubes ovaries except neoplastic or prolap (UTERUS, CERVIX Procedures: , Gross/Micro L5 Age/ Patient Sex Location Account Attending Physician Elenita Howard 69/F [place] [id number] Monet Clark DO SPEC NUM: [id number] RECD: 12/11/24 STATUS: MARILU ELLIOTT NUM: [id number] ALBERTO: 12/11/[address] [facility] [address]: Monet Clark DO ENTERED: 12/11/24 [facility] DR: ALPHONSE TYPE: Surgical DEPT: S ENTERED BY: [id number] RECV BY: [id number] ORDERED: HE/, Gross/Micro L5 ORDERED: , Gross/Micro L5 Pathological Diagnosis Uterus, cervix, bilateral [...] in thickness. The myometrium is dolan-pink and Specimen: [id number] Received: 12/11/24 Status: MARILU Elliott Num: [id number] Spec Type: Surgical Subm Dr: Monet Clark DO Tissues: A Uterus w/ or w/o tubes ovaries except neoplastic or prolap (UTERUS, CERVIX Procedures: , Gross/Micro L5 Patient: Elenita Howard [id number] (Continued) Specimen: [id number] Received: 12/11/24 (Continued) Gross Description (Continued) Signed (signature on file) Martha James MD 12/12/24 1024 Specimen: [id number] Received: 12/11/24 Status: MARILU Elliott Num: [id number] Spec Type: Surgical Subm Dr: Monet Clark, Tissues: A Uterus w/ or w/o tubes ovaries except neoplastic or prolap (UTERUS, CERVIX Procedures: , Gross/Micro L5 Patient: Elenita Howard Amy [id number] (Continued) Specimen: [id number] Received: 12/11/24 (Continued) Gross Description (Continued) trabecular, up to 1.7 cm in thickness. Within the myometrium are 4 well-circumscribed intramural nodules, ranging from 0.8 to 1.7 [...] 5 x 2.3 x 0.3 cm. One (more content not included)...NormalThe [facility] Basic Metabolic Panelon 19-81-4228Ecrbx gap [Moles/Vol]13.3 mmol/LNormal6.0-15.0 The Kindred Healthcare GroupComment on above:Performed By: #### PT, PTT, BMP #### [place] [address] USACalcium [Mass/Vol]10.3 mg/dLNormal8.6-10.3The [facility] HospitalComment on above:Result Comment: PERFORMED BY: [address] [place] [address] PATHOLOGIST CODING SPECIALIST HOME HEALTH ARTIE PEREZ M.D.Performed By: #### PT, PTT, BMP #### [place] [address] USAChloride [Moles/Vol]101 mmol/YOwrigf19-675Cks [facility] Physician [facility] RankinComment on above:Performed By: #### PT, PTT, BMP #### [address] [address] USACO2 [Moles/Vol]27.6 mmol/DVccckr64.0-31.0The [facility] Physician GroupComment on above:Performed By: #### PT, PTT, BMP #### [place] [id number] USACreatinine [Mass/Vol]0.91 mg/dLNormal0.60-1.20The [facility] Physician [facility] RankinComment on above:Performed By: #### PT, PTT, BMP #### [place] [id number] USAGFR/1.73 sq M.predicted MDRD (S/P/Bld) [Vol rate/Area] mL/min/{1.73_m2}NormalThe [place]lands Physician GroupComment on above:Performed By: #### PT, PTT, BMP #### [facility] [address] [place] [address] USAGlucose [Mass/Vol]102 mg/gWPpwm59-310Wiv [facility] Physician GroupComment on above:Result Comment: Random Glucose Reference Range is dependent on time and content of last meal. Glucose of more than 200 mg/dL in a nonstressed, ambulatory subject supports the diagnosis of Diabetes Mellitus. ADA recommended reference rangePerformed By: #### PT, PTT, BMP #### [facility] [address] [place] [address] USAPotassium [Moles/Vol]4.9 mmol/LNormal3.5-5.1The [facility] Physician GroupComment on above:Performed By: #### PT, PTT, BMP #### [facility] [address] [place] [address] USASodium [Moles/Vol]137 mmol/QTfrxps868-517Zma [facility] Physician GroupComment on above:Performed By: #### PT, PTT, BMP #### [facility] [address] [place] [address] USAUrea nitrogen [Mass/Vol]19 mg/dLNormal7-25The [facility] Physician GroupComment on above:Performed By: #### PT, PTT, BMP #### [facility] [address] [place] [address] USABasic metabolic 1998 panelon 35-06-8260Drzqm gap [Moles/Vol]13.3 mmol/L6.0 - 15.0 meq/LNOMS HealthcareCalcium [Mass/Vol]10.3 mg/dL8.6 - 10.3 mg/dLNOMS HealthcareChloride [Moles/Vol]101 mmol/L98 - 107 mmol/LNOMS HealthcareCO2 [Moles/Vol]27.6 mmol/L21.0 - 31.0 mmol/LNOMS Healthcare Creatinine (U) [Mass/Vol]0.91 mg/dL0.60 - 1.20 mg/dLNOMS HealthcareESTIMATED GFR mL/MinNOMS HealthcareGlucose [Mass/Vol]102 mg/lCNeju58 - 100 mg/dLNODC HealthcareComment on above:Random Glucose Reference Range is dependent on time and content of last meal. Glucose of more than 200 mg/dL in a nonstressed, ambulatory subject supports the diagnosis of Diabetes Mellitus. ADA recommended reference range Interpretation and review of laboratory resultsAbnormalNOMS HealthcarePotassium [Moles/Vol]4.9 mmol/L3.5 - 5.1 mmol/LNOMS HealthcareSodium [Moles/Vol]137 mmol/L 136 - 145 mmol/LNOMS HealthcareUrea nitrogen [Mass/Vol]19 mg/dL7 - 25 mg/dLNOMS HealthcareNODC HealthcareBasophils Auto (Bld) [#/Vol]Ordered By: Monet Clark on 03-58-1540Gpfzxzafo (Bld) [#/Vol]Automated basophil count0.0-0.2FKindred Hospital LimaBasophils/100 WBC Auto (Bld)Ordered By: Monet Clark on 37-32-9910Klncscbfw/100 WBC (Bld)Automated basophil %.[facility] HospitalCB W Auto Differential panel (Bld)on 89-74-2811Vpgxziopa (Bld) [#/Vol]0 10*3/uL0.0 - 0.2 10*3/uLNOMS HealthcareBasophils/100 WBC Manual cnt (Syn fld)0.5 %.[facility] HealthcareEosinophils (Bld) [#/Vol]0.1 10*3/uL0.0 - 0.45 10*3/uLNOMS HealthcareEosinophils/100 WBC Manual cnt (Syn fld)1.9 %.[facility]ischel Cancer CenterErythrocyte distribution width (RBC) [Ratio]14.8 %11.9 - 15.3 %[facility] HealthcareHematocrit (Bld) [Volume fraction]40.2 %34.0 - 46.4 %[facility] Hemoglobin (Bld) [Mass/Vol]13.5 g/dL11.8 - 15.4 g/dLNODC HealthcareLymphocytes (Bld) [#/Vol]1.6 10*3/uL1.00 - 4.8 10*3/uLNOMS HealthcareLymphocytes/100 WBC Manual cnt (Syn fld)29.7 %.[facility]oxHealthH (RBC) [Entitic mass]28.3 pg24.7 - 34.3 pgCoxHealthHC (RBC) [Mass/Vol]33.5 g/dL32.0 - 35.0 g/dLCoxHealthV (RBC) [Entitic vol]84.5 fL80 - 100 fLBEAVER VALLEY HOSPITAL HealthcareMonocytes (Bld) [#/Vol]0.4 10*3/uL0.0 - 0.8 10*3/uLBEAVER VALLEY HOSPITAL Healthcare Monocytes+Macrophages/100 WBC Manual cnt (Syn fld)8.4 %.[facility] Neutrophils (Bld) [#/Vol]3.2 10*3/uL1.8 - 7.7 10*3/uLNODC Healthcare Neutrophils/100 WBC Manual cnt (Syn fld)59.5 %.[facility]l Cancer CenterNRBC0.1 /100{WBC}0 - 0.5 /100{WBC}[facility] Cancer CenterPlatelet mean volume (Bld) [Entitic vol]7.6 fL6.3 - 10.7 fLBEAVER VALLEY HOSPITAL HealthcarePlatelets (Bld) [#/Vol]264 10*3/uL150 - 450 10*3/uLNOSoutheast Missouri Community Treatment CenterRBC LM.HPF (Urine sed) [#/Area]4.77 10*6/uL3.60 - 5.00 10*6/uLNOMS Toledo HospitalWBC (Bld) [#/Vol]5.3 10*3/uL3.8 - 11.6 10*3/uLNOMS HealthcareWBC LM.HPF (Urine sed) [#/Area]5.3 10*3/uL3.8 - 11.6 10*3/uLNONorth [facility] HealthcareCalcium [Mass/volume] in Serum or PlasmaOrdered By: Monet Clark on 31-35-1614Srsozbs [Mass/Vol]Calcium [Mass/volume] in Serum or Plasma8.6-10.3 [facility] HospitalCarbon dioxide, total [Moles/volume] in Serum or PlasmaOrdered By: Monet Clark on 66-70-6297WL2 [Moles/Vol]Carbon dioxide, total [Moles/volume] in Serum or Vuyifi33.0-31.0[facility] HospitalChloride [Moles/volume] in Serum or PlasmaOrdered By: Monet Clark on 40-43-1192Jcgdfdbr [Moles/Vol]Chloride [Moles/volume] in Serum or Ntsumb20-753 [facility] HospitalComplete Blood Count Auto Diffon 11-26-2024 Basophils (Bld) [#/Vol]0.0 10*3/uLNormal0.0-0.2The [facility] Physician Group Comment on above:Result Comment: PERFORMED BY: [place] [address] PATHOLOGIST CODING SPECIALIST HOME HEALTH ARTIE PEREZ M.D.Performed By: #### CBC #### [place] [address] USABasophils/100 WBC (Bld)0.5 %Normal.The [facility] Physician GroupComment on above:Performed By: #### CBC #### [place] [address] USAEosinophils (Bld) [#/Vol]0.1 10*3/uLNormal0.0-0.45The [facility] Physician GroupComment on above:Performed By: #### CBC #### [place] [address] USAEosinophils/100 WBC (Bld)1.9 %Normal.The [facility] Physician GroupComment on above:Performed By: #### CBC #### [place] [address] USAErythrocyte distribution width (RBC) [Ratio]14.8 %Normal 11.9-15.3The [facility] Physician GroupComment on above:Performed By: #### CBC #### [place] [address] USAHematocrit (Bld) [Volume fraction]40.2 %Spqjtw11.0-46.4The [facility] Physician GroupComment on above:Performed By: #### CBC #### [place] [address] USAHemoglobin (Bld) [Mass/Vol]13.5 g/uHKkneuk39.8-15.4The [facility] Physician GroupComment on above:Performed By: #### CBC #### [facility] [address] [place] [address] USALymphocytes (Bld) [#/Vol]1.6 10*3/uLNormal1.00-4.8The [facility] Physician GroupComment on above:Performed By: #### CBC #### [facility] [address] [place] [address] USALymphocytes/100 WBC (Bld)29.7 %Normal.The [facility] Physician GroupComment on above:Performed By: #### CBC #### [facility] [address] [place] [address] USAMCH (RBC) [Entitic mass]28.3 iyNfujun39.7-34.3The [facility] Physician GroupComment on above:Performed By: #### CBC #### [place] [address] USAMCV (RBC) [Entitic vol]84.5 nGArdffu86-863Tep [facility] Physician GroupComment on above:Performed By: #### CBC #### [place] [address] USAMean Corpuscular HGB Conc33.5 g/pKUhgyiq85.0-35.0The [facility] Physician GroupComment on above:Performed By: #### CBC #### [place] [address] USAMonocytes (Bld) [#/Vol]0.4 10*3/uLNormal0.0-0.8The [facility] Physician GroupComment on above:Performed By: #### CBC #### [place] [address] USAMonocytes/100 WBC (Bld)8.4 %Normal.The [facility] Physician GroupComment on above:Performed By: #### CBC #### [place] [address] USANeutrophils (Bld) [#/Vol]3.2 10*3/uLNormal1.8-7.7The [facility] Physician GroupComment on above:Performed By: #### CBC #### [facility] [address] [place] [address] USANeutrophils/100 WBC (Bld)59.5 %Normal.The [facility] Physician GroupComment on above:Performed By: #### CBC #### [facility] [address] [place] [address] USANRBC%0.1 /100{WBC}Normal0-0.5The [facility]ician Group Comment on above:Performed By: #### CBC #### [facility] [address] [place] [address] USAPlatelet mean volume (Bld) [Entitic vol]7.6 fLNormal 6.3-10.7The [facility] Physician GroupComment on above:Performed By: #### CBC #### [facility] [address] [place] [address] USAPlatelets (Bld) [#/Vol]264 10*3/cWGyhrqw799-014Wgu [facility] Physician GroupComment on above:Performed By: #### CBC #### [facility] [address] [place] [address] USARBC (Bld) [#/Vol]4.77 10*6/uLNormal3.60-5.00The [facility] Physician GroupComment on above:Performed By: #### CBC #### [facility] [address] [place] [address] USAWBC (Bld) [#/Vol]5.3 10*3/uLNormal3.8-11.6The [facility] Physician GroupComment on above:Performed By: #### CBC #### [facility] [address] [place] [address] USACreatinine [Mass/volume] in Serum or PlasmaOrdered By: Monet Clark on 56-02-5537Etcjgvbzfc [Mass/Vol]Creatinine [Mass/volume] in Serum or Plasma0.60-1.20[facility]edo HospitalEC 12 lead ECGon 98-74-6355MCJ 12 lead ECGPARMA COMMUNITY GENERAL [facility] [place] [address] [place] [address] Electrocardiograph Report Signed Patient: Elenita Howard MR#: [id number] 932 : 1955 Acct:[id number] Age/Sex: 69 / F ADM Date: 11/26/24 Loc: Room: Type: [facility] Attending Dr: Monet Clark DO Ordering Provider: [...] No previous ECGs available Confirmed by AURELIA NGUYEN MD ([id number]) on 11/26/2024 5:38:34 PM Referred By: Electronically Signed By: AURELIA NGUYEN MD Transcribed By: MUS Signed By Aurelia Nguyen MD 0 11/26/24 1738[facility] Physician GroupEosinophils Auto (Bld) [#/Vol] Ordered By: Monet Clark on 20-20-5210Qzhpcdzsujp (Bld) [#/Vol]Automated eosinophil count0.0-0.45[facility]edo HospitalEosinophils/100 WBC Auto (Bld)Ordered By: Monet Clark on 78-69-0672Blvlijoxsge/100 WBC (Bld) Automated eosinophil %.[facility]edo HospitalErythrocyte distribution width Auto (RBC) [Ratio]Ordered By: Monet Clark on 96-91-6225Xnpunsogbta distribution width (RBC) [Ratio]Erythrocyte distribution width [Ratio] by Automated count11.9-15.3FKindred Hospital LimaGlucose [Mass/volume] in Serum or PlasmaOrdered By: Monet Clark on 19-55-3734Bxjenge [Mass/Vol] Glucose [Mass/volume] in Serum or IgbmriCqvt26-633Kdklnyziz Regional Medical CenterComment on above:ADA recommended reference rangeRandom Glucose Reference Range is dependent on time and content of last meal. Glucose of more than 200 mg/dL in a nonstressed, ambulatory subject supports the diagnosisof Diabetes Mellitus.Hematocrit Auto (Bld) [Volume fraction]Ordered By: Monet Clark on 73-65-0501Wtwyneitkq (Bld) [Volume fraction]Hematocrit [Volume Fraction] of Blood by Automated count34.0-46.4FKindred Hospital LimaHemoglobin [Mass/volume] in BloodOrdered By: Monet Clark on 74-71-9532Hgmfrtnndw (Bld) [Mass/Vol]Hemoglobin [Mass/volume] in Blood11.8-15.4FKindred Hospital LimaINR in Platelet poor plasma by Coagulation assayOrdered By: Monet Clark on 60-98-0664BHT Coag (PPP) [Relative time]INR in Platelet poor plasma by Coagulation assayPromedica Toledo HospitalComment on above:INR Therapeutic Range A) Pre- and Peroperative OAT started two weeks before surgery. NOT HIP SURGERY: 1.5 - 2.5 HIP SURGERY: 2 - 3B) Primary and secondary prevention of venous THROMBOSIS: 2 - 3C) Active venous thrombosis, pulmonary embolismand prevention of recurrent venous thrombosis: 2 - 3D) Prevention of arterial thromboembolismincluding patients with mechanical heart valves: 3 - 4.5 Leukocytes [#/volume] corrected for nucleated erythrocytes in Blood by Automated counOrdered By: Monet Clark on 68-76-5940SKV corrected for nucl RBC Auto (Bld) [#/Vol]Leukocytes [#/volume] corrected for nucleated erythrocytes in Blood by Automated coun3.8-11.6FKindred Hospital LimaLymphocytes Auto (Bld) [#/Vol]Ordered By: Monet Clark on 20-96-3886Pwwypwcgtwg (Bld) [#/Vol] Lymphocytes [#/volume] in Blood by Automated count1.00-4.8Prom[facility] Toledo HospitalLymphocytes/100 WBC Auto (Bld)Ordered By: Monet Clark on 47-60-2057Wqlcelglkke/100 WBC (Bld)Lymphocytes/100 leukocytes in Blood by Automated count.[facility] Toledo HospitalMCH Auto (RBC) [Entitic mass] Ordered By: Monet Clark on 17-13-9120YFJ (RBC) [Entitic mass]MCH [Entitic mass] by Automated count24.7-34.3FKindred Hospital LimaMCHC Auto (RBC) [Mass/Vol]Ordered By: Monet Clark on 16-79-2525BKZI (RBC) [Mass/Vol] MCHC [Mass/volume] by Automated count32.0-35.0[facility] MCV Auto (RBC) [Entitic vol]Ordered By: Monet Clakr on 68-92-0823XDA (RBC) [Entitic vol]MCV [Entitic volume] by Automated gykke05-455RgyishhahPromedica Toledo HospitalMonocytes Auto (Bld) [#/Vol]Ordered By: Monet Clark on 37-89-8414Zaequgtxl (Bld) [#/Vol]Automated blood monocyte count0.0-0.8[facility]edo HospitalMonocytes/100 WBC Auto (Bld)Ordered By: Monet Clark on 52-26-5902Pntjzskhh/100 WBC (Bld)Automated monocyte %.[facility] HospitalNeutrophils Auto (Bld) [#/Vol]Ordered By: Monet Clark on 28-14-1095Zzdlxatepdp (Bld) [#/Vol]Neutrophils [#/volume] in Blood by Automated count1.8-7.7FKindred Hospital LimaNeutrophils/100 WBC Auto (Bld) Ordered By: Monet Clark on 88-49-4948Svsbvhkkymv/100 WBC (Bld)Automated neutrophil %.[facility]edo HospitalNo Panel Informationon 11-26-2024 [facility] HealthcareNo Panel InformationOrdered By: Monet Clark on 11-26-2024 Estimated GFR (CKD-EPI)> 60.0 mL/MinPromedica Toledo HospitalPharmacy Creatinine Clearance (ChemN/AFKindred Hospital LimaNucleated erythrocytes [Presence] in Blood by Automated countOrdered By: Monet Clark on 83-67-5771Bbyhecamb RBC Auto Ql (Bld)Nucleated erythrocytes [Presence] in Blood by Automated count0-0.5[facility] Medical CenterPARTIAL THROMBOPLASTIN TIMEon 78-28-4143vSCC Coag (Bld) [Time]22.3 sLow25.1 - 36.5 [facility] HealthcareComment on above:A hematocrit value greater than 55% may lead to inaccurate results in coagulation testing. Patients having hematocrit values >55% require a special collection tube for coagulation studies. Please contact the laboratory at [phone] for redraw instructions. Interpretation and review of laboratory resultsAbnoalEllis Fischel Cancer CenterPST Type and Screenon 21-87-1343QUK and Rh group Nom (Bld)Blood group A Rh(D) positive NormalThe [facility] Physician GroupComment on above:Order Comment: Date of Surgery: [id number] Comment: PERFORMED BY: [facility] [place] [address] PATHOLOGIST CODING SPECIALIST HOME HEALTH ARTIE PEREZ M.D.PT Coag (Bld) [Time]on 91-92-4323HHK Coag (PPP) [Relative time]0.9 {INR}[facility] HealthcareComment on above:INR Therapeutic Range A) Pre- and Peroperative OAT started two weeks before surgery. NOT HIP SURGERY: 1.5 - 2.5 HIP SURGERY: 2 - 3 B) Primary and secondary prevention of venous THROMBOSIS: 2 - 3 C) Active venous thrombosis, pulmonary embolism and prevention of recurrent venous thrombosis: 2 - 3 D) Prevention of arterial thromboembolism including patients with mechanical heart valves: 3 - 4.5 PT Coag (PPP) [Time]10.7 s9.0 - 12.9 [facility] HospitalComment on above:A hematocrit value greater than 55% may lead to inaccurate results in coagulation testing. Patients having hematocrit values >55% require a special collection tube for coagulation studies. Please contact the laboratory at [phone] for redraw instructions. Partial Thromboplastin Timeon 91-06-7325uISG Coag (Bld) [Time]22.3 sLow25.1-36.5 The [facility] Physician GroupComment on above:Result Comment: A hematocrit value greater than 55% may lead to inaccurate results in coagulation testing. Patients having hematocrit values >55% require a special collection tube for coagulation studies. Please contact the laboratory at [phone] for redraw instructions. PERFORMED BY: [place] [id number] PATHOLOGIST CODING SPECIALIST HOME HEALTH ARTIE PEREZ M.D.Performed By: #### PT, PTT, BMP #### [facility] [address] [place] [address] USAPlatelet mean volume Auto (Bld) [Entitic vol]Ordered By: Monet Clark on 78-80-8636Yigkhshm mean volume (Bld) [Entitic vol]Platelet mean volume [Entitic volume] in Blood by Automated count6.3-10.7FKindred Hospital LimaPlatelets Auto (Bld) [#/Vol]Ordered By: Monet Clark on 69-53-5745Ydfhstbjr (Bld) [#/Vol]Platelets [#/volume] in Blood by Automated -651CgazmafsiPromedica Toledo HospitalPotassium [Moles/volume] in Serum or PlasmaOrdered By: Monet Clark on 90-07-3109Ghlkypwaq [Moles/Vol]Potassium [Moles/volume] in Serum or Plasma3.5-5.1FKindred Hospital Lima Prothrombin Time INRon 17-14-6231MCZ Coag (PPP) [Relative time]0.9 {INR}Normal The [facility] Physician GroupComment on above:Result Comment: INR Therapeutic Range A) Pre- and Peroperative OAT started two weeks before surgery. NOT HIP SURGERY: 1.5 - 2.5 HIP SURGERY: 2 - 3 B) Primary and secondary prevention of venous THROMBOSIS: 2 - 3 C) Active venous thrombosis, pulmonary embolism and prevention of recurrent venous thrombosis: 2 - 3 D) Prevention of arterial thromboembolism including patients with mechanical heart valves: 3 - 4.5Performed By: #### PT, PTT, BMP #### [facility] [address] [place] [address] USAPT Coag (PPP) [Time]10.7 sNormal9.0-12.9The [facility] Physician GroupComment on above:Result Comment: A hematocrit value greater than 55% may lead to inaccurate results in coagulation testing. Patients having hematocrit values >55% require a special collection tube for coagulation studies. Please contact the laboratory at [phone] for redraw instructions.Performed By: #### PT, PTT, BMP #### [facility] [address] [place] [address] USAProthrombin time (PT)Ordered By: Monet Clark on 88-61-3374US Coag (PPP) [Time]Prothrombin time (PT)9.0-12.9Prom[facility] Toledo HospitalComment on above:A hematocrit value greater than 55% may lead to inaccurate results in coagulation testing. Patientshaving hematocrit values >55% require a special collection tube for coagulation studies. Please contact the laboratory at [phone] for redraw instructions.RBC Auto (Bld) [#/Vol]Ordered By: Monet Clark on 86-29-3553EKQ (Bld) [#/Vol]Erythrocytes [#/volume] in Blood by Automated count3.60-5.00[facility] Medical Centererum or plasma anion gap determinationOrdered By: Monet Clark on 41-63-8326Lpkjp gap [Moles/Vol]Serum or plasma anion gap determination6.0-15.0[facility] Medical Centerodium [Moles/volume] in Serum or PlasmaOrdered By: Monet Clark on 73-04-3497Zynzlo [Moles/Vol]Sodium [Moles/volume] in Serum or Plasma 136-145Promedica Toledo HospitalUrea nitrogen [Mass/volume] in Serum or PlasmaOrdered By: Monet Clark on 12-34-2811Xssc nitrogen [Mass/Vol]Urea nitrogen [Mass/volume] in Serum or Plasma7-25[facility] WBC Auto (Bld) [#/Vol]Ordered By: Monet Clark on 00-85-6964ZMG (Bld) [#/Vol] Leukocytes [#/volume] in Blood by Automated count3.8-11.6FKindred Hospital LimaaPTT in Platelet poor plasma by Coagulation assayOrdered By: Monet Clark on 74-49-3779eLZM Coag (PPP) [Time]Activated partial thromboplastin time (aPTT) in platelet poor plasma by coagulation aLow25.1-36.5 [facility] Toledo HospitalComment on above:A hematocrit value greater than 55% may lead to inaccurate results in coagulation testing. Patientshaving hematocrit values >55% require a special collection tube for coagulation studies. Please contact the laboratory at [phone] for redraw instructions. No Panel Informationon 67-79-0272VSPP HealthcareCNOVon 90-89-4489HBLABmgkiq Visit (ORAVON) ELENITA HOWARD ([id number]) 1955 F Date Time Provider Department 01/10/23 [...] records. This note was partially generated using [employer] voice recognition system, and there may be [...] 01/10/2023 Encounter Status:Closed by KAYLIE CHARLES on 01/10/23NormACMC Healthcare SystemXR FOOT 3V AP/LAT/OBL LTon 30-22-1852NG FOOT 3V AP/LAT/OBL LT* * *Final Report* * * DATE OF [...] abnormality is identified. IMPRESSION: Healing postoperative changes. Aquatic Habitat Biologist: PSCB Transcribe Date/Time: Jan 10 2023 12:42P Dictated by : ANTHONY PIERCE MD This examination was interpreted and the report reviewed and electronically signed by: ANTHONY PIERCE MD on Jan 10 2023 12:42PM EST [id number] Beachwood Medical CenterXR FOOT GENERAL 3V AP/LAT/OBL LEFTon 12-62-2955Rajhltvsq ClinicCNOVon 21-95-4756QTDAZtehgr Visit (ORAVON) ELENITA HOWARD ([id number]) 1955 F Date Time Provider Department 11/29/22 3:30 PM CAST TECH STACI DYKES During your visit today, we recorded the following information about you: Antonieta Pa Cast 11/30/2022 7:18 AM Signed PT ASSESSMENT - CASTING ROOM Elenita presents for cast removal. Applied pneumatic aircast walker to Left leg non-weight bearing Patient has been instructed in Care of boot.. Antonieta Pa Cast Beeper: [id number] Referring Provider: KAYLIE CHARLES [[id number]] Allergies As of Date: 11/29/2022 Noted Allergy Reaction BEE STING 08/31/2021 4 - Hives LATEX 09/24/2013 9 - Itching SIMVASTATIN 08/13/2014 8 - GI Upset SULFA (SULFONAMIDE ANTIBIOTICS) 09/24/2013 2 - Rash Date Reviewed: 11/29/2022 Reviewed by: Lizette De La Cruz RN - Fully Assessed Primary Visit Diagnosis:Primary [...] 09/04/2022 Encounter Status:Closed by ANTONIETA GALLAGHER on 11/30/22[facility] Visit ([facility]) ELENITA HOWARD ([id number]) 1955 F Date Time Provider Department 11/29/22 1:00 PM KAYLIE CHARLES During your visit today, we recorded the following information about you: Kaylei Charles MD 11/30/2022 6:54 PM Signed POD [...] Rash Date Reviewed: 11/29/2022 Reviewed by: Lizette De La Cruz RN - Fully Assessed Reason for Visit: Post Op [174] Primary Visit Diagnosis:Primary osteoarthritis of left foot [M19.072] Order(s):XR FOOT GENERAL 3V AP/LAT/OBL LEFT [[id number]] Order #: [id number] FUTURE Prescriptions as of 11/30/2022 - INV [...] 09/04/2022 Encounter Status:Closed by KAYLIE CHARLES on [facility]/30/22[facility]OBL LTon [id number] FOOT 3V AP/LAT/OBL LT* * *Final Report* * * DATE OF [...] other significant abnormality. IMPRESSION: EXPECTED POSTOPERATIVE APPEARANCE Aquatic Habitat Biologist: MARIA L Transcribe Date/Time: Nov 29 2022 1:44P Dictated by : NATALIE CHOPRA MD This examination was interpreted and the report reviewed and electronically signed by: NATALIE CHOPRA MD on Nov 29 2022 1:44PM EST [id number] Health – [facility] FOOT GENERAL 3V AP/LAT/OBL LEFTon [id number] ClinicCNOVon [id number] Visit (ORAVON) ELENITA HOWARD ([id number]) 1955 F Date Time Provider Department 11/13/22 1:00 PM CAST TECH STACI DYKES During your visit today, we recorded the following information about you: Antonieta Pa Cast 11/13/2022 2:49 PM Signed PT ASSESSMENT - CASTING ROOM Elenita presents for cast removal. Applied short cast: to Left leg weight bearing Patient has been instructed in Care of cast.. Antonieta Jhaveriey Cast Beeper: [id number] Allergies As of Date: 11/13/2022 Noted Allergy Reaction BEE STING 08/31/2021 4 - Hives LATEX 09/24/2013 9 - Itching SIMVASTATIN 08/13/2014 8 - GI Upset SULFA (SULFONAMIDE ANTIBIOTICS) 09/24/2013 2 - Rash Date Reviewed: 10/18/2022 Reviewed by: Lizette De La Cruz RN - Fully Assessed Primary Visit Diagnosis:Primary [...] 09/04/2022 Encounter Status:Closed by ANTONIETA GALLAGHER on 11/13/22[facility]Dun[facility] HospitalArianna [id number] (ORAVON) ELENITA HOWARD ([id number]) 1955 F Date Time Provider Department 10/24/22 KAYLIE CHARLES During your visit today, we recorded the following information about you: Mable Gay, RN 10/24/2022 10:42 AM Signed Just here 10/18/22 Had Left leg weight bearing cast applied She's not sure if it's the right size? The cast hangs over the shoe part by over an inch She will try to upload some photos via [email or web address] Maybe this is normal but she was [...] Pt is asking for a call back [phone] Allergies As of Date: 10/24/2022 Noted Allergy Reaction BEE STING 08/31/2021 4 - Hives LATEX 09/24/2013 9 - Itching SIMVASTATIN 08/13/2014 8 - GI Upset SULFA (SULFONAMIDE ANTIBIOTICS) 09/24/2013 2 - Rash Date Reviewed: 10/18/2022 Reviewed by: Lizette De La Cruz RN - Fully Assessed Reason for Visit: [...] 30-34.9 [E66.9] 09/04/2022 Encounter Status:Closed by LIZETTE DE LA CRUZ RN on 10/24/22[facility] [id number] Visit (JANIA) ELENITA HOWARD ([id number]) 1955 F Date Time Provider Department 10/18/22 [...] Rash Date Reviewed: 10/18/2022 Reviewed by: Lizette De La Cruz RN - Fully Assessed Primary Visit Diagnosis:Primary osteoarthritis of left foot [M19.072] Order(s):XR FOOT GENERAL 3V AP/LAT/OBL LEFT [[id number]] Order #: [id number] FUTURE Prescriptions as of 10/18/2022 - INV [...] 09/04/2022 Encounter Status:Closed by [facility] HOW[facility] ([id number]) 1955 F Date Time Provider Department 10/18/22 1:30 PM CAST TECH STACI DYKES During your visit today, we recorded the following information about you: Antonieta Pa Cast 10/19/2022 8:01 AM Signed PT ASSESSMENT - CASTING ROOM Elenita presents for cast removal. Applied short cast: to Left leg weight bearing Patient has been instructed in Care of cast.. Antonieta Pa Cast Beeper: [id number] Allergies As of Date: 10/18/2022 Noted Allergy Reaction BEE STING 08/31/2021 4 - Hives LATEX 09/24/2013 9 - Itching SIMVASTATIN 08/13/2014 8 - GI Upset SULFA (SULFONAMIDE ANTIBIOTICS) 09/24/2013 2 - Rash Date Reviewed: 10/18/2022 Reviewed by: Lizette De La Cruz RN - Fully Assessed Primary Visit Diagnosis:Primary [...] 09/04/2022 Encounter Status:Closed by ANTONIETA GALLAGHER on 10/19/22[facility]/LAT/OBL LTon [id number] FOOT 3V AP/LAT/OBL LT* * *Final Report* * * DATE OF [...] preoperative exam. IMPRESSION: Postoperative findings, as described. Aquatic Habitat Biologist: PSCSteffany Transcribe Date/Time: Oct 18 2022 3:34P Dictated by : BEBETO JAING MD This examination was interpreted and the report reviewed and electronically signed by: BEBETO JIANG MD on Oct 18 2022 6:02PM EST [id number] Cross Hospital ClevelandXR FOOT GENERAL 3V AP/LAT/OBL LEFTon 81-95-4519Yfahdpcme ClinicINSULINon 29-56-8105Aggvcrd56.1 uIU/mLNormal2.6-24.9The [facility] HospitalComment on above:Performed By: #### INSULIN #### [facility] [address] [place] [address] Dr. Nj Mari AUTO DIFFon [id number] #0.0 103/ulNormal0.0-0.1The [facility] HospitalComment on above:Performed By: #### IRON #### [facility] [address] [place] [address] Dr. Nj Leonphils/100 WBC (Bld)0.6 %Normal0.2-2.0[facility] Comment on above:Performed By: #### IRON #### [facility] [address] [place] [address] Dr. Nj Augustin #0.2 103/ulNormal0.0-0.7The [facility] HospitalComment on above: Performed By: #### IRON #### [facility] [address] [place] [address] Dr. Nj Cuevaosinophils/100 WBC (Bld)5.1 %Normal0.9-7.0The [facility] Comment on above:Performed By: #### IRON #### [facility] [address] [place] [address] Dr. Nj Cuevarythrocyte distribution width (RBC) [Ratio]13.7 %Qtazbc27.0-15.0 The [facility] HospitalComment on above:Performed By: #### IRON #### [facility] [address] [address] [address] Nj Delunaatocrit (Bld) [Volume fraction]39.0 %Amhekp57.0-48.0The [facility] HospitalComment on above:Performed By: #### IRON #### [facility] [address] [place] [address] Dr. Nj SarabiaHemoglobin (Bld) [Mass/Vol]12.7 g/xHBctfay42.0-16.0The [facility] HospitalComment on above:Performed By: #### IRON #### [facility] [address] [place] [address] Dr. Nj Hadley #0.01 10e3/ulNormal0.00-0.03The [facility] HospitalCommary free bed rehabilitation hospital on above:Performed By: #### IRON #### [facility] [address] [place] [address] Dr. Nj Hadley %0.2 %Normal0.0-0.5The [facility] HospitalComment on above: Performed By: #### IRON #### [facility] [address] [place] [address] Dr. Nj Curiel #2.1 103/ulNormal1.2-3.8The [facility] HospitalComment on above:Performed By: #### IRON #### [facility] [address] [place] [address] Dr. Nj Pagemphocytes/100 WBC (Bld)43.8 %Kylard31.5-60.0The [facility] HospitalComment on above:Performed By: #### IRON #### [facility] [address] [place] [address] Dr. Nj SarabiaMANUAL DIFF REQNONormalThe [facility] HospitalComment on above: Performed By: #### IRON #### [facility] [address] [place] [address] Dr. Nj Manzano (RBC) [Entitic mass]27.1 gaOukcre39.7-34.0The [facility] HospitalComment on above:Performed By: #### IRON #### [facility] [address] [address] [address] Nj KnoxHC (RBC) [Mass/Vol]32.6 g/oSTqoscd43.9-35.2The [facility] HospitalComment on above:Performed By: #### IRON #### [facility] [address] [place] [address] Dr. Nj KnoxV (RBC) [Entitic vol]83.3 dPPyhuub70.0-99.0The [facility] HospitalComment on above:Performed By: #### IRON #### [facility] [address] [place] [address] Dr. Nj Cummings #0.4 103/ulNormal0.3-0.8The [facility] HospitalComment on above:Performed By: #### IRON #### [facility] [address] [place] [address] Dr. Nj Willocytes/100 WBC (Bld)9.1 %Normal1.7-12.0The [facility] Comment on above:Performed By: #### IRON #### [facility] [address] [place] [address] Dr. Nj Maxwell #2.0 103/ulNormal1.4-6.5The [facility] HospitalComment on above:Performed By: #### IRON #### [facility] [address] [place] [address] Dr. Nj Caalutrophils/100 WBC (Bld)41.2 %Critically low43.0-75.0The [facility] HospitalComment on above:Performed By: #### IRON #### [facility] [address] [place] [address] Dr. Nj Schaeferlet mean volume (Bld) [Entitic vol]9.0 fLCritically low 9.5-13.5The [facility] HospitalComment on above:Performed By: #### IRON #### [facility] [address] [place] [address] Dr. Nj SarabiaPLT330 103/aaZrgzjk638-987Fny [facility] HospitalComment on above: Performed By: #### IRON #### [facility] [address] [place] [address] Dr. Nj SarabiaRBC4.68 106/ulNormal4.20-5.40The [facility] HospitalComment on above:Performed By: #### IRON #### [facility] [address] [address] [address] Nj SarabiaWBC4.8 103/ulNormal4.0-11.0The [facility] HospitalComment on above: Performed By: #### IRON #### [facility] [address] [place] [address] Dr. Nj SarabiaFRHARSHAL THYROXINE INDEX T7on 48-48-9264GDF6.87Srokoo4.30-4.50The [facility] HospitalComment on above:Performed By: #### CMP #### [facility] [address] [place] [address] Dr. Nj SarabiaT3U34.0 %Fjdgbr33.0-39.0The [facility] HospitalComment on above: Performed By: #### CMP #### [facility] [address] [place] [address] Dr. Nj SarabiaT4 [Mass/Vol]8.80 ug/dLNormal4.80-13.90The [facility] Comment on above:Performed By: #### CMP #### [facility] [address] [place] [address] Dr. Nj SarabiaGLYCOHEMOGLOBIN A1Con 17-75-7783CLP RECOMMENDATIONSEE BELOWNormal The [facility] HospitalComment on above:Result Comment: ADA RECOMMENDED LIMIT 4.0 - 6.0 ADA THERAPEUTIC TARGET < 7.0 ACTION SUGGESTED > 7.0Performed By: #### A1C #### [facility] [address] [place] [address] Dr. Nj SarabiaGlucose [Mass/Vol]120 mg/dLNormalThe [facility] HospitalComment on above:Performed By: #### A1C #### [facility] [address] [place] [address] Dr. Nj SarabiaHbA1c (Bld) [Mass fraction]5.8 %Normal4.5-6.2The [facility] HospitalComment on above:Performed By: #### A1C #### [facility] [address] [place] [address] Dr. Nj Delaney [id number] [Mass/Vol]46.0 ug/dLCritically low 50.0-170.0The [facility] HospitalComment on above:Performed By: #### IRON #### [facility] [address] [place] [address] Dr. Nj StevensID PROFILEon [id number]-HDL RATIO NORMSEE [facility] Cleveland WestComment on above:Result Comment: 3.3 - 4.4 LOW RISK 4.4 - 7.1 AVERAGE RISK 7.1 - 11.0 MODERATE RISK >11.0 HIGH RISKPerformed By: #### CMP #### [facility] [address] [place] [address] Dr. Nj Palacioesterol [Mass/Vol]244 mg/dLCritically high<=200The [facility] HospitalCommary [facility] bed rehabilitation hospital on above:Performed By: #### CMP #### [facility] [address] [place] [address] Dr. Nj Palacioesterol in HDL [Mass/Vol]71 mg/dLCritically bfzr70-78Ril [facility] on above:Performed By: #### CMP #### [facility] [address] [place] [address] Dr. Nj Palacioesterol in LDL [Mass/Vol]150.8 mg/dLUniversity Hospitals Conneaut Medical CenterCommary free bed rehabilitation hospital on above:Performed By: #### CMP #### [facility] [address] [place] [address] Dr. Nj Dillon.total/Cholesterol in HDL [Mass ratio]3.4 {ratio} NormalThe [facility] on above:Performed By: #### CMP #### [facility] [address] [place] [address] Dr. Nj Portillo NORMAL> or = 60 mg/dl - LOW CARDIOVASCULAR RISK <40 mg/dl - HIGH CARDIOVASCULAR RISKNoFort Hamilton HospitalComment on above:Performed By: #### CMP #### [facility] [address] [address] [address] Nj Marion CALC NORMALSEE BELOWUniversity Hospitals Conneaut Medical CenterComment on above:Result Comment: <100 mg/dl OPTIMAL 100 - 129 mg/dl NEAR OR ABOVE OPTIMAL 130 - 159 mg/dl BORDERLINE HIGH 160 - 189 mg/dl HIGH >190 mg/dl VERY HIGH Performed By: #### CMP #### [facility] [address] [place] [address] Dr. Nj SarabiaTriglyceride [Mass/Vol]111 mg/dLNormal<=150The [facility] Comment on above:Performed By: #### CMP #### [facility] [address] [place] [address] Dr. Nj SarabiaVLDL CALC22.2 mg/dLNoFort Hamilton HospitalComment on above: Performed By: #### CMP #### [facility] [address] [place] [address] Dr. Nj SarabiaPROF 14(COMP METB)on [id number] [Mass/Vol]4.0 g/dLNormal 3.4-5.0[facility] on above:Performed By: #### CMP #### [facility] [address] [place] [address] Dr. Nj SarabiaAlbumin/Globulin [Mass ratio]1.1 {ratio}NormalThe [facility] HospitalComment on above:Performed By: #### CMP #### [facility] [address] [place] [address] Dr. Nj Argueta [Catalytic activity/Vol]88 U/TKatmzl80-286Btm [facility] HospitalCommary free bed rehabilitation hospital on above:Performed By: #### CMP #### [facility] [address] [place] [address] Dr. Nj Salazar [Catalytic activity/Vol]20 U/FYxfdcj91-84Vml [facility] on above:Performed By: #### CMP #### [facility] [address] [address] [address] Nj Godfrey gap [Moles/Vol]11.8 mmol/LNormalThe [facility] Comment on above:Performed By: #### CMP #### [facility] [address] [address] [address] Nj SarabiaAST [Catalytic activity/Vol]16 U/UAkywce47-46Giq [facility] HospitalComment on above:Performed By: #### CMP #### [facility] [address] [address] [address] Nj SarabiaBilirubin [Mass/Vol]0.3 mg/dLNormal0.2-1.0The [facility] Comment on above:Performed By: #### CMP #### [facility] [address] [place] [address] Dr. Nj SarabiaCalcium [Mass/Vol]9.7 mg/dLNormal8.5-10.1The [facility] Comment on above:Performed By: #### CMP #### [facility] [address] [place] [address] Dr. Nj SarabiaChloride [Moles/Vol]100 mmol/NRgpdzn76-038MksMercy Health [facility] Hospital Comment on above:Performed By: #### CMP #### [facility] [address] [place] [address] Dr. Nj SarabiaCO2 [Moles/Vol]28.3 mmol/SBmqeza38.0-32.0The [facility] Comment on above:Performed By: #### CMP #### [facility] [address] [place] [address] Dr. Nj SarabiaCreatinine [Mass/Vol]0.74 mg/dLNormal0.55-1.02The [facility] HospitalComment on above:Performed By: #### CMP #### [facility] [address] [place] [address] Dr. Nj CuevaGFR-AF GUINEAN>60Normal>=60The [facility] HospitalComment on above:Performed By: #### CMP #### [facility] [address] [place] [address] Dr. Nj CuevaGFR-NON AF GUINEAN>60Normal>=60The [facility] HospitalComment on above:Performed By: #### CMP #### [facility] [address] [place] [address] Dr. Nj SarabiaGlobulin (S) [Mass/Vol]3.6 g/dLNormalThKettering Health PrebleComment on above:Performed By: #### CMP #### [facility] [address] [place] [address] Dr. Nj SarabiaGlucose [Mass/Vol]104 mg/fZBrxdde37-430Ddy [facility] Comment on above:Performed By: #### CMP #### [facility] [address] [place] [address] Dr. Nj SarabiaPotassium [Moles/Vol]4.1 mmol/LNormal3.5-5.1The [facility] Comment on above:Performed By: #### CMP #### [facility] [address] [place] [address] Dr. Nj SarabiaProtein [Mass/Vol]7.6 g/dLNormal6.4-8.2The [facility] Comment on above:Performed By: #### CMP #### [facility] [address] [place] [address] Dr. Nj SarabiaSodium [Moles/Vol]136 mmol/IMqqlsj915-659DuuMercy Health Anderson Hospital Comment on above:Performed By: #### CMP #### [facility] [address] [place] [address] Dr. Nj SarabiaUrea nitrogen [Mass/Vol]16.0 mg/dLNormal7.0-18.0The [facility] HospitalComment on above:Performed By: #### CMP #### [facility] [address] [place] [address] Dr. Nj Xavier nitrogen/Creatinine [Mass ratio]21.6 mg/mgNormalThKettering Health PrebleComment on above:Performed By: #### CMP #### [facility] [address] [place] [address] Dr. Nj Arambula 32-08-7029CMM6.812 uIU/mLCritically high0.358-3.740[facility] HospitalComment on above:Performed By: #### CMP #### [facility] [address] [place] [address] Dr. Nj Mari AUTO DIFFon 43-96-1675NQPS #0.0 103/ulNormal0.0-0.1The [facility] HospitalComment on above:Performed By: #### CBC #### [facility] [address] [place] [address] Dr. Nj SarabiaBasophils/100 WBC (Bld)0.3 %Normal0.2-2.0The [facility] Comment on above:Performed By: #### CBC #### [facility] [address] [place] [address] Dr. Nj Augustin #0.1 103/ulNormal0.0-0.7The [facility] HospitalComment on above: Performed By: #### CBC #### [facility] [address] [place] [address] Dr. Nj Cuevaosinophils/100 WBC (Bld)1.8 %Normal0.9-7.0[facility] Comment on above:Performed By: #### CBC #### [facility] [address] [place] [address] Dr. Nj Cuevarythrocyte distribution width (RBC) [Ratio]13.7 %Ntsvsb30.0-15.0 The [facility] HospitalComment on above:Performed By: #### CBC #### [facility] [address] [place] [address] Dr. Nj SarabiaHematocrit (Bld) [Volume fraction]37.3 %Noeauv82.0-48.0The [facility] HospitalComment on above:Performed By: #### CBC #### [facility] [address] [place] [address] Dr. Nj SarabiaHemoglobin (Bld) [Mass/Vol]12.5 g/nYUgsnmg24.0-16.0The [facility] HospitalComment on above:Performed By: #### CBC #### [facility] [address] [place] [address] Dr. Nj Hadley #0.02 10e3/ulNormal0.00-0.03The [facility] on above:Performed By: #### CBC #### [facility] [address] [place] [address] Dr. Nj Hadley %0.3 %Normal0.0-0.5The [facility] HospitalCommary [facility] bed rehabilitation hospital on above: Performed By: #### CBC #### [facility] [address] [place] [address] Dr. Nj Curiel #1.5 103/ulNormal1.2-3.8The [facility] HospitalCommary [facility] rehabilitation hospital on above:Performed By: #### CBC #### [facility] [address] [place] [address] Dr. Nj Greenehocytes/100 WBC (Bld)21.8 %Gdqtps53.5-60.0The [facility] on above:Performed By: #### CBC #### [facility] [address] [place] [address] Dr. Nj GonsalezUAL DIFF REQNONormalThe [facility] HospitalCommary [facility] bed rehabilitation hospital on above: Performed By: #### CBC #### [facility] [address] [place] [address] Dr. Nj Knox (RBC) [Entitic mass]27.8 brQwvxix39.7-34.0The [facility] on above:Performed By: #### CBC #### [facility] [address] [place] [address] Dr. Nj Knox (RBC) [Mass/Vol]33.5 g/bEXmtjdt18.9-35.2The [facility] on above:Performed By: #### CBC #### [facility] [address] [place] [address] Dr. Nj Knox (RBC) [Entitic vol]83.1 nYVmnnik18.0-99.0The [facility] Hospitalment on above:Performed By: #### CBC #### [facility] [address] [address] [address] Nj Cummings #0.4 103/ulNormal0.3-0.8The [facility] HospitalComment on above:Performed By: #### CBC #### [facility] [address] [address] [address] Nj Willocytes/100 WBC (Bld)6.5 %Normal1.7-12.0The [facility] Comment on above:Performed By: #### CBC #### [facility] [address] [place] [address] Dr. Nj Maxwell #4.7 103/ulNormal1.4-6.5The [facility] HospitalComment on above:Performed By: #### CBC #### [facility] [address] [place] [address] Dr. Nj Caalutrophils/100 WBC (Bld)69.3 %Lfgvst46.0-75.0The [facility] HospitalComment on above:Performed By: #### CBC #### [facility] [address] [place] [address] Dr. Nj Pace mean volume (Bld) [Entitic vol]9.3 fLCritically low 9.5-13.5The [facility] HospitalComment on above:Performed By: #### CBC #### [facility] [address] [place] [address] Dr. Nj SarabiaPLT367 103/suBxnncs146-168Xgc [facility] HospitalComment on above: Performed By: #### CBC #### [facility] [address] [place] [address] Dr. Nj SarabiaRBC4.49 106/ulNormal4.20-5.40The [facility] HospitalComment on above:Performed By: #### CBC #### [facility] [address] [place] [address] Dr. Nj SarabiaWBC6.8 103/ulNormal4.0-11.0The [facility] HospitalComment on above: Performed By: #### CBC #### [facility] [address] [place] [address] Dr. Nj SarabiaPROF CHEM 8 (BAS METB)on 78-17-4461Luacr gap [Moles/Vol]12.9 mmol/LNormalThe [facility] HospitalComment on above:Performed By: #### HSTROPN, BMP #### [facility] [address] [place] [address] Dr. Nj SarabiaCalcium [Mass/Vol]9.9 mg/dLNormal8.5-10.1[facility] Comment on above:Performed By: #### HSTROPN, BMP #### [facility] [address] [place] [address] Dr. Nj SarabiaChloride [Moles/Vol]98 mmol/LIypgpa61-282SvqMercy Health [facility] Hospital Comment on above:Performed By: #### HSTROPN, BMP #### [facility] [address] [place] [address] Dr. Nj SarabiaCO2 [Moles/Vol]27.2 mmol/KErdmab53.0-32.0[facility] Comment on above:Performed By: #### HSTROPN, BMP #### [facility] [address] [place] [address] Dr. Nj SarabiaCreatinine [Mass/Vol]0.67 mg/dLNormal0.55-1.02The [facility] HospitalComment on above:Performed By: #### HSTROPN, BMP #### [facility] [address] [place] [address] Dr. Nj CuevaGFR-AF GUINEAN>60Normal>=60The [facility] HospitalComment on above:Performed By: #### HSTROPN, BMP #### [facility] [address] [place] [address] Dr. Nj CuevaGFR-NON AF GUINEAN>60Normal>=60The [facility] HospitalComment on above:Performed By: #### HSTROPN, BMP #### [facility] [address] [place] [address] Dr. Nj SarabiaGlucose [Mass/Vol]113 mg/dLCritically tern85-844Rhl [facility] HospitalComment on above:Performed By: #### HSTROPBryson, BMP #### [facility] [address] [address] [address] Nj SarabiaPotassium [Moles/Vol]4.1 mmol/LNormal3.5-5.1The [facility] Comment on above:Performed By: #### HSTROPN, BMP #### [facility] [address] [address] [address] Nj SarabiaSodium [Moles/Vol]134 mmol/LCritically ggg808-552Pzl [facility] HospitalComment on above:Performed By: #### HSTROPBryson, BMP #### [facility] [address] [place] [address] Dr. Nj SarabiaUrea nitrogen [Mass/Vol]17.0 mg/dLNormal7.0-18.0The [facility] HospitalComment on above:Performed By: #### HSTRKIERAN, BMP #### [facility] [address] [address] [address] jN SarabiaUrea nitrogen/Creatinine [Mass ratio]25.4 mg/mgNormalThe [facility] HospitalComment on above:Performed By: #### HSTROPBryson, BMP #### [facility] [address] [place] [address] Dr. Nj Kaur, HIGH SENSITIVITYon 88-00-7271HLSHTN72.4 pg/mLNormal 4.0-51.3The [facility] HospitalComment on above:Result Comment: CUT-OFF POINTS HAVE BEEN ESTABLISHED BASED ON THE FOURTH UNIVERSAL DEFINITIONS OF MYOCARDIAL INFARCTION. THE UPPER REFERENCE LIMIT (URL) OF TROPONIN, DEFINED THE 99TH PERCENTILE OF cTnI DISTRIBUTION IN A REFERENCE POPULATION, HAS BEEN CONFIRMED THE DECISION THRESHOLD FOR TN DIAGNOSIS.Performed By: #### HSTROPN, BMP #### [facility] [address] [place] [address] Dr. Nj SarabiaXR CHEST 1 Von 14-37-8536YJ CHEST 1 VEXAM: XR CHEST 1 V HISTORY: Chest pain. [...] Electronically authenticated by: JOHN SANCHEZ Date: 2022-09-26 12:42[facility] [id number] Visit (ORAVON) ELENITA HOWARD ([id number]) 1955 F Date Time Provider Department 09/20/22 [...] Rash Date Reviewed: 09/20/2022 Reviewed by: Lizette De La Cruz RN - Fully Assessed Reason for Visit: Post Op [174] Wound Check [133] Suture Removal [105] Primary Visit Diagnosis:Primary osteoarthritis of left foot [M19.072] Order(s):XR FOOT GENERAL 3V AP/LAT/OBL LEFT [2593421] Order #: [id number] FUTURE Prescriptions as of 09/22/2022 - INV [...] encounter ACETAMINOPHEN 325 MG TABLET >> Lizette De La Cruz RN 09/20/2022 11:03 AM she takes them prn now, not ATC KETOROLAC 10 MG TABLET >> Lizette De La Cruz RN 09/20/2022 11:02 AM completed medication as directed, no tablets left CEPHALEXIN 500 MG CAPSULE >> Lizette De La Cruz RN 09/20/2022 11:02 AM completed medication as [...] needed. Encounter Status:Closed by KAYLIE CHARLES on 09/22/22[facility] ELENITA HOWARD ([id number]) 1955 F Date Time Provider Department 09/20/22 10:30 AM CAST TECH STACI DYKES During your visit today, we recorded the following information about you: Sarah Dasilva LPN 09/20/2022 4:08 PM Signed PT ASSESSMENT - CASTING ROOM Elenita presents for cast removal. Applied short cast: to Left leg Patient has been instructed in Care of cast.. Sarah Dasilva LPN Beeper: [id number] Allergies As of Date: 09/20/2022 Noted Allergy Reaction BEE STING 08/31/2021 4 - Hives LATEX 09/24/2013 9 - Itching SIMVASTATIN 08/13/2014 8 - GI Upset SULFA (SULFONAMIDE ANTIBIOTICS) 09/24/2013 2 - Rash Date Reviewed: 09/20/2022 Reviewed by: Lizette De La Cruz RN - Fully Assessed Primary Visit Diagnosis:Pain [...] 30-34.9 [E66.9] 09/04/2022 Encounter Status:Closed by SARAH DASILVA on 09/20/22NoProMedica Toledo HospitalPNon [id number] (ORAVON) ELENITA HOWARD ([id number]) 1955 F Date Time Provider Department 09/15/22 KAYLIE CHARLES During your visit today, we recorded the following information about you: Shama Vital 09/15/2022 1:53 PM Signed Elenita Howard called [...] captured for this encounter? not asked Shama Valiente MA 09/15/2022 2:37 PM Signed Placed [...] 09/04/2022 Encounter Status:Closed by YONG VALIENTE on 09/15/22NoUniversity Hospitals Health Systemjonathan [id number] Visit (ORAVON) ELENITA HOWARD ([id number]) 1955 F Date Time Provider Department 09/08/22 10:00 AM CAST TECH STACI DYKES During your visit today, we recorded the following information about you: Sarah Dasilva LPN 09/08/2022 11:37 AM Signed PT ASSESSMENT - CASTING ROOM Elenita presents for cast removal. Applied short cast: to Left leg Patient has been instructed in Care of cast.. Sarah Dasilva LPN Beeper: [id number] Allergies As of Date: 09/08/2022 Noted Allergy Reaction BEE STING 08/31/2021 4 - Hives LATEX 09/24/2013 9 - Itching SIMVASTATIN 08/13/2014 8 - GI Upset SULFA (SULFONAMIDE ANTIBIOTICS) 09/24/2013 2 - Rash Date Reviewed: 09/05/2022 Reviewed by: Alesia Hair, RN - Fully Assessed Primary Visit Diagnosis:Left [...] 30-34.9 [E66.9] 09/04/2022 Encounter Status:Closed by SARAH DASILVA on 09/08/22[facility]Healthjonathan [id number] Visit (ORAVON) ELENITA HOWARD ([id number]) 1955 F Date Time Provider Department 09/06/22 [...] Date Reviewed: 09/05/2022 Reviewed by: Alesia Hair, CONSTANTINO - Fully Assessed Reason for Visit: Post [...] 09/04/2022 Encounter Status:Closed by KYLE SCHMIDT on 09/14/22NoFulton County Health CenterTORY PHYSICALon [id number] PHYSICALHNO ID: [id number] Author: Hodan Townsend PA-C Service: ? Author Type: Physician Car Park Attendant Type: HANDP Filed: 08/22/2022 10:00 AM Note Text: HISTORY AND PHYSICAL EXAMINATION SERVICE DATE: 08/18/2022 SERVICE TIME: 2:31 PM PRIMARY CARE PHYSICIAN: Heraclio Samson MD, MD REASON FOR VISIT: Elenita Howard [...] Prior to Admission medications as of 08/18/22 0930 Medication Sig Last Dose Taking INV VITAMIN [...] fevers. Neuro: No history of TIA's, stroke, BUSINESS INTELLIGENCE REPORTING ANALYST tumor, impaired sensorium, hemiplegia, paraplegia or quadraplegia. No neurological symptoms or problems. Respiratory: No history of current cough or dyspnea, or pneumonia in the past 6 weeks. No history of respiratory/pulmonary symptoms or problems. Cardiovascular: +HTN Negative for Recent [place], Angina, CAD, Chest Pain, CHF, DVT/PE GI: [...] or clubbing. Neurological: Nor (more content not included)...NormalAvon HospitalCovid-19 PCR (CVDTBH)on 71-74-8481WIAV-CoV-2 (COVID-19) RNA LAMONTE+probe Ql (Unsp spec)Not detectedNormalNOT DETECTEDThe [facility] HospitalComment on above:Result Comment: When diagnostic testing is negative, the [...] for this test is supported by the [place] of Health and Human Service's declaration that circumstances exist to justify the emergency use of in vitro diagnostics for the detection and/or diagnosis of the virus that causes COVID-19. This EUA will remain in effect for the duration of the COVID-19 declaration justifying emergency of IVDs, unless it is terminated or revoked by the FDA (after which the test may no longer be used).Performed By: #### CVDTBH #### [facility] [address] [place] [address] Dr. Nj Christianson 25 OHon 00-28-8662XVC D 25-OH46.4 ng/mLNOhioHealth Grove City Methodist Hospital on above:Performed By: #### VITAD #### [facility] [address] [place] [address] Dr. Nj Christianson [facility] on above: Result Comment: <20 ng/mL Vit D deficient 20 - <30 ng/mL Vit D insufficient 30 - 100 ng/mL Vit D sufficient >100 ng/mL Potential ToxicityPerformed By: #### VITAD #### [facility] [address] [place] [address] Dr. Nj Nash [id number] Visit (ORAVON) ELENITA HOWARD ([id number]) 1955 F Date Time Provider Department 05/31/22 [...] X-Rays The patient's pertinent medical history from [facility] has been reviewed. PFOMIS forms have [...] It required patient-provide (more content not included)... NormalLakehealth Beachwood Medical CenterNo Panel Informationon 46-68-1496Wpxeocmhm ClinicXR FOOT 3V AP/LAT/OBL LTon 16-19-9203HG FOOT 3V AP/LAT/OBL LT* * *Final Report* * * DATE OF [...] NO ACUTE OSSEOUS ABNORMALITY OTHER FINDINGS DESCRIBED Aquatic Habitat Biologist: MARIA L Transcribe Date/Time: May 31 2022 3:12P Dictated by : NATALIE CHOPRA MD This examination was interpreted and the report reviewed and electronically signed by: NATALIE CHOPRA MD on May 31 2022 3:13PM EST [id number] Beachwood Medical CenterMG MAMM SCREEN 3D NIKKIE CAD on 53-44-6509SS MAMM SCREEN 3D NIKKIE CADPatient: ELENITA HOWARD Exam Date: 04/18/2022 : 1955 Gender:F Ordering : DR HERACLIO SAMSON . Admission #: [id number] Family : Order #: [id number] CLICK HERE TO VIEW EXAM RADIOLOGY REPORT PROCEDURE: MAMMOGRAM SCREENING 3D BILATERAL CAD COMPARISON: MG MAMM SCREEN 3D NIKKIE CAD, 04/08/2021. MG MAMM SCREEN NIKKIE W CAD, 04/07/2020. INDICATIONS: Screening mammography Calculator Name NCI Breast Cancer Risk Assessment Tool 5 Year Breast Cancer Risk 2.20% Lifetime Breast Cancer Risk 7.60% Personal Breast Cancer No Personal Ovarian Cancer No Treatments None Family Cancers Sister with ?uterine cancer at age 43. LOCATION: [facility] BREAST COMPOSITION: Heterogeneously dense,which may obscure [...] LUMP SHOULD BE BIOPSIED. Dictated by: Lesly Merritt M.D. on 04/19/2022 at 10:23 Approved by: Lesly Merritt M.D. on 04/19/2022 at 10:33[facility] AUTO DIFFon [id number] #0.0 103/ulNormal0.0-0.1[facility] HospitalComment on above:Performed By: #### CMP #### [facility] [address] [address] [address] Nj SarabiaBasophils/100 WBC (Bld)0.6 %Normal0.2-2.0[facility] Comment on above:Performed By: #### CMP #### [facility] [address] [address] [address] Nj Augustin #0.2 103/ulNormal0.0-0.7The [facility] HospitalComment on above: Performed By: #### CMP #### [facility] [address] [address] [address] Nj Cuevaosinophils/100 WBC (Bld)3.6 %Normal0.9-7.0[facility] Comment on above:Performed By: #### CMP #### [facility] [address] [place] [address] Dr. Nj Cuevarythrocyte distribution width (RBC) [Ratio]13.4 %Vljtxo09.0-15.0 [facility] HospitalComment on above:Performed By: #### CMP #### [facility] [address] [place] [address] Dr. Nj SarabiaHematocrit (Bld) [Volume fraction]40.3 %Mgsclp10.0-48.0The [facility] HospitalComment on above:Performed By: #### CMP #### [facility] [address] [place] [address] Dr. Nj SarabiaHemoglobin (Bld) [Mass/Vol]13.1 g/sCSvlzdb36.0-16.0The [facility] HospitalComment on above:Performed By: #### CMP #### [facility] [address] [place] [address] Dr. Nj Hadley #0.09 10e3/ulCritically high0.00-0.03[facility] Comment on above:Performed By: #### CMP #### [facility] [address] [place] [address] Dr. Nj Hadley %1.4 %Critically high0.0-0.5The [facility] HospitalComment on above:Performed By: #### CMP #### [facility] [address] [place] [address] Dr. Nj GreeneH #2.0 103/ulNormal1.2-3.8The [facility] HospitalComment on above:Performed By: #### CMP #### [facility] [address] [place] [address] Dr. Nj Greenehocytes/100 WBC (Bld)30.6 %Bilkib60.5-60.0[facility] HospitalComment on above:Performed By: #### CMP #### [facility] [address] [place] [address] Dr. Nj GonsalezUAL DIFF REQNONormalThe [facility] HospitalComment on above: Performed By: #### CMP #### [facility] [address] [place] [address] Dr. Nj Knox (RBC) [Entitic mass]27.5 hoBqumql97.7-34.0The [facility] HospitalComment on above:Performed By: #### CMP #### [facility] [address] [place] [address] Dr. Nj Knox (RBC) [Mass/Vol]32.5 g/dODsdiyh80.9-35.2The [facility] HospitalComment on above:Performed By: #### CMP #### [facility] [address] [place] [address] Dr. Nj Tran (RBC) [Entitic vol]84.5 wWPkzsax56.0-99.0The [facility] HospitalComment on above:Performed By: #### CMP #### [facility] [address] [place] [address] Dr. Nj Cummings #0.5 103/ulNormal0.3-0.8The [facility] HospitalComment on above:Performed By: #### CMP #### [facility] [address] [place] [address] Dr. Nj Willocytes/100 WBC (Bld)7.6 %Normal1.7-12.0The [facility] on above:Performed By: #### CMP #### [facility] [address] [place] [address] Dr. Nj Maxwell #3.6 103/ulNormal1.4-6.5The [facility] HospitalComment on above:Performed By: #### CMP #### [facility] [address] [place] [address] Dr. Nj Caalutrophils/100 WBC (Bld)56.2 %Eabais98.0-75.0The [facility] HospitalComment on above:Performed By: #### CMP #### [facility] [address] [place] [address] Dr. Nj Schaeferlet mean volume (Bld) [Entitic vol]8.8 fLCritically low 9.5-13.5The [facility] HospitalComment on above:Performed By: #### CMP #### [facility] [address] [place] [address] Dr. Nj SarabiaPLT327 103/obZjshec018-666Ajm [facility] HospitalComment on above: Performed By: #### CMP #### [facility] [address] [place] [address] Dr. Nj SarabiaRBC4.77 106/ulNormal4.20-5.40The [facility] HospitalComment on above:Performed By: #### CMP #### [facility] [address] [place] [address] Dr. Nj SarabiaWBC6.4 103/ulNormal4.0-11.0The [facility] HospitalComment on above: Performed By: #### CMP #### [facility] [address] [place] [address] Dr. Nj SarabiaCULTCHIO SPUTUMon 91-04-7550UMXNCPA SPUTUMCulture Observations: NORMAL RESPIRATORY KAVITA.NormalThe [facility] HospitalComment on above:Performed By: #### CMP #### [facility] [address] [place] [address] Dr. Nj SarabiaLACTATE/LACTIC ACIDon 65-84-7298Oqyexre [Moles/Vol]1.3 mmol/L Normal0.4-1.9The [facility] on above:Performed By: #### LACT #### [facility] [address] [place] [address] Dr. Nj SarabiaPROF 14(COMP METB)on 40-38-7475Awofdlx [Mass/Vol]3.6 g/dLNormal 3.4-5.0The [facility] HospitalComment on above:Performed By: #### CMP #### [facility] [address] [place] [address] Dr. Nj SarabiaAlbumin/Globulin [Mass ratio]0.9 {ratio}NormalThe [facility] HospitalComment on above:Performed By: #### CMP #### [facility] [address] [address] [address] Nj MarleyP [Catalytic activity/Vol]62 U/DFwqlou15-592Fos [facility] HospitalComment on above:Performed By: #### CMP #### [facility] [address] [address] [address] Nj MarleyT [Catalytic activity/Vol]27 U/FLpznzf92-48Emo [facility] HospitalComment on above:Performed By: #### CMP #### [facility] [address] [place] [address] Dr. Nj Floreson gap [Moles/Vol]14.7 mmol/LNormalThe [facility] Comment on above:Performed By: #### CMP #### [facility] [address] [place] [address] Dr. Nj SarabiaAST [Catalytic activity/Vol]15 U/WUkcbgw81-00Ggz [facility] HospitalComment on above:Performed By: #### CMP #### [facility] [address] [place] [address] Dr. Nj SarabiaBilirubin [Mass/Vol]0.3 mg/dLNormal0.2-1.0The [facility] Comment on above:Performed By: #### CMP #### [facility] [address] [place] [address] Dr. Nj SarabiaCalcium [Mass/Vol]9.7 mg/dLNormal8.5-10.1The [facility] Comment on above:Performed By: #### CMP #### [facility] [address] [place] [address] Dr. Nj SarabiaChloride [Moles/Vol]100 mmol/KLmcacv81-420Qul [facility] Comment on above:Performed By: #### CMP #### [facility] [address] [place] [address] Dr. Nj SarabiaCO2 [Moles/Vol]26.9 mmol/BOatsju73.0-32.0The [facility] Comment on above:Performed By: #### CMP #### [facility] [address] [place] [address] Dr. Nj SarabiaCreatinine [Mass/Vol]0.93 mg/dLNormal0.55-1.02The [facility] HospitalComment on above:Performed By: #### CMP #### [facility] [address] [place] [address] Dr. Nj CuevaGFR-AF GUINEAN>60Normal>=60The [facility] HospitalComment on above:Performed By: #### CMP #### [facility] [address] [address] [address] Nj CuevaGFR-NON AF GUINEAN=60Normal>=60The [facility] HospitalComment on above:Performed By: #### CMP #### [facility] [address] [place] [address] Dr. Nj SarabiaGlobulin (S) [Mass/Vol]4.1 g/dLNormalThe [facility] HospitalComment on above:Performed By: #### CMP #### [facility] [address] [place] [address] Dr. Nj SarabiaGlucose [Mass/Vol]114 mg/dLCritically ceno09-375Lkg [facility] HospitalComment on above:Performed By: #### CMP #### [facility] [address] [place] [address] Dr. Nj SarabiaPotassium [Moles/Vol]3.6 mmol/LNormal3.5-5.1The [facility] Comment on above:Performed By: #### CMP #### [facility] [address] [place] [address] Dr. Nj SarabiaProtein [Mass/Vol]7.7 g/dLNormal6.4-8.2The [facility] Comment on above:Performed By: #### CMP #### [facility] [address] [place] [address] Dr. Nj SarabiaSodium [Moles/Vol]138 mmol/ULifjbl931-710Cqn [facility] Comment on above:Performed By: #### CMP #### [facility] [address] [place] [address] Dr. Nj SarabiaUrea nitrogen [Mass/Vol]10.0 mg/dLNormal7.0-18.0The [facility] HospitalComment on above:Performed By: #### CMP #### [facility] [address] [address] [address] Nj Xavier nitrogen/Creatinine [Mass ratio]10.8 mg/mgUniversity Hospitals Conneaut Medical CenterComment on above:Performed By: #### CMP #### [facility] [address] [address] [address] Nj Jones GRAM STAINon 23-24-9150XWMNUJKMCdtpkiWwmAvita Health System [facility] on above:Performed By: #### IRON #### [facility] [address] [address] [address] Nj SmartPHTHEROIDSUniversity Hospitals Conneaut Medical CenterComment on above:Performed By: #### IRON #### [facility] [address] [address] [address] Nj CuevaPITHELIALS<25University [facility]als Conneaut Medical CenterComment on above: Performed By: #### IRON #### [facility] [address] [address] [address] Nj LiNGAL ELEMENTSUniversity Hospitals Conneaut Medical CenterComment on above: Performed By: #### IRON #### [facility] [address] [address] [address] Nj Layton NEG BACILLIUniversity Hospitals Conneaut Medical CenterComment on above: Performed By: #### IRON #### [facility] [address] [address] [address] Nj Layton NEG DIPPLOCOCCIUniversity Hospitals Conneaut Medical CenterCommary free bed rehabilitation hospital on above: Performed By: #### IRON #### [facility] [address] [address] [address] Nj Layton POS BACILLIUniversity Hospitals Conneaut Medical CenterComment on above: Performed By: #### IRON #### [facility] [address] [address] [address] Nj Layton POSITIVE COCCIMODERATEUniversity Hospitals Conneaut Medical CenterComment on above:Performed By: #### IRON #### [facility] [address] [address] [address] Nj SarabiaWBC (Bld) [#/Vol]10*3/[facility]aconess HospitalComment on above:Performed By: #### IRON #### [facility] [address] [address] [address] Nj SarabiaXR CHEST 2 Von 98-03-0246RN CHEST 2 VEXAMINATION: XR CHEST 2 V HISTORY: Cough , chest pain [...] acute cardiopulmonary process. Electronically authenticated by: LESLY MERRITT Date: 2022-03-15 16:18[facility] Conneaut Medical CenterCovid-19 PCR (CVDTBH)on 88-85-3078FHBY-CoV-2 (COVID-19) RNA LAMONTE+probe Ql (Unsp spec)Not detectedNormalNOT DETECTEDThe [facility] Comment on above:Result Comment: This test is not yet approved or cleared by the [place] FDA. When there are no FDA-approved or cleared tests available, and other criteria are met, FDA can make tests available under an emergency access mechanism called an Emergency Use Authorization (EUA). The EUA for this test is supported by the Academic Support Specialist of Health and Human Service's (HHS's) declaration that circumstances exist to justify the emergency use of in vitro diagnostics for the detection and/or diagnosis of the virus that causes COVID- 19. This EUA will remain in effect (meaning [...] of clinical signs and symptoms consistent with SARS-CoV-2.Performed By: #### IRON #### [facility] [address] [place] [address] Dr. Nj Sarabia Vital Signs Date TimeVital SignValuePerforming RrvarxjjrBisqwvpw32-62-1183 10:05-0400Body mass index (BMI) [Ratio]33.13 kg/o8Rzqqfaqc Rinkes DO Work Phone: [phone] [place], [place] [address]Jgbmepkcrx43-06-4096 10:05-0400Body .82 kgKathleen Rinkes DO Work Phone: [phone]06-10-2025 10:05-0400Diastolic blood ssrefhth37 mm[Hg]Monet Rinkes DO Work Phone: [phone] [place], [place] [address]Tsoigjwwwt29-89-2538 10:05-0400Systolic blood hmnewunj297 mm[Hg]Monet Rinkes DO Work Phone: [phone] [place], [place] [address]05-15-2025 13:01-0400Body mass index (BMI) [Ratio]33.13 kg/i8Hrtvmzaq Rinkes DO Work Phone: [phone] [place], [place] [address]05-15-2025 13:01-0400Body .82 kgKathleen Rinkes DO Work Phone: [phone] [place], [place] [address]05-15-2025 13:01-0400Diastolic blood ooitqdiv61 mm[Hg]Monet Rinkes DO Work Phone: [phone] [place], [place] [address]Fmhjrnufku14-11-1140 13:01-0400Systolic blood mm[Hg]Monet Rinkes DO Work Phone: [phone] [place] 45812Aaegxctlrd30-67-3706 14:00-0400Respiratory rate16 /Alban Samson MD Work Phone: [facility]05-01-2025 13:32-0400 Diastolic blood fqtieega74 mm[Hg]Heraclio Samson MD Work Phone: [facility]05-01-2025 13:32-0400 Heart rate86 /Alban Samson MD Work Phone: [phone] [place], [place] 2428105-01-2025 13:32-0400 Systolic blood boxuvyob096 mm[Hg]Heraclio Samson MD Work Phone: [phone]05-01-2025 12:02-0400 SaO2% (BldA) [Mass fraction]93 %Heraclio Samson MD Work Phone: [phone] [place], [place] 2428105-01-2025 10:47-0400 Body nmppjwdtukz87.7 [degF]Heraclio Samson MD Work Phone: [phone]05-01-2025 09:40-0400 Inhaled oxygen flow rate6 L/minDchester Samson MD Work Phone: [phone]05-01-2025 06:00-0400 Body pctgha087.75 cmHeraclio Samson MD Work Phone: [phone]05-01-2025 06:00-0400 Body umdpkw15.8 kgHeraclio Samson MD Work Phone: [phone] [place], [place] 2428103-27-2025 13:17-0400 Body mass index (BMI) [Ratio]33.13 kg/b0Hentllug Rinkes DO Work Phone: [phone]-[facility] CenterEll[facility]l Cancer CenterWayzztqoic90-25-4062 13:17-0400Body glyzds24.82 kgKathleen Rinkes DO Work Phone: [phone]-[facility] Cancer CenterBfmhnjzpxy91-24-2601 13:17-0400Diastolic blood cxskkozc48 mm[Hg]Monet Rinkes DO Work Phone: [phone]-[facility] Cancer CenterIdawnkvxeq28-27-6120 13:17-0400Systolic blood mm[Hg]Monet Rinkes DO Work Phone: [phone]-[facility] Cancer CenterKonlbhusac71-18-9979 11:23-0400Body mass index (BMI) [Ratio]33.13 kg/a8Yhtphweo Rinkes DO Work Phone: [phone]-[facility] CenterEllis Fischel Cancer CenterSmoqcmjjxh40-60-6359 11:23-0400Body yfsxyn41.82 kgKathleen Rinkes DO Work Phone: [facility] CenterPcclqxcqed68-26-8665 11:23-0400Diastolic blood hytulgee89 mm[Hg]Monet Clark DO Work Phone: [facility] Cancer CenterDwikrwihad67-87-4217 11:23-0400Systolic blood sgzljoku728 mm[Hg]Monet Clark DO Work Phone: [facility] Cancer CenterZjfflhferr09-42-3309 14:42-0500Diastolic blood lpegjgop42 mm[Hg]Pacc 2 Work Phone: [facility]01-06-2023 14:42-0500Heart rate80 /min Pacc 2 Work Phone: [phone]01-06-2023 14:42-3230DqS2% (BldA) [Mass fraction]97 %Pacc 2 Work Phone: [phone]01-06-2023 14:42-0500Systolic blood ialiutfm460 mm[Hg]Pacc 2 Work Phone: [phone]01-06-2023 14:35-0500Body nfndyw048.5 cmPacc 2 Work Phone: [phone]01-06-2023 14:35-0500Body temperature 97.39 [degF]Pacc 2 Work Phone: [phone]01-06-2023 14:35-0500Body bfhrgu73.82 kgPacc 2 Work Phone: [phone]01-06-2023 14:35-0500Respiratory rate 16 /minPacc 2 Work Phone: [phone]10-11-2022 13:51-0400Blood Pressure LocationMichaeamy BASHIRL [facility] Surgery Xzxfdsve88-47-7361 13:51-0400Diastolic blood mm[Hg]Luis KUMARI [facility] Surgery Goozhvxc36-82-0141 13:51-0400Heart rate 76 /minMichael NILL General Surgery Dojkoltp78-79-6504 13:51-0400 Respiratory rate16 /minMichael NILL General Surgery Tvdfjmra86-64-3374 13:51-0400Systolic blood mm[Hg]Luis NILL General Surgery Eveline Encounters Encounter DateEncounter TypeCare ProviderFacilityStart: 06-09-2025 End: 09-93-8578cmnminbvezSqpphuw R NILLFacility: [place]walkStart: 06-09-2025 End: 78-08-9509Jznwrdw encounter procedureMichael R NILL [phone][facility] [place] Start: 01-20-2025 End: 98-70-2224ncbtzhdbriARWRDXGH E RINKESNot AvailableStart: 01-20-2025 End: 81-72-6553Amddfw follow up visit related to original pxKathleen E Rinkes DO Work Phone: noMS SWS OBComment on above:Postoperative examination Start: 12-25-2024 End: 01-63-4428Pfqwjp follow up visit related to original pxKathleen E Rinkes DO Work Phone: noms SWS OBComment on above:Postoperative examination Start: 12-25-2024 End: 39-29-1578uyhxxgdqokLZBHCKOW E RINKESNot AvailableStart: 12-11-2024 End: 21-16-5679Xwbsavbbi to same day surgery centerHeraclio Samson MD Work Phone: [facility] HospitalStart: 12-11-2024 End: 30-51-4104efnartogoiNtqlphx M Hoy MD Work Phone: [facility] Work Phone: Start: 11-26-2024 End: 07-60-3116Tsgvgyob Result EncounterKathleen E Rinkes DO Work Phone: noms External Department UnsolicitedStart: 11-26-2024 End: 23-08-8814Aavhuder Result EncounterKathleen E Rinkes DO Work Phone: noms External Department UnsolicitedStart: 11-26-2024 End: 68-37-0450Mlypife encounter procedureHeraclio Samson MD Work Phone: [facility]xx[facility]Dti[facility]ath[facility] Testing Work Phone: Start: 11-26-2024 End: 66-35-2590dhkqigfmtfRrbbifg M Hoy MD Work Phone: [facility] Work Phone: Start: 52-69-2597Wximxwxjj for preprocedural laboratory examinationKatandreina JaraMayo Clinic Florida Physician GroupStart: 11-06-2024 End: 94-21-7736fiifxtupawVXYVNIJK E RINKESNot AvailableStart: 11-06-2024 End: 63-51-4020Txexlr outpatient visit 25 minutesKathleen E Rinkes DO Work Phone: [facility] OBComment on above:Uterine prolapse; Cystocele, midlineStart: 10-30-2024 End: 58-62-1474qynmanuzjkHOCBDYJF RINKESNot AvailableStart: 10-23-2024 End: 88-70-2296Tjghzx flowsheetKathleen E Rinkes DO Work Phone: [facility] OBStart: 10-23-2024 End: 40-29-0836Fjuphk flowsheetKathleen E Rinkes DO Work Phone: [facility] OBStart: 10-23-2024 End: 40-83-7816Aceiodo encounter statusKathleen E Rinkes DO Work Phone: [facility] Work Phone: start: 10-23-2024 End: 57-28-3897Cdaxneov preventive med est patient 65yrs& olderKathleen E Rinkes DO Work Phone: [facility] OBComment on above:Encounter for gynecological examination without abnormal finding (Primary Dx); Screening for malignant neoplasm of cervix; Encounter for screening mammogram for breast cancer; Screening for osteoporosis; Postmenopausal status, age-related; Uterine prolapse; Cystocele, midlineStart: 10-23-2024 End: 10-69-9101pzgjwzuuioSWECEJKW E RINKESNot AvailableStart: 09-01-2024 End: 92-30-1171Yjfsnl flowsheetEmgiulia Ballard MD Work Phone: noms SWS DERMStart: 09-01-2024 End: 18-47-8557Itzzka flowsheetEmgiulia Ballard MD Work Phone: noms SWS DERMStart: 09-01-2024 End: 61-62-6329bahcfoglynBITNZ A PETAUSTENINot AvailableStart: 09-01-2024 End: 15-28-1738Lsywjm outpatient visit 15 minutesEmily Jarrod Ballard MD Work Phone: n[facility] DERMComment on above:Melanocytic nevus of trunk (Primary Dx); Seborrheic keratosis; Onychomycosis; Seborrheic keratosis, inflamedStart: 01-10-2023 End: 57-84-2660gimfbfkhsvPQLX W DAVISFacility:[facility] Campustart: 01-10-2023 End: 74-52-2381Tzcnwjs encounter procedureKaylie Charles MD Work Phone: OrthopaedicsComment on above:History of arthrodesis (Primary Dx)Start: 01-10-2023 End: 39-87-8646Zboudghnkl hospital visit by physicianXr [facility] Rej Work Phone: RadiologyComment on above:Primary osteoarthritis of left foot [M19.072]Start: 77-13-0172zfxquuihnqDnwp W Davis MD Work Phone: [facility] CENTERtart: 48-50-8793Nlmyzde encounter procedureKaylie Charles MD Work Phone: OrthopaedicsComment on above:Upcoming appointment Start: 11-29-2022 End: 95-74-9569krnphrzgicOJFT W DAVISFacility:[facility] HospitalStart: 11-29-2022 End: 51-47-4995vtshokxhmfJXUR W DAVISFacility:[facility] Campustart: 11-29-2022 End: 58-74-0931Gsdehny encounter Lanny Charles MD Work Phone: OrthopaedicsComment on above:Primary osteoarthritis of left foot (Primary Dx)Start: 11-29-2022 End: 42-27-4271Knsngwuceb hospital visit by physicianXr [facility] Rej Work Phone: RadiologyComment on above:Primary osteoarthritis of left foot [M19.072]Start: 11-13-2022 End: 46-49-3640khpmcjmhwyDFIZINK M HOYFacility:[facility] HospitalStart: 11-13-2022 End: 99-23-0585Durwbuk encounter procedureCast Tech Staci Work Phone: OrthopaedicsComment on above:Primary osteoarthritis of left foot (Primary Dx)Start: 30-65-9478flzlrvmmovMsoy W Davis MD Work Phone: OrthopaedicsComment on above:Walking cast concerns Start: 16-24-5601Mxvgkymzx encounterKaylie Charles MD Work Phone: OrthopaedicsComment on above:cast issueStart: 10-18-2022 End: 73-16-2434ffpbrwtsvdJUOHWIP M HOYFacility:[facility] HospitalStart: 10-18-2022 End: 57-14-8271Rbjzlgo encounter Lanny Charles MD Work Phone: OrthopaedicsComment on above:Primary osteoarthritis of left foot (Primary Dx)Start: 10-18-2022 End: 62-32-7795Qcseeyoofq hospital visit by physicianXr [facility] Rej Work Phone: RadiologyComment on above:Primary osteoarthritis of left foot [M19.072]Start: 10-09-2022 End: 18-51-4435djscszwvxiSG DOUGLAS HOY .Facility:V9Ljdgg: 09-26-2022 End: 26-86-5882qoumfsnwvgDIFTJ LEWIS .Facility:C0Ktsqe: 09-20-2022 End: 51-87-6143mxggjpbznvSTJLLUE M MALIFacility:[facility] HospitalStart: 09-20-2022 End: 92-09-1896Euambyl encounter procedureKaylie Charles MD Work Phone: OrthopaedicsComment on above:Primary osteoarthritis of left foot (Primary Dx)Start: 46-86-7252Ffgnvpdzb encounterKaylie Charles MD Work Phone: OrthopaedicsComment on above:Patient UpdateStart: 09-08-2022 End: 09-13-7998kgfcfsoagmUMGINIX M MALIFacility:[facility] HospitalStart: 09-08-2022 End: 07-48-1784Zpxbpbt encounter procedureCast Tech Staci Work Phone: OrthopaedicsComment on above:Left ankle pain, unspecified chronicity (Primary Dx)Start: 09-06-2022 End: 19-88-8652Rnhexgr encounter procedureKaylie Charles MD Work Phone: OrthopaedicsComment on above:Primary osteoarthritis of left foot (Primary Dx); APPOINTMENT CANCELLEDStart: 42-55-8563UgjtzzBpmw W Davis MD Work Phone: OrthopaedicsComment on above:Refill RequestStart: 83-34-1345poqrouxmsbSXFS DAVISFacility:E6Qbtdd: 65-98-5153Zsqprh OnlyKaylie Charles MD Work Phone: OrthopaedicsComment on above:Primary osteoarthritis of left foot (Primary Dx)Start: 08-18-2022 End: 89-09-9374lowxhluvxnKGML W DAVISFacility:[facility] HospitalStart: 08-18-2022 Encounter for other preprocedural examinationKAYLIE Dior HospitalStart: 08-18-2022 End: 78-03-4446Sngjnchnm to [facility] [address] Work Phone: [facility]PITALStart: 08-18-2022 End: 32-53-3846wphbmjxvfgDfyr 2 Work Phone: Pre AnesthesiaComment on above:Pre-op evaluation (Primary Dx); Hypertension, unspecified type; Obesity (BMI 30-39.9)Start: 08-18-2022 End: 33-03-9799Clfucotyvqhlh examination donePacc 2 Work Phone: Pre AnesthesiaStart: 37-07-4272Kczejm OnlyKaylie Charles MD Work Phone: OrthopaedicsComment on above:Primary osteoarthritis of left foot (Primary Dx); Pes planus of left foot; Acquired valgus deformity of left ankleStart: 07-19-2022 End: 82-75-1247Bbnmsbt encounter procedureMichael R NILL General Surgery Nill/Said [place] Start: 07-12-2022 End: 92-07-0511wqbyknazhwEZ HERACLIO SAMOSN .Facility:Y6Uowvy: 39-39-2932Jwmlbjpne for preprocedural laboratory examinationDR LUIS FalconMer[facility] Start: 07-08-2022 End: 92-78-6181glscyzkvgsYS DOUGLAS HOY .Facility:L2Ejdcv: 05-31-2022 End: 55-33-2740fsvohafiblSAAU W DAVISFacility:[facility] Campustart: 05-31-2022 End: 46-15-1889Lysujbp encounter procedureKaylie Charles MD Work Phone: OrthopaedicsComment on above:Primary osteoarthritis of left foot (Primary Dx); Pes planus of left foot; Acquired valgus deformity of left ankleStart: 05-31-2022 End: 82-55-4740Zcfojojczq hospital visit by physicianXr [facility] Rej Work Phone: RadiologyComment on above:Pain [R52]Start: 05-23-2022 End: 68-07-4231Wjucbtp encounter procedureMichael R NILL General Surgery Nill/Said [place] Start: 76-18-1828Bbktsy OnlyKaylie Charles DDS Work Phone: [facility] and Rheum InstituteComment on above:Pain (Primary Dx)Start: 04-18-2022 End: 52-85-9476vxkuzohfseDJ HERACLIO HOY .Facility:G8Pyzzb: 03-15-2022 End: 28-79-9731mhwbekkzkhXG HERACLIO HOY .Facility:Q3Kaskc: 03-14-2022 End: 99-43-2387dofqnfnsbtBU HERACLIO HOY .Facility:H1 Procedures DateProcedureProcedure DetailPerforming ClinicianStart: 12-30-6136Dhzja hysterectomy via vaginal approacheHraclio Samson MD Work Phone: Start: 01-16-5989Fdcopnto screenDobelia HoyComment on above:Order Comment: Date of Surgery: [id number] Comment: PERFORMED BY: [address] [place] [address] PATHOLOGIST CODING SPECIALIST HOME [facility] ARTIE PEREZ M.D.Start: 57-90-1314uKAV in Blood by Coagulation assay Monet Clark DO Work Phone: start: 48-62-0212Bbfoungi blood count with white cell differential, automatedMonet Clark DO Work Phone: start: 29-97-0321Buzytcwqixx timeMonet Clark DO Work Phone: start: 29-17-9120TGHDTDHQGJA SKIN LESIONEmily Jarrod Ballard MD Work Phone: Start: 37-43-1986Kqvaf foot complete minimum 3 views Kaylie Charles MD Work Phone: Start: 24-16-9462Swnyo foot complete minimum 3 views Kaylie Charles MD Work Phone: Start: 50-29-9529Ovweu foot complete minimum 3 views Kaylie Charles MD Work Phone: Start: 25-59-8459OyipvxoypppBcmkc Petitti MD Work Phone: Start: 24-39-4863GvwvrpktmfwBgdplvq NILL Start: 61-69-3645Fvxqj foot complete minimum 3 views Kaylie Charles MD Work Phone: BlepharoplastyMichael NILL ColonoscopyMichael NILL Cryosurgery of lesion of cervixMichael NILL Dilation and curettageMichael NILL EsophagogastroduodenoscopyMichael NILL Excision of accessory navicular boneMichael NILL Extraction of cataractMichael NILL Fusion of tarsal jointsMichael NILL H/O: hysterectomyS/P laparoscopic hysterectomyHeraclio Samson MD Work Phone: Laser assisted in situ keratomileusisMichael NILL Total abdominal hysterectomy with bilateral salpingo-oophorectomyMichael NILL Plan of Treatment DateCare ActivityDetailAuthorStart: 66-54-2992Vmnfhzneb for malignant neoplasm of colonNOMS HealthcareStart: 03-13-2026Medicare Annual Wellness (AWV)Medicare Annual Wellness (AWV)[facility] HealthcareStart: 09-09-2025 End: 67-73-3340Uegoicb encounter joyjqmdwp06/28/2026 1:00 PM EST Office Visit [facility] [address] [place] [phone] Sharyn Ballard MD [address] [place] [address] [facility] DERMStart: 45-70-7710Osclhxywl vaccination Influenza Vaccine (Season Ended)[facility]OM HealthcareStart: 01-20-2025 End: 83-57-4622Lporplm encounter /10/2025 10:00 AM EDT Office Visit [facility] [address] [place] [address] Monet Clark, DO [address] [place] [address] [facility] OBStart: 12-25-2024 End: 03-97-1657Bjlfvxh encounter onfkqsfct06/15/2025 1:00 PM EDT Office Visit [facility] [address] [place] [address] Monet Clark, DO [address] [place] [address] [facility] OBStart: 57-28-8246Wuxeambo admissionUniversity Hospitals Portage Medical Centertart: 73-48-6191ZoqqrrivsUniversity Hospitals Portage Medical Centertart: 10-23-2024 End: 34-43-6414POE Breast - bilateral screeningBilateral screening mammogram with tomosynthesis Imaging Routine Encounter for screening mammogram for breast cancer Expected: 10/23/2024, Expires: 12/23/2025NODC HealthcareComment on above: Expected: 10/23/2024, Expires: 12/23/2025Start: 10-23-2024 End: 31-37-4845Mytgrxs encounter dehmqhptx50/13/2025 11:15 AM EDT Office Visit [facility] [address] [place] [address] Monet Clark, DO [address] [place] [address] Encounter for gynecological examination without abnormal finding; Screening for malignant neoplasm of cervix; Encounter for screening mammogram for breast cancerNOKAISER FOUND[facility] OBComment on above:Encounter for gynecological examination without abnormal finding; Screening for malignant neoplasm of cervix; Encounter for screening mammogram for breast cancerStart: 97-09-3680Sfxajgxun vaccinationInfluenza Vaccine (#1)[facility] HealthcareStart: 15-02-3064Eyfla-19 Vaccine ( season)Covid-19 Vaccine ( season)[facility]: 31-98-0107Nxsytglyr vaccinationOhioHealth Berger Hospitaltart: 08-13-2022 ADVANCE DIRECTIVE DISCUSSIONADVANCE DIRECTIVE DISCUSSIONOhioHealth Berger Hospitaltart: 33-78-6103CCUNFPFAWC ASSESSMENTDEPRESSION ASSESSMENTOhioHealth Berger Hospitaltart: 69-36-9447Pfvopgacj vaccinationINFLUENZA (#1)[facility] Hospitaltart: 09-24-2021 COVID-19 VACCINE (4 - Booster for Pfizer series)COVID-19 VACCINE (4 - Booster for Pfizer series)[facility]tart: 61-20-0852LCCYTIN DIRECTIVE DISCUSSION ADVANCE DIRECTIVE DISCUSSIONOhioHealth Berger Hospitaltart: 61-91-0028PLDBVRKJEG ASSESSMENTDEPRESSION ASSESSMENTOhioHealth Berger Hospitaltart: 82-27-8039FYFM DENSITYBONE DENSITYOhioHealth Berger Hospitaltart: 99-62-1673Xfke Density ScreeningBone Density ScreeningOhioHealth Berger Hospitaltart: 54-30-4819Lnazmzzyejsm Vaccine: 65+ (1 - PCV) Pneumococcal Vaccine: 65+ (1 - PCV)[facility]: 59-56-7859Uwtcsldlfsdy Vaccine: 65+ Years (1 of 1 - PCV)Pneumococcal Vaccine: 65+ Years (1 of 1 - PCV) [facility] HealthcareStart: 75-40-9604EBULWIYEFWNB: 65+ (1 - PCV)PNEUMOCOCCAL: 65+ (1 - PCV)[facility]art: 97-66-2731IEZ Vaccine (1 - 1-dose 60+ series)RSV Vaccine (1 - 1-dose 60+ series)[facility]: 42-62-2748Lplflbylpkgc Vaccine: 65+ Years (1 of 1 - PCV)Pneumococcal Vaccine: 65+ Years (1 of 1 - PCV) [facility] HealthcareStart: 84-98-8172PIIWSFBJ VACCINE (1 of 2)SHINGRIX VACCINE (1 of 2)[facility]art: 43-03-5495DCWBWFZCP (FIT-DNA)COLOGUARD (FIT-DNA) [facility]art: 11-31-8288HveujikhbhuOSVIICYZBBODztnsblsl ClinicStart: 71-22-1606GJINNIGQXK CANCER SCREENINGCOLORECTAL CANCER SCREENINGGreen [facility] Start: 84-45-3456SE COLONOGRAPHYCT COLONOGRAPHYOhioHealth Berger Hospitaltart: 1999 DIABETES SCREENDIABETES SCREENOhioHealth Berger Hospitaltart: 32-30-2321Cqpjjrcu ScreeningDiabetes ScreeningOhioHealth Berger Hospitaltart: 47-52-9125VFROE OCCULT BLOOD FECAL OCCULT BLOODOhioHealth Berger Hospitaltart: 69-17-9653Ewrma 1996 panel - Serum or PlasmaLipid ScreeningOhioHealth Berger Hospitaltart: 07-31-3363NCHDP SCREENLIPID SCREEN [facility]tart: 27-81-7092RQTHJLMCYBUBWOMPEXJGFVLDGIXqbtwobvo Clinic Start: 02-05-7298JfrvbzzcghnEemnbmkop ClinicStart: 50-19-0372Nnpfphfua for malignant neoplasm of breastMaogramEllis Fischel Cancer CenterStart: 82-31-5560Znntm microalbumin profileOhioHealth Berger Hospitaltart: 58-79-6356XATQXA PCP TEAM CHRONIC DISEASE VISITANNUAL PCP TEAM CHRONIC DISEASE VISITOhioHealth Berger Hospitaltart: 97-61-3590UI CONTROLLED (<130/80)BP CONTROLLED (<130/80)[facility] Hospitaltart: 31-28-9951VJFNXRXTA C SCREENINGHEPATITIS C SCREENINGOhioHealth Berger Hospitaltart: 66-59-0538Gxqqgvwdn for malignant neoplasm of colonEllis Fischel Cancer CenterDXA Skeletal system Views for bone densityDEXA bone density Imaging Routine Screening for osteoporosis Postmenopausal status, age-related Ordered: 10/23/2024Ell[facility] Fischel Cancer CenterComment on above:Ordered: 10/23/2024IGP, RFX APTIMA HPV ASCUIGP, RFX APTIMA HPV ASCU Lab Routine Screening for malignant neoplasm of cervix Ordered: 10/23/2024[facility] Work Phone: comment on above:Ordered: 10/23/2024Patient Education [facility]High[facility] Work Phone: Patient referralHighland District Hospital Ctr Work Phone: End: 39-77-9589XQ FOOT GENERAL 3V AP/LAT/OBL LEFTXR FOOT GENERAL 3V AP/LAT/OBL LEFT Radiology Routine Primary osteoarthritis of left foot 1 Occurrences starting 09/22/[address] [place] [address] Work Phone: Comment on above:1 Occurrences starting 09/22/2022 until 10/19/2023 End: 01-89-4788ED FOOT GENERAL 3V AP/LAT/OBL LEFTXR FOOT GENERAL 3V AP/LAT/OBL LEFT Radiology Routine Primary osteoarthritis of left foot 1 Occurrences starting 10/18/[address] [place] [address] Work Phone: Comment on above:1 Occurrences starting 10/18/2022 until 11/17/2023 End: 84-98-4974BJ FOOT GENERAL 3V AP/LAT/OBL LEFTXR FOOT GENERAL 3V AP/LAT/OBL LEFT Radiology Routine Primary osteoarthritis of left foot 1 Occurrences starting 11/30/[address] [place] [address] Work Phone: Comment on above:1 Occurrences starting 11/30/[address] [place] [address] Immunizations Immunization DateImmunizationNotesCare ZlkgkzvoLnpobnma47-55-5020EOUXW-59 Sharona Lopes (Pfizer)Heraclio Samson MD Work Phone: [facility]03-23-2021COVID-19 Sharona Lopes (Pfizer)Heraclio Samson MD Work Phone: [facility]03-01-2021COVID-19 Sharona Lopes (Pfizer)Heraclio Samson MD Work Phone: [facility]12-03-2020influenza virus vaccine, unspecified formulationXr Rej Work Phone: [facility] Payers DatePayer CategoryPayerPolicy [id number]-pay2023MedicaidAETNA MEDICARE ADVANTAGE Member Subscriber Plan / Payer (Effective 2022-Present) Name: Elenita Howard Relation to Subscriber: Self Name: Elenita Howard Payer ID: 1 ([facility]) Type: Not on file Address: [address] [place] [address] [id number] 2022MedicareAETNA MEDICARE AETNA MEDICARE PPO [id number] 2021-Present [phone] [address] [place] [address] [id number] 1960Medicare [id number] 2..1.158495.3.579.2. [id number] 2..1.754079.3.57[id number] 2.0.1.963223.3.57[id number] 2.0.1.078474.3.57[id number] 2.0.1.471064.3.57[id number] 2.0.1.479085.3.57[id number] 2.0.1.347518.3.57[id number] 2.0.1.417872.3.57[id number] 2.0.1.098684.3.57[id number] 2.16.840.1.302380.3.57[id number] 2.16.840.1.125046.3.57[id number] 2.16.840.1.159161.3.57[id number] 2.16.840.1.594639.3.57[id number] 2.16.840.1.781702.3.57[id number] 2.16.840.1.787394.3.57[id number] 2.16.840.1.760362.3.579.2.367MvlmhjeDRNTY092UG 726kg340-0658-22z3-2p4m-[id number] 2.16.840.1.1[id number] 2.16.840.1.734898.3.579.2.531 Social History DateTypeDetailFacilityStart: 05-23-2022 End: 42-04-3070Aexxoyh smoking statusNever smoked tobacco (finding)[facility] BellevueTobacco smoking statusNeverGeneral Surgery BellevueStart: 08-18-2022 End: 50-28-5029Nyi Assigned At BirthFemalMagnolia Regional Health Centeral Surgery [place] Tobajim [facility] smoking status NHISTobacco smoking consumption unknownGreen Cross Hospital Work Phone: Start: 22-63-1935Rnl Assigned At BirthNot on file [facility]tart: 08-18-2022 End: 02-54-5140Rgwvjow smoking status NHISEx-smokerGreen Cross Hospital Work Phone: End: 04-06-6605Gwtiyjb of tobacco useCurrent smokerGreen Cross Hospital Work Phone: End: 33-56-4208Wjeodea of tobacco useCigarette SmokerGreen Cross Hospital Work Phone: Start: 08-18-2022 End: 86-04-3226Liofruj use and exposureSmokeless tobacco non-userGreen Cross Hospital Work Phone: Start: 84-67-4648Dtqiktm intakeCurrent drinker of alcohol (finding)[facility]tart: 08-18-2022 End: 21-52-5429Jjlargb intakeOhioHealth Berger Hospitaltart: 48-69-5088Qtsppbt Comment Social smokerOhioHealth Berger Hospitaltart: 08-30-2023 End: 56-44-5755Qsvwqdslr beverage intakeNot AskedNOMS HealthcareStart: 15-42-9363Kriclxs Commentcaffeine 1-2 cups/day; coffee/teaNOMS HealthcareStart: 11-01-2018 End: 37-33-0420YitEwrkos (finding)[facility] Centertart: 23-52-9781Pix Assigned At [facility] [place] Medical Equipment Procedure CodeEquipment CodeEquipment Original TextEquipment IdentifierDates Chips Bone Graft Cancellous Bone 4-10 Mm Container 15 Cc Volume - [id number]: [id number] Comp Impl Kit [id number] 2 [id number]: 09-05-2022 Goals DatePatient GoalDesired Activity/State Functional Status X[id number] statusPatient at Baseline [facility] Work Phone: [phone] StatusN/AGeneral Surgery [place] Mental Status Mxtv[id number] functionCognitive Status [facility] Phone: Clinical Notes 05-31-2022 to 06-09-2025 Note Date & [id number] NoteGeneral Surgery Office/Clinic Note Chief Complaint consultation for GERD, RUQ pain and nausea HPI Staff 69 year old female presents on consultation from Dr. Samson for GERD and epigastric pain. Reports stated symptoms started approximately in February and have been intermittent but ongoing. Verbalized food intolerance to high fat content foods. Denies nausea or vomiting. Denies rectal pain or bleeding. Was taking Omeprazole for many years. Several months ago, this was changed to Protonix 40mg daily without change in symptoms. RUQ US completed 03/04/25- unremarkable. HIDA completed 04/2025- 29%. Previous EGD completed approximately 15-20 years ago with hiatal hernia noted. Last colonoscopy completed 06/2022 with villous adenoma, recommended repeat in 3 years. History of Present Illness 69 yo female with h/o htn, hyperlipidemia, hypercholesterolemia, migraines, referred for GERD, upper abd pain; patient reports frequent upper abd bloating, worse after eating fatty foods, begins veryshortly after eating; occasional radiation around both sides of abd; no emesis or bowel changes; some improvement with antacids; some regurgitation; patient had normal gallbladder US 02/2025; HIDA scan last month with 29% gallbladder ejection fraction; abdominal operations significant for DIDI with bso; remote EGD over 20 years ago, reportedly showed hiatal hernia; last colonoscopy 3 years ago, with tubular adenomas and small tubulovillous adenoma removed; no change in bms or blood in stools; no asa or NSAID use; no tobacco use; no fmhx of GI malignancy or IBD. Review of Systems PHQ Score Initial Depression Screen Score: 0 SCORE ROS - Provider Constitutional: no fever, no sweats, no weight loss. Eyes: no glasses, no blurred vision, no visual loss. ENMT: no dentures, no hoarseness, no swallowing difficulties, no hearing loss, no ear infection(s),no nose bleeds. Cardiovascular: normal blood pressure, no [...] & Measurements HR: 76(Peripheral) RR: 16 BP: 156/91 HT: 160 cm HT: 63 in WT: 190.038 lb WT: 86.2 kg BMI: 33.67 HEENT: normal conjunctiva, sclera clear, no scleral [...] diastasis recti no, no hepatosplenomegaly; normal bs Musculoskeletal: normal gait, digits and nails without infection, nodes, cyanosis, clubbing. Skin: no rashes, no lesions, no ulcers, no subcutaneous nodules, induration. Psychiatric/Neuro: oriented to time, place, person, judgement normal, affect appropriate for age, insight intact, no focal deficits. Tests: , x-rays reviewed, review of old records completed , Discussed surgical options, risks, and possible complications with patient. Assessment/Plan 1. Chronic GERD (K21.9: Gastro-esophageal reflux disease without esophagitis) plan EGD and colonoscopy for further evaluation, informed consent obtained; symptoms not consistentwith biliary colic/dyskinesia; does not fulfill Ahmet IV criteria; can see falsely low ejection fraction with calcium channel blockers and H2 blockers. 2. Epigastric pain (R10.13: Epigastric pain) see # 1 3. Personal history of adenomatous and serrated colon polyps (Z86.0101: Personal history of adenomatous and serrated colon polyps) see #1 Follow-up No qualifying data available Problem List/Past Medical History Ongoing BMI 33.0-33.9,adult Chronic GERD Epigastric pain Fibrocystic breast disease GERD (gastroesophageal reflux disease) HTN (hypertension) Hyperlipemia Migraines Mood disorder Osteoporosis Personal history of adenomatous and serrated colon polyps Pure hypercholesterolemia Seasonal allergic rhinitis Tubular adenoma of colon Tubulovillous adenoma of colon Historical No qualifying data Procedure/Surgical History Colonoscopy (07/12/2022), Blep (more content not included)...[facility]:Result Comment: Electronically Signed By: KENYETTA CAMPO, Luis Abraham\Date and Time Signed: 06/09/25 11:59 [id number] History of Present illness Narrative* Monet Clark DO - 01/20/2025 10:00 AM EDT Images from the original note were not included. Monet Clark D.O. Obstetrics and Gynecology Patient: Elenita Howard : 1955 (69 y.o.) Exam Date: 01/20/2025 Reason for Visit - Chief Complaint Patient presents with Post-op Visit 12/11/24 TLH/BSO anterior colporrhaphy. Denies vaginal bleeding. Denies bowel/bladder concerns. Denies any pain. Denies intercourse. Visit Vitals BP 140/80 Wt 187 lb BMI 33.13 kg/m Smoking Status Former BSA 1.94 m Allergies Allergen Reactions Amoxicillin-Pot Clavulanate Unknown Bee Venom Hives and Unknown Epinephrine GI intolerance Latex Itching Simvastatin GI intolerance and Unknown Sulfa Antibiotics Unknown History of Present Illness, Associated Treatments and Results - OB History Para Term AB Living 2 2 2 0 0 0 SAB IAB Ectopic Multiple Live Births 0 0 0 0 0 # Outcome Date GA Lbr Jayy/2nd Weight Sex Type Anes PTL Lv 2 Term 1 Term Obstetric Comments Pap smear 05/24/22 wnl w/[facility] Mammogram [facility] Review of Systems - Const: Denies appetite change, fever, chills. Allergy: Denies medication reaction. Ocular: Denies visual acuity change. ENT: Denies hearing change. Endoc: Denies weight loss. Resp: Denies dyspnoea, wheezing. Cardiac: Denies angina, palpitations. GI: Denies nausea, vomiting. Haem: Denies bleeding. : Denies incontinence. MSK: Denies arthralgias, joint oedema. Derm: Denies rash, hair loss. Neuro: Denies ataxia, tremor. Also see HPI for elements of ROS documented therein and for details of positive findings, which shall supersede the foregoing. Medication Documentation Review Audit Reviewed by Madie Lopez MA (Recreation Facilities Supervisor) on 01/20/25 at 1005 Medication Order Taking? Sig Documenting Provider Last Dose Status amLODIPine (Norvasc) 5 MG tablet [id number] No Take by mouth Daily Sharyn Ballard MD Taking Active calcitriol (Rocaltrol) 0.25 MCG capsule [id number] No Take 0.25 mcg by mouth in the morning. Sharyn Ballard MD Taking Active ciclopirox (Loprox) 0.77 % cream [id number] Apply thin layer to affected area on feet once a day, 30 day supply Sharyn Ballard MD Active fexofenadine (Shannan) 180 MG tablet [id number] No Take 180 mg by mouth in the morning. Sharyn Ballard MD Taking Active lisinopril 10 MG tablet [id number] No Take by mouth Daily Sharyn Ballard MD Taking Active Melatonin 1 MG capsule [id number] No Take by mouth Sharyn Ballard MD Taking Active omeprazole (PriLOSEC) [address] capsule [id number] No Take 40 mg by mouth in the morning. Take before meals. Do not crush or chew.. Sharyn Ballard MD Taking Active triamcinolone (Kenalog) 0.1 % cream [id number] Apply to affected area on back, up to twice a day whenflared, do not use one the face, groin, or underarms, 30 day supply Sharyn Ballard MD Active Past Medical History: Diagnosis Date Arthritis Disorder of bone density and structure, unspecified GERD (gastroesophageal reflux disease) Hiatal hernia HTN (hypertension) (CMS/HCC) Osteopenia Prolapsed uterus Seasonal allergies Skin tag Past Surgical History: Procedure Laterality Date BREAST BIOPSY Right 2010 COLONOSCOPY 2010 COLONOSCOPY 2023 COLONOSCOPY W/ POLYPECTOMY 07/12/2022 DILATION AND CURETTAGE OF UTERUS FOOT SURGERY 09/2012 FOOT SURGERY Left 2019 HYSTERECTOMY 12/11/2024 TLH/BSO JAMILCONI 2010 Family History Problem Relation Name Age of Onset Arthritis Mother Heart attack Father Heart disease Father Uterine cancer Sister Cancer Father's Sister Coronary artery disease Paternal Grandfather Physical Exam - General appearance, mentation, extraocular movements, facial strength and movement, hearing, upper and lower extremity strength and tone, sensation to gross testing, coordination, and gait are normalor at baseline unless noted below. General: Alert, cooperative, no distress, appears stated age Head: Normocephalic, without obvious abnormality, atraumatic Eyes: sclera anicteric Ears: no obvious hearing deficit Skin: Warm and dry Heart: Regular rate and rhythm, S1 and S2 normal, no murmur Lungs: Clear to auscultation bilaterally, respirations unlabored Abdomen: Soft, non-tender, no masses, no organomegaly Extremities normal, atraumatic, no cyanosis or edema FEMALE GENITOURINARY: atrophic vaginal mucosa, cervix/uterus/adnexa surgically absent, suture lineshealing well, no granulation tissue noted. Suture dissolved- wiped from suture line Diagnoses and all orders for this visit: Postoperative examination Incisions well-healed, restrictions lifted. Did advise being mindful of lifelong lifting and tryingto limit lifting. ICD-10-CM 1. Postoperative examination Z09 documented in this encounterEllis Fischel Cancer [id number] History of Present illness Narrative* Monet Clark DO - 12/25/2024 1:00 PM EDT Images from the original note were not included. Monet Clark D.O. Obstetrics and Gynecology Patient: Elenita Howard : 1955 (69 y.o.) Exam Date: 12/25/2024 Reason for Visit - Chief Complaint Patient presents with Post-op Visit 12/11/24 TLH/BSO anterior colporrhaphy. Denies vaginal bleeding/spotting. Denies bowel/bladder concerns. Denies any current pain. Denies any incision concerns. Denies intercourse. Visit Vitals BP 132/80 Wt 187 lb BMI 33.13 kg/m Smoking Status Former BSA 1.94 m Allergies Allergen Reactions Amoxicillin-Pot Clavulanate Unknown Bee Venom Hives and Unknown Epinephrine GI intolerance Latex Itching Simvastatin GI intolerance and Unknown Sulfa Antibiotics Unknown History of Present Illness, Associated Treatments and Results - OB History Para Term AB Living 2 2 2 0 0 0 SAB IAB Ectopic Multiple Live Births 0 0 0 0 0 # Outcome Date GA Lbr Jayy/2nd Weight Sex Type Anes PTL Lv 2 Term 1 Term Obstetric Comments Pap smear 05/24/22 wnl w/[facility] Mammogram [place] Review of Systems - Const: Denies appetite change, fever, chills. Allergy: Denies medication reaction. Ocular: Denies visual acuity change. ENT: Denies hearing change. Endoc: Denies weight loss. Resp: Denies dyspnoea, wheezing. Cardiac: Denies angina, palpitations. GI: Denies nausea, vomiting. Haem: Denies bleeding. : Denies incontinence. MSK: Denies arthralgias, joint oedema. Derm: Denies rash, hair loss. Neuro: Denies ataxia, tremor. Also see HPI for elements of ROS documented therein and for details of positive findings, which shall supersede the foregoing. Medication Documentation Review Audit Reviewed by Madie Lopez MA (Recreation Facilities Supervisor) on 12/25/24 at 1301 Medication Order Taking? Sig Documenting Provider Last Dose Status amLODIPine (Norvasc) 5 MG tablet [id number] No Take by mouth Daily Sharyn Ballard MD Taking Active calcitriol (Rocaltrol) 0.25 MCG capsule [id number] No Take 0.25 mcg by mouth in the morning. Sharyn Ballard MD Taking Active ciclopirox (Loprox) 0.77 % cream [id number] Apply thin layer to affected area on feet once a day, 30 day supply Sharyn Ballard MD Active fexofenadine (Shannan) 180 MG tablet [id number] No Take 180 mg by mouth in the morning. Sharyn Ballard MD Taking Active lisinopril 10 MG tablet [id number] No Take by mouth Daily Sharyn Ballard MD Taking Active Melatonin 1 MG capsule [id number] No Take by mouth Sharyn Ballard MD Taking Active omeprazole (PriLOSEC) [address] capsule [id number] No Take 40 mg by mouth in the morning. Take before meals. Do not crush or chew.. Sharyn Ballard MD Taking Active triamcinolone (Kenalog) 0.1 % cream [id number] Apply to affected area on back, up to twice a day whenflared, do not use one the face, groin, or underarms, 30 day supply Sharyn Ballard MD Active Past Medical History: Diagnosis Date Arthritis Disorder of bone density and structure, unspecified GERD (gastroesophageal reflux disease) Hiatal hernia HTN (hypertension) (CMS/HCC) Osteopenia Prolapsed uterus Seasonal allergies Skin tag Past Surgical History: Procedure Laterality Date BREAST BIOPSY Right 2010 COLONOSCOPY 2010 COLONOSCOPY 2023 COLONOSCOPY W/ POLYPECTOMY 07/12/2022 DILATION AND CURETTAGE OF UTERUS FOOT SURGERY 09/2012 FOOT SURGERY Left 2019 HYSTERECTOMY 12/11/2024 TLH/BSO JOEL 2010 Family History Problem Relation Name Age of Onset Arthritis Mother Heart attack Father Heart disease Father Uterine cancer Sister Cancer Father's Sister Coronary artery disease Paternal Grandfather Physical Exam - General appearance, mentation, extraocular movements, facial strength and movement, hearing, upper and lower extremity strength and tone, sensation to gross testing, coordination, and gait are normalor at baseline unless noted below. General: Alert, cooperative, no distress, appears stated age Head: Normocephalic, without obvious abnormality, atraumatic Eyes: sclera anicteric Ears: no obvious hearing deficit Skin: Warm and dry Heart: Regular rate and rhythm, S1 and S2 normal, no murmur Lungs: Clear to auscultation bilaterally, respirations unlabored Abdomen: Soft, non-tender, no masses, no organomegaly, incisions healing well Extremities normal, atraumatic, no cyanosis or edema Diagnoses and all orders for this visit: Postoperative examination Pathology reviewed with the patient. Operative pictures reviewed with and given to the patient. Thepatient is to maintain pelvic rest until further notice. Activity restrictions and post operative expectations reviewed with the patient. All questions have been answered. She is to contact the office with any heavy vaginal bleeding, severe pelvic pain or fever. The patient is to return in 4 weeks for her PO visit. ICD-10-CM 1. Postoperative examination Z09 documented in this encounterEllis Fischel Cancer [id number] History of Present illness Narrative* Monet Clark DO - 11/06/2024 1:15 PM EDT Images from the original note were not included. Monet Clark D.O. Obstetrics and Gynecology Patient: Elenita Howard : 1955 (69 y.o.) Exam Date: 11/06/2024 Reason for Visit - Chief Complaint Patient presents with Follow-up Pt presents for US follow up/ Pre OP. Denies concerns Visit Vitals BP 126/86 Wt 187 lb BMI 33.13 kg/m Smoking Status Former BSA 1.94 m Allergies Allergen Reactions Amoxicillin-Pot Clavulanate Unknown Bee Venom Hives and Unknown Epinephrine GI intolerance Latex Itching Simvastatin GI intolerance and Unknown Sulfa Antibiotics Unknown History of Present Illness, Associated Treatments and Results - OB History Para Term AB Living 2 2 2 0 0 0 SAB IAB Ectopic Multiple Live Births 0 0 0 0 0 # Outcome Date GA Lbr Jayy/2nd Weight Sex Type Anes PTL Lv 2 Term 1 Term Obstetric Comments Pap smear 05/24/22 wnl w/[facility] Mammogram [facility] Review of Systems - Const: Denies appetite change, fever, chills. Allergy: Denies medication reaction. Ocular: Denies visual acuity change. ENT: Denies hearing change. Endoc: Denies weight loss. Resp: Denies dyspnoea, wheezing. Cardiac: Denies angina, palpitations. GI: Denies nausea, vomiting. Haem: Denies bleeding. : Denies incontinence. MSK: Denies arthralgias, joint oedema. Derm: Denies rash, hair loss. Neuro: Denies ataxia, tremor. Also see HPI for elements of ROS documented therein and for details of positive findings, which shall supersede the foregoing. Medication Documentation Review Audit Reviewed by Madie Lopez MA (Recreation Facilities Supervisor) on 11/06/24 at 1317 Medication Order Taking? Sig Documenting Provider Last Dose Status amLODIPine (Norvasc) 5 MG tablet [id number] No Take by mouth Daily Sharyn Ballard MD Taking Active calcitriol (Rocaltrol) 0.25 MCG capsule [id number] No Take 0.25 mcg by mouth in the morning. Sharyn Ballard MD Taking Active ciclopirox (Loprox) 0.77 % cream [id number] Apply thin layer to affected area on feet once a day, 30 day supply Sharyn Ballard MD Active fexofenadine (Shannan) 180 MG tablet [id number] No Take 180 mg by mouth in the morning. Sharyn Ballard MD Taking Active lisinopril 10 MG tablet [id number] No Take by mouth Daily Sharyn Ballard MD Taking Active Melatonin 1 MG capsule [id number] No Take by mouth Sharyn Ballard MD Taking Active omeprazole (PriLOSEC) [address] capsule [id number] No Take 40 mg by mouth in the morning. Take before meals. Do not crush or chew.. Sharyn Ballard MD Taking Active triamcinolone (Kenalog) 0.1 % cream [id number] Apply to affected area on back, up to twice a day whenflared, do not use one the face, groin, or underarms, 30 day supply Sharyn Ballard MD Active Past Medical History: Diagnosis Date Arthritis Disorder of bone density and structure, unspecified GERD (gastroesophageal reflux disease) Hiatal hernia HTN (hypertension) (CMS/HCC) Osteopenia Prolapsed uterus Seasonal allergies Skin tag Past Surgical History: Procedure Laterality Date BREAST BIOPSY Right 2010 COLONOSCOPY 2010 COLONOSCOPY 2023 COLONOSCOPY W/ POLYPECTOMY 07/12/2022 DILATION AND CURETTAGE OF UTERUS FOOT SURGERY 09/2012 FOOT SURGERY Left 2019 [facility] 2010 Family History Problem Relation Name Age of Onset Arthritis Mother Heart attack Father Heart disease Father Uterine cancer Sister Cancer Father's Sister Coronary artery disease Paternal Grandfather Physical Exam - General appearance, mentation, extraocular movements, facial strength and movement, hearing, upper and lower extremity strength and tone, sensation to gross testing, coordination, and gait are normalor at baseline unless noted below. General: Alert, cooperative, no distress, appears stated age Head: Normocephalic, without obvious abnormality, atraumatic Eyes: sclera anicteric Ears: no obvious hearing deficit Skin: Warm and dry Heart: Regular rate and rhythm, S1 and S2 normal, no murmur Lungs: Clear to auscultation bilaterally, respirations unlabored Extremities normal, atraumatic, no cyanosis or edema Neurologic: alert and oriented Psych: cooperative with exam Diagnoses and all orders for this visit: Uterine prolapse Cystocele, midline Reviewed pelvic US at length with patient. Uterus small with 3 small fibroids- calcified. Ovaries not visible. The patient desires treatment with hysterectomy. Will plan for TLH/BSO, anterior repair.The surgical procedure was reviewed at length with the patient. The risks and alternatives of surgery were reviewed. The patient was advised of the potential complications of surgery- including, but not limited to- bleeding, infection, scarring, injury to the bowel/bladder/ureters/major blood vessels - further surgery to repair those injuries- stroke, heart attack, blood clots to the legs/lungs or . Postoperative expectations and activity restrictions reviewed with the patient. Time was given for the patient to ask questions and all questions have been answered. The surgical consent was signed. ICD-10-CM 1. Uterine prolapse N81.4 2. Cystocele, midline N81.11 documented in this encounterEllis Fischel Cancer [id number] History of Present illness Narrative* Monet Clark DO - 10/23/2024 11:15 AM EDT Images from the original note were not included. Monet Clark D.O. Obstetrics and Gynecology Patient: Elenita Howard : 1955 (69 y.o.) Yearly Wellness Exam Date: 10/23/2024 Reason for Visit - Chief Complaint Patient presents with Gynecologic Exam Pt would like to discuss prolapse. Denies bowel/bladder/breast concerns Pt states up to date with mammogram at [place]. Denies vaginal bleeding/spotting. Visit Vitals BP 120/74 Wt 187 lb BMI 33.13 kg/m Smoking Status Former BSA 1.94 m Allergies Allergen Reactions Amoxicillin-Pot Clavulanate Unknown Bee Venom Hives and Unknown Epinephrine GI intolerance Latex Itching Simvastatin GI intolerance and Unknown Sulfa Antibiotics Unknown History of Present Illness, Associated Treatments and Results - OB History Para Term AB Living 2 2 2 0 0 0 SAB IAB Ectopic Multiple Live Births 0 0 0 0 0 # Outcome Date GA Lbr Jayy/2nd Weight Sex Type Anes PTL Lv 2 Term 1 Term Obstetric Comments Pap smear 05/24/22 wnl w/[facility] Mammogram [place] Review of Systems - General: Chills denies. Allergy/Immunology: Rash Denies. ENT: Denies Difficulty swallowing. Endocrine: Denies Cold intolerance denies. Heat intolerance denied. Respiratory: Denies Chest pain denies. Shortness of breath denies. Breast: Denies Bloody nipple discharge denies. Breast lump denies. Cardiovascular: Denies Chest pain. Gastrointestinal: Abdominal pain denies. Blood in stool denies. Hematology: Easy bruising denies. Prolonged bleeding denies. Women Only: Breast lump denies. Vaginal bleeding between periods is denied. Vaginal discharge/itching denied. Genitourinary: Blood in urine denies. Painful urination denies. Incontinence denies. Skin: Hair changes. Neurologic: Seizures denied. Stroke denies. Psychiatric: Anxiety denies. Depressed mood denies. Medication Documentation Review Audit Reviewed by Madie Lopez MA (Recreation Facilities Supervisor) on 10/23/24 at 1121 Medication Order Taking? Sig Documenting Provider Last Dose Status Discontinued 10/23/24 1120 amLODIPine (Norvasc) 5 MG tablet [id number] No Take by mouth Daily Sharyn Ballard MD Taking Active calcitriol (Rocaltrol) 0.25 MCG capsule [id number] No Take 0.25 mcg by mouth in the morning. Sharyn Ballard MD Taking Active ciclopirox (Loprox) 0.77 % cream [id number] Apply thin layer to affected area on feet once a day, 30 day supply Sharyn Ballard MD Active fexofenadine (Shannan) 180 MG tablet [id number] No Take 180 mg by mouth in the morning. Sharyn Ballard MD Taking Active lisinopril 10 MG tablet [id number] No Take by mouth Daily Sharyn Ballard MD Taking Active Melatonin 1 MG capsule [id number] No Take by mouth Sharyn Ballard MD Taking Active omeprazole (PriLOSEC) [address] capsule [id number] No Take 40 mg by mouth in the morning. Take before meals. Do not crush or chew.. Sharyn Ballard MD Taking Active triamcinolone (Kenalog) 0.1 % cream [id number] Apply to affected area on back, up to twice a day whenflared, do not use one the face, groin, or underarms, 30 day supply Sharyn Ballard MD Active Past Medical History: Diagnosis Date Arthritis Disorder of bone density and structure, unspecified GERD (gastroesophageal reflux disease) Hiatal hernia HTN (hypertension) (CMS/HCC) Osteopenia Prolapsed uterus Seasonal allergies Skin tag Past Surgical History: Procedure Laterality Date BREAST BIOPSY Right 2010 COLONOSCOPY 2010 COLONOSCOPY 2023 COLONOSCOPY W/ POLYPECTOMY 07/12/2022 DILATION AND CURETTAGE OF UTERUS FOOT SURGERY 09/2012 FOOT SURGERY Left 2019 [facility] 2010 Family History Problem Relation Name Age of Onset Arthritis Mother Heart attack Father Heart disease Father Uterine cancer Sister Cancer Father's Sister Coronary artery disease Paternal Grandfather Physical Exam - General appearance, mentation, extraocular movements, facial strength and movement, hearing, upper and lower extremity strength and tone, sensation to gross testing, coordination, and gait are normalor at baseline unless noted below. General Examination: GENERAL APPEARANCE: alert oriented well developed, well nourished. HEAD: normocephalic atraumatic. EYES: sclera anicteric. EARS: no obvious hearing deficit. SKIN: warm and dry. HEART: regular rate and rhythm. LUNGS: clear to auscultation bilaterally. CHEST: axillary nodes grossly normal. BREASTS: no masses palpable bilaterally, normal nipples bilaterally. ABDOMEN: soft, nontender, nondistended, no masses palpable. BACK: no costovertebral angle tenderness, no obvious scoliosis/kyphosis. FEMALE GENITOURINARY: atrophic vaginal mucosa, cervix absent of lesions, nontender, uterus AV, mobile, ovaries nonpalpable and nontender, cystocele grade 3, uterine prolapse grade 3 EXTREMITIES: no edema. NEUROLOGIC: alert and oriented. PSYCH: cooperative with exam. Diagnoses and all orders for this visit: Encounter for gynecological examination without abnormal finding Screening for malignant neoplasm of cervix - IGP, RFX APTIMA HPV ASCU Encounter for screening mammogram for breast cancer - Bilateral screening mammogram with tomosynthesis; Future Screening for osteoporosis - DEXA bone density Postmenopausal status, age-related - DEXA bone density Uterine prolapse Cystocele, midline Pap, pelvic and breast exam completed. Findings of today's exam discussed with the patient. Continue MSBE. Ca/Vit D recommendations reviewed with the patient. The patient is to contact the office with any changes to her gynecological condition. The patient is to return in 1 year or as needed Discussed prolapse at length. Patient has tried pessaries in the past and did not work well for her. Very uncomfortable. Patient is considering surgical option. Will schedule pelvic US and have patient return different day for preop visit. Did discuss TLH, BSO, anterior repair. ICD-10-CM 1. Encounter for gynecological examination without abnormal finding Z01.419 2. Screening for malignant neoplasm of cervix Z12.4 IGP, RFX APTIMA HPV ASCU 3. Encounter for screening mammogram for breast cancer Z12.31 Bilateral screening mammogram with tomosynthesis 4. Screening for osteoporosis Z13.820 DEXA bone density 5. Postmenopausal status, age-related Z78.0 DEXA bone density 6. Uterine prolapse N81.4 7. Cystocele, midline N81.11 documented in this encounterEllis Fischel Cancer [id number] History of Present illness Narrative* Sharyn Ballard MD - 09/01/2024 1:00 PM EST Skin Check Location: Patient requests a full [...] Examined Right arm Examined Patient wearing nail equatorial guinean, Denies dark streaks under finger nails Left [...] difficulty complying with laquer. Instructed on use ofprescribed medication. ciclopirox (Loprox) 0.77 % cream - Right Hallux Toe Nail Plate Apply thin layer to affected area on feet once a day, 30 day supply 4. Seborrheic keratosis, inflamed (10) Left Inframammary Fold, Right Breast, Right Flank (3), Right Lower Back (5) [place] and brown stuck on verrucous scaly papule [...] office if abnormal redness or tenderness develops atthe treatment site. Cryotherapy today, see procedure note. Diagnosis: Inflamed seborrheic keratosis Indication: Inflamed Consent: Verbal consent was obtained and risks were discussed, including, but not limited to risks of scarring, darker or electrical solderer pigmentary changes, recurrence, incomplete removal and infection. [...] Next Visit: 1 year documented in this encounterEllis Fischel Cancer [id number] NoteHNO ID: [id number] Author: RT Carina(R) Service: Radiology Author Type: [...] BY: RT Carina(R) January 10, 2023 11:13 [facility]05-31-2023 NoteHNO ID: [id number] Author: Kaylie Charles MD Service: ? Author [...] records. This note was partially generated using Sportistic voice recognition system, and there may be some incorrect words, spellings, and punctuation that were not noted in checking the note before saving. Kaylie Charles M.D.[facility]05-31-2023 History of Present illness Narrative* Roxanna Herring RT(R) - 01/10/2023 11:15 AM EDT Radiology Service Progress Note PATIENT NAME: Elenita Howard DATE OF SERVICE: January 10, 2023 TIME: 11:13 AM PATIENT IDENTITY VERIFICATION COMPLETED USING TWO (2) IDENTIFIERS: Name and Date of confirmedby patient verbally. FALL SCREENING: Has the patient had 2 falls in the last year or 1 fall with injury or currently using an Ambulatory Assistive Device (Walker, Cane, Wheelchair, Crutches, etc.)? Yes, Patient High Riskfor Falls What interventions were put in place to prevent falls during this visit? Instructed Patient to Callfor Help if Needed, Offered Assistance with Transfers/Clothing, Instructed Patient to Remain Seated(Not on Exam Table) Until Exam, and Increased Observations by Caregivers PATIENT GENDER DATA: Female. status: : No status: NO. PATIENT RELEVANT IMPLANT DATA REVIEWED: Not Applicable RADIOLOGY DEPARTMENT: General X-ray: Exam(s) Completed: Lower Extremity X- Ray(s): Foot, Left PERIPHERAL IV DATA: Not applicable SIGNED BY: RT Carina(R) January 10, 2023 11:13 AM documented in this encounterGreen Cross Hospital05-31-2023 History of Present illness Narrative* Kaylie Charles MD - 01/10/2023 11:08 AM EDT Elenita Howard returns today to follow up osteoarthritis of left foot. She states that she is havinghaving any pain today. She states that she is having some rubbing of her heel in the boot. She is walking with cane. She states she believes she is doing better since her last visit. Surgery: left triple arthrodesis, proximal tibia bone graft harvest, large, 30 cc, hardware removalcalcaneus, surgeon monitored fluoroscopy on 09/05/22 Do you [...] records. This note was partially generated using Sportistic voice recognition system, and there may be some incorrect words, spellings, and punctuation that were not noted in checking the note before saving. Kaylie Charles M.D. documented in this encounterGreen Cross Hospital04-20-2023 NoteHNO ID: [id number] Author: Antonieta Pa Cast Service: ? Author Type: ? Type: Progress Notes Filed: 11/30/2022 7:18 AM Note Text: PT ASSESSMENT - CASTING ROOM Elenita presents for cast removal. Applied pneumatic aircast walker to Left leg non-weight bearing Patient has been instructed in Care of boot.. Antonieta Pa Cast Beeper: [id number] Beachwood Medical Center04-19-2023 NoteHNO ID: [id number] Author: Kaylie Charles MD Service: ? Author [...] solid. Follow-up in 4 weeks with x-rays [facility] NoteHNO ID: [id number] Author: Roxanna Herring, RT(R) Service: Radiology Author Type: Technologist Type: [...] BY: RT Carina(R) November 29, 2022 1:11 [facility]04-19-2023 History of Present illness Narrative* Kaylie Charles MD - 11/29/2022 1:02 PM EDT POD 12 weeks Surgery: left triple arthrodesis, proximal tibia bone graft harvest, large, 30 cc, hardware removalcalcaneus, surgeon monitored fluoroscopy on 09/05/22 Dressings: short [...] x-rays Kaylie Charles MD documented in this encounterGreen Cross Hospital04-19-2023 History of Present illness Narrative* Roxanna Herring, (R) - 11/29/2022 12:45 PM EDT Radiology Service Progress Note PATIENT NAME: Elenita Howard DATE OF SERVICE: November 29, 2022 TIME: 1:11 PM PATIENT IDENTITY VERIFICATION COMPLETED USING TWO (2) IDENTIFIERS: Name and Date of confirmedby patient verbally. FALL SCREENING: Has the patient had 2 falls in the last year or 1 fall with injury or currently using an Ambulatory Assistive Device (Walker, Cane, Wheelchair, Crutches, etc.)? Yes, Patient High Riskfor Falls What interventions were put in place to prevent falls during this visit? Instructed Patient to Callfor Help if Needed, Offered Assistance with Transfers/Clothing, and Instructed Patient to Remain Seated (Not on Exam Table) Until Exam PATIENT GENDER DATA: Female. status: : No status: NO. PATIENT RELEVANT IMPLANT DATA REVIEWED: Not Applicable RADIOLOGY DEPARTMENT: General X-ray: Exam(s) Completed: Lower Extremity X- Ray(s): Foot, Left PERIPHERAL IV DATA: Not applicable SIGNED BY: RT Carina(R) November 29, 2022 1:11 PM documented in this encounterGreen Cross Hospital04-03-2023 NoteHNO ID: [id number] Author: Antonieta Pa Cast Service: ? Author Type: ? Type: Progress Notes Filed: 11/13/2022 2:49 PM Note Text: PT ASSESSMENT - CASTING ROOM Elenita presents for cast removal. Applied short cast: to Left leg weight bearing Patient has been instructed in Care of cast.. Antonietabryson Pa Cast Beeper: [id number] Beachwood Medical Center04-03-2023 History of Present illness Narrative* Antonieta Pa Cast - 11/13/2022 2:48 PM EDT PT ASSESSMENT - CASTING ROOM Elenita presents for cast removal. Applied short cast: to Left leg weight bearing Patient has been instructed in Care of cast.. Antonieta Pa Cast Beeper: [id number] documented in this encounterGreen Cross Hospital03-14-2023 Miscellaneous Notes* Telephone Encounter - Mable Gay RN - 10/24/2022 10:32 AM EDT Just here 10/18/22 Had Left leg weight bearing cast applied She's not sure if it's the right size? The cast hangs over the shoe part by over an inch She will try to upload some photos via [email or web address] Maybe this is normal but she was hoping to just have someone look at the pictures and tell her whatthey think Doesn't live close; so she was [...] Pt is asking for a call back [phone] documented in this encounterGreen Cross Hospital03-09-2023 NoteHNO ID: [id number] Author: Antonieta Pa Cast Service: ? Author Type: ? Type: Progress Notes Filed: 10/19/2022 8:01 AM Note Text: PT ASSESSMENT - CASTING ROOM Elenita presents for cast removal. Applied short cast: to Left leg weight bearing Patient has been instructed in Care of cast.. Antonieta Pa Cast Beeper: [id number] Beachwood Medical Center03-08-2023 NoteHNO ID: [id number] Author: Kaylie Charles MD Service: ? Author [...] 6 weeks with xrays out of cast [facility]Mem[facility]03-08-2023 NoteHNO ID: [id number] Author: RT Ella(R) Service: Radiology Author Type: [...] AND RT Ella(R) October 18, 2022 2:18 [facility]03-08-2023 History of Present illness Narrative* Kaylie Charles MD - 10/18/2022 2:46 PM EST POD 6 weeks Surgery: left triple arthrodesis, proximal tibia bone graft harvest, large, 30 cc, Hardware removalcalcaneus, Surgeon monitored fluoroscopy on 10/17/22 Dressings: postop [...] cast Kaylie Charles MD documented in this encounterGreen Cross Hospital03-08-2023 History of Present illness Narrative* Melanie Dotson RT(R) - 10/18/2022 2:00 PM EST Radiology Service Progress Note PATIENT NAME: Elenita Howard DATE OF SERVICE: October 18, 2022 TIME: 2:18 PM PATIENT IDENTITY VERIFICATION COMPLETED USING TWO (2) IDENTIFIERS: Name and Date of confirmedby patient verbally. FALL SCREENING: Has the patient had 2 falls in the last year or 1 fall with injury or currently using an Ambulatory Assistive Device (Walker, Cane, Wheelchair, Crutches, etc.)? Yes, Patient High Riskfor Falls What interventions were put in place to prevent falls during this visit? Instructed Patient to Remain Seated (Not on Exam Table) Until Exam PATIENT GENDER DATA: Female. status: : No status: NO. PATIENT RELEVANT IMPLANT DATA REVIEWED: Not Applicable RADIOLOGY DEPARTMENT: General X-ray: Exam(s) Completed: Lower Extremity X- Ray(s): Foot, Left PERIPHERAL IV DATA: Not applicable SIGNED BY: MOON AURT AND RT Ella(R) October 18, 2022 2:18 PM documented in this encounterGreen Cross Hospital02-08-2023 NoteHNO ID: [id number] Author: Sarah Dasilva LPN Service: ? Author Type: LICENSED NURSE Type: Progress Notes Filed: 09/20/2022 4:08 PM Note Text: PT ASSESSMENT - CASTING ROOM Elenita presents for cast removal. Applied short cast: to Left leg Patient has been instructed in Care of cast.. Sarah Dasilva LPN Beeper: [id number] Beachwood Medical Center02-07-2023 NoteHNO ID: [id number] Author: Kaylie Charles MD Service: ? Author [...] of left foot out of the cast [facility]uezMem[facility]02-07-2023 History of Present illness Narrative* Kaylie Charles MD - 09/19/2022 12:49 PM EST POD #15 Surgery: left triple arthrodesis, proximal tibia bone graft harvest, large, 30 cc, hardware removalcalcaneus, surgeon monitored fluoroscopy on 09/05/22 She is doing very well, swelling has come down, skin healing nicely Dressings: short leg non weight bearing cast removed to check incision and remove sutures, replacedwith same Incision: dry/intact/well-approximated, no redness Sutures: removed today Drain: NA Pin sites: NA Left foot pain: 0/10 Calf assessment: soft, non-tender, no complaints of pain Concerns: none currently Followup and plan: follow up at 6 weeks postop for xrays of left foot out of the cast Kaylie Charles MD documented in this encounterGreen Cross Hospital02-03-2023 Miscellaneous Notes* Telephone Encounter - Yong Valiente MA - 09/15/2022 2:35 PM EST Placed call to patient. Let her know that she can back off the oxt if she feeling okay and wants to that she does not have to take it if she does want to. Also let her know that she can take the aleve but not at the same time she is taking the ketorlac * Telephone Encounter - Shama Benito Pss - 09/15/2022 1:50 PM EST Elenita Lee called today. : 1955 Allergies: [...] not asked Shama Vital documented in this encounterGreen Cross Hospital02-02-2023 NoteHNO ID: [id number] Author: Kyle Pickett Service: ? Author Type: ? Type: Progress Notes Filed: 09/14/2022 8:56 AM Note Text: The appointment was cancelled for this patient. Kyle PickettLakehealth Beachwood Medical Center02-02-2023 History of Present illness Narrative* Kyle Pickett - 09/14/2022 8:56 AM EST The appointment was cancelled for this patient. Kyle Pickett documented in this encounterGreen Cross Hospital01-27-2023 NoteHNO ID: [id number] Author: Sarah Dasilva LPN Service: ? Author Type: LICENSED NURSE Type: Progress Notes Filed: 09/08/2022 11:37 AM Note Text: PT ASSESSMENT - CASTING ROOM Elenita presents for cast removal. Applied short cast: to Left leg Patient has been instructed in Care of cast.. Sarah Dasilva LPN Beeper: [id number] Beachwood Medical Center01-27-2023 History of Present illness Narrative* Sarah Dasilva LPN - 09/08/2022 11:35 AM EST PT ASSESSMENT - CASTING ROOM Elenita presents for cast removal. Applied short cast: to Left leg Patient has been instructed in Care of cast.. Sarah Dasilva LPN Beeper: [id number] documented in this [facility]01-06-2023 History and physical note * Hodan Townsend PA-C - 08/18/2022 2:40 PM EST HISTORY AND PHYSICAL EXAMINATION SERVICE DATE: 08/18/2022 SERVICE TIME: 2:31 PM PRIMARY CARE PHYSICIAN: Heraclio Samson MD, MD REASON FOR VISIT: Elenita Hwoard is a 66 year old female who [...] with primary osteoarthritis of left foot, pes planusof left foot, and acquired valgus deformity of [...] Prior to Admission medications as of 08/18/22 2234 Medication Sig Last Dose Taking INV VITAMIN [...] fevers. Neuro: No history of TIA's, stroke, BUSINESS INTELLIGENCE REPORTING ANALYST tumor, impaired sensorium, hemiplegia, paraplegia or quadraplegia. No neurological symptoms or problems. Respiratory: No history of current cough or dyspnea, or pneumonia in the past 6 weeks. No history of respiratory/pulmonary symptoms or problems. Cardiovascular: +HTN Negative for Recent TN, Angina, CAD, Chest Pain, CHF, DVT/PE GI: [...] or clotting disorder. Pt is not taking anti- coagulation or platelet medications. No history of hematological [...] outside labs sent to PCP, Dr. Heraclio Samson, in [place], [place]. The Following Tests/Procedures Have Been Initiated: Labs not indicated per [facility] protocol, EKG not indicated per [facility] protocol Planned Anesthetic: General Instructions Given to Patient: Instructions located in the after visit summary. Patient given verbal and written preop instructions and voices comprehension and compliance. SIGNATURE: Hodan Townsend PA-C PATIENT NAME: Elenita Howard DATE: August 18, 2022 TIME: 3:48 PM documented in this encounterGreen Cross Hospital01-05-2023 Instructions* Patient Instructions* Hodan Townsend PA-C - 08/17/2022 1:30 PM EST PATIENT PREOPERATIVE INSTRUCTIONS Kaylie Charles MD has scheduled you for your procedure at this surgery center: [facility]: [phone] --[address] [place] [address]. Arrival Time for Surgery: - The Surgery [...] Procedures: - YOU MUST HAVE A RESPONSIBLE DIRECTOR COMMUNITY ORGANIZATION TAKE YOU HOME. A SPORT SHOE SPIKE ASSEMBLER OR SITE SUPERINTENDENT CANNOT BE MADE A RESPONSIBLE DIRECTOR COMMUNITY ORGANIZATION. - We recommend that a responsible person stays with you overnight to take care of you. - You cannot stay in a hotel alone after outpatient surgery. You will not be permitted to have yoursurgery, if you do not have someone to take care of you. If you already have an Advance Directive, please fax a copy to [phone] or email to for it to be added to your chart. If you do not have an Advance Directive, you can find the appropriate form and more information at [email or web address]. We recommend that youcomplete the Advance Directive form found on the website and bring it with you the day of your surgery. It can be witnessed and scanned into your chart that day. Hodan Townsend PA-C documented in this encounterGreen Cross Hospital11-30-2022 NoteOPERATIVE NOTE OPERATION DATE: 07/12/2022 PREOPERATIVE DIAGNOSIS: Personal history of colon polyps. POSTOPERATIVE DIAGNOSIS: Cecal and ascending colon polyps as well as sigmoid diverticulosis. PROCEDURE: Colonoscopy to cecum with cold snare polypectomy x2. SURGEON: Luis Kumari M.D. ANESTHESIA: Monitored anesthesia care. ESTIMATED BLOOD [...] will depend on pathology results. CC: Heraclio Samson M.D.[facility]10-19-2022 NoteHNO ID: [id number] Author: Kaylie Charles MD Service: ? Author [...] X-Rays The patient's pertinent medical history from [facility] has been reviewed. PFOMIS forms have [...] such with the pa (more content not included)...[facility]10-19-2022 NoteHNO ID: [id number] Author: RT Ella(R) Service: Radiology Author Type: [...] BY: RT Ella(R) May 31, 2022 1:41 [facility]10-19-2022 History of Present illness Narrative* Kaylie Charles MD - 05/31/2022 3:07 PM EDT New Patient Referring Physician: self Elenita Howard [...] X-Rays The patient's pertinent medical history from [facility] has been reviewed. PFOMIS forms have [...] to go ahead with surgery talked about atriple arthrodesis with the possibility of medial column correction also. Proximal tibia bone graftharvest. Preoperative vitamin D and physical therapy. Surgical risk benefits outcomes and postoperat urbano course were discussed in great detail. HPI [...] records. This note was partially generated using [employer] voice recognition system, and there may be some incorrect words, spellings, and punctuation that were not noted in checking the note before saving. Kaylie Charles M.D. documented in this encounterGreen Cross Hospital10-19-2022 History of Present illness Narrative* Melanie Dotson, RT(R) - 05/31/2022 1:45 PM EDT Radiology Service Progress Note PATIENT NAME: Elenita Howard DATE OF SERVICE: May 31, 2022 TIME: 1:41 PM PATIENT IDENTITY VERIFICATION COMPLETED USING TWO (2) IDENTIFIERS: Name and Date of confirmedby patient verbally. FALL SCREENING: Has the patient had 2 falls in the last year or 1 fall with injury or currently using an Ambulatory Assistive Device (Walker, Cane, Wheelchair, Crutches, etc.)? No PATIENT GENDER DATA: Female. status: : No status: NO. PATIENT RELEVANT IMPLANT DATA REVIEWED: Not Applicable RADIOLOGY DEPARTMENT: General X-ray: Exam(s) Completed: Lower Extremity X- Ray(s): Foot, Left and Wt. Bearing PERIPHERAL IV DATA: Not applicable SIGNED BY: RT Ella(R) May 31, 2022 1:41 PM documented in this encounterOhio[facility] note No data available for this section General Surgery Eveline Evaluation note* Diagnosis Primary osteoarthritis of left foot- Primary Pes planus of left foot Acquired valgus deformity of left ankle documented in this encounter [facility]* Diagnosis Pre-op evaluation- Primary Preoperative examination, unspecified Hypertension, unspecified type Obesity (BMI 30-39.9) Obesity, unspecified Primary osteoarthritis of left foot Pes planus of left foot Acquired valgus deformity of left ankle documented in this encounter [facility]* Diagnosis Primary osteoarthritis of left foot- Primary Primary osteoarthritis of left foot Pes planus of left foot Acquired valgus deformity of left ankle documented in this encounter [facility]* Diagnosis Primary osteoarthritis of left foot- Primary Primary osteoarthritis of left foot Pes planus of left foot Acquired valgus deformity of left ankle documented in this encounter [facility]* Diagnosis Primary osteoarthritis of left foot- Primary Pes planus of left foot Acquired valgus deformity of left ankle Primary osteoarthritis of left foot- Primary documented in this encounter [facility]* Diagnosis Pain- Primary Generalized pain Primary osteoarthritis of left foot- Primary documented in this encounter [facility]* Diagnosis Left ankle pain, unspecified chronicity- Primary documented in this encounter [facility]* Diagnosis Primary osteoarthritis of left foot- Primary APPOINTMENT CANCELLED [facility] Diagnosis Primary osteoarthritis of left foot- Primary documented [facility]* Diagnosis Primary osteoarthritis of left foot- Primary documented in this encounter [facility]* Diagnosis Primary osteoarthritis of left foot- Primary documented in this encounter [facility]* Diagnosis Primary osteoarthritis of left foot- Primary documented in this encounter [facility]* Diagnosis History of arthrodesis- Primary Arthrodesis status documented in this encounter [facility]* Diagnosis Pain Generalized pain documented in this encounter [facility]* Diagnosis Primary osteoarthritis of left foot documented in this encounter [facility]* Diagnosis Primary osteoarthritis of left foot documented in this encounter [facility]* Diagnosis Melanocytic nevus of trunk- Primary Benign neoplasm of skin of trunk, except scrotum Seborrheic keratosis Onychomycosis Dermatophytosis of nail Seborrheic keratosis, inflamed documented in this encounter [facility]Evaluation [facility]* Diagnosis Encounter for gynecological examination without abnormal finding- Primary Screening for malignant neoplasm of cervix Screening for malignant neoplasm of the cervix Encounter for screening mammogram for breast cancer Screening for osteoporosis Special screening for osteoporosis Postmenopausal status, age-related Uterine prolapse Uterine prolapse without mention of vaginal wall prolapse Cystocele, midline documented in this encounter [facility]* Diagnosis Uterine prolapse Uterine prolapse without mention of vaginal wall prolapse Cystocele, midline documented in this encounter [facility] CenterEvaluation noteNo assessment information availableMercy Health [facility] Work Phone: Evaluation note* Diagnosis Postoperative examination Follow-up examination, following unspecified surgery documented in this encounter [facility] CenterEvaluchrist[facility] note* Diagnosis Postoperative examination Follow-up examination, following unspecified surgery documented in this encounter [facility] Discharge instructions No data available for this section General Surgery [facility] Discharge instructions Additional Instructions DISCHARGE INSTRUCTIONS FOR HYSTERECTOMY (TVH, LAVH, TLH) -During your time at home until your first office appointment we recommend that you assume the same type of activities that you have been doing while in the hospital. You may ride in the car unless otherwise specifically told not to. Unless specifically otherwise stated, generally you may drive the car when you feel strong enough to make emergency manuevers as needed. -You may walk up and down stairs. At first take one step at a time -- one step - stop, one step - stop, one step - stop. -You may do light housework, such as dusting, dishes, and cooking. -From your first office visit until the six week postoperative examination we recommend that you do not do any heavy lifting or straining, that you do not do any vacuuming, mopping, or sweeping. -We advise that you do not lift any heavy grocery bags from the cart to the car or from the car home. -We recommend that you do not do any yard work such as shoveling of snow, raking of leaves, cutting grass or gardening. -We recommend that you do not make beds or lift mattresses to change fitted sheets. -Light bleeding is normal for the first 4 weeks (i.e. changing panty liner 3 - 4 times a day.) Call me or go to the Emergency Room for heavy bleeding (soaking a maxipad every hour for 4 hours.) -Call the office or go to the Emergency Room if unable to reach me for fever, chills, worsening pain, persistent nausea/vomiting. -Call the office or go to the Emergency Room for shortness of breath, pain in your calfs or unusual swelling in your legs. -Showers are allowed until the vaginal drainage stops, then tub baths are generally acceptable unless otherwise specifically denied. -You will be advised at your first office visit when you may resume intercourse. This will be dependent upon the type of surgery performed. -We recommend that you use home remedies such as aspirin, Tylenol, Motrin for pain, Milk of Magnesia for laxative. If these preparations do not take care of your problem we want to be called and notified of your distress. -Please get prescriptions filled upon leaving the hospital and follow directions as outlined. Please note the refill limitations on the prescription. -If you have any specific questions not covered by these instructions please feel free to contact myself or one of the nurses who will answer your questions with my recommendations. -These instructions are intended to be a guideline for your postoperative care and recovery and are by no means intended to be totally complete. FOLLOW UP -Please call the office at ([phone]) to make follow appointment before leaving the hospital. -2 Weeks [facility] Work Phone: Progress note No data available for this section General Surgery [place] Reason for referral (narrative)* Diagnostic Procedure Only (Routine) - ClosedSpecialtyDiagnoses / ProceduresReferred By Contact Referred To ContactXR IMAGING Diagnoses Pain Procedures XR FOOT GENERAL 3V AP/LAT/OBL LEFT RADEX FOOT COMPLETE MINIMUM 3 VIEWS Kaylie Charles DDS [address] [place] [address] Xr Imaging Referral IDStatusReasonStart DateExpiration DateVisits RequestedVisits [id number] Auto-Generated Referral / [facility] for referral (narrative)* Diagnostic Procedure Only (Routine) - Pending ReviewSpecialtyDiagnoses / ProceduresReferred By Contact Referred To ContactXR IMAGING Diagnoses Primary osteoarthritis of left foot Procedures XR FOOT GENERAL 3V AP/LAT/OBL LEFT RADEX FOOT COMPLETE MINIMUM 3 [place] [address] [place] [address] Xr Imaging Referral IDStatusReasonStart DateExpiration DateVisits RequestedVisits [id number] Review Auto-Generated Referral / [facility] for referral (narrative)* Diagnostic Procedure Only (Routine) - Pending ReviewSpecialtyDiagnoses / ProceduresReferred By Contact Referred To ContactXR IMAGING Diagnoses Primary osteoarthritis of left foot Procedures XR FOOT GENERAL 3V AP/LAT/OBL LEFT RADEX FOOT COMPLETE MINIMUM 3 [place] [address] [place] [address] Xr Imaging Referral IDStatusReasonStart DateExpiration DateVisits RequestedVisits [id number] Review Auto-Generated Referral / [facility] for referral (narrative)* Diagnostic Procedure Only (Routine) - Pending ReviewSpecialtyDiagnoses / ProceduresReferred By Contact Referred To ContactXR IMAGING Diagnoses Primary osteoarthritis of left foot Procedures XR FOOT GENERAL 3V AP/LAT/OBL LEFT RADEX FOOT COMPLETE MINIMUM 3 [place] [address] [place] [address] Xr Imaging Referral IDStatusReasonStart DateExpiration DateVisits RequestedVisits [id number] Review Auto-Generated Referral / [facility] for referral (narrative)* Diagnostic Procedure Only (Routine) - ClosedSpecialtyDiagnoses / ProceduresReferred By ContactReferred To ContactXR IMAGING Diagnoses Pain Procedures XR FOOT GENERAL 3V AP/LAT/OBL LEFT RADEX FOOT COMPLETE MINIMUM 3 VIEWS Kaylie Charles, DMD [address] [place] [address] [place] [address] Referral IDStatusReasonStlas vegas DateExpiration DateVisits RequestedVisits [id number] Auto-Generated Referral / [facility] for referral (narrative)* Diagnostic Procedure Only (Routine) - ClosedSpecialtyDiagnoses / ProceduresReferred By ContactReferred To ContactXR IMAGING Diagnoses Primary osteoarthritis of left foot Procedures XR FOOT GENERAL 3V AP/LAT/OBL LEFT RADEX FOOT COMPLETE MINIMUM [address] [place] [address] [place] [address] [place] [address] Referral IDStatusReasonStart DateExpiration DateVisits RequestedVisits [id number] Auto-Generated Referral / [facility] for referral (narrative)* Diagnostic Procedure Only (Routine) - ClosedSpecialtyDiagnoses / ProceduresReferred By ContactReferred To ContactXR IMAGING Diagnoses Primary osteoarthritis of left foot Procedures XR FOOT GENERAL 3V AP/LAT/OBL LEFT RADEX FOOT COMPLETE MINIMUM [address] [place] [address] [place] [address] [place] [address] Referral IDStatusReasonStlas vegas DateExpiration DateVisits RequestedVisits [id number] Auto-Generated Referral / [facility] for referral (narrative)* Diagnostic Procedure Only (Routine) - ClosedSpecialtyDiagnoses / ProceduresReferred By ContactReferred To ContactXR IMAGING Diagnoses Primary osteoarthritis of left foot Procedures XR FOOT GENERAL 3V AP/LAT/OBL LEFT RADEX FOOT COMPLETE MINIMUM 3 [place] [address] [place] [address] [place] [address] Referral IDStatusReasonStlas vegas DateExpiration DateVisits RequestedVisits [id number] Auto-Generated Referral / [facility] Summary Purpose Family History No Family History Records Found Relationship Condition Age at Onset Recorded Date/T paulino father Myocardial infarction Unknown History of heart surgeryUnknownHypertensionUnknownmotherHypertensionUnknown Congestive heart failureUnknownsisterMalignant neoplasm of endometriumUnknown Advance Directives No Advanced Directives Records Found Advance Directive Response Recorded Date/ Time Advance Directives No March 08 5:15pm Reason for Referral SpecialtyDiagnoses / ProceduresReferred By ContactReferred To ContactREHAB AND SP[facility] Diagnoses Primary osteoarthritis of left foot Procedures CONSULT TO PHYSICAL THERAPY PHYSICAL THERAPY EVALUATION HIGH COMPLEX [address] [place] [address] [place] [address] [facility] [address] [place] [address] Referral IDStatusReasonStart DateExpiration DateVisits RequestedVisits [id number] Review Auto-Generated Referral Chief Complaint and Reason for Visit Chief Complaint Admit Date Uterine Prolapse, Cystocele November 26, 2024 1:23pm Chief Complaint Admit Date Uterine Prolapse, Cystocele November 26, 2024 1:23pm Uterine Prolapse, Cystocele December 11 5:35am Additional Source Comments Patient Care team informatio n (unrecognized section and content) Team MemberRelationshipSpecialtyStart DateEnd Date Heraclio Samson MD PCP - GeneralFamily Medicine09/10/15Team MemberRelationshipSpecialtyStart DateEnd Date Heraclio Samson MD PCP - GeneralFamily Medicine09/10/15Team MemberRelationshipSpecialtyStart DateEnd Date Heraclio Samson MD PCP - GeneralFamily Medicine09/10/15Team MemberRelationshipSpecialtyStart DateEnd Date Heraclio Samson MD PCP - GeneralFamily Medicine09/10/15Team MemberRelationshipSpecialtyStart DateEnd Date Heraclio Samson MD PCP - GeneralFamily Medicine09/10/15Team MemberRelationshipSpecialtyStart DateEnd Date Heraclio Samson MD PCP - GeneralFamily Medicine09/10/15Team MemberRelationshipSpecialtyStart DateEnd Date Heraclio Samson MD PCP - GeneralFamily Medicine09/10/15Team MemberRelationshipSpecialtyStart DateEnd Date Heraclio Samson MD PCP - GeneralFamily Medicine09/10/15am MemberRelationshipSpecialtyStart DateEnd Date Heraclio Samson MD PCP - GeneralFamily Medicine09/10/15Team MemberRelationshipSpecialtyStart DateEnd Date Heraclio Samson MD PCP - GeneralFamily Medicine09/10/15 MemberRelationshipSpecialtyStart DateEnd Date Heraclio Samson MD PCP - GeneralFamily Medicine09/10/15Team MemberRelationshipSpecialtyStart DateEnd Date Heraclio Samson MD PCP - GeneralFamily Medicine09/10/15Team MemberRelationshipSpecialtyStart DateEnd Date Heraclio Samson MD PCP - GeneralFamily Medicine09/10/15Team MemberRelationshipSpecialtyStart DateEnd Date Heraclio Samson MD PCP - GeneralFamily Medicine09/10/15Team MemberRelationshipSpecialtyStart DateEnd Date Heraclio Samson MD PCP - GeneralFamily Medicine09/10/15Team MemberRelationshipSpecialtyStart DateEnd Date Heraclio Samson MD PCP - GeneralFamily Medicine09/10/15Team MemberRelationshipSpecialtyStart DateEnd Date Heraclio Samson MD PCP - Generalmily Medicine09/10/15Team MemberRelationshipSpecialtyStart DateEnd Date Heraclio Samson MD PCP - Generalmily Medicine09/10/15Team MemberRelationshipSpecialtyStart DateEnd Date Heraclio Samson MD [facility] - [facility]09/10/15Team MemberRelationshipSpecialtyStart DateEnd Date Heraclio Samson MD [facility] - [facility]09/10/15Team MemberRelationshipSpecialtyStart DateEnd Date Unallocated, Noms MD Santino [address] [place] [address] PCP - [facility] Medicine10/30/24Team MemberRelationshipSpecialtyStart DateEnd Date Unallocated, Jordy De MD [address] [place] [id number] PCP - [facility] Medicine10/30/24Team MemberRelationshipSpecialtyStart DateEnd Date Unallocated, Noms MD Santino [address] [place] [id number] PCP - [facility]10/30/24 Team Status: Active Member Role Status Dates Heraclio Samson MD Primary Care Provider Active Team Status: Inactive Member Role Status Dates Monet Clark DO Attending Provider Active S tart: November 26, 2024 End: November 26, 2024Kirby [facility] Care ProviderActiveStart: November 26, 2024 End: November 26, 2024 Team Status: Inactive Member Role Status Dates Monet Clark DO Attending Provider Active S tart: December 11, 2024 End: December 11, 2024Heraclio Samson MDPriflowers hospitalk[facility]ber[facility] Care ProviderActiveStart: December 11, 2024 End: December 11, 2024Team MemberRelationshipSpecialtyStart DateEnd Date Unallocated, Noms Provider, [address] [place] [address] PCP - GeneralFamily Medicine10/30/24 Source Comments (unrecognize d section and content) In the event this informatio n is protected by the Federal Confidentiality of Alcohol and Drug Abuse Patient Records regulations: The Federal rules restrict any use of the information to criminally investigate or prosecute any alcohol or drug abuse patient.[facility] the event this information is protected by the Federal Confidentiality of Alcohol and Drug Abuse Patient Records regulations: The Federal rules restrict any use of the information to criminally investigate or prosecute any alcohol or drug abuse patient.[facility] HospitalIn the event this information is protected by the Federal Confidentiality of Alcohol and Drug Abuse Patient Records regulations: The Federal rules restrict any use of the information to criminally investigate or prosecute any alcohol or drug abuse patient.[facility] HospitalIn the event this information is protected by the Federal Confidentiality of Alcohol and Drug Abuse Patient Records regulations: The Federal rules restrict any use of the information to criminally investigate or prosecute any alcohol or drug abuse patient.[facility] HospitalIn the event this information is protected by the Federal Confidentiality of Alcohol and Drug Abuse Patient Records regulations: The Federal rules restrict any use of the information to criminally investigate or prosecute any alcohol or drug abuse patient.[facility] HospitalIn the event this information is protected by the Federal Confidentiality of Alcohol and Drug Abuse Patient Records regulations: The Federal rules restrict any use of the information to criminally investigate or prosecute any alcohol or drug abuse patient.[facility] HospitalIn the event this information is protected by the Federal Confidentiality of Alcohol and Drug Abuse Patient Records regulations: The Federal rules restrict any use of the information to criminally investigate or prosecute any alcohol or drug abuse patient.[facility] HospitalIn the event this information is protected by the Federal Confidentiality of Alcohol and Drug Abuse Patient Records regulations: The Federal rules restrict any use of the information to criminally investigate or prosecute any alcohol or drug abuse patient.[facility] HospitalIn the event this information is protected by the Federal Confidentiality of Alcohol and Drug Abuse Patient Records regulations: The Federal rules restrict any use of the information to criminally investigate or prosecute any alcohol or drug abuse patient.[facility] HospitalIn the event this information is protected by the Federal Confidentiality of Alcohol and Drug Abuse Patient Records regulations: The Federal rules restrict any use of the information to criminally investigate or prosecute any alcohol or drug abuse patient.[facility] HospitalIn the event this information is protected by the Federal Confidentiality of Alcohol and Drug Abuse Patient Records regulations: The Federal rules restrict any use of the information to criminally investigate or prosecute any alcohol or drug abuse patient.[facility] HospitalIn the event this information is protected by the Federal Confidentiality of Alcohol and Drug Abuse Patient Records regulations: The Federal rules restrict any use of the information to criminally investigate or prosecute any alcohol or drug abuse patient.[facility] HospitalIn the event this information is protected by the Federal Confidentiality of Alcohol and Drug Abuse Patient Records regulations: The Federal rules restrict any use of the information to criminally investigate or prosecute any alcohol or drug abuse patient.[facility] HospitalIn the event this information is protected by the Federal Confidentiality of Alcohol and Drug Abuse Patient Records regulations: The Federal rules restrict any use of the information to criminally investigate or prosecute any alcohol or drug abuse patient.[facility] HospitalIn the event this information is protected by the Federal Confidentiality of Alcohol and Drug Abuse Patient Records regulations: The Federal rules restrict any use of the information to criminally investigate or prosecute any alcohol or drug abuse patient.[facility] HospitalIn the event this information is protected by the Federal Confidentiality of Alcohol and Drug Abuse Patient Records regulations: The Federal rules restrict any use of the information to criminally investigate or prosecute any alcohol or drug abuse patient.[facility] HospitalIn the event this information is protected by the Federal Confidentiality of Alcohol and Drug Abuse Patient Records regulations: The Federal rules restrict any use of the information to criminally investigate or prosecute any alcohol or drug abuse patient.[facility] HospitalIn the event this information is protected by the Federal Confidentiality of Alcohol and Drug Abuse Patient Records regulations: The Federal rules restrict any use of the information to criminally investigate or prosecute any alcohol or drug abuse patient.[facility] HospitalIn the event this information is protected by the Federal Confidentiality of Alcohol and Drug Abuse Patient Records regulations: The Federal rules restrict any use of the information to criminally investigate or prosecute any alcohol or drug abuse patient.[facility] HospitalIn the event this information is protected by the Federal Confidentiality of Alcohol and Drug Abuse Patient Records regulations: The Federal rules restrict any use of the information to criminally investigate or prosecute any alcohol or drug abuse patient.[facility] HospitalIn the event this information is protected by the Federal Confidentiality of Alcohol and Drug Abuse Patient Records regulations: The Federal rules restrict any use of the information to criminally investigate or prosecute any alcohol or drug abuse patient.[facility] Reason for Visit (unrecogniz ed section and content) ReasonCommentsRadiology XRSpecialtyDiagnoses / ProceduresReferred By Contact Referred To ContactXR IMAGING Diagnoses Primary osteoarthritis of left foot Procedures XR FOOT GENERAL 3V AP/LAT/OBL LEFT RADEX FOOT COMPLETE MINIMUM [address] [place] [address] [place] [address] [place] [address] Referral IDStatusReasonStart DateExpiration DateVisits RequestedVisits [id number] Auto-Generated Referral [id number] DateCommentsRefill Request 08/30/2022ReasonOnset DateCommentsPost OpWound CheckAppointment Cancelled 09/14/2022ReasonCommentsPatient UpdateReasonCommentsPost OpWound CheckSuture RemovalReasonCommentscast issueReasonCommentsPost OpReasonCommentsFollow Up ReasonCommentsRadio Gen RMPSpecialtyDiagnoses / ProceduresReferred By Contact Referred To ContactXR IMAGING Diagnoses Pain Procedures XR FOOT GENERAL 3V AP/LAT/OBL LEFT RADEX FOOT COMPLETE MINIMUM 3 VIEWS Kaylie Charles, DARLIN [address] [place] [address] [place] [address] Referral IDStatusReasonStart DateExpiration DateVisits RequestedVisits [id number] Auto-Generated Referral /[id number] IDStatusReasonStart DateExpiration DateVisits RequestedVisits [id number] Auto-Generated Referral /[id number] IDStatusReasonStart DateExpiration DateVisits RequestedVisits [id number] Auto-Generated Referral /[id number] CheckReasonCommentsGynecologic ExamPt would like to discuss prolapse. Denies bowel/bladder/breast concerns Pt states up to date with mammogram at [place]. Denies vaginal bleeding/spotting.ReasonComments Follow-upPt presents for US follow up/ Pre OP. Denies concernsReasonComments Post-op Visit12/11/24 TLH/BSO anterior colporrhaphy. Denies vaginal bleeding/spotting. Denies bowel/bladder concerns. Denies any current pain. Denies any incision concerns. Denies intercourse.ReasonCommentsPost-op Visit 12/11/24 TLH/BSO anterior colporrhaphy. Denies vaginal bleeding. Denies bowel/bladder concerns. Denies any pain. Denies intercourse. INFORMATION SOURCE (unrecogn ized section and content) DATE CREATED AUTHOR 08/22/2022 [facility] DATE CREATED AUTHOR AUTHOR'S ORGANIZ ATION 10/14/2022 [facility] DATE CREATED AUTHOR AUTHOR'S ORGANIZ ATION 01/19/2023 [facility] DATE CREATED AUTHOR AUTHOR'S ORGANIZ ATION 12/22/2024 [facility] DATE CREATED AUTHOR AUTHOR'S ORGANIZ ATION 01/21/2025 [facility] DATE CREATED AUTHOR AUTHOR'S ORGANIZ ATION 06/12/2025 [facility] Goals (unrecognized section and content) Goals may be documented in a n alternate section FOR RECORDS PERTAINING TO PATIENTS WHO ARE [...] BE BASED ON THE PRIMARY CLINICAL RECORDS. [employer] provides no warranty or guarantee of the accuracy or completeness of information in this document.
== END 2025-07-13 13:38 | disposition home or self-care (01) ==
LOC: PST 13:38
PROVIDERS: PCP Family Medicine; Visit Provider Surgery
DX: Z01.818 Encounter for other preprocedural examination (principal); K21.9 Gastro-esophageal reflux disease without esophagitis; R10.13 Epigastric pain; Z86.0100 Personal history of colon polyps, unspecified

== ENCOUNTER 2025-07-15 06:26 | Day surgery (SDC) | payer MEDICARE, SELFPAY ==
--- NOTE | 2025-07-15 | OP_ITS ---
OPERATION DATE: 07/15/2025 PREOPERATIVE DIAGNOSIS: Epigastric pain, gastroesophageal reflux disease, personal history of tubular adenomatous colon polyps. POSTOPERATIVE DIAGNOSIS: A 4 cm sliding type hiatal hernia, mild antral gastritis, gastric body polyp, 4 mm ascending colon polyp and sigmoid diverticulosis. PROCEDURE: EGD with antral biopsy and biopsy of gastric body polyp, and colonoscopy to cecum with cold snare polypectomy x1. SURGEON: Allen Padilla M.D. ANESTHESIA: Monitored anesthesia care. ESTIMATED BLOOD LOSS: Less than 2 mL. INDICATIONS AND CONSENT: Patient is a 69-year-old female with history of worsening gastroesophageal reflux disease, intermittent epigastric abdominal pain, as well as a personal history of adenomatous colon polyps, with the last colonoscopy in 2021. She did have a tubulovillous adenoma removed at that time as well. Indications, risks, benefits, alternatives of proceeding with EGD and colonoscopy were explained extensively to the patient, including the risks of bleeding, aspiration, esophageal/gastric/duodenal or colonic perforation or anesthetic complications. All of her questions were answered. Informed consent was obtained. PROCEDURE: Patient brought to the operating room, placed in the left lateral decubitus position. Monitored anesthesia care was provided. Bite block was placed in the patient?s mouth. Scope was inserted into the oropharynx. Under direct visualization, it was advanced into the esophagus, past the cricopharyngeus, down to the stomach. The stomach was insufflated with air. The pylorus was traversed down to the descending portion of the duodenum. There was no evidence of duodenitis or ulceration. There was no scarring within the pyloric channel. Scope was pulled back into the stomach and retroflexed. There was noted to be a 4 cm sliding type hiatal hernia. Within the antrum, there was some mild linear gastritis, particularly in the greater curvature. Biopsies were obtained with cold pediatric biopsy forceps with good hemostasis. Within the body of the stomach, there was noted to be a 4 mm sessile polyp. This was biopsied with cold biopsy forceps with good hemostasis. The GE junction was noted at 39 cm, with no distal esophagitis or Garcia?s changes. The remainder of the esophagus was unremarkable. The scope was then withdrawn. Patient was then positioned for colonoscopy. Rectal exam was performed, which showed no masses or blood. The scope was then inserted into the anal canal. Under direct visualization, it was advanced. It was advanced to the cecum where cecal markings were clearly identified. Upon withdrawal of the scope, mucosal surfaces were carefully examined. Within the ascending colon, there was noted to be a 4 mm sessile polyp that was irregular. This was removed with cold biopsy forceps with good hemostasis. There was moderate sigmoid diverticulosis, a good prep. No other mass lesions or polyps were noted. The scope was retroflexed in the anal canal. There was no significant hemorrhoidal disease. There were some external anal skin tags. The scope was then withdrawn. The patient tolerated procedure well, was sent to recovery room in good condition. follow up surveillance colonoscopy in 3-5 years, depending on pathology results. CC: Flavio Gomez M.D. JENNIFER
--- OUTSIDE RECORDS SUMMARY | 2025-07-15 06:30 | XMS_ITS | Clinical Summary ---
Author Organization [facility] Address [address] [place] [address] Care Team Providers Care Financial Aid Officer Name Role Phone Flavio Gomez MD Primary Care Provider [phone] Allergies Active AllergyReactionsCriticalityNoted DateCommentsBee LztcsHyrjz21/19/2022 QfsqvTotjums82/12/2014SimvastatinGI Upset08/13/2014Sulfa (Sulfonamide Antibiotics)Rash09/24/2013 Medications MedicationSigDispense QuantityRefillsLast FilledStart DateEnd DateStatus amLODIPine (NORVASC) 5 mg tablet 08/15/2021ctive RESTASIS 0.05 % ophthalmic emulsion 08/26/2021ctive omeprazole (PRILOSEC) 40 mg capsule 07/14/2021ctive INV VITAMIN D3 5000 UNITS CAPSULE ([facility] [...] daily.10/31/2022ctive Active Problems ProblemNoted DateDiagnosed DateHistory of ppspnpwtxek44/31/2023Obesity, Class I, BMI 30-34.9009/04/2022Obesity (BMI 30-39.9)08/18/20224496Dffxparbgwfp56/05/2023 Primary osteoarthritis of left foot05/31/2022es planus of left foot05/31/2022 Acquired valgus deformity of left ankle05/31/2022 Family History Medical HistoryRelationCommentsHeart FailureFatherdied at age 53Heart Failure Motherdied at age 93CancerSisterdied at age 42RelationStatusCommentsFather DeceasedMotherDeceasedSisterDeceased Social History Tobacco UseTypesPacks/DayYears UsedDateSmoking Tobacco: BibfmaAiqvkuwhra8222 - 1974Smokeless Tobacco: Never Tobacco Cessation:Counseling Given: Not Answered Comments:Social smoker Alcohol UseStandard Drinks/WeekCommentsYes4 (1 standard drink = 0.6 oz pure alcohol)Area Deprivation IndexAnswerDate RecordedNational Score (1-100), lower number is lower qwxn082701/10/2023State Score (1-10), lower number is lower risk4 3Data from: https://www.neighborhoodatlas.medicine.[facility].edu/. Last address used for [address] [facility]3CommentsNoSex and Gender InformationValueDate RecordedSex Assigned at BirthNot on fileLegal Sex Knlodf2209/10/2015 1:49 PM ESTGender IdentityNot on fileSexual OrientationNot on file Last Filed Vital Signs Vital SignReadingTime TakenCommentsBlood Ycqrargi246/75009/05/2022 4:00 PM EST Ubynb611309/05/2022 4:00 PM ZLFFzszfemjkll87.6 ??C (97.9 ??F)09/05/2022 3:16 PM ESTRespiratory Jdzi792809/05/2022 4:00 PM ESTOxygen Vhsowhnzwa70%09/05/2022 4:00 PM ESTInhaled Oxygen Concentration--Iriigw14.8 kg (187 lb)08/18/2022 2:35 PM EST Nnpvij552.5 cm (5' 2 )08/18/2022 2:35 PM ESTBody Mass Index34. 2:35 PM EST Plan of Treatment Health MaintenanceDue DateLast DoneCommentsAnnual PCP Team Chronic Disease Visit 1972Anxiety Sqylhimbg06/13/1973Depression Mhtkemdtb35/13/1973Hepatitis C Ielyhqpyu71/13/1973DTaP,Tdap,Td Vaccine (1 - Tdap)1973Mammogram Screening 1994CT Mwrsgycbecgm04/13/2000Cologuard (FIT-DNA)1999Colonoscopy 1999Colorectal Cancer Wjkqqothx73/13/2000Diabetes Nveyentnq98/13/2000Fecal Occult Blood1999Lipid Aymnkkkbf57/13/7354Peilhfczxcewx18/13/2000 Pneumococcal Vaccine: 50+ (1 of 1 - PCV)2004Shingrix Vaccine (1 of 2) 2004Bone Density Htpfjiijf66/13/2020Advance Directive Iqolciurcc47/01/2025 Medicare Advantage Annual Wellness Visit08/13/2024ovid-19 Vaccine (2024- season)/, 11/02/2020, 10/11/2020Influenza Vaccine (#1) /10/2019, 06/07/2017, 09/15/2009RSV Vaccine (1 - 1-dose 75+ series) 2029 Medical Devices ImplantedTypeAreaManufacturerDevice IdentifierShelf Expiration DateModel / Serial / LotChips Bone Graft Cancellous Bone 4-10 Mm Container 15 Cc Volume - [id number] Implanted:Qty: 1 on 09/05/2022 by Frandy Charles MD at [facility] BoneLeft: Bone - AnkleSEASPINE SALES [id number] / [id number] / [id number] Bone Graft Cancellous Bone 4-10 Mm Container 15 Cc Volume - [id number] Implanted:Qty: 1 on 09/05/2022 by Frandy Charles MD at [facility] BoneLeft: Bone - AnkleSEASPINE SALES [id number] / [id number] / [id number] Ti Joselin Comp Hdless Scr-St-80 Implanted:Qty: 1 on 09/05/2022 by Frandy Charles MD at [facility] ImplantLeft: Bone - AnkleBRENDA AND OOBJQRJ44.333.880 / / 6.5 Ti Joselin Comp Hdless Scr-St-35 Implanted:Qty: 1 on 09/05/2022 by Frandy Charles MD at [facility] ImplantLeft: Bone - AnkleJOHNSON AND MIKPAFG88.333.735 / / 6.5 Ti Joselin Comp Hdless Scr-St-70 Implanted:Qty: 1 on 09/05/2022 by Frandy Charles MD at [facility] ImplantLeft: Bone - AnkleJOHNSON AND XQRNKSY42.333.770 / / 6.5 Ti Joselin Comp Hdless Scr-St-75 Implanted:Qty: 1 on 09/05/2022 by Frandy Charles MD at [facility] ImplantLeft: Bone - AnkleJOHNSON AND PZVEJXB24.333.775 / / Elite Comp Impl Kit [id number] 2 Legs Implanted:Qty: 1 on 09/05/2022 by Frandy Charles MD at [facility] ImplantLeft: Bone - AnkleJOHNSON AND JOHNSONEL-2020S2 / / [id number] S Impl Kit/2 Legs 25 X 20 X 20/-S Implanted:Qty: 1 on 09/05/2022 by Frandy Charles MD at [facility] ImplantLeft: Bone - AnkleJOHNSON AND JOHNSONEL-2520S2 / / [id number] Comp Impl Kit [id number] 2 Legs Implanted:Qty: 1 on 09/05/2022 by Frandy Charles MD at [facility] ImplantLeft: Bone - AnkleSYNTHES INC SYNTHES USAEL-2020S2 / / [id number] Insurance * Guarantor: Elenita HowardAccount TypeRelation to PatientDate of BirthPhone Billing AddressPersonal/IrjecvYegg56/[birth year][address] [place] [id number] Care Teams Team MemberRelationshipSpecialtyStart DateEnd Flavio Gomez MD [facility]
--- OUTSIDE RECORDS SUMMARY | 2025-07-15 06:30 | XMS_ITS | Clinical Summary ---
Author Organization [facility] Address [address] [place] [address] Care Team Providers Care Soyfreeze Operator Name Role Phone Unallocated, Noms Provider Primary Care Provi roseanne Allergies Active AllergyReactionsCriticalityNoted DateCommentsAmoxicillin-Pot Clavulanate Cnabxqd3108/23/2023ee VenomHives,Yegpumq6308/31/2021EpinephrineGI intolerance 08/23/20235624GryeeKqlrrqq06/12/2014SimvastatinGI intolerance,Ofxvrba5508/13/2014Sulfa JrrrqsfyuwmYgrevdw52/11/2024 Medications MedicationSigDispense QuantityRefillsLast FilledStart DateEnd DateStatus omeprazole [...] 1105Active Active Problems No known active problems Encounters DateTypeDepartmentCare WcssCqkphhdocsx66/02/2025Results Follow-Up [facility] [address] [place] [address] Monet Clark, DO MAMMOGRAM*07/14/2025Orders Only [facility] [address] [place] [address] Monet Clark, DO 07/14/2025Telephone [facility] [address] [place] [address] Monet Clark, DO from Last 3 Months Family History Medical HistoryRelationNameCommentsHeart attackFatherHeart diseaseFatherCancer Father's SisterArthritisMotherCoronary artery diseasePaternal GrandfatherUterine cancerSisterRelationNameStatusCommentsFatherDeceasedFather's SisterMother DeceasedPaternal GrandfatherSister Social History Tobacco UseTypesPacks/DayYears UsedDateSmoking Tobacco: FormerCigarettes Smokeless Tobacco: Never Tobacco Cessation:Counseling Given: Not Answered Alcohol UseStandard Drinks/WeekCommentsNot Asked0 (1 standard drink = 0.6 oz pure alcohol)caffeine 1-2 cups/day; coffee/teaCommentsUnknownSex and Gender InformationValueDate RecordedSex Assigned at BirthNot on fileLegal Sex Qdctei5710/25/2022 6:35 PM EDTGender IdentityNot on fileSexual OrientationNot on file Last Filed Vital Signs Vital SignReadingTime TakenCommentsBlood Enxfrtgc614/80001/20/2025 10:05 AM EDT Pulse--Temperature--Respiratory Rate--Oxygen Saturation--Inhaled Oxygen Concentration--Dspdoc84.8 kg (187 lb)01/20/2025 10:05 AM CGROxegka975 cm (5' 3 ) 07/19/2022 12:00 PM ESTBody Mass Index33.13109/19/2021 12:00 PM EST Plan of Treatment DateTypeDepartmentCare Team (Latest Contact Info)Njmpctlilfe10/28/2026 1:00 PM ESTOffice Visit [facility] [address] [place] [address] Melina Ballard MD [address] [place], [place] [id number] 01/20/2026 10:30 AM EDTOffice Visit [facility] [address] [place] [address] Monet Clark DO [address] [place] [address] Health MaintenanceDue DateLast DoneCommentsCT Abmmutvovwis47/13/1956FIT-DNA 1955FIT1955FOBT1955 7568Awsjofdizqrcr56/13/1956Pneumococcal Vaccine: 65+ Years (1 of 1 - PCV)2004COVID-19 Vaccine ( - 2024- season) /, 11/02/2020, 10/11/2020Influenza Vaccine (#1)2025 07/15/2020, 06/07/2017Medicare Annual Wellness (AWV)/ Peggbpqjk20/7017Truvnweqfff552Colorectal Cancer Urlazyuxq47/30/2032 Insurance Care Teams Team MemberRelationshipSpecialtyStart DateEnd Date Unallocated, Noms Provider, [address] [place] [address] PCP - GeneralFamily Medicine10/30/24
--- OUTSIDE RECORDS SUMMARY | 2025-07-15 06:30 | XMS_ITS | Encounter Summary ---
Author Organization [facility] Address [address] [place] [address] Care Team Providers Care Citrix Engineer Name Role Phone Unallocated, Noms Provider Primary Care [facility] Encounter Details DateTypeDepartmentCare Team (Latest Contact Info)Pipoadcjsbg67/02/2025Telephone [facility] [place] [facility] [address] [facility] [address] [place] [phone] Monet Clark, [address] [facility] [address] [place] [address] Social History Tobacco UseTypesPacks/DayYears UsedDateSmoking Tobacco: FormerCigarettes Smokeless Tobacco: NeverAlcohol UseStandard Drinks/WeekCommentsNot Asked0 (1 standard drink = 0.6 oz pure alcohol)caffeine 1-2 cups/day; coffee/tea CommentsUnknownSex and Gender InformationValueDate RecordedSex Assigned at Not on fileLegal GolAdshuu74/15/2023 6:35 PM EDTGender IdentityNot on fileSexual OrientationNot on filedocumented as of this encounter Miscellaneous Notes * Telephone Encounter - Laly Campos MA - 07/14/2025 11:37 AM EST Spoke with Dr. Gomez's office. The nurse needed confirmation that we received pt's mammo results, as she will need additional imaging. Advised that we have not received results. The office will fax results to us, fax number provided. * Telephone Encounter - Laly Campos MA - 07/14/2025 11:29 AM EST Desmond, it is Dr Gomez office calling in regards to patient Elenita Macias. Date of is 1955. Ifsomeone could please return our call. He just has a question [phone] option for for a nurse, thank you. documented in this encounter Plan of Treatment DateTypeDepartmentCare Team (Latest Contact Info)Seeqsktzcod23/28/2026 1:00 PM ESTOffice Visit [facility] [address] [place] [address] Melina Ballard MD [address] [place] [address] 01/20/2026 10:30 AM EDTOffice Visit [facility] [address] [place] [address] Monet Clark DO [address] [place] [address] documented as of this encounter Visit Diagnoses Not on filedocumented in this encounter Care Teams Team MemberRelationshipSpecialtyStart DateEnd Date Unallocated, Noms MD Santino [address] [place] [address] PCP - GeneralFamily Medicine10/30/24documented as of this encounter
--- OUTSIDE RECORDS SUMMARY | 2025-07-15 06:30 | XMS_ITS | Encounter Summary ---
Author Organization [facility] Address [address] [place] [address] Care Team Providers Care Fan Balancer Name Role Phone Unallocated, Noms Provider Primary Care [facility] Encounter Details DateTypeDepartmentCare Team (Latest Contact Info)Knripzljlxn93/02/2025Results Follow-Up [facility] [address] [facility] [address] [place] [address] Monet Clark, [address] [facility] [address] [place] [address] MAMMOGRAM* Social History Tobacco UseTypesPacks/DayYears UsedDateSmoking Tobacco: FormerCigarettes Smokeless Tobacco: NeverAlcohol UseStandard Drinks/WeekCommentsNot Asked0 (1 standard drink = 0.6 oz pure alcohol)caffeine 1-2 cups/day; coffee/tea CommentsUnknownSex and Gender InformationValueDate RecordedSex Assigned at Not on fileLegal KasFbzmeo71/15/2023 6:35 PM EDTGender IdentityNot on fileSexual OrientationNot on filedocumented as of this encounter Miscellaneous Notes * Telephone Encounter - Madie Lopez MA - 07/14/2025 1:47 PM EST Called and informed pt about results and recommendations. Pt voiced understanding * Telephone Encounter - Madie Lopez MA - 07/14/2025 1:44 PM EST ----- Message from Dr. Monet Clark sent at 07/14/2025 12:42 PM EST ----- Additional imaging of left breast recommended ----- Message ----- From: Kim Freeman Sent: 07/14/2025 11:40 AM EST To: Monet Clark DO A new document has been added to this order with description [facility]. documented in this encounter Plan of Treatment DateTypeDepartmentCare Team (Latest Contact Info)Fhwfyqnemba45/28/2026 1:00 PM ESTOffice Visit [facility] [address] [place] [address] Melina Ballard MD [address] [place] [address] 01/20/2026 10:30 AM EDTOffice Visit [facility] [address] [place] [address] Monet Clark DO [address] [place] [address] NameTypePriorityAssociated DiagnosesOrder ScheduleLeft diagnostic mammogram with tomosynthesisImagingRoutine Mammogram abnormal Expected: 07/14/2025, Expires: 09/14/2026Left breast US limitedImagingRoutine Mammogram abnormal Expected: 07/14/2025, Expires: 09/14/2026documented as of this encounter Visit Diagnoses Diagnosis Mammogram abnormal Abnormal mammogram, unspecified documented in this encounter Care Teams Team MemberRelationshipSpecialtyStart DateEnd Date Unallocated, Noms MD [address] [address] PCP - GeneralFamily Medicine10/30/24documented as of this encounter
--- OUTSIDE RECORDS SUMMARY | 2025-07-15 06:30 | XMS_ITS | Patient Health Record ---
Author Organization [facility] in [place] Address [address] [place] [address] Care Team Providers Care Director Volunteer Services Name Role Phone Ryan Samson Primary Care Provider Allergies Allergen (clinical drug ingredient) Drug/Non Drug Allergy documented on EMR Reaction Allergy Type Onset Date Status amoxicillin / clavulanate Augmentin made her feel weird D rug Allergy ActiveSulfarashDrug AllergyActivesimvastatinSimvastatinbody achesDrug Allergy Active Results Component Value Reference Range Notes CBC AUTO DIFF Reviewed date:10/10/2024 12:57:33 PM Interpretation: Performing Lab: Notes/Report: [facility] , White Blood Count 4.0 4.0-11.0 10 3/uL Red Blood Count4.764.20-5.40 10 6/xLJywjgwxcgz85.412.0-16.0 g/tQFaayxtnkzj33.5 36.0-48.0 %Mean Corpuscular Rsdzyv53.181.0-99.0 fLMean Corpuscular Hemoglobin 28.226.7-34.0 pgMean Corpuscular HGB Conc33.129.9-35.2 g/dLRed Cell Distribution Width13.511.0-15.0 %Platelet Rqijh223837-583 10 3/uLMean Platelet Volume9.99.5- 13.5 fLNeutrophils Percent Auto45.743.0-75.0 %Lymphocytes Percent Auto41.320.5- 60.0 %Monocytes Percent Auto8.41.7-12.0 %Eosinophils Percent Auto4.10.9-7.0 % Basophils Percent Auto0.50.2-2.0 %Immature Granulocytes Pct Auto0.00.0-0.5 % Neutrophils Absolute Auto1.81.4-6.5 10 3/uLLymphocytes Absolute Auto1.61.2-3.8 10 3/uLMonocytes Absolute Auto0.30.3-0.8 10 3/uLEosinophils Absolute Auto0.20.0- 0.7 10 3/uLBasophils Absolute Auto0.00.0-0.1 10 3/uLImmature Granulocytes Abs Auto0.000.00-0.03 10 3/uLPerforming Lab:see noteML - [facility] LB GLYCOHEMOGLOBIN A1C Reviewed date:10/10/2024 01:13:33 PM Interpretation: Performing Lab: Notes/Report: [facility] ,Glycohemoglobin A1C6.04.5-6.2 % ADA THERAPEUTIC TARGET < 7.0 ADA RECOMMENDED LIMIT 4.0 - 6.0 ACTION SUGGESTED > 7.0 Estimated Average Ifagngf227Zdnssabuhw Lab:see noteML - [facility] LB TSH Reviewed date:10/12/2024 12:53:50 PM Interpretation: Performing Lab: Notes/Report: [facility] ,Thyroid Stimulating Hormone1.8260.358-3.740 uIU/mLPerforming Lab:see note - [facility] LBT4 Reviewed date:10/12/2024 12:53:50 PM Interpretation: Performing Lab: Notes/Report: [facility] ,T4 Thyroxine8.704.80-13.90 ug/dLPerforming Lab:see noteML - [facility] LBPROF 14(COMP METB) Reviewed date:10/12/2024 12:53:50 PM Interpretation: Performing Lab: Notes/Report: [facility] ,Wccvid118054-393 mmol/LPotassium4.53.5-5.1 mmol/BQroshaim14807-464 mmol/LCarbon Jvivzfk37.821.0-32.0 mmol/LAnion Gap10.2Gyawilr38813-645 mg/dLBlood Urea Sloehtcf41.07.0-18.0 mg/dLCreatinine0.870.55-1.02 mg/dLEstimated GFR ( Nasra>60>=60 mL/min/1.73m 2Estimated GFR (Non- Velia>60>=60 mL/min/1.73m 2BUN Creatinine Ratio17.8Jcecmis8.28.5-10.1 mg/dLBilirubin Total0.40.2-1.0 mg/dL Aspartate Amino Izstjcmuxcy4932-05 U/LAlanine Yrrodrqpidavfklz3843-80 U/L Alkaline Tcbrcsgcvjv7786-012 U/LTotal Protein7.76.4-8.2 g/dLAlbumin Level4.03.4- 5.0 g/dLGlobulin3.7Albumin Globulin Ratio1.1Performing Lab:see noteML - [facility] LBLIPID PROFILE Reviewed date:10/12/2024 12:53:50 PM Interpretation: Performing Lab: Notes/Report: [facility] ,Tgcjmljafmxzu28<=150 mg/gDEvbfdjirnfi827<=200 mg/dLHDL Xmrvbewhqxl7912-19 mg/dL <40 mg/dl - HIGH CARDIOVASCULAR RISK > or =60 mg/dl - LOW CARDIOVASCULAR RISK LDL Cholesterol Uteqmwyrlv038.0 <100 mg/dl OPTIMAL >190 mg/dl VERY HIGH 160-189 mg/dl HIGH 130-159 mg/dl BORDERLINE HIGH 100-129 mg/dl NEAR OR ABOVE OPTIMAL VLDL QHHFBBIUSIT38.0Chol HDL Ratio3.1 7.1 - 11.0 MODERATE RISK 4.4 - 7.1 AVERAGE RISK >11.0 HIGH RISK 3.3 - 4.4 LOW RISK Performing Lab:see noteML - [facility] LBFREE T3 Reviewed date:10/12/2024 12:53:50 PM Interpretation: Performing Lab: Notes/Report: [facility] ,Free T32.872.18-3.98 pg/mLPerforming Lab:see noteML - [facility] LB NM hepatobiliary w pharm Reviewed date:05/11/2025 02:34:52 PM Interpretation: Performing Lab: Notes/Report: Source Facility: [facility]-[address] [place] [address] [place] [address] Nuclear Medicine Report Signed Patient: FELIBERTO HOWARD MR#: [id number] : 1955 Acct:[id number] Age/Sex: 69 / F ADM Date: 05/11/25 Loc: [place] Attending Dr: Heraclio Samson M.D. Ordering Physician: Heraclio Samson M.D. Date of Service: 05/11/25 Procedure(s): [place] hepatobiliary w pharm Accession Number(s): [id number] cc: Heraclio Samson M.D. [place] [address] Patient Name: FELIBERTO HOWARD MRN: [facility]:[id number] date: 1955 Sex: F Assigned Patient Location: [place] Current Patient Location: [place] Accession/Order Number: [id number] Exam Date: 05/11/2025 08:05 Report Date: 05/11/2025 13:07 At the request of: HERACLIO SAMSON MD Procedure: NH hepatobiliary w pharm HIDA SCAN WITH CCK [...] is 29%. Normal is greater than 40%. NH/NH hepatobiliary w pharm IMPRESSION: LOW GALLBLADDER EJECTION FRACTION SUGGESTIVE OF BILIARY DYSKINESIA. Impression dictated by: Magdy Syed Jr., D.O. 05/11/2025 1:07 PM Dictation Location: [place] [address] Electronically authenticated by: [id number] Y Date: 05/11/2025 13:07 Dictated By: Magdy Syed M.D. Signed By: 05/11/25 1310 DD/ 1307 TD/TT: Reducer: right upper quadrant Reviewed date:03/04/2025 01:03:14 PM Interpretation: Performing Lab: Notes/Report: Source Facility: [place] [address] [place] [address] Ultrasound Report Signed Patient: FELIBERTO HOWARD MR#: [id number] : 1955 Acct:[id number] Age/Sex: 69 / F ADM Date: 03/04/25 Loc: US Attending Dr: Heraclio Samson M.D. Ordering Physician: Heraclio Samson M.D. Date of Service: 03/04/25 Procedure(s): US right upper quadrant Accession Number(s): [id number] cc: Heraclio Samson M.D. [place] [address] Patient Name: FELIBERTO HOWARD MRN: [facility]:[id number] date: 1955 Sex: F Assigned Patient Location: [place] Current Patient Location: [place] Accession/Order Number: [id number] Exam Date: 03/04/2025 10:25 Report Date: 03/04/2025 [...] Jr., D.O. 03/04/2025 10:26 AM Dictation Location: [place] [address] Electronically authenticated by: [id number] Y Date: 03/04/2025 10:26 Dictated By: Magdy Syed M.D. Signed By: 03/04/25 1028 DD/ 1026 TD/TT: Reducer:LETTY Reviewed date:10/12/2024 12:53:50 PM Interpretation: Performing Lab: Notes/Report: [facility] ,Iron60.050.0-170.0 ug/dLPerforming Lab:see noteML - [facility] LBMM tomosynthesis screening BI Reviewed date:07/13/2025 01:59:09 PM Interpretation: Performing Lab: Notes/Report: Source Facility: [facility]-[address] [place] [address] [address] Mammography Report Signed Patient: FELIBERTO HOWARD MR#: [id number] : 1955 Acct:[id number] Age/Sex: 69 / F ADM Date: 07/13/25 Loc: MAMMO Attending Dr: KYLER CLARK Ordering Physician: KYLER CLARK Results: Date of Service: 07/13/25 Follow Up: Procedure(s): MM tomosynthesis screening BI Accession Number(s): [id number] cc: Heraclio Samson M.D.; KYLER CLARK Patient Name: FELIBERTO HOWARD MR#: [id number] : 1955 Exam Date: 07/13/2025 Ordering Doctor: DR. KYLER CLARK D.O. RADIOLOGY REPORT PROCEDURE: MM TOMOSYNTHESIS SCREENING BI COMPARISON: MM TOMOSYNTHESIS SCREENING BI, 06/30/2024. MM TOMOSYNTHESIS SCREENING BI, 05/22/2023. MG MAMM SCREEN 3D ANGIE CAD, 04/18/2022. MG MAMM ANGIE SCRN W CAD DIG, 07/22/2013. INDICATIONS: Screening Calculator Name NCI Breast Cancer Risk Assessment Tool 5 Year Breast Cancer Risk 2.30% Lifetime Breast Cancer Risk 6.60% Personal Breast Cancer No Personal Ovarian Cancer No Treatments None Family Cancers Sister with ?uterine cancer at age 43. LOCATION: [facility] BREAST COMPOSITION: The breasts are heterogeneously dense, which may obscure small masses. FINDINGS: RIGHT BREAST: No significant suspicious finding. LEFT BREAST: There is a new area of focal asymmetry within the left breast at the 3 o'clock position 9 cm from the nipple. This measures approximately 8 millimeters greatest limits impaired there is a larger 2.1 cm focus of asymmetry along the left chest wall seen only on MLO view 13.7 cm deep to the nipple . DIAGNOSTIC CATEGORY 0--INCOMPLETE: NEED ADDITIONAL IMAGING EVALUATION. RECOMMENDATIONS: ADDITIONAL MAMMOGRAPHIC VIEWS REQUIRED: LEFT BREAST - follow-up with spot compressed views of the left breast and ultrasound if necessary is recommended. Dictated by: Kishore Crabtree MD on 07/13/2025 at 13:35 Approved by: Kishore Crabtree MD on 07/13/2025 at 13:52 Dictated By: Kishore Crabtree M.D. Signed By: 07/13/251352 DD/ 52 TD/TT: Reducer: Reason For Referral Reason recurrent despite PP I Diagnosis 1 GERD (gastroesophage al reflux disease) (K21.9) Referral Organization [facility] Referring Provider First Name Ryan Referring Provider [...] year?2 to 3 times a week (3 points)Egqimy5Dzwtncyfktjfls Positive Problems Problem Type SNOMED Code ICD Code Onset Dates Problem Status W/U Status Risk Notes Problem Age-related osteoporosis (774645 002) Age-related osteoporosis without current pathological fracture (M81.0) ActiveconfirmedProblemBenign neoplastic disease (67052732)Benign neoplasm, unspecified site (D36.9)ActiveconfirmedProblemHyperlipidemia (88683140) Hyperlipidemia, unspecified (E78.5)ActiveconfirmedProblemHypertension (21420715) Hypertension (I10)ActiveconfirmedProblemGastroesophageal reflux disease (945842646)GERD (gastroesophageal reflux disease) (K21.9)ActiveconfirmedProblem Congenital talipes calcaneovarus (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)ActiveconfirmedProblemTinea unguium (152531539)Tinea unguium (B35.1) ActiveconfirmedProblemTinea pedis (2717353)Tinea pedis (B35.3)Activeconfirmed ProblemArthralgia of the ankle and/or foot (125439029)Pain in left ankle and joints of left foot (M25.572)ActiveconfirmedProblemPain in left foot (877424074960586)Pain in left foot (M79.672)ActiveconfirmedProblemRight upper quadrant pain (455080077)Right upper quadrant abdominal pain (R10.11)Active confirmedProblemAbnormal gait (48197457)Gait instability (R26.81)Activeconfirmed ProblemLocalized, primary osteoarthritis of the ankle and/or foot (938362960) Degenerative joint disease of ankle or foot, left (M19.072)Activeconfirmed ProblemPeroneal tenosynovitis (771251303)Peroneal tenosynovitis (M65.9)Active confirmedProblemTibialis posterior tendinitis (577957920)Tibialis posterior tendinitis (M76.829)Activeconfirmed Vital Signs Blood pressure diastolic 80 mm Hg 05/04/2025 Rstmsf62 in05/04/2025lood pressure pbretdkz383 mm Hg05/04/20252013Xinjjj900.8 lbs 05/04/2025BMI32.91 kg/m205/04/2025 Encounters Encounter Location Date Provider Diagnosis [facility] [address] [place] [address] 10/10/2024 Ryan Hoy Hyperlipidemia, unspecified E78.5 ; Hypertension I10 and Other fatigue R53.83 [facility] [address] [place] [address] 05/04/2025 Ryan Hoy Right upper quadrant abdominal pain R10.11 and GERD (gastroesophageal reflux disease) K21.9 [facility] [address] [place] [address] 03/02/2025 Ryan Hoy Right upper quadrant abdominal pain R10.11 [facility] [address] [place] [address] 10/12/2024 Ryan Hoy [facility] [place] [address] 01/21/2025Doug HoyHyperlipidemia, unspecified E78.5[facility] [place] [address]/[facility] [place] [address]/ [facility] [place] [address]/10/2024[facility]oyBVSt[facility] [facility] [place] [address]/01/2025Doug HoyAbdominal pain R10.9 and Right upper quadrant abdominal pain R10.11B[facility] [place] [address]/[facility] HoyB[facility] [place] [address]/08/2024Doug Hoy Assessments Encounter Date Diagnosis (ICD Code) Assessment [...] 3 VIEWS 10/18/2023 THYROID PANEL (T4/TSH/FREE T3) NUC MED Hida with Ejection Fraction * CMP (COMP MET MUSTAFA) w/eGFR CKD-EPI 2024 Insurance Providers Payer Name Payer Address Payer Phone Subscriber Number Group Number Insured Name Patient Relationship to Insured Coverage Start Date Coverage End Date [employer] [address], [place] [address] [id number], JulieSelf - patient is the insured Medications Administered Medication Instructions Date of Administration Dosage Notes Bupivacaine mLleft ewwkyZzvtsiwmlfh58/25/20162 mLleft xpdhLxainiwinri88/14/20172 mLLEFT RBMLJWyukriqvnyy62/22/20172 mLleft subtailor zjgguPcvawpatozg57/13/20182 mLLEFT HDFUMjmkduohzwu16/18/20182 mLleft nkaelObfupkzxwpf82/30/20192 mLleft foot Depo-Medrol, 40 mg/mL mLleft ankleDepo-Medrol, [...] N60.19 Osteoporosis M81.0 Surgical History Surgery Date(Month/Year) Colonoscopy/Egd Foot surgery - KIDNER PROCEDURE LEFT MEDIAL FOOT X 3Cataract Removal- Bilateral Eye Lid Lift- BilateralTotal Hysterectomy, BSO, anterior colporrhaphy- Dr Clark 12/11/2024
--- OUTSIDE RECORDS SUMMARY | 2025-07-15 06:30 | XMS_ITS | CCD ---
Author Organization [facility] Providers Care Apartment Maintenance Supervisor Name Role Phone Heraclio Samson Primary Care Physician [phone] Heraclio Samson MD Primary Care Provider [phone] Heraclio Samson MD Primary Care Provider [phone] KAYLIE CHARLES Referring Unavailable HERACLIO SAMSON Primary [...] ., DR PULLIAM Primary Care Unavailable CONTRERAS .RENIA Admitting Unavailable CONTRERAS .REINA Consulting Unavailable HOY [...] Unavailable Heraclio Samson MD Primary Care Provider [phone] KAYLIE CHARLES Attending Unavailable HOY, HERACLIO M [...] Provi roseanne Monet Clark DO Attending Provider Heraclio Samson MD Primary Care Provider [phone] Hoy, Heraclio M Primary Care Unavailable Rinkes, [...] Drug AllergyUnknown (qualifier value), Malaise (finding)[facility] [place] (20 sources)Simvastatin; Translations: [simvastatin]Drug Yluwzxm00-45-3089 Unknown (qualifier value), GI Upset, Muscle pain (finding)[facility] [place] (4 sources)Sulfonamides (Antibiotic); Translations: [sulfa drugs]Drug allergy Unknown (qualifier value), Eruption of skin (disorder)[facility] [place] (4 sources)EPINEPHrine; Translations: [EPINEPHRINE]Drug Nqmdtkb11-89-7798ED UpsetWilson HealthComment on above:possible reaction, not for sure, only had for dental procedure. nausea and light headed (20 sources)Latex; Translations: [LATEX]Drug Lbiynpo48-57-7463SocaxfwDokwvdoee Clinic (20 sources)Sulfonamides (Antibiotic); Translations: [SULFA (SULFONAMIDE ANTIBIOTICS)]Drug Znbbnyl93-84-2621BivnBar[facility] (20 sources)Bee Sting; Translations: [BEE STING]Allergy to ofrptvgje86-14-1965 [facility] (1 source)AmoxicillinDrug AllergyThe [facility] (1 source)bee venomDrug allergy (disorder)The [facility] (1 source)EPINEPHrineDrug Tdqfoot01-34-1509Zyl [facility] (1 source)LatexDrug allergy (disorder)76-88-3067Dzd [facility] (1 source)SimvastatinDrug Knqzkgg32-73-1420Skd [facility] (1 source)Sulfonamides (Antibiotic)Drug allergy (disorder)03-58-8953Jkg [facility] (14 sources)EPINEPHrineDrug Jdbjdcb03-49-3984VM intoleranceNOMS Healthcare (14 sources)Honey bee venomAllergy to awxprfrzb76-13-3399Ktwlk, UnknownNOMS Healthcare (14 sources)LatexAllergy to nfqgeovis52-40-8106TtptzwdLVAX Healthcare (14 sources)SimvastatinAllergy to efjlcgkgv00-84-9152RV intolerance, UnknownNOMS Healthcare (14 sources)Amoxicillin-Pot ClavulanateDrug Aacjrdq19-10-2729QnoejnaNHVJ Healthcare Work Phone: (3 sources)Penicillins; Translations: [Penicillins]Allergy to substance 66-09-9532Azxiomt ReactionMetrohealth Parma Medical Center (1 source)EPINEPHrineDrug Cobqbxw23-15-5880WwatsorwoMetrohealth Parma Medical Center Repository (1 source)LatexDrug allergy (disorder)37-31-6651SbvfprbnvMetrohealth Parma Medical Center [facility] (1 source)Sulfonamides (Antibiotic)Drug allergy (disorder)45-70-5565QtghkajbjMetrohealth Parma Medical Center Repository Medications Current Medications MedicationDrug Class(es)DatesSig (Normalized)Sig (Original)acetaminophen 500 mg / diphenhydrAMINE hydrochloride 25 mg oral tablet (3 sources)Histamine-1 Receptor AntagonistStart: 14-13-7985fqvg 1 tablet by mouth once daily at bedtimeTylenol Extra Strength PM oral tablet 1 tab(s), Oral, Once a day (at bedtime), Refill(s) 0 Start Date: 05/22/25 Status: Ordered Medication Dispense Status: Completed Total Allowed Fills: 1 Fills Dispensed: 0 Start: 15-89-3461hnul 1 tablet by mouth once daily at bedtimeDiphenhydramine- Acetaminophen (Acetaminophen Pm) 25-500 mg tablet Active 1 TAB PO Daily at bedtime November 26, 2024 12:00amamLODIPine 5 mg oral tablet (20 sources)Dihydropyridine Calcium Channel BlockerStart: 20-82-4438ubju 1 tablet by mouth once dailyamLODIPine 5 mg Tab 5 mg = 1 tab(s), Oral, Daily, Refills(s) 0 Start Date: 05/12/22 Status: Ordered Medication Dispense Status: Completed Total Allowed Fills: 1 Fills Dispensed: 0ascorbic acid 500 mg extended release oral tablet (2 sources)Vitamin CStart: 36-34-2652rvth 1 tablet by mouth once dailyAscorbic Acid (Vitamin C) (C-500) 500 mg tablet extended release Active 500 MG PO Daily November 12:00amcalcitriol 0.53500 mg oral capsule (14 sources)Vitamin D3 Analogtake 1 capsule by mouth in the morningcalcitriol (Rocaltrol) 0.25 MCG capsule Take 0.25 mcg by mouth in the morning. Active calcium carbonate 1250 mg oral tablet (2 sources)Start: 22-30-6935qpxt 1 tablet by mouth once dailyCalcium Carbonate (Oyster Shell Calcium) 500 mg calcium (1,250 mg) tablet Active 500 MG PO Daily November 26, 2024 12:00amFiber Tab (1 source)Start: 18-21-1410prni 2-4 tablets by mouth once dailyFiber Tabs 2-4 tabs, Oral, Daily, Refills(s) 0 Start Date: 06/09/25 Status: Ordered Medication Dispense Status: Completed Total Allowed Fills: 1 Fills Dispensed: 0 cholecalciferol 0.025 mg oral capsule (2 sources)Vitamin DStart: 22-97-6128jbys 1 capsule by mouth once daily Cholecalciferol (Vitamin D3) (Vitamin D3) 25 mcg (1,000 unit) capsule Active 25 MCG PO Daily November 26, 2024 12:00amciclopirox 7.7 mg/ml topical cream (16 sources)Start: 98-48-9613ferzhkgvmk (Loprox) 0.77 % cream Indications: Onychomycosis Apply thin layer to affected area on feet once a day, 30 day supply 30 g 11 09/01/2024 ActiveStart: 08-23-2023 End: 28-78-2620Yotcawyulh 8 % kit Indications: Onychomycosis Apply to affected nails once a day, remove once weekly to avoid build up, 30 day supply 6.6 mL 08/23/2023 09/01/2024 Discontinued (Ineffective)docusate sodium 100 mg oral capsule (1 source)Start: 72-62-2145zxbr 1 capsule by mouth twice daily as needed for constipationDocusate Sodium (Colace) 100 mg capsule Active 100 MG PO Twice daily as needed for constipation 60 December 11, 2024 9:53amelderberry fruit 200 mg oral capsule (2 sources)Start: 40-64-6244gheq 1 capsule by mouth once dailyElderberry Fruit 200 mg capsule Active 200 MG PO Daily November 26, 2024 12:00amfamotidine 20 mg oral tablet (1 source)Histamine-2 Receptor AntagonistStart: 83-04-1543iykx 1 tablet by mouth twice dailyfamotidine 20 mg Tab 20 mg = 1 tab(s), Oral, BID, Refills(s) 0 Start Date: 06/09/25 Status: OrderedMedication Dispense Status: Completed Total Allowed Fills: 1 Fills Dispensed: 0fexofenadine hydrochloride 180 mg oral tablet (20 sources)Histamine-1 Receptor AntagonistStart: 77-53-7134ovaw 1 tablet by mouth once dailyfexofenadine 180 [...] sulfate 0.125 mg oral tablet (1 source)Start: 92-27-0602ahdi 1 tablet by mouth four times dailyLevsin 0.125 mg SL Tab 0.125 mg = 1 tab(s), Oral, QID, Refills(s) 0 Start Date: 06/09/25 Status: Ordered Medication Dispense Status: Completed Total Allowed Fills: 1 Fills Dispensed: 0ibuprofen 600 mg oral tablet (1 source)Nonsteroidal Anti-inflammatory DrugStart: 29-49-9995feoe 1 tablet by mouth every six hours as needed for painIbuprofen 600 mg tablet Active 600 MG PO Every 6 hours as needed for pain December 11, 2024 12:00amlisinopril 10 mg oral tablet (18 sources)Angiotensin Converting Enzyme InhibitorStart: 94-78-0488qvie 1 tablet by mouth once dailylisinopril 10 mg Tab 10 mg = 1 tab(s), Oral, Daily, Refills(s) 0 Start Date: 05/22/25 Status: Ordered Medication Dispense Status: Completed Total Allowed Fills: 1 Fills Dispensed: 0Start: 06-65-1043czpp 1 tablet by mouth once daily in the morningLisinopril 10 mg tablet Active 10 MG PO Every morning November 26, 2024 12:00amComment on above:Take 10 mg by mouth once daily.melatonin 10 mg oral capsule (20 sources)Start: 10-21-5435hfrc 1 capsule by mouth once daily at bedtime melatonin 10 mg oral capsule 10 mg = 1 cap(s), Oral, Once a day (at bedtime), Refills(s) 0 Start Date: 05/22/25 Status: Ordered Medication Dispense Status: Completed Total Allowed Fills: 1 Fills Dispensed: 0Start: 21-02-5352rypo 1 capsule by mouth once daily at bedtimeMelatonin 10 mg capsule Active 10 MG PO Daily at bedtime November 26, 2024 12:00amMelatonin 1 MG capsule Take by mouth Activetake 1 tablet by mouth once dailymelatonin 1 mg tablet Take 1 mg by mouth once daily. 0 ActiveComment on above:Take 1 mg by mouth once daily.meloxicam (7 sources)Nonsteroidal Anti-inflammatory DrugStart: 17-74-1707ybgsecpoq Refills(s) 0 Start Date: 05/23/22 Status: Ordered End: 77-64-5691UPNMNOCCL ORAL Take 15 mg by mouth. 0 08/30/2022 Discontinued (Changing Therapy/Dosage Form)MELOXICAM ORAL Take by mouth. 0 ActiveComment on above:Take by mouth.Take 15 mg by mouth.[place] 5-Alp-Buc-Fish Oil (Fish Oil) 1,000 (120-180) mg capsule (2 sources)Start: 68-04-3014yatd 1 capsule by mouth once dailyOmega 7-Zkt-Vcc-Fish Oil (Fish Oil) 1,000 (120-180) mg capsule Active 1 CAP PO Daily November 26, 2024 12:00amomeprazole 40 mg delayed release oral capsule (20 sources)Proton Pump InhibitorStart: 74-40-0867ahcj 1 capsule by mouth once daily in the morningOmeprazole 40 mg capsule,delayed release(DR/EC) Active 40 MG PO Every morning November 26, 2024 12:00amoxyCODONE hydrochloride 5 mg oral tablet (1 source)Opioid AgonistStart: 08-30-2022 End: 67-53-2251qwyb 1 tablet by mouth every six hours [...] release oral tablet (1 source)Proton Pump InhibitorStart: 01-50-1765ojfp 1 tablet by mouth once dailyProtonix 40 mg Tab-DR 40 mg = 1 tab(s), Oral, Daily, Refills(s) 0 Start Date: 05/22/25 Status: Ordered Medication Dispense Status: Completed Total Allowed Fills: 1 Fills Dispensed: 0traMADol hydrochloride 50 mg oral tablet (1 source)Opioid AgonistStart: 07-03-0397wvqm 1 tablet by mouth every six hours as needed for painTramadol 50 mg tablet Active 50 MG PO Every 6 hours as needed for pain 30 December 11, 2024 12:00amtriamcinolone acetonide 1 mg/ml topical cream (14 sources)CorticosteroidStart: 22-99-2168aevbjvmkagyfp (Kenalog) 0.1 % cream Indications: Other atopic dermatitis Apply to affected area on back, up to twice a day when flared, do not use one the face, groin, or underarms, 30 day supply 80 g 08/23/2023 ActiveVitamin B Complex oral tablet (1 source)Start: 93-77-8960zkdc 1 tablet by mouth once dailyVitamin B Complex oral tablet 1 tab(s), Oral, Daily, Refill(s) 0 Start Date: 05/22/25 Status: Ordered Medication Dispense Status: Completed Total Allowed Fills: 1 Fills Dispensed: 0vitamin b12 1 mg oral tablet (2 sources)Vitamin A08Guimt: 72-45-0945qybo 1 tablet by mouth once daily Cyanocobalamin (Vitamin B-12) (Vitamin B-12) 1,000 mcg tablet Active 1000 MCG PO Daily November 26, 2024 12:00am Completed/Discontinued Medications MedicationDrug Class(es)DatesSig (Normalized)Sig (Original)acetaminophen 325 mg oral tablet (11 sources)Start: 08-30-2022 End: 21-17-8717ufnc 2 tablets by mouth every four hoursacetaminophen (TYLENOL) 325 mg tablet Take 2 tablets by mouth every 4 hours while awake. after surgery on 09/05/22 until no longer needed. 0 08/30/2022 09/20/2022 Discontinued (Course of therapy completed) End: 53-74-8282mfgl 1 tablet by mouth every eight hours [...] oral capsule (5 sources)Cephalosporin AntibacterialStart: 08-30-2022 End: 54-92-1949tiho 1 capsule by mouth four times dailycephALEXin (KEFLEX) 500 mg capsule Take 1 capsule by mouth four times daily. 20 capsule 0 08/30/2022 09/20/2022 Discontinued (Course of therapy completed)Comment on above:Take 1 capsule by mouth four times daily.cycloSPORINE 0.5 mg/ml ophthalmic suspension (20 sources)Calcineurin Inhibitor ImmunosuppressantStart: 11-73-6924WOSWGEXD 0.05 % ophthalmic emulsionINV VITAMIN D3 5000 UNITS CAPSULE (IRB 19-1548) (17 sources)take 1 capsule by mouth once dailyINV VITAMIN D3 5000 UNITS CAPSULE ([facility] 19-1548) Take 5,000 Units by mouth once [...] sources)Nonsteroidal Anti-inflammatory Drug, Cyclooxygenase InhibitorStart: 08-30-2022 End: 90-35-4284xpyb 1 tablet by mouth every six hours [...] tablet (3 sources)Serotonin-3 Receptor AntagonistStart: 07-01-2021 End: 93-19-8538yxmkbjktzsi orally disintegrating (ZOFRAN ODT) 4 mg disintegrating tablet Problems Active Problems Problem ClassificationProblemDateDocumented DateEpisodic/ChronicAbdominal pain (2 sources)Epigastric pain; Translations: [Epigastric pain]Onset: 06-09-2025 EpisodicAnxiety disorders (4 sources)Anxiety disorder, unspecified; Translations: [ANXIETY DISORDER UNSPECIFIED]Onset: 69-09-7135RhgnbsuIzglirclti and other anemia (1 source)Anemia, unspecified; Translations: [ANEMIA UNSPECIFIED]Onset: 82-79-4574DtgkewkqTcsuchmh mellitus without complication (1 source)Other abnormal glucose; Translations: [OTHER ABNORMAL GLUCOSE]Onset: 83-58-1032ZawxyifiDcbspbuoo of lipid metabolism (6 sources)Pure hypercholesterolemia; Translations: [Pure hypercholesterolemia, unspecified]Onset: 502403-28-9662ZnjdwdsLxavvhjvhg disorders (6 sources)Gastroesophageal reflux disease; Translations: [Gastro-esophageal reflux disease without esophagitis]Onset: 419915-57-0682KlqgdlnQcxfqksbu hypertension (20 sources)Hypertensive disorder; Translations: [Essential (primary) hypertension]Onset: 156635-70-6484WmakexfFfsneeot; including migraine (3 sources)Nxymuxdt00-63-7548NbrvxgeRlva disorders (3 sources)Mood tntdzaki94-41-5238UycwajtNfvpphv (2 sources)Onychomycosis; Translations: [Tinea unguium]67-21-6073Wpywaqph Nonmalignant breast conditions (3 sources)Fibrocystic disease of mevvqx92-90-6368HsikavgMujsyndewfw chest pain (1 source)Chest pain, unspecified; Translations: [CHEST PAIN UNSPECIFIED]Onset: 76-63-6445VsocdpkvUvlmfpiiruj deficiencies (4 sources)Vitamin D deficiency, unspecified; Translations: [VITAMIN D DEFICIENCY UNSPECIFIED]Onset: 73-63-2170FmqyscaZqmrgczpwbmuhf (20 sources)Osteoarthritis of left foot; Translations: [Primary osteoarthritis, left ankle and foot]Onset: 93-41-3524CerbymqRpdspwbnluxi (1 source)Avudjuxrlgdb93-55-8218XdggayeKpvqk aftercare (1 source)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; Translations: [GRIZZLY WORKER CURRENT USE OF ASPIRIN]Onset: 90-83-0849OuxacpqxUtaat aftercare (1 source)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; Translations: [OTH GRIZZLY WORKER CURRENT DRUG THERAPY]Onset: 09-65-8203WgvyoqbjFeqgc aftercare (4 sources)Surgical follow-up; Translations: [Encounter for follow-up examination after completed treatment for conditions other than malignant neoplasm]74-37-8113KbzgjkkxNjjpp and unspecified benign neoplasm (4 sources)History of polyp of colon; Translations: [Personal history of colonic polyps]Onset: 76-69-3540YvbftieuHaamx and unspecified benign neoplasm (3 sources)Benign neoplasm of ascending colon; Translations: [Benign neoplasm of ascending colon]Onset: 79-31-0199DtiwlwgpRtnwi and unspecified benign neoplasm (1 source)Benign neoplasm of colon; Translations: [Benign neoplasm of colon, unspecified]Onset: 22-06-8264DvmpwtezBpcyu and unspecified benign neoplasm (2 sources)Adenomatous polyp of foyky00-02-7354JmyokjvyGhhko and unspecified benign neoplasm (4 sources)Personal history of colonic polyps; Translations: [PERSONAL HISTORY OF COLONIC POLYPS]Onset: 90-75-7730RveodiutIoywc and unspecified benign neoplasm (1 source)Benign neoplasm of cecum; Translations: [BENIGN NEOPLASM OF CECUM] Onset: 94-47-3485GyqztdjvXyecn and unspecified benign neoplasm (1 source)Benign neoplasm of ascending colon; Translations: [BENIGN NEOPLASM OF ASCENDING COLON]Onset: 57-49-7754ZrbhnitgKscjf and unspecified benign neoplasm (2 sources)Melanocytic nevus of trunk; Translations: [Melanocytic nevi of trunk] 17-24-9104FxqvcnlqGrgvu congenital anomalies (1 source)Herniated urinary ucafuxh57-25-8408GvpimeoPyfeg non-traumatic joint disorders (1 source)Ankle pain; Translations: [Pain in left ankle and joints of left foot] EpisodicOther nutritional; endocrine; and metabolic disorders (20 sources)Body mass index 30+ - obesity; Translations: [Obesity, unspecified] Onset: 946919-09-7234TyvkkrlEtmni nutritional; endocrine; and metabolic disorders (1 source)Obesity, unspecified; Translations: [Obesity (BMI 30-39.9)]Onset: 78-61-1095KllxcfeCwbfa nutritional; endocrine; and metabolic disorders (14 sources)Obese class I; Translations: [Obesity, unspecified]Onset: 09-04-2022 83-44-9934SvtdffiRdvsc screening for suspected conditions (not mental disorders or infectious disease) (11 sources)Encounter for screening for malignant neoplasm of rectum; Translations: [Encounter for screening mammogram for malignant neoplasm of breast]Onset: 09-83-8783YoonopqlIbeyc skin disorders (2 sources)Seborrheic keratosis; Translations: [Other seborrheic keratosis] 61-94-8166ZflmbqaaEzaoe skin disorders (2 sources)Inflamed seborrheic keratosis; Translations: [Inflamed seborrheic keratosis]56-83-4409TsoywvgrIlgky upper respiratory disease (3 sources)Seasonal allergic srxuzzxv52-06-6539IhldqriSglmllot of female genital organs (8 sources)Uterine prolapse; Translations: [Uterovaginal prolapse, unspecified] Onset: 249240-68-5032AzagbmmVumttnxa codes; unclassified (2 sources)Pain; Translations: [Pain, unspecified]EpisodicResidual codes; unclassified (2 sources)Postmenopausal state; Translations: [Asymptomatic menopausal state] 50-62-1800YynshawjDfirfoabikj; intervertebral disc disorders; other back problems (2 sources)Low back gccv17-31-2354ZofliousGrxvnetnbbjj (1 source)APPOINTMENT CANCELLEDUnclassified (4 sources)CONTACT W/AND (SUSP) EXPOS COVID-19; Translations: [CONTACT W/AND (SUSP) EXPOS COVID-19]Onset: 27-04-4546Rfsyxjsvddxs (3 sources)COUGH, UNSPECIFIED; Translations: [COUGH, UNSPECIFIED]Onset: 59-61-8300Holhk infection (1 source)COVID-19; Translations: [COVID-19]Onset: 09-27-2022 Past or Other Problems Problem ClassificationProblemDateDocumented DateEpisodic/ChronicAcquired foot deformities (20 sources)Talipes planus; Translations: [Flat foot [pes planus] (acquired), left foot]Onset: 91-38-5987PskcjnlbVabya connective tissue disease (3 sources)H/O: arthrodesis; Translations: [Arthrodesis status]Onset: 01-10-2023 EpisodicOther upper respiratory infections (1 source)Acute sinusitis, unspecified; Translations: [ACUTE SINUSITIS UNSPECIFIED]Onset: 59-45-6609GszdbsikMxthgfqq codes; unclassified (1 source)Pain, unspecified; Translations: [Pain]Onset: 75-10-7687Hmtjyrhr Unclassified (1 source)COUGH, UNSPECIFIED; Translations: [COUGH, UNSPECIFIED]Onset: 34-49-8795Obuzlaqihqtx (1 source)CONTACT W/AND (SUSP) EXPOS COVID-19; Translations: [CONTACT W/AND (SUSP) EXPOS COVID-19]Onset: 11-53-8201Rhtjizrnjqbr (1 source)Personal history of adenomatous and serrated colon polypsOnset: 06-09-2025 Results Test NameValueInterpretationReference RangeFacilityAmbulatory Visit Summaryon 54-72-8139Qvnjekczfs Visit SummaryAmbulatory Visit Summary ELENITA HOWARD :1955 [...] signed up for this yet, please contact [employer] at [phone] to get signed up today. Language Information Language assistance services are available as needed. NormalMemorial Health SystemABO/Rh Retypeon 77-56-1615KNQ/RH Recheck ResultPositiveNormalThe [facility]ionhealth Physician GroupComment on above:Result Comment: PERFORMED BY: [facility] [id number] PATHOLOGIST PSYCH SOCIAL WORKER ARTIE PEREZ M.D.Anibal 12-11-2024L Specimen: [id number] Received: 12/11/24 Status: MARILU Elliott Num: [id number] Spec Type: Surgical Subm Dr: Monet Clark DO Tissues: A Uterus w/ or w/o tubes ovaries except neoplastic or prolap (UTERUS, CERVIX Procedures: , Gross/Micro L5 Age/ Patient Sex Location Account Attending Physician Elenita Howard 69/F [place] [id number] Monet Clark DO SPEC NUM: [id number] RECD: 12/11/24 STATUS: MARILU ELLIOTT NUM: [id number] ALBERTO: 12/11/[address] [facility] [address]: Monet Clark DO ENTERED: 12/11/[address] [facility] [address]: ALPHONSE TYPE: Surgical DEPT: S ENTERED BY: [id number] RECV BY: [id number] ORDERED: HE/, Gross/Micro L5 ORDERED: , Gross/Micro [...] thickness. The myometrium is dolan-pink and Specimen: [id number] Received: 12/11/24 Status: MARILU Elliott Num: [id number] Spec Type: Surgical Subm Dr: Monet Clark DO Tissues: A Uterus w/ or w/o tubes ovaries except neoplastic or prolap (UTERUS, CERVIX Procedures: , Gross/Micro L5 Patient: Elenita Howard [id number] (Continued) Specimen: [id number] Received: 12/11/24 (Continued) Gross Description (Continued) Signed (signature on file) Martha James MD 12/12/24 1024 Specimen: [id number] Received: 12/11/24 Status: MARILU Elliott Num: [id number] Spec Type: Surgical Subm Dr: Monet Clark, Tissues: A Uterus w/ or w/o tubes ovaries except neoplastic or prolap (UTERUS, CERVIX Procedures: , Gross/Micro L5 Patient: Elenita Howard Amy [id number] (Continued) Specimen: [id number] Received: 12/11/24 (Continued) Gross Description (Continued) trabecular, [...] 0.3 cm. One (more content not included)...NormalThe [facility] Basic Metabolic Panelon 99-88-0120Hmzqn gap [Moles/Vol]13.3 mmol/LNormal6.0-15.0 The [facility] Hospitals GroupComment on above:Performed By: #### PT, PTT, BMP #### [place] [address] USACalcium [Mass/Vol]10.3 mg/dLNormal8.6-10.3The [facility] Affairs Medical CenterComment on above:Result Comment: PERFORMED BY: [address] [place] [address] PATHOLOGIST PSYCH SOCIAL WORKER ARTIE PEREZ M.D.Performed By: #### PT, PTT, BMP #### [place] [address] USAChloride [Moles/Vol]101 mmol/BOoyhfz15-732Hhn [facility]ician [facility] CenterComment on above:Performed By: #### PT, PTT, BMP #### [address] [address] USACO2 [Moles/Vol]27.6 mmol/ITkagds89.0-31.0The [facility] Physician GroupComment on above:Performed By: #### PT, PTT, BMP #### [place] [id number] USACreatinine [Mass/Vol]0.91 mg/dLNormal0.60-1.20The [facility] Physician [facility] Medical CenterComment on above:Performed By: #### PT, PTT, BMP #### [place] [id number] USAGFR/1.73 sq M.predicted MDRD (S/P/Bld) [Vol rate/Area] mL/min/{1.73_m2}NormalThe [facility] Physician GroupComment on above:Performed By: #### PT, PTT, BMP #### [facility] [address] [place] [address] USAGlucose [Mass/Vol]102 mg/dXBipz70-164Xcc [facility] Physician GroupComment on above:Result Comment: Random Glucose Reference Range is dependent on time and content of last meal. Glucose of more than 200 mg/dL in a nonstressed, ambulatory subject supports the diagnosis of Diabetes Mellitus. ADA recommended reference rangePerformed By: #### PT, PTT, BMP #### [facility] [address] [place] [address] USAPotassium [Moles/Vol]4.9 mmol/LNormal3.5-5.1The [facility] Physician GroupComment on above:Performed By: #### PT, PTT, BMP #### [facility] [address] [place] [address] USASodium [Moles/Vol]137 mmol/RCgcifr265-251Ssh [facility] Physician GroupComment on above:Performed By: #### PT, PTT, BMP #### [facility] [address] [place] [address] USAUrea nitrogen [Mass/Vol]19 mg/dLNormal7-25The [facility] Physician GroupComment on above:Performed By: #### PT, PTT, BMP #### [facility] [address] [place] [address] USABasic metabolic 1998 panelon 52-06-6045Jvbuh gap [Moles/Vol]13.3 mmol/L6.0 - 15.0 meq/LNOMS HealthcareCalcium [Mass/Vol]10.3 mg/dL8.6 - 10.3 mg/dLNOMS HealthcareChloride [Moles/Vol]101 mmol/L98 - 107 mmol/LNOMS HealthcareCO2 [Moles/Vol]27.6 mmol/L21.0 - 31.0 mmol/LNOMS Healthcare Creatinine (U) [Mass/Vol]0.91 mg/dL0.60 - 1.20 mg/dLNOMS HealthcareESTIMATED GFR mL/MinNOMS HealthcareGlucose [Mass/Vol]102 mg/iPJvqv59 - 100 mg/dLNORI HealthcareComment on above:Random Glucose Reference Range is dependent on time and content of last meal. Glucose of more than 200 mg/dL in a nonstressed, ambulatory subject supports the diagnosis of Diabetes Mellitus. ADA recommended reference range Interpretation and review of laboratory resultsAbnormalNOMS HealthcarePotassium [Moles/Vol]4.9 mmol/L3.5 - 5.1 mmol/LNOMS HealthcareSodium [Moles/Vol]137 mmol/L 136 - 145 mmol/LNOMS HealthcareUrea nitrogen [Mass/Vol]19 mg/dL7 - 25 mg/dLNOMS HealthcareNORI HealthcareBasophils Auto (Bld) [#/Vol]Ordered By: Monet Clark on 57-59-2169Guhzxhwyj (Bld) [#/Vol]Automated basophil count0.0-0.2FMetroHealth Parma Medical CenterBasophils/100 WBC Auto (Bld)Ordered By: Monet Clark on 71-82-3312Pohhzbpnv/100 WBC (Bld)Automated basophil %.[facility] CenterCB W Auto Differential panel (Bld)on 73-22-6159Qwalbzugg (Bld) [#/Vol]0 10*3/uL0.0 - 0.2 10*3/uLNOMS HealthcareBasophils/100 WBC Manual cnt (Syn fld)0.5 %.[facility] HealthcareEosinophils (Bld) [#/Vol]0.1 10*3/uL0.0 - 0.45 10*3/uLNOMS HealthcareEosinophils/100 WBC Manual cnt (Syn fld)1.9 %.Christian HospitalErythrocyte distribution width (RBC) [Ratio]14.8 %11.9 - 15.3 %[facility] HealthcareHematocrit (Bld) [Volume fraction]40.2 %34.0 - 46.4 %[facility] Hemoglobin (Bld) [Mass/Vol]13.5 g/dL11.8 - 15.4 g/dLNORI HealthcareLymphocytes (Bld) [#/Vol]1.6 10*3/uL1.00 - 4.8 10*3/uLNOMS HealthcareLymphocytes/100 WBC Manual cnt (Syn fld)29.7 %.[facility] HospitalH (RBC) [Entitic mass]28.3 pg24.7 - 34.3 pgPike County Memorial HospitalHC (RBC) [Mass/Vol]33.5 g/dL32.0 - 35.0 g/dLPike County Memorial HospitalV (RBC) [Entitic vol]84.5 fL80 - 100 fLMOUNTAINSTAR HEALTHCARE HealthcareMonocytes (Bld) [#/Vol]0.4 10*3/uL0.0 - 0.8 10*3/uLMOUNTAINSTAR HEALTHCARE Healthcare Monocytes+Macrophages/100 WBC Manual cnt (Syn fld)8.4 %.[facility] Neutrophils (Bld) [#/Vol]3.2 10*3/uL1.8 - 7.7 10*3/uLNORI Healthcare Neutrophils/100 WBC Manual cnt (Syn fld)59.5 %.Christian HospitalNRBC0.1 /100{WBC}0 - 0.5 /100{WBC}Christian HospitalPlatelet mean volume (Bld) [Entitic vol]7.6 fL6.3 - 10.7 fLMOUNTAINSTAR HEALTHCARE HealthcarePlatelets (Bld) [#/Vol]264 10*3/uL150 - 450 10*3/uLNOResearch Medical CenterRBC LM.HPF (Urine sed) [#/Area]4.77 10*6/uL3.60 - 5.00 10*6/uLNOMS [facility] CenterWBC (Bld) [#/Vol]5.3 10*3/uL3.8 - 11.6 10*3/uLNOMS HealthcareWBC LM.HPF (Urine sed) [#/Area]5.3 10*3/uL3.8 - 11.6 10*3/uLNOMissouri Southern Healthcare HealthcareCalcium [Mass/volume] in Serum or PlasmaOrdered By: Monet Clark on 75-38-2331Zaovwjq [Mass/Vol]Calcium [Mass/volume] in Serum or Plasma8.6-10.3 [facility] CenterCarbon dioxide, total [Moles/volume] in Serum or PlasmaOrdered By: Monet Clark on 14-52-6038AT7 [Moles/Vol]Carbon dioxide, total [Moles/volume] in Serum or Fklokk50.0-31.0[facility] CenterChloride [Moles/volume] in Serum or PlasmaOrdered By: Monet Clark on 79-66-0048Qidzjaiw [Moles/Vol]Chloride [Moles/volume] in Serum or Iptvug99-573 [facility] CenterComplete Blood Count Auto Diffon 11-26-2024 Basophils (Bld) [#/Vol]0.0 10*3/uLNormal0.0-0.2[facility] Comment on above:Result Comment: PERFORMED BY: [place] [address] PATHOLOGIST PSYCH SOCIAL WORKER ARTIE PEREZ M.D.Performed By: #### CBC #### [place] [address] USABasophils/100 WBC (Bld)0.5 %Normal.The [facility] Physician GroupComment on above:Performed By: #### CBC #### [place] [address] USAEosinophils (Bld) [#/Vol]0.1 10*3/uLNormal0.0-0.45The [facility] Physician GroupComment on above:Performed By: #### CBC #### [place] [address] USAEosinophils/100 WBC (Bld)1.9 %Normal.The [facility] Physician GroupComment on above:Performed By: #### CBC #### [place] [address] USAErythrocyte distribution width (RBC) [Ratio]14.8 %Normal 11.9-15.3The [facility] Physician GroupComment on above:Performed By: #### CBC #### [place] [address] USAHematocrit (Bld) [Volume fraction]40.2 %Cxppgb61.0-46.4The [facility] Physician GroupComment on above:Performed By: #### CBC #### [place] [address] USAHemoglobin (Bld) [Mass/Vol]13.5 g/mKGuwhda74.8-15.4The [facility] Physician GroupComment on above:Performed By: #### CBC #### [facility] [address] [place] [address] USALymphocytes (Bld) [#/Vol]1.6 10*3/uLNormal1.00-4.8The [facility] Physician GroupComment on above:Performed By: #### CBC #### [facility] [address] [place] [address] USALymphocytes/100 WBC (Bld)29.7 %Normal.The [facility] Physician GroupComment on above:Performed By: #### CBC #### [facility] [address] [place] [address] USAMCH (RBC) [Entitic mass]28.3 ftMxjtyw19.7-34.3The [facility] Physician GroupComment on above:Performed By: #### CBC #### [place] [address] USAMCV (RBC) [Entitic vol]84.5 mAKjrlcy02-992Vis [facility] Physician GroupComment on above:Performed By: #### CBC #### [place] [address] USAMean Corpuscular HGB Conc33.5 g/aHXlbfld92.0-35.0The [facility] Physician GroupComment on above:Performed By: #### CBC #### [place] [address] USAMonocytes (Bld) [#/Vol]0.4 10*3/uLNormal0.0-0.8The [facility] Physician GroupComment on above:Performed By: #### CBC #### [place] [address] USAMonocytes/100 WBC (Bld)8.4 %Normal.The [facility] Physician GroupComment on above:Performed By: #### CBC #### [place] [address] USANeutrophils (Bld) [#/Vol]3.2 10*3/uLNormal1.8-7.7The [facility] Physician GroupComment on above:Performed By: #### CBC #### [facility] [address] [place] [address] USANeutrophils/100 WBC (Bld)59.5 %Normal.The [facility] Physician GroupComment on above:Performed By: #### CBC #### [facility] [address] [place] [address] USANRBC%0.1 /100{WBC}Normal0-0.5[facility] Comment on above:Performed By: #### CBC #### [facility] [address] [place] [address] USAPlatelet mean volume (Bld) [Entitic vol]7.6 fLNormal 6.3-10.7The [facility] Physician GroupComment on above:Performed By: #### CBC #### [facility] [address] [place] [address] USAPlatelets (Bld) [#/Vol]264 10*3/hLWkqkga318-651Fth [facility] Physician GroupComment on above:Performed By: #### CBC #### [facility] [address] [place] [address] USARBC (Bld) [#/Vol]4.77 10*6/uLNormal3.60-5.00The [facility] Physician GroupComment on above:Performed By: #### CBC #### [facility] [address] [place] [address] USAWBC (Bld) [#/Vol]5.3 10*3/uLNormal3.8-11.6The [facility] Physician GroupComment on above:Performed By: #### CBC #### [facility] [address] [place] [address] USACreatinine [Mass/volume] in Serum or PlasmaOrdered By: Monet Clark on 38-93-7845Jtwkveiqpd [Mass/Vol]Creatinine [Mass/volume] in Serum or Plasma0.60-1.20[facility] CenterEC 12 lead ECGon 04-47-5046QXL 12 lead ECGCLEVELAND [facility]IN[facility] Main [place] [address] [place] [address] Electrocardiograph Report Signed Patient: Elenita Howard MR#: [id number] : 1955 Acct:[id number] Age/Sex: 69 / F ADM Date: 11/26/24 Loc: Room: Type: [facility] Attending Dr: Monet Clark DO Ordering Provider: [...] Signed By Aurelia Nguyen MD 0 11/26/24 1738[facility] Physician GroupEosinophils Auto (Bld) [#/Vol] Ordered By: Monet Clark on 21-22-3008Lcdqnllbsau (Bld) [#/Vol]Automated eosinophil count0.0-0.45[facility] CenterEosinophils/100 WBC Auto (Bld)Ordered By: Monet Clark on 36-81-3980Mnizfvtzyjc/100 WBC (Bld) Automated eosinophil %.[facility] CenterErythrocyte distribution width Auto (RBC) [Ratio]Ordered By: Monet Clark on 64-72-7206Yxlwrjqglrt distribution width (RBC) [Ratio]Erythrocyte distribution width [Ratio] by Automated count11.9-15.3FMetroHealth Parma Medical CenterGlucose [Mass/volume] in Serum or PlasmaOrdered By: Monet Clark on 40-50-5318Kjhwmyf [Mass/Vol] Glucose [Mass/volume] in Serum or RrvuioObtg23-079Awjmmmqto Regional Medical CenterComment on above:ADA recommended reference rangeRandom Glucose Reference Range is dependent on time and content of last meal. Glucose of more than 200 mg/dL in a nonstressed, ambulatory subject supports the diagnosisof Diabetes Mellitus.Hematocrit Auto (Bld) [Volume fraction]Ordered By: Monet Clark on 41-95-3896Wnstkmlkox (Bld) [Volume fraction]Hematocrit [Volume Fraction] of Blood by Automated count34.0-46.4FMetroHealth Parma Medical CenterHemoglobin [Mass/volume] in BloodOrdered By: Monet Clark on 94-86-4890Vckdmssnim (Bld) [Mass/Vol]Hemoglobin [Mass/volume] in Blood11.8-15.4FMetroHealth Parma Medical CenterINR in Platelet poor plasma by Coagulation assayOrdered By: Monet Clark on 44-64-4876BXH Coag (PPP) [Relative time]INR in Platelet poor plasma by Coagulation assayMetrohealth Parma Medical CenterComment on above:INR Therapeutic Range A) Pre- and [...] by Automated counOrdered By: Monet Clark on 81-82-4646RKS corrected for nucl RBC Auto (Bld) [#/Vol]Leukocytes [#/volume] corrected for nucleated erythrocytes in Blood by Automated coun3.8-11.6FMetroHealth Parma Medical CenterLymphocytes Auto (Bld) [#/Vol]Ordered By: Monet Clark on 70-73-2230Ghxzdhrxuua (Bld) [#/Vol] Lymphocytes [#/volume] in Blood by Automated count1.00-4.8[facility] CenterLymphocytes/100 WBC Auto (Bld)Ordered By: Monet Clark on 75-08-5423Sfmdhyjgknt/100 WBC (Bld)Lymphocytes/100 leukocytes in Blood by Automated count.[facility] CenterMCH Auto (RBC) [Entitic mass] Ordered By: Monet Clark on 83-65-4797POE (RBC) [Entitic mass]MCH [Entitic mass] by Automated count24.7-34.3FMetroHealth Parma Medical CenterMCHC Auto (RBC) [Mass/Vol]Ordered By: Monet Clark on 72-69-9011DRVR (RBC) [Mass/Vol] MCHC [Mass/volume] by Automated count32.0-35.0[facility] MCV Auto (RBC) [Entitic vol]Ordered By: Monet Clark on 84-28-2016ZEV (RBC) [Entitic vol]MCV [Entitic volume] by Automated gqilw70-357XnaaowzxeMetrohealth Parma Medical CenterMonocytes Auto (Bld) [#/Vol]Ordered By: Monet Clark on 11-48-5382Nsgwsvvaw (Bld) [#/Vol]Automated blood monocyte count0.0-0.8[facility] CenterMonocytes/100 WBC Auto (Bld)Ordered By: Monet Clark on 10-91-3095Buocjnzpp/100 WBC (Bld)Automated monocyte %.[facility] CenterNeutrophils Auto (Bld) [#/Vol]Ordered By: Monet Clark on 02-97-8346Bvekzskjbho (Bld) [#/Vol]Neutrophils [#/volume] in Blood by Automated count1.8-7.7FMetroHealth Parma Medical CenterNeutrophils/100 WBC Auto (Bld) Ordered By: Monet Clark on 67-74-7800Lqquywnvbdy/100 WBC (Bld)Automated neutrophil %.[facility] CenterNo Panel Informationon 11-26-2024 [facility] HealthcareNo Panel InformationOrdered By: Monet Clark on 11-26-2024 Estimated GFR (CKD-EPI)> 60.0 mL/MinMetrohealth Parma Medical CenterPharmacy Creatinine Clearance (ChemN/AFMetroHealth Parma Medical CenterNucleated erythrocytes [Presence] in Blood by Automated countOrdered By: Monet Clark on 98-08-4846Cjaidrefd RBC Auto Ql (Bld)Nucleated erythrocytes [Presence] in Blood by Automated count0-0.5[facility] CenterPARTIAL THROMBOPLASTIN TIMEon 22-48-3741yVZU Coag (Bld) [Time]22.3 sLow25.1 - 36.5 [facility] HealthcareComment on above:A hematocrit value greater than 55% may lead to inaccurate results in coagulation testing. Patients having hematocrit values >55% require a special collection tube for coagulation studies. Please contact the laboratory at [phone] for redraw instructions. Interpretation and review of laboratory resultsAbnoalChristian HospitalPST Type and Screenon 78-46-4347HSI and Rh group Nom (Bld)Blood group A Rh(D) positive NormalThe [facility]health Physician GroupComment on above:Order Comment: Date of Surgery: [id number] Comment: PERFORMED BY: [facility] [address] PATHOLOGIST PSYCH SOCIAL WORKER ARTIE EPREZ M.D.PT Coag (Bld) [Time]on 05-13-3295LVS Coag (PPP) [Relative time]0.9 {INR}[facility] HealthcareComment on above:INR Therapeutic Range A) Pre- [...] PT Coag (PPP) [Time]10.7 s9.0 - 12.9 [facility] CenterComment on above:A hematocrit value greater than 55% may lead to inaccurate results in coagulation testing. Patients having hematocrit values >55% require a special collection tube for coagulation studies. Please contact the laboratory at [phone] for redraw instructions. Partial Thromboplastin Timeon 03-26-1457pYIW Coag (Bld) [Time]22.3 sLow25.1-36.5 The [facility] Physician GroupComment on above:Result Comment: A hematocrit value greater than 55% may lead to inaccurate results in coagulation testing. Patients having hematocrit values >55% require a special collection tube for coagulation studies. Please contact the laboratory at [phone] for redraw instructions. PERFORMED BY: [place] [id number] PATHOLOGIST PSYCH SOCIAL WORKER ARTIE PEREZ M.D.Performed By: #### PT, PTT, BMP #### [facility] [address] [place] [address] USAPlatelet mean volume Auto (Bld) [Entitic vol]Ordered By: Monet Clark on 25-71-2764Sewyixyt mean volume (Bld) [Entitic vol]Platelet mean volume [Entitic volume] in Blood by Automated count6.3-10.7FMetroHealth Parma Medical CenterPlatelets Auto (Bld) [#/Vol]Ordered By: Monet Clark on 38-53-2103Dztuffcdh (Bld) [#/Vol]Platelets [#/volume] in Blood by Automated iqsvv048-925PfvbrradvMetrohealth Parma Medical CenterPotassium [Moles/volume] in Serum or PlasmaOrdered By: Monet Clark on 41-31-6096Qeikwcprp [Moles/Vol]Potassium [Moles/volume] in Serum or Plasma3.5-5.1FMet[facility]Health Parma Medical Center Prothrombin Time INRon 38-59-5856ROT Coag (PPP) [Relative time]0.9 {INR}Normal The [facility] Physician GroupComment on above:Result Comment: INR Therapeutic [...] 4.5Performed By: #### PT, PTT, BMP #### [facility] [address] [place] [address] USAPT Coag (PPP) [Time]10.7 sNormal9.0-12.9The [facility] Physician GroupComment on above:Result Comment: A hematocrit value greater than 55% may lead to inaccurate results in coagulation testing. Patients having hematocrit values >55% require a special collection tube for coagulation studies. Please contact the laboratory at [phone] for redraw instructions.Performed By: #### PT, PTT, BMP #### [facility] [address] [place] [address] USAProthrombin time (PT)Ordered By: Monet Clark on 23-93-4102JJ Coag (PPP) [Time]Prothrombin time (PT)9.0-12.9[facility] CenterComment on above:A hematocrit value greater than 55% may lead to inaccurate results in coagulation testing. Patientshaving hematocrit values >55% require a special collection tube for coagulation studies. Please contact the laboratory at [phone] for redraw instructions.RBC Auto (Bld) [#/Vol]Ordered By: Monet Clark on 82-74-2056FJG (Bld) [#/Vol]Erythrocytes [#/volume] in Blood by Automated count3.60-5.00[facility] Hospitalerum or plasma anion gap determinationOrdered By: Monet Clark on 98-52-6841Coodr gap [Moles/Vol]Serum or plasma anion gap determination6.0-15.0[facility] Hospitalodium [Moles/volume] in Serum or PlasmaOrdered By: Monet Clark on 04-65-0529Cqhffj [Moles/Vol]Sodium [Moles/volume] in Serum or Plasma 136-145[facility] CenterUrea nitrogen [Mass/volume] in Serum or PlasmaOrdered By: Monet Clark on 06-20-3376Hlpg nitrogen [Mass/Vol]Urea nitrogen [Mass/volume] in Serum or Plasma7-25[facility] WBC Auto (Bld) [#/Vol]Ordered By: Monet Clark on 03-05-8227JTZ (Bld) [#/Vol] Leukocytes [#/volume] in Blood by Automated count3.8-11.6FMetroHealth Parma Medical CenteraPTT in Platelet poor plasma by Coagulation assayOrdered By: Monet Clark on 10-59-6120iJNK Coag (PPP) [Time]Activated partial thromboplastin time (aPTT) in platelet poor plasma by coagulation aLow25.1-36.5 [facility] CenterComment on above:A hematocrit value greater than 55% may lead to inaccurate results in coagulation testing. Patientshaving hematocrit values >55% require a special collection tube for coagulation studies. Please contact the laboratory at [phone] for redraw instructions. No Panel Informationon 16-50-7434DZVT HealthcareCNOVon 44-50-4340BQVVHoipwu Visit (ORAVON) ELENITA HOWARD ([id number]) 1955 F Date Time Provider Department 01/10/23 [...] records. This note was partially generated using [employer] voice recognition system, and there may be [...] 01/10/2023 Encounter Status:Closed by KAYLIE CHARLES on 01/10/23NormAultman HospitalXR FOOT 3V AP/LAT/OBL LTon 19-92-7283EY FOOT 3V AP/LAT/OBL LT* * *Final Report* [...] abnormality is identified. IMPRESSION: Healing postoperative changes. Quality Control Clerk: PSCB Transcribe Date/Time: Jan 10 2023 12:42P Dictated by : ANTHONY PIERCE MD This examination was interpreted and the report reviewed and electronically signed by: ANTHONY PIERCE MD on Jan 10 2023 12:42PM EST [id number]'S Hospital Of ColumbusXR FOOT GENERAL 3V AP/LAT/OBL LEFTon 75-56-2352Esfglupfe ClinicCNOVon 02-58-4439YYYYIwuavp Visit (ORAVON) ELENITA HOWARD ([id number]) 1955 F Date Time Provider Department 11/29/22 3:30 PM CAST TECH STACI DYKES During your visit today, we recorded the following information about you: Antonieta Pa Cast 11/30/2022 7:18 AM Signed PT ASSESSMENT - CASTING ROOM Elenita presents for cast removal. Applied pneumatic aircast walker to Left leg non-weight bearing Patient has been instructed in Care of boot.. Antonieta Pa Cast Beeper: [id number] Referring Provider: KAYLIE CHARLES [[id number]] Allergies As [...] 09/04/2022 Encounter Status:Closed by ANTONIETA GALLAGHER on 11/30/22[facility] Visit (ORAVON) ELENITA HOWARD ([id number]) 1955 F Date Time Provider Department 11/29/22 [...] [M19.072] Order(s):XR FOOT GENERAL 3V AP/LAT/OBL LEFT [[id number]] Order #: [id number] FUTURE Prescriptions as of 11/30/2022 - INV [...] 09/04/2022 Encounter Status:Closed by KAYLIE CHARLES on 11/30/22[facility] CenterXR FOOT 3V AP/LAT/OBL LTon 41-66-7950UJ FOOT 3V AP/LAT/OBL LT* * *Final Report* [...] other significant abnormality. IMPRESSION: EXPECTED POSTOPERATIVE APPEARANCE Quality Control Clerk: MARIA L Transcribe Date/Time: Nov 29 2022 1:44P Dictated by : NATALIE CHOPRA MD This examination was interpreted and the report reviewed and electronically signed by: NATALIE CHOPRA MD on Nov 29 2022 1:44PM EST [id number] [facility]erington [facility] FOOT GENERAL 3V AP/LAT/OBL LEFTon 86-35-2534Cojubrhaq ClinicCNOVon 01-78-1260ALMJGugjxr Visit (ORAVON) ELENITA HOWARD ([id number]) 1955 F Date Time Provider Department 11/13/22 1:00 PM CAST TECH STACI DYKES During your visit today, we recorded the following information about you: Antonieta Pa Cast 11/13/2022 2:49 PM Signed PT ASSESSMENT - CASTING ROOM Elenita presents for cast removal. Applied short cast: to Left leg weight bearing Patient has been instructed in Care of cast.. Antonieta Jhaveriey Cast Beeper: [id number] Allergies As of Date: 11/13/2022 Noted Allergy [...] 09/04/2022 Encounter Status:Closed by ANTONIETA GALLAGHER on 11/13/22NoBluffton HospitalArianna 99-72-7913YRYCScpzssstk (ORAVON) ELENITA HOWARD ([id number]) 1955 F Date Time Provider Department 10/24/22 [...] will try to upload some photos via [employer] Maybe this is normal but she was [...] Pt is asking for a call back [phone] Allergies As of Date: 10/24/2022 Noted Allergy [...] by LIZETTE DE LA CRUZ RN on 10/24/22[facility] CenterAnabel 15-67-9022IFSJCqqute Visit (JANIA) ELENITA HOWARD ([id number]) 1955 F Date Time Provider Department 10/18/22 [...] [M19.072] Order(s):XR FOOT GENERAL 3V AP/LAT/OBL LEFT [[id number]] Order #: [id number] FUTURE Prescriptions as of 10/18/2022 - INV [...] 09/04/2022 Encounter Status:Closed by KAYLIE CHARLES on 10/18/22[facility] ([facility]AVON) ELENITA HOWARD ([id number]) 1955 F Date Time Provider Department 10/18/22 1:30 PM CAST TECH STACI DYKES During your visit today, we recorded the following information about you: Antonieta Pa Cast 10/19/2022 8:01 AM Signed PT ASSESSMENT - CASTING ROOM Elenita presents for cast removal. Applied short cast: to Left leg weight bearing Patient has been instructed in Care of cast.. Antonieta Pa Cast Beeper: [id number] Allergies As of Date: 10/18/2022 Noted Allergy [...] 09/04/2022 Encounter Status:Closed by ANTONIETA GALLAGHER on 10/19/22[facility] CenterXR FOOT 3V AP/LAT/OBL LTon 23-13-3823GP FOOT 3V AP/LAT/OBL LT* * *Final Report* [...] preoperative exam. IMPRESSION: Postoperative findings, as described. Quality Control Clerk: PSCSteffany Transcribe Date/Time: Oct 18 2022 3:34P Dictated by : BEBETO JIANG MD This examination was interpreted and the report reviewed and electronically signed by: BEBETO JIANG MD on Oct 18 2022 6:02PM EST [id number] Health ClevelandXR FOOT GENERAL 3V AP/LAT/OBL LEFTon 22-94-8571Fsvffbwqt ClinicINSULINon 59-23-5711Djbnauf65.1 uIU/mLNormal2.6-24.9The [facility] HospitalComment on above:Performed By: #### INSULIN #### [facility] [address] [place] [address] Dr. Nj Mari AUTO DIFFon 93-96-7878ELDS #0.0 103/ulNormal0.0-0.1The [facility] HospitalComment on above:Performed By: #### IRON #### [facility] [address] [place] [address] Dr. Nj Leonphils/100 WBC (Bld)0.6 %Normal0.2-2.0[facility] Comment on above:Performed By: #### IRON #### [facility] [address] [place] [address] Dr. Nj Augustin #0.2 103/ulNormal0.0-0.7The [facility] HospitalComment on above: Performed By: #### IRON #### [facility] [address] [place] [address] Dr. Nj Cuevaosinophils/100 WBC (Bld)5.1 %Normal0.9-7.0The [facility] Comment on above:Performed By: #### IRON #### [facility] [address] [place] [address] Dr. Nj Cuevarythrocyte distribution width (RBC) [Ratio]13.7 %Ttofws96.0-15.0 The [facility] HospitalComment on above:Performed By: #### IRON #### [facility] [address] [place] [address] [address] Nj Delunaatocrit (Bld) [Volume fraction]39.0 %Csrpzw58.0-48.0The [facility] HospitalComment on above:Performed By: #### IRON #### [facility] [address] [place] [address] Dr. Nj SarabiaHemoglobin (Bld) [Mass/Vol]12.7 g/eWQgbysd48.0-16.0The [facility] HospitalComment on above:Performed By: #### IRON #### [facility] [address] [place] [address] Dr. Nj Hadley #0.01 10e3/ulNormal0.00-0.03The [facility] HospitalComformerly [facility] on above:Performed By: #### IRON #### [facility] [address] [place] [address] Dr. Nj Hadley %0.2 %Normal0.0-0.5The [facility] HospitalComment on above: Performed By: #### IRON #### [facility] [address] [place] [address] Dr. Nj Curiel #2.1 103/ulNormal1.2-3.8The [facility] HospitalComment on above:Performed By: #### IRON #### [facility] [address] [place] [address] Dr. Nj Pagemphocytes/100 WBC (Bld)43.8 %Srlrxz40.5-60.0The [facility] HospitalComment on above:Performed By: #### IRON #### [facility] [address] [place] [address] Dr. Nj SarabiaMANUAL DIFF REQNONormalThe [facility] HospitalComment on above: Performed By: #### IRON #### [facility] [address] [place] [address] Dr. Nj Manzano (RBC) [Entitic mass]27.1 mfNmxsbu79.7-34.0The [facility] HospitalComment on above:Performed By: #### IRON #### [facility] [address] [place] [address] [address] Nj KnoxHC (RBC) [Mass/Vol]32.6 g/pZUffmfl30.9-35.2The [facility] HospitalComment on above:Performed By: #### IRON #### [facility] [address] [place] [address] Dr. Nj KnoxV (RBC) [Entitic vol]83.3 vQGseloh91.0-99.0The [facility] HospitalComment on above:Performed By: #### IRON #### [facility] [address] [place] [address] Dr. Nj Cummings #0.4 103/ulNormal0.3-0.8The [facility] HospitalComment on above:Performed By: #### IRON #### [facility] [address] [place] [address] Dr. Nj Willocytes/100 WBC (Bld)9.1 %Normal1.7-12.0The [facility] Comment on above:Performed By: #### IRON #### [facility] [address] [place] [address] Dr. Nj Maxwell #2.0 103/ulNormal1.4-6.5The [facility] HospitalComment on above:Performed By: #### IRON #### [facility] [address] [place] [address] Dr. Nj Caalutrophils/100 WBC (Bld)41.2 %Critically low43.0-75.0The [facility] HospitalComment on above:Performed By: #### IRON #### [facility] [address] [place] [address] Dr. Nj Schaeferlet mean volume (Bld) [Entitic vol]9.0 fLCritically low 9.5-13.5The [facility] HospitalComment on above:Performed By: #### IRON #### [facility] [address] [place] [address] Dr. Nj SarabiaPLT330 103/yrAomokn056-093Pks [facility] HospitalComment on above: Performed By: #### IRON #### [facility] [address] [place] [address] Dr. Nj SarabiaRBC4.68 106/ulNormal4.20-5.40The [facility] HospitalComment on above:Performed By: #### IRON #### [facility] [address] [address] [address] Nj SarabiaWBC4.8 103/ulNormal4.0-11.0The [facility] HospitalComment on above: Performed By: #### IRON #### [facility] [address] [place] [address] Dr. Nj SarabiaFRHARSHAL THYROXINE INDEX T7on 59-42-3970KOW1.47Pewjxf3.30-4.50The [facility] HospitalComment on above:Performed By: #### CMP #### [facility] [address] [place] [address] Dr. Nj SarabiaT3U34.0 %Oakhvc62.0-39.0The [facility] HospitalComment on above: Performed By: #### CMP #### [facility] [address] [place] [address] Dr. Nj SarabiaT4 [Mass/Vol]8.80 ug/dLNormal4.80-13.90The [facility] Comment on above:Performed By: #### CMP #### [facility] [address] [place] [address] Dr. Nj SarabiaGLYCOHEMOGLOBIN A1Con 49-73-2515XUH RECOMMENDATIONSEE BELOWNormal The [facility] HospitalComment on above:Result Comment: ADA RECOMMENDED LIMIT 4.0 - 6.0 ADA THERAPEUTIC TARGET < 7.0 ACTION SUGGESTED > 7.0Performed By: #### A1C #### [facility] [address] [place] [address] Dr. Nj SarabiaGlucose [Mass/Vol]120 mg/dLNormalThe [facility] HospitalComment on above:Performed By: #### A1C #### [facility] [address] [place] [address] Dr. Nj SarabiaHbA1c (Bld) [Mass fraction]5.8 %Normal4.5-6.2The [facility] HospitalComment on above:Performed By: #### A1C #### [facility] [address] [place] [address] Dr. Nj Delaney 12-00-8468Dpim [Mass/Vol]46.0 ug/dLCritically low 50.0-170.0The [facility] HospitalComment on above:Performed By: #### IRON #### [facility] [address] [place] [address] Dr. Nj StevensID PROFILEon 58-90-9317SVQX-HDL RATIO NORMSEE [facility] HospitalComment on above:Result Comment: 3.3 - 4.4 LOW RISK 4.4 - 7.1 AVERAGE RISK 7.1 - 11.0 MODERATE RISK >11.0 HIGH RISKPerformed By: #### CMP #### [facility] [address] [place] [address] Dr. Nj Palacioesterol [Mass/Vol]244 mg/dLCritically high<=200The [facility] HospitalComformerly [facility] on above:Performed By: #### CMP #### [facility] [address] [place] [address] Dr. Nj Palacioesterol in HDL [Mass/Vol]71 mg/dLCritically zufx72-32Pvt [facility] on above:Performed By: #### CMP #### [facility] [address] [place] [address] Dr. Nj Palacioesterol in LDL [Mass/Vol]150.8 mg/dLMercy Health Kings Mills HospitalComformerly [facility] on above:Performed By: #### CMP #### [facility] [address] [place] [address] Dr. Nj Dillon.total/Cholesterol in HDL [Mass ratio]3.4 {ratio} NormalThe [facility] on above:Performed By: #### CMP #### [facility] [address] [place] [address] Dr. Nj Portillo NORMAL> or = 60 mg/dl - LOW CARDIOVASCULAR RISK <40 mg/dl - HIGH CARDIOVASCULAR RISKNoTrumbull Regional Medical CenterComment on above:Performed By: #### CMP #### [facility] [address] [address] [address] Nj Marion CALC NORMALSEE BELOWMercy Health Kings Mills HospitalComment on above:Result Comment: <100 mg/dl OPTIMAL 100 - 129 mg/dl NEAR OR ABOVE OPTIMAL 130 - 159 mg/dl BORDERLINE HIGH 160 - 189 mg/dl HIGH >190 mg/dl VERY HIGH Performed By: #### CMP #### [facility] [address] [place] [address] Dr. Nj SarabiaTriglyceride [Mass/Vol]111 mg/dLNormal<=150The [facility] Comment on above:Performed By: #### CMP #### [facility] [address] [place] [address] Dr. Nj SarabiaVLDL CALC22.2 mg/dLNoTrumbull Regional Medical CenterComment on above: Performed By: #### CMP #### [facility] [address] [place] [address] Dr. Nj SarabiaPROF 14(COMP METB)on 16-13-0328Ozudcwa [Mass/Vol]4.0 g/dLNormal 3.4-5.0[facility] on above:Performed By: #### CMP #### [facility] [address] [place] [address] Dr. Nj SarabiaAlbumin/Globulin [Mass ratio]1.1 {ratio}NormalThe [facility] HospitalComment on above:Performed By: #### CMP #### [facility] [address] [place] [address] Dr. Nj Argueta [Catalytic activity/Vol]88 U/PQplhzt00-425Nmq [facility] HospitalComformerly [facility] on above:Performed By: #### CMP #### [facility] [address] [place] [address] Dr. Nj Salazar [Catalytic activity/Vol]20 U/DWnvgyi91-64Ukx [facility] on above:Performed By: #### CMP #### [facility] [address] [address] [address] Nj Godfrey gap [Moles/Vol]11.8 mmol/LNormalThe [facility] Comment on above:Performed By: #### CMP #### [facility] [address] [address] [address] Nj SarabiaAST [Catalytic activity/Vol]16 U/KNpgmbx31-11Ijk [facility] HospitalComment on above:Performed By: #### CMP #### [facility] [address] [address] [address] Nj SarabiaBilirubin [Mass/Vol]0.3 mg/dLNormal0.2-1.0The [facility] Comment on above:Performed By: #### CMP #### [facility] [address] [place] [address] Dr. Nj SarabiaCalcium [Mass/Vol]9.7 mg/dLNormal8.5-10.1The [facility] Comment on above:Performed By: #### CMP #### [facility] [address] [place] [address] Dr. Nj SarabiaChloride [Moles/Vol]100 mmol/DWfrnmd75-980ZnaMarion Hospital Comment on above:Performed By: #### CMP #### [facility] [address] [place] [address] Dr. Nj SarabiaCO2 [Moles/Vol]28.3 mmol/HBmjvjs34.0-32.0The [facility] Comment on above:Performed By: #### CMP #### [facility] [address] [place] [address] Dr. Nj SarabiaCreatinine [Mass/Vol]0.74 mg/dLNormal0.55-1.02The [facility] HospitalComment on above:Performed By: #### CMP #### [facility] [address] [place] [address] Dr. Nj CuevaGFR-AF MALIAN>60Normal>=60The [facility] HospitalComment on above:Performed By: #### CMP #### [facility] [address] [place] [address] Dr. Nj CuevaGFR-NON AF MALIAN>60Normal>=60The [facility] HospitalComment on above:Performed By: #### CMP #### [facility] [address] [place] [address] Dr. Nj SarabiaGlobulin (S) [Mass/Vol]3.6 g/dLNormalThCherrington HospitalComment on above:Performed By: #### CMP #### [facility] [address] [place] [address] Dr. Nj SarabiaGlucose [Mass/Vol]104 mg/lSYzqehp44-815Pxo [facility] Comment on above:Performed By: #### CMP #### [facility] [address] [place] [address] Dr. Nj SarabiaPotassium [Moles/Vol]4.1 mmol/LNormal3.5-5.1The [facility] Comment on above:Performed By: #### CMP #### [facility] [address] [place] [address] Dr. Nj SarabiaProtein [Mass/Vol]7.6 g/dLNormal6.4-8.2The [facility] Comment on above:Performed By: #### CMP #### [facility] [address] [place] [address] Dr. Nj SarabiaSodium [Moles/Vol]136 mmol/CThdljg923-404WjmMarion Hospital Comment on above:Performed By: #### CMP #### [facility] [address] [place] [address] Dr. Nj SarabiaUrea nitrogen [Mass/Vol]16.0 mg/dLNormal7.0-18.0The [facility] HospitalComment on above:Performed By: #### CMP #### [facility] [address] [place] [address] Dr. Nj Xavier nitrogen/Creatinine [Mass ratio]21.6 mg/mgNormalThCherrington HospitalComment on above:Performed By: #### CMP #### [facility] [address] [place] [address] Dr. Nj Arambula 21-66-2659MAM4.812 uIU/mLCritically high0.358-3.740Marion HospitalComment on above:Performed By: #### CMP #### [facility] [address] [place] [address] Dr. Nj Mari AUTO DIFFon 58-09-9114AMTC #0.0 103/ulNormal0.0-0.1The [facility] HospitalComment on above:Performed By: #### CBC #### [facility] [address] [place] [address] Dr. Nj SarabiaBasophils/100 WBC (Bld)0.3 %Normal0.2-2.0The [facility] Comment on above:Performed By: #### CBC #### [facility] [address] [place] [address] Dr. Nj Augustin #0.1 103/ulNormal0.0-0.7The [facility] HospitalComment on above: Performed By: #### CBC #### [facility] [address] [place] [address] Dr. Nj Cuevaosinophils/100 WBC (Bld)1.8 %Normal0.9-7.0[facility] Comment on above:Performed By: #### CBC #### [facility] [address] [place] [address] Dr. Nj Cuevarythrocyte distribution width (RBC) [Ratio]13.7 %Blooif06.0-15.0 The [facility] HospitalComment on above:Performed By: #### CBC #### [facility] [address] [place] [address] Dr. Nj SarabiaHematocrit (Bld) [Volume fraction]37.3 %Vizwkh59.0-48.0The [facility] HospitalComment on above:Performed By: #### CBC #### [facility] [address] [place] [address] Dr. Nj SarabiaHemoglobin (Bld) [Mass/Vol]12.5 g/pCPtwjbc40.0-16.0The [facility] HospitalComment on above:Performed By: #### CBC #### [facility] [address] [place] [address] Dr. Nj Hadley #0.02 10e3/ulNormal0.00-0.03The [facility] on above:Performed By: #### CBC #### [facility] [address] [place] [address] Dr. Nj Hadley %0.3 %Normal0.0-0.5The [facility] HospitalComformerly [facility] on above: Performed By: #### CBC #### [facility] [address] [place] [address] Dr. Nj Curiel #1.5 103/ulNormal1.2-3.8The [facility] HospitalComformerly [facility] on above:Performed By: #### CBC #### [facility] [address] [place] [address] Dr. Nj Greenehocytes/100 WBC (Bld)21.8 %Oscozk53.5-60.0The [facility] on above:Performed By: #### CBC #### [facility] [address] [place] [address] Dr. Nj GonsalezUAL DIFF REQNONormalThe [facility] HospitalComformerly [facility] on above: Performed By: #### CBC #### [facility] [address] [place] [address] Dr. Nj Knox (RBC) [Entitic mass]27.8 cmYipijd17.7-34.0The [facility] on above:Performed By: #### CBC #### [facility] [address] [place] [address] Dr. Nj Knox (RBC) [Mass/Vol]33.5 g/rHDssjal19.9-35.2The [facility] on above:Performed By: #### CBC #### [facility] [address] [place] [address] Dr. Nj Knox (RBC) [Entitic vol]83.[address]fbhri76.0-99.0The [facility] Hospitalment on above:Performed By: #### CBC #### [facility] [address] [address] [address] Nj Cummings #0.4 103/ulNormal0.3-0.8The [facility] HospitalComment on above:Performed By: #### CBC #### [facility] [address] [address] [address] Nj Willocytes/100 WBC (Bld)6.5 %Normal1.7-12.0The [facility] Comment on above:Performed By: #### CBC #### [facility] [address] [place] [address] Dr. Nj Maxwell #4.7 103/ulNormal1.4-6.5The [facility] HospitalComment on above:Performed By: #### CBC #### [facility] [address] [place] [address] Dr. Nj Caalutrophils/100 WBC (Bld)69.3 %Iqsuia06.0-75.0The [facility] HospitalComment on above:Performed By: #### CBC #### [facility] [address] [place] [address] Dr. Nj Pace mean volume (Bld) [Entitic vol]9.3 fLCritically low 9.5-13.5The [facility] HospitalComment on above:Performed By: #### CBC #### [facility] [address] [place] [address] Dr. Nj SarabiaPLT367 103/mqKstwhv574-190Hjv [facility] HospitalComment on above: Performed By: #### CBC #### [facility] [address] [place] [address] Dr. Nj SarabiaRBC4.49 106/ulNormal4.20-5.40The [facility] HospitalComment on above:Performed By: #### CBC #### [facility] [address] [place] [address] Dr. Nj SarabiaWBC6.8 103/ulNormal4.0-11.0The [facility] HospitalComment on above: Performed By: #### CBC #### [facility] [address] [place] [address] Dr. Nj SarabiaPROF CHEM 8 (BAS METB)on 88-30-9420Kaptn gap [Moles/Vol]12.9 mmol/LNormalThe [facility] HospitalComment on above:Performed By: #### HSTROPN, BMP #### [facility] [address] [place] [address] Dr. Nj SarabiaCalcium [Mass/Vol]9.9 mg/dLNormal8.5-10.1[facility] Comment on above:Performed By: #### HSTROPN, BMP #### [facility] [address] [place] [address] Dr. Nj SarabiaChloride [Moles/Vol]98 mmol/ZMpjyjr92-077FnoMarion Hospital Comment on above:Performed By: #### HSTROPN, BMP #### [facility] [address] [place] [address] Dr. Nj SarabiaCO2 [Moles/Vol]27.2 mmol/YKizibc31.0-32.0[facility] Comment on above:Performed By: #### HSTROPN, BMP #### [facility] [address] [place] [address] Dr. Nj SarabiaCreatinine [Mass/Vol]0.67 mg/dLNormal0.55-1.02The [facility] HospitalComment on above:Performed By: #### HSTROPN, BMP #### [facility] [address] [place] [address] Dr. Nj CuevaGFR-AF MALIAN>60Normal>=60The [facility] HospitalComment on above:Performed By: #### HSTROPN, BMP #### [facility] [address] [place] [address] Dr. Nj CuevaGFR-NON AF MALIAN>60Normal>=60The [facility] HospitalComment on above:Performed By: #### HSTROPN, BMP #### [facility] [address] [place] [address] Dr. Nj SarabiaGlucose [Mass/Vol]113 mg/dLCritically dgzx11-356Dnd [facility] HospitalComment on above:Performed By: #### HSTROPBryson, BMP #### [facility] [address] [address] [address] Nj SarabiaPotassium [Moles/Vol]4.1 mmol/LNormal3.5-5.1The [facility] Comment on above:Performed By: #### HSTROPN, BMP #### [facility] [address] [address] [address] Nj SarabiaSodium [Moles/Vol]134 mmol/LCritically xmv689-584Tru [facility] HospitalComment on above:Performed By: #### HSTROPBryson, BMP #### [facility] [address] [place] [address] Dr. Nj SarabiaUrea nitrogen [Mass/Vol]17.0 mg/dLNormal7.0-18.0The [facility] HospitalComment on above:Performed By: #### HSTRKIERAN, BMP #### [facility] [address] [address] [address] Nj SarabiaUrea nitrogen/Creatinine [Mass ratio]25.4 mg/mgNormalThe [facility] HospitalComment on above:Performed By: #### HSTROPBryson, BMP #### [facility] [address] [place] [address] Dr. Nj Kaur, HIGH SENSITIVITYon 27-89-9272NXPLTI54.4 pg/mLNormal 4.0-51.3The [facility] HospitalComment on above:Result Comment: CUT-OFF POINTS HAVE BEEN ESTABLISHED BASED ON THE FOURTH UNIVERSAL DEFINITIONS OF MYOCARDIAL INFARCTION. THE UPPER REFERENCE LIMIT (URL) OF TROPONIN, DEFINED THE 99TH PERCENTILE OF cTnI DISTRIBUTION IN A REFERENCE POPULATION, HAS BEEN CONFIRMED THE DECISION THRESHOLD FOR [place] DIAGNOSIS.Performed By: #### HSTROPN, BMP #### [facility] [address] [place] [address] Dr. Nj SarabiaXR CHEST 1 Von 16-29-7296DR CHEST 1 VEXAM: XR CHEST 1 V [...] Electronically authenticated by: JOHN SANCHEZ Date: 2022-09-26 12:42[facility] 56-56-8379MMWQHfcgrx Visit (ORAVON) ELENITA HOWARD ([id number]) 1955 F Date Time Provider Department 09/20/22 [...] [M19.072] Order(s):XR FOOT GENERAL 3V AP/LAT/OBL LEFT [[id number]] Order #: [id number] FUTURE Prescriptions as of 09/22/2022 - INV [...] needed. Encounter Status:Closed by KAYLIE CHARLES on 09/22/22[facility] ELENITA HOWARD ([id number]) 1955 F Date Time Provider Department 09/20/22 10:30 AM CAST TECH STACI DYKES During your visit today, we recorded the following information about you: Sarah Dasilva LPN 09/20/2022 4:08 PM Signed PT ASSESSMENT - CASTING ROOM Elenita presents for cast removal. Applied short cast: to Left leg Patient has been instructed in Care of cast.. Sarah Dasilva LPN Beeper: [id number] Allergies As of Date: 09/20/2022 Noted Allergy [...] 09/04/2022 Encounter Status:Closed by SARAH DASILVA on 09/20/22NoDayton Children's HospitalPNon [id number] (ORAVON) ELENITA HOWARD ([id number]) 1955 F Date Time Provider Department 09/15/22 [...] 09/04/2022 Encounter Status:Closed by YONG VALIENTE on 09/15/22NoBarnesville Hospitaljonathan 64-31-3243UMNSJilbnj Visit (ORAVON) ELENITA HOWARD ([id number]) 1955 F Date Time Provider Department 09/08/22 10:00 AM CAST TECH STACI DYKES During your visit today, we recorded the following information about you: Sarah Dasilva LPN 09/08/2022 11:37 AM Signed PT ASSESSMENT - CASTING ROOM Elenita presents for cast removal. Applied short cast: to Left leg Patient has been instructed in Care of cast.. Sarah Dasilva LPN Beeper: [id number] Allergies As of Date: 09/08/2022 Noted Allergy [...] 09/04/2022 Encounter Status:Closed by SARAH DASILVA on 09/08/22[facility] Hospitaljonathan 99-28-9320UGLEQqavkh Visit (ORAVON) ELENITA HOWARD ([id number]) 1955 F Date Time Provider Department 09/06/22 [...] 09/04/2022 Encounter Status:Closed by KYLE SCHMIDT on 09/14/22NoOhioHealth Grove City Methodist HospitalTORY PHYSICALon 24-89-2508NWYQATH PHYSICALHNO ID: [id number] Author: Hodan Townsend PA-C Service: ? Author Type: Physician Pt Escort Type: HANDP Filed: 08/22/2022 10:00 AM Note [...] Prior to Admission medications as of 08/18/22 3537 Medication Sig Last Dose Taking INV VITAMIN [...] fevers. Neuro: No history of TIA's, stroke, [employer] tumor, impaired sensorium, hemiplegia, paraplegia or quadraplegia. No neurological symptoms or problems. Respiratory: No history of current cough or dyspnea, or pneumonia in the past 6 weeks. No history of respiratory/pulmonary symptoms or problems. Cardiovascular: +HTN Negative for Recent NH, Angina, CAD, Chest Pain, CHF, DVT/PE GI: [...] (more content not included)...NormalAvon HospitalCovid-19 PCR (CVDTBH)on 31-70-0190FULP-CoV-2 (COVID-19) RNA LAMONTE+probe Ql (Unsp spec)Not detectedNormalNOT DETECTEDThe [facility] HospitalComment on above:Result Comment: When diagnostic testing [...] for this test is supported by the [place] of Health and Human Service's declaration that [...] longer be used).Performed By: #### CVDTBH #### [facility] [address] [place] [address] Dr. Nj Christianson 25 OHon 41-51-5064AHG D 25-OH46.4 ng/mLNHenry County Hospital on above:Performed By: #### VITAD #### [facility] [address] [place] [address] Dr. Nj Christianson [facility] on above: Result Comment: <20 ng/mL Vit D deficient 20 - <30 ng/mL Vit D insufficient 30 - 100 ng/mL Vit D sufficient >100 ng/mL Potential ToxicityPerformed By: #### VITAD #### [facility] [address] [place] [address] Dr. Nj Nash 11-11-9992EJHIHditpi Visit (ORAVON) ELENITA HOWARD ([id number]) 1955 F Date Time Provider Department 05/31/22 [...] X-Rays The patient's pertinent medical history from [facility] has been reviewed. PFOMIS forms [...] It required patient-provide (more content not included)... NormalChildren'S Hospital Of ColumbusNo Panel Informationon 33-09-3069Wswuhvfib ClinicXR FOOT 3V AP/LAT/OBL LTon 91-62-6663AG FOOT 3V AP/LAT/OBL LT* * *Final Report* [...] NO ACUTE OSSEOUS ABNORMALITY OTHER FINDINGS DESCRIBED Quality Control Clerk: MARIA L Transcribe Date/Time: May 31 2022 3:12P Dictated by : NATALIE CHOPRA MD This examination was interpreted and the report reviewed and electronically signed by: NATALIE CHOPRA MD on May 31 2022 3:13PM EST [id number]'S Hospital Of ColumbusMG MAMM SCREEN 3D NIKKIE CAD on 49-38-5569RC MAMM SCREEN 3D NIKKIE CADPatient: ELENITA HOWARD Exam Date: 04/18/2022 : 1955 Gender:F Ordering : DR HERACLIO SAMSON . Admission #: [id number] Family : Order #: [id number] CLICK HERE TO VIEW EXAM RADIOLOGY REPORT [...] ?uterine cancer at age 42. LOCATION: [facility] BREAST COMPOSITION: Heterogeneously dense,which may obscure [...] by: Lesly Merritt M.D. on 04/19/2022 at 10:33[facility] AUTO DIFFon 52-04-8639EOYY #0.0 103/ulNormal0.0-0.1Mar[facility] HospitalComment on above:Performed By: #### CMP #### [facility] [address] [address] [address] Nj SarabiaBasophils/100 WBC (Bld)0.6 %Normal0.2-2.0[facility] Comment on above:Performed By: #### CMP #### [facility] [address] [address] [address] Nj Augustin #0.2 103/ulNormal0.0-0.7The [facility] HospitalComment on above: Performed By: #### CMP #### [facility] [address] [address] [address] Nj Cuevaosinophils/100 WBC (Bld)3.6 %Normal0.9-7.0[facility] Comment on above:Performed By: #### CMP #### [facility] [address] [place] [address] Dr. Nj Cuevarythrocyte distribution width (RBC) [Ratio]13.4 %Lntvwi62.0-15.0 [facility] HospitalComment on above:Performed By: #### CMP #### [facility] [address] [place] [address] Dr. Nj SarabiaHematocrit (Bld) [Volume fraction]40.3 %Bewpcd12.0-48.0The [facility] HospitalComment on above:Performed By: #### CMP #### [facility] [address] [place] [address] Dr. Nj SarabiaHemoglobin (Bld) [Mass/Vol]13.1 g/gSJvsiit78.0-16.0The [facility] HospitalComment on above:Performed By: #### CMP #### [facility] [address] [place] [address] Dr. Nj Hadley #0.09 10e3/ulCritically high0.00-0.03[facility] Comment on above:Performed By: #### CMP #### [facility] [address] [place] [address] Dr. Nj Hadley %1.4 %Critically high0.0-0.5The [facility] HospitalComment on above:Performed By: #### CMP #### [facility] [address] [place] [address] Dr. Nj GreeneH #2.0 103/ulNormal1.2-3.8The [facility] HospitalComment on above:Performed By: #### CMP #### [facility] [address] [place] [address] Dr. Nj Greenehocytes/100 WBC (Bld)30.6 %Cesrei50.5-60.0[facility] HospitalComment on above:Performed By: #### CMP #### [facility] [address] [place] [address] Dr. Nj GonsalezUAL DIFF REQNONormalThe [facility] HospitalComment on above: Performed By: #### CMP #### [facility] [address] [place] [address] Dr. Nj Knox (RBC) [Entitic mass]27.5 xcJaxeui88.7-34.0The [facility] HospitalComment on above:Performed By: #### CMP #### [facility] [address] [place] [address] Dr. Nj Knox (RBC) [Mass/Vol]32.5 g/vMMdqvnw79.9-35.2The [facility] HospitalComment on above:Performed By: #### CMP #### [facility] [address] [place] [address] Dr. Nj Tran (RBC) [Entitic vol]84.5 oMMjahqy31.0-99.0The [facility] HospitalComment on above:Performed By: #### CMP #### [facility] [address] [place] [address] Dr. Nj Cummings #0.5 103/ulNormal0.3-0.8The [facility] HospitalComment on above:Performed By: #### CMP #### [facility] [address] [place] [address] Dr. Nj Willocytes/100 WBC (Bld)7.6 %Normal1.7-12.0The [facility] on above:Performed By: #### CMP #### [facility] [address] [place] [address] Dr. Nj Maxwell #3.6 103/ulNormal1.4-6.5The [facility] HospitalComment on above:Performed By: #### CMP #### [facility] [address] [place] [address] Dr. Nj Caalutrophils/100 WBC (Bld)56.2 %Vjirkz74.0-75.0The [facility] HospitalComment on above:Performed By: #### CMP #### [facility] [address] [place] [address] Dr. Nj Schaeferlet mean volume (Bld) [Entitic vol]8.8 fLCritically low 9.5-13.5The [facility] HospitalComment on above:Performed By: #### CMP #### [facility] [address] [place] [address] Dr. Nj SarabiaPLT327 103/icJrydqj482-803Yww [facility] HospitalComment on above: Performed By: #### CMP #### [facility] [address] [place] [address] Dr. Nj SarabiaRBC4.77 106/ulNormal4.20-5.40The [facility] HospitalComment on above:Performed By: #### CMP #### [facility] [address] [place] [address] Dr. Nj SarabiaWBC6.4 103/ulNormal4.0-11.0The [facility] HospitalComment on above: Performed By: #### CMP #### [facility] [address] [place] [address] Dr. Nj SarabiaCULTCHIO SPUTUMon 88-64-2581CUOWOTW SPUTUMCulture Observations: NORMAL RESPIRATORY KAVITA.NormalThe [facility] HospitalComment on above:Performed By: #### CMP #### [facility] [address] [place] [address] Dr. Nj SarabiaLACTATE/LACTIC ACIDon 70-63-6929Nlircuz [Moles/Vol]1.3 mmol/L Normal0.4-1.9The [facility] on above:Performed By: #### LACT #### [facility] [address] [place] [address] Dr. Nj SarabiaPROF 14(COMP METB)on 30-86-6467Jkkzybe [Mass/Vol]3.6 g/dLNormal 3.4-5.0The [facility] HospitalComment on above:Performed By: #### CMP #### [facility] [address] [place] [address] Dr. Nj SarabiaAlbumin/Globulin [Mass ratio]0.9 {ratio}NormalThe [facility] HospitalComment on above:Performed By: #### CMP #### [facility] [address] [address] [address] Nj MarleyP [Catalytic activity/Vol]62 U/XKgtfhp95-709Bjn [facility] HospitalComment on above:Performed By: #### CMP #### [facility] [address] [address] [address] Nj MarleyT [Catalytic activity/Vol]27 U/WOgolmr29-39Wpz [facility] HospitalComment on above:Performed By: #### CMP #### [facility] [address] [place] [address] Dr. Nj Floreson gap [Moles/Vol]14.7 mmol/LNormalThe [facility] Comment on above:Performed By: #### CMP #### [facility] [address] [place] [address] Dr. Nj SarabiaAST [Catalytic activity/Vol]15 U/JFeiswl11-57Sej [facility] HospitalComment on above:Performed By: #### CMP #### [facility] [address] [place] [address] Dr. Nj SarabiaBilirubin [Mass/Vol]0.3 mg/dLNormal0.2-1.0The [facility] Comment on above:Performed By: #### CMP #### [facility] [address] [place] [address] Dr. Nj SarabiaCalcium [Mass/Vol]9.7 mg/dLNormal8.5-10.1The [facility] Comment on above:Performed By: #### CMP #### [facility] [address] [place] [address] Dr. Nj SarabiaChloride [Moles/Vol]100 mmol/GGhapgy86-040Yba [facility] Comment on above:Performed By: #### CMP #### [facility] [address] [place] [address] Dr. Nj SarabiaCO2 [Moles/Vol]26.9 mmol/VFnrqcj03.0-32.0The [facility] Comment on above:Performed By: #### CMP #### [facility] [address] [place] [address] Dr. Nj SarabiaCreatinine [Mass/Vol]0.93 mg/dLNormal0.55-1.02The [facility] HospitalComment on above:Performed By: #### CMP #### [facility] [address] [place] [address] Dr. Nj CuevaGFR-AF MALIAN>60Normal>=60The [facility] HospitalComment on above:Performed By: #### CMP #### [facility] [address] [address] [address] Nj CuevaGFR-NON AF MALIAN=60Normal>=60The [facility] HospitalComment on above:Performed By: #### CMP #### [facility] [address] [place] [address] Dr. Nj SarabiaGlobulin (S) [Mass/Vol]4.1 g/dLNormalThe [facility] HospitalComment on above:Performed By: #### CMP #### [facility] [address] [place] [address] Dr. Nj SarabiaGlucose [Mass/Vol]114 mg/dLCritically wiux86-029Jcy [facility] HospitalComment on above:Performed By: #### CMP #### [facility] [address] [place] [address] Dr. Nj SarabiaPotassium [Moles/Vol]3.6 mmol/LNormal3.5-5.1The [facility] Comment on above:Performed By: #### CMP #### [facility] [address] [place] [address] Dr. Nj SarabiaProtein [Mass/Vol]7.7 g/dLNormal6.4-8.2The [facility] Comment on above:Performed By: #### CMP #### [facility] [address] [place] [address] Dr. Nj SarabiaSodium [Moles/Vol]138 mmol/ZRwcstv725-289Zra [facility] Comment on above:Performed By: #### CMP #### [facility] [address] [place] [address] Dr. Nj SarabiaUrea nitrogen [Mass/Vol]10.0 mg/dLNormal7.0-18.0The [facility] HospitalComment on above:Performed By: #### CMP #### [facility] [address] [address] [address] Nj Xavier nitrogen/Creatinine [Mass ratio]10.8 mg/mgMercy Health Kings Mills HospitalComment on above:Performed By: #### CMP #### [facility] [address] [address] [address] Nj Jones GRAM STAINon 31-37-4931WPIODZDQPxgspmGuxBellevue Hospital on above:Performed By: #### IRON #### [facility] [address] [address] [address] Nj SmartPHTHEROIDSMercy Health Kings Mills HospitalComment on above:Performed By: #### IRON #### [facility] [address] [address] [address] Nj CuevaPITHELIALS<25[facility] HospitalComment on above: Performed By: #### IRON #### [facility] [address] [address] [address] Nj LiNGAL ELEMENTSMercy Health Kings Mills HospitalComment on above: Performed By: #### IRON #### [facility] [address] [address] [address] Nj Layton NEG BACILLIMercy Health Kings Mills HospitalComment on above: Performed By: #### IRON #### [facility] [address] [address] [address] Nj Layton NEG DIPPLOCOCCIMercy Health Kings Mills HospitalComformerly [facility] on above: Performed By: #### IRON #### [facility] [address] [address] [address] Nj Layton POS BACILLIMercy Health Kings Mills HospitalComment on above: Performed By: #### IRON #### [facility] [address] [address] [address] Nj Layton POSITIVE COCCIMODERATEMercy Health Kings Mills HospitalComment on above:Performed By: #### IRON #### [facility] [address] [address] [address] Nj SarabiaWBC (Bld) [#/Vol]10*3/SCCI Hospital LimaComment on above:Performed By: #### IRON #### [facility] [address] [address] [address] Nj SarabiaXR CHEST 2 Von 42-98-4851YC CHEST 2 VEXAMINATION: XR CHEST 2 V [...] Electronically authenticated by: LESLY MERRITT Date: 2022-03-15 16:18[facility] HospitalCovid-19 PCR (CVDTBH)on 31-16-8637PDIP-CoV-2 (COVID-19) RNA LAMONTE+probe Ql (Unsp spec)Not detectedNormalNOT DETECTEDThe [facility] Comment on above:Result Comment: This test is not yet approved or cleared by the [place] FDA. When there are no FDA-approved or cleared tests available, and other criteria are met, FDA can make tests available under an emergency access mechanism called an Emergency Use Authorization (EUA). The EUA for this test is supported by the Baggage Agent Supervisor of Health and Human Service's (HHS's) declaration [...] consistent with SARS-CoV-2.Performed By: #### IRON #### [facility] [address] [place] [address] Dr. Nj Sarabia Vital Signs Date TimeVital SignValuePerforming IrwexwxkiHtoadzro12-18-4496 10:05-0400Body mass index (BMI) [Ratio]33.13 kg/e5Tnyrkqii Rinkes DO Work Phone: [phone] [place], [place] [address]Gtfysxtosx58-47-0996 10:05-0400Body pqhsvi80.82 kgKathleen Rinkes DO Work Phone: [phone]06-10-2025 10:05-0400Diastolic blood qqieekzl87 mm[Hg]Monet Rinkes DO Work Phone: [phone])[facility] [place], [place] [address]Jirsbhhjfh68-53-2404 10:05-0400Systolic blood raeugiyh881 mm[Hg]Monet Rinkes DO Work Phone: [phone] [place], [place] 1472605-15-2025 13:01-0400Body mass index (BMI) [Ratio]33.13 kg/v8Augosxps Rinkes DO Work Phone: [phone] [place], [place] 1472605-15-2025 13:01-0400Body bsznhi61.82 kgKathleen Rinkes DO Work Phone: [phone] [place], [place] 1472605-15-2025 13:01-0400Diastolic blood veqqqhly72 mm[Hg]Monet Rinkes DO Work Phone: 1(532)[facility] [place], [place] [address]Bynhstianl20-77-3642 13:01-0400Systolic blood vfbkumqw401 mm[Hg]Monet Rinkes DO Work Phone: [phone] [place], [place] [address]Gfnadwspbh65-71-2764 14:00-0400Respiratory rate16 /Alban Samson MD Work Phone: [facility]05-01-2025 13:32-0400 Diastolic blood rzkqibct09 mm[Hg]Heraclio Samson MD Work Phone: [facility]05-01-2025 13:32-0400 Heart rate86 /Alban Samson MD Work Phone: [phone] [place], [place] [address]5-01-2025 13:32-0400 Systolic blood mm[Hg]Heraclio Samson MD Work Phone: [phone]05-01-2025 12:02-0400 SaO2% (BldA) [Mass fraction]93 %Heraclio Samson MD Work Phone: [phone] [place], [place] 1642205-01-2025 10:47-0400 Body dtiaeawxerm54.7 [degF]Heraclio Samson MD Work Phone: [phone]05-01-2025 09:40-0400 Inhaled oxygen flow rate6 L/minDchester Samson MD Work Phone: [phone])[address]05-01-2025 06:00-0400 Body .75 cmHeraclio Samson MD Work Phone: [phone])[address]05-01-2025 06:00-0400 Body sajweo20.8 kgHeraclio Samson MD Work Phone: [phone] [place], [place] 164[address]3-27-2025 13:17-0400 Body mass index (BMI) [Ratio]33.13 kg/z2Wtqiumlk Rinkes DO Work Phone: [phone]-[facility] HospitalAlebtufoyj69-75-4952 13:17-0400Body xaatjj52.82 kgKathleen Rinkes DO Work Phone: [phone]-[facility] HospitalZxfuovjjrw52-30-0907 13:17-0400Diastolic blood aglmpnzs54 mm[Hg]Monet Rinkes DO Work Phone: 1([phone])039-[facility] HospitalUjpcreygag16-19-8870 13:17-0400Systolic blood zdbtuuzi853 mm[Hg]Monet Rinkes DO Work Phone: [phone]-[facility] HospitalIdvppgxwyg13-37-5319 11:23-0400Body mass index (BMI) [Ratio]33.13 kg/d9Xphlyfuo Rinkes DO Work Phone: [phone])722-[facility] HospitalXcguljfdpm20-87-8627 11:23-0400Body nrmoiz97.82 kgKathleen Rinkes DO Work Phone: [facility] HospitalObpaeminkh17-73-3047 11:23-0400Diastolic blood jkyueafh60 mm[Hg]Monet Clark DO Work Phone: [facility] HospitalVhjsqqppxc89-35-1899 11:23-0400Systolic blood rzgknowa937 mm[Hg]Monet Clark DO Work Phone: [facility] HospitalIozrcdcujc57-49-9397 14:42-0500Diastolic blood mm[Hg]Pacc 2 Work Phone: [facility]01-06-2023 14:42-0500Heart rate80 /min Pacc 2 Work Phone: [phone]01-06-2023 14:42-9241GgC8% (BldA) [Mass fraction]97 %Pacc 2 Work Phone: [phone]01-06-2023 14:42-0500Systolic blood yfazmcng692 mm[Hg]Pacc 2 Work Phone: [phone]01-06-2023 14:35-0500Body qnfudh569.5 cmPacc 2 Work Phone: [phone]01-06-2023 14:35-0500Body temperature 97.39 [degF]Pacc 2 Work Phone: [phone]01-06-2023 14:35-0500Body .82 kgPacc 2 Work Phone: [phone]01-06-2023 14:35-0500Respiratory rate 16 /minPacc 2 Work Phone: [phone]10-11-2022 13:51-0400Blood Pressure LocationMichaeamy BASHIRL [facility] Kcsghslb44-45-0489 13:51-0400Diastolic blood bxggavng51 mm[Hg]Luis KUMARI [facility] Surgery Dhrbcxlu53-34-3955 13:51-0400Heart rate 76 /minMichael NILL General Surgery Wbhfctpp47-45-4154 13:51-0400 Respiratory rate16 /minMichael NILL General Surgery Yqojucqj35-67-0667 13:51-0400Systolic blood gnikopvj041 mm[Hg]Luis NILL General Surgery Eveline Encounters Encounter DateEncounter TypeCare ProviderFacilityStart: 06-09-2025 End: 88-99-6852jalnpyaebzMuahbwl R NILLFacility: [place]walkStart: 06-09-2025 End: 62-93-5313Fktdhud encounter procedureMichael R NILL [phone]-OsfahUniversity [facility] [place] Start: 01-20-2025 End: 47-82-6642inrdanzqraPKYDOWDN E RINKESNot AvailableStart: 01-20-2025 End: 96-06-6781Ocjybl follow up visit related to original pxKathleen E Rinkes DO Work Phone: noMS SWS OBComment on above:Postoperative examination Start: 12-25-2024 End: 16-75-7107Mpjtpz follow up visit related to original pxKathleen E Rinkes DO Work Phone: noms SWS OBComment on above:Postoperative examination Start: 12-25-2024 End: 17-24-0800hpukjqoaeoZJVQLAKF E RINKESNot AvailableStart: 12-11-2024 End: 81-34-2498Xelbdsnuh to same day surgery centerHeraclio Samson MD Work Phone: [facility]Start: 12-11-2024 End: 36-09-4782mhjtpqlgxpKewqckg M Hoy MD Work Phone: [facility] Work Phone: Start: 11-26-2024 End: 52-12-9437Bcmcxqef Result EncounterKathleen E Rinkes DO Work Phone: noms External Department UnsolicitedStart: 11-26-2024 End: 08-17-7236Bxftlzlb Result EncounterKathleen E Rinkes DO Work Phone: noms External Department UnsolicitedStart: 11-26-2024 End: 31-73-9182Cpbecaa encounter procedureHeraclio Samson MD Work Phone: [facility] Rbh-Sfe-Qrogsfmk Testing Work Phone: Start: 11-26-2024 End: 43-16-5112bxtphgwvfwVicsdbj M Hoy MD Work Phone: [facility] Work Phone: Start: 37-19-9628Lwamkkjfh for preprocedural laboratory examinationKatandreina JaraPalmetto General Hospital Physician GroupStart: 11-06-2024 End: 58-54-0293fseiuddpxgSLEIAABZ E RINKESNot AvailableStart: 11-06-2024 End: 50-86-0848Mxwqkn outpatient visit 25 minutesKathleen E Rinkes DO Work Phone: [facility]oms [facility] OBComment on above:Uterine prolapse; Cystocele, midlineStart: 10-30-2024 End: 31-26-2031qwqcdttjddUUMUBCOB RINKESNot AvailableStart: 10-23-2024 End: 88-54-6046Ntgcsz flowsheetKathleen E Rinkes DO Work Phone: noms [facility] OBStart: 10-23-2024 End: 30-41-6509Zutgko flowsheetKathleen E Rinkes DO Work Phone: noms [facility] OBStart: 10-23-2024 End: 34-05-7822Zfkjmoo encounter statusKathleen E Rinkes DO Work Phone: [facility] Work Phone: start: 10-23-2024 End: 28-37-2883Rjcctouy preventive med est patient 65yrs& olderKathleen E Rinkes DO Work Phone: noms [facility] OBComment on above:Encounter for gynecological examination without abnormal finding (Primary Dx); Screening for malignant neoplasm of cervix; Encounter for screening mammogram for breast cancer; Screening for osteoporosis; Postmenopausal status, age-related; Uterine prolapse; Cystocele, midlineStart: 10-23-2024 End: 26-98-1407itdaflaobfBSKQCFRW E RINKESNot AvailableStart: 09-01-2024 End: 16-10-6888Wfksvj flowsheetEmgiulia Ballard MD Work Phone: noms [facility] DERMStart: 09-01-2024 End: 77-36-5260Aprvnd flowsheetEmgiulia Ballard MD Work Phone: noms [facility]WS DERMStart: 09-01-2024 End: 12-42-1287cpasbdfkvmFKBQJ A PETAUSTENINot AvailableStart: 09-01-2024 End: 37-36-5110Eqmenm outpatient visit 15 minutesEmily Jarrod Ballard MD Work Phone: noms [facility] DERMComment on above:Melanocytic nevus of trunk (Primary Dx); Seborrheic keratosis; Onychomycosis; Seborrheic keratosis, inflamedStart: 01-10-2023 End: 46-58-6814vdccruwhrkQALI W DAVISFacility:[facility] Hospitaltart: 01-10-2023 End: 34-06-8561Kbofmwx encounter procedureKaylie Charles MD Work Phone: OrthopaedicsComment on above:History of arthrodesis (Primary Dx)Start: 01-10-2023 End: 74-36-4345Lwctiniwog hospital visit by physicianXr [facility] Rej Work Phone: RadiologyComment on above:Primary osteoarthritis of left foot [M19.072]Start: 24-20-5067wgjhmhrsqqIitr W Davis MD Work Phone: [facility] CENTERtart: 32-56-2127Ernbhhu encounter procedureKaylie Charles MD Work Phone: OrthopaedicsComment on above:Upcoming appointment Start: 11-29-2022 End: 73-93-7309uictetctulXMQT W DAVISFacility:[facility] HospitalStart: 11-29-2022 End: 42-65-4585uxqdaidgmxNKJG W DAVISFacility:[facility] Hospitaltart: 11-29-2022 End: 15-12-9342Llmjlqj encounter Lanny Charles MD Work Phone: OrthopaedicsComment on above:Primary osteoarthritis of left foot (Primary Dx)Start: 11-29-2022 End: 79-45-6329Ovqdquwghv hospital visit by physicianXr [facility] Rej Work Phone: RadiologyComment on above:Primary osteoarthritis of left foot [M19.072]Start: 11-13-2022 End: 61-35-7057zbelacshaeNUBAGIF M HOYFacility:[facility] HospitalStart: 11-13-2022 End: 14-17-2212Plamcji encounter procedureCast Tech Staci Work Phone: OrthopaedicsComment on above:Primary osteoarthritis of left foot (Primary Dx)Start: 43-75-5005bcirdsjhumOooq W Davis MD Work Phone: OrthopaedicsComment on above:Walking cast concerns Start: 80-52-7198Hqxrtvkas encounterKaylie Charlse MD Work Phone: OrthopaedicsComment on above:cast issueStart: 10-18-2022 End: 84-11-6721nsvdlvaksaTWXUGQO M HOYFacility:[facility] HospitalStart: 10-18-2022 End: 95-75-1236Wwgmyyn encounter Lanny Charles MD Work Phone: OrthopaedicsComment on above:Primary osteoarthritis of left foot (Primary Dx)Start: 10-18-2022 End: 09-62-1429Tqzlxneghs hospital visit by physicianXr [facility] Rej Work Phone: RadiologyComment on above:Primary osteoarthritis of left foot [M19.072]Start: 10-09-2022 End: 87-76-5004fycbkfnnisRD DOUGLAS HOY .Facility:Z3Ugwrc: 09-26-2022 End: 31-94-4986msapvrntiiATFEV LEWIS .Facility:L9Qegoi: 09-20-2022 End: 67-98-9546qpcsfhhdywYVAHGQW M MALIFacility:[facility] HospitalStart: 09-20-2022 End: 97-23-7451Ihmlwdu encounter procedureKaylie Charles MD Work Phone: OrthopaedicsComment on above:Primary osteoarthritis of left foot (Primary Dx)Start: 37-22-9276Sifimabmw encounterKaylie Charles MD Work Phone: OrthopaedicsComment on above:Patient UpdateStart: 09-08-2022 End: 64-00-3458rkmktgbpntDXLROLR M MALIFacility:[facility] HospitalStart: 09-08-2022 End: 24-43-8525Qippufc encounter procedureCast Tech Staci Work Phone: OrthopaedicsComment on above:Left ankle pain, unspecified chronicity (Primary Dx)Start: 09-06-2022 End: 20-86-1038Xkpkmid encounter procedureKaylie Charles MD Work Phone: OrthopaedicsComment on above:Primary osteoarthritis of left foot (Primary Dx); APPOINTMENT CANCELLEDStart: 36-28-9570CkitzcEazu W Davis MD Work Phone: OrthopaedicsComment on above:Refill RequestStart: 49-57-6537grnimabghwKIBE DAVISFacility:Z4Wobmf: 45-38-2445Pkegdw OnlyKaylie Charles MD Work Phone: OrthopaedicsComment on above:Primary osteoarthritis of left foot (Primary Dx)Start: 08-18-2022 End: 62-46-1534cbyguefzllMGHM W DAVISFacility:[facility] HospitalStart: 08-18-2022 Encounter for other preprocedural examinationKAYLIE Dior HospitalStart: 08-18-2022 End: 87-25-0382Zgjhilgdj to [facility] [address] Work Phone: [facility]ITALStart: 08-18-2022 End: 21-62-1325vnedlqqaxmZycy 2 Work Phone: Pre AnesthesiaComment on above:Pre-op evaluation (Primary Dx); Hypertension, unspecified type; Obesity (BMI 30-39.9)Start: 08-18-2022 End: 26-15-6375Saffbaanakhqc examination donePacc 2 Work Phone: Pre AnesthesiaStart: 69-20-1458Dhowxd OnlyKaylie Charles MD Work Phone: OrthopaedicsComment on above:Primary osteoarthritis of left foot (Primary Dx); Pes planus of left foot; Acquired valgus deformity of left ankleStart: 07-19-2022 End: 07-79-0974Ctknwhb encounter procedureMichael R NILL General Surgery Nill/Said [place] Start: 07-12-2022 End: 09-35-1788yfvqfbowwuDZ HERACLIO SAMSON .Facility:M7Xjfpg: 38-60-9883Lbbavnfef for preprocedural laboratory examination[facility] Start: 07-08-2022 End: 60-36-4906mzvvaacmauAJ DOUGLAS HOY .Facility:U9Hgkom: 05-31-2022 End: 08-48-3536czugxjfoalTOZU W DAVISFacility:[facility] Hospitaltart: 05-31-2022 End: 92-92-7696Wgdhykw encounter procedureKaylie Charles MD Work Phone: OrthopaedicsComment on above:Primary osteoarthritis of left foot (Primary Dx); Pes planus of left foot; Acquired valgus deformity of left ankleStart: 05-31-2022 End: 53-49-7898Pqgpltzgbr hospital visit by physicianXr [facility] Rej Work Phone: RadiologyComment on above:Pain [R52]Start: 05-23-2022 End: 60-65-9773Mkvujyg encounter procedureMichael R NILL General Surgery Nill/Said Eveline Start: 44-67-5777Ixpqcu OnlyKaylie Charles DDS Work Phone: Orth and Rheum InstituteComment on above:Pain (Primary Dx)Start: 04-18-2022 End: 81-58-7754vajsjbegogJB HERACLIO HOY .Facility:S9Aidka: 03-15-2022 End: 78-59-0185gwmhckhbjgIK HERACLIO HOY .Facility:F9Vyuwi: 03-14-2022 End: 23-35-8997enboikxcnxON HERACLIO HOY .Facility:H1 Procedures DateProcedureProcedure DetailPerforming ClinicianStart: 94-91-0645Wyocl hysterectomy via vaginal approachHeraclio Samson MD Work Phone: Start: 52-06-4298Haikmhqn screenDobelia HoyComment on above:Order Comment: Date of Surgery: [id number] Comment: PERFORMED BY: [address] [place] [address] PATHOLOGIST PSYCH SOCIAL WORKER ARTIE PEREZ M.D.Start: 43-81-5813oVDG in Blood by Coagulation assay Monet Clark DO Work Phone: start: 36-99-2001Zwctjupr blood count with white cell differential, automatedMonet Clark DO Work Phone: start: 90-20-0887Zyggiwgyxys timeMonet Clark DO Work Phone: start: 48-81-5739JWOKVUSIKBG SKIN LESIONEmily Jarrod Ballard MD Work Phone: Start: 13-24-7888Kxlck foot complete minimum 3 views Kaylie Charles MD Work Phone: Start: 18-58-7323Igyan foot complete minimum 3 views Kaylie Charles MD Work Phone: Start: 26-47-6117Qhckk foot complete minimum 3 views Kaylie Charles MD Work Phone: Start: 62-62-9968SeculfdidyjCjntw Petitti MD Work Phone: Start: 41-91-0801KiykyxclydaPcdmrua NILL Start: 75-94-8845Rkxjz foot complete minimum 3 views Kaylie Charles [...] salpingo-oophorectomyMichael NILL Plan of Treatment DateCare ActivityDetailAuthorStart: 94-53-9505Puymbysps for malignant neoplasm of colonNOMS HealthcareStart: 03-13-2026Medicare Annual Wellness (AWV)Medicare Annual Wellness (AWV)[facility] HealthcareStart: 09-09-2025 End: 66-47-2014Accixax encounter qqvxsubzj06/28/2026 1:00 PM EST Office Visit [facility] [address] [place] [phone] Sharyn Ballard MD [address] [place] [address] [facility]MStart: 86-87-9716Nuqvmdlmc vaccination Influenza Vaccine (Season Ended)[facility]OM HealthcareStart: 01-20-2025 End: 06-97-8852Gdbsswc encounter wfriqibyy56/10/2025 10:00 AM EDT Office Visit [facility] [address] [place] [phone] Monet Clark, DO [address] [place] [address] [facility] OBStart: 12-25-2024 End: 87-54-7197Tddkmfx encounter hyomyfsew47/15/2025 1:00 PM EDT Office Visit [facility] [address] [place] [phone] Monet Clark, DO [address] [place] [address] [facility] OBStart: 48-12-6842Ubcswkhh admissionMercy Health Kings Mills Hospitaltart: 03-29-2891NvlgakxtqMercy Health Kings Mills Hospitaltart: 10-23-2024 End: 82-17-1039PHP Breast - bilateral screeningBilateral screening mammogram with tomosynthesis Imaging Routine Encounter for screening mammogram for breast cancer Expected: 10/23/2024, Expires: 12/23/2025NORI HealthcareComment on above: Expected: 10/23/2024, Expires: 12/23/2025Start: 10-23-2024 End: 85-76-0793Ngrijlg encounter hsomcexio34/13/2025 11:15 AM EDT Office Visit [facility] [address] [place] [phone] Monet Clark, DO [address] [place] [address] Encounter for gynecological examination without abnormal finding; Screening for malignant neoplasm of cervix; Encounter for screening mammogram for breast cancerNOSAN [facility] OBComment on above:Encounter for gynecological examination without abnormal finding; Screening for malignant neoplasm of cervix; Encounter for screening mammogram for breast cancerStart: 67-46-4853Rgmlfzsez vaccinationInfluenza Vaccine (#1)[facility] HealthcareStart: 43-05-6022Zqeok-19 Vaccine ( season)Covid-19 Vaccine ( season)[facility]tart: 79-53-0589Kfuhquwhi vaccinationJ.W. [facility] Hospitaltart: 08-13-2022 ADVANCE DIRECTIVE DISCUSSIONADVANCE DIRECTIVE DISCUSSIONJ.W. Ruby Memorial Hospitaltart: 56-00-0665DADXPKJGPS ASSESSMENTDEPRESSION ASSESSMENTJ.W. Ruby Memorial Hospitaltart: 63-22-2386Yiperjppc vaccinationINFLUENZA (#1)[facility]tart: 09-24-2021 COVID-19 VACCINE (4 - Booster for Pfizer series)COVID-19 VACCINE (4 - Booster for Pfizer series)[facility]: 47-37-8111RRHYDDA DIRECTIVE DISCUSSION ADVANCE DIRECTIVE DISCUSSIONJ.W. Ruby Memorial Hospitaltart: 91-67-8777ULPNXYOJNS ASSESSMENTDEPRESSION ASSESSMENTJ.W. Ruby Memorial Hospitaltart: 00-37-7980TOHM DENSITYBONE DENSITYJ.W. Ruby Memorial Hospitaltart: 34-44-6336Zlex Density ScreeningBone Density ScreeningJ.W. Ruby Memorial Hospitaltart: 61-98-5434Yzuexxsdetzq Vaccine: 65+ (1 - PCV) Pneumococcal Vaccine: 65+ (1 - PCV)[facility]tart: 18-27-9708Lgceokvlenvf Vaccine: 65+ Years (1 of 1 - PCV)Pneumococcal Vaccine: 65+ Years (1 of 1 - PCV) [facility] HealthcareStart: 17-34-6593ECSMEVEJWVOS: 65+ (1 - PCV)PNEUMOCOCCAL: 65+ (1 - PCV)[facility]tart: 63-36-4638TRY Vaccine (1 - 1-dose 60+ series)RSV Vaccine (1 - 1-dose 60+ series)[facility]: 49-25-1388Dcbtmanfteme Vaccine: 65+ Years (1 of 1 - PCV)Pneumococcal Vaccine: 65+ Years (1 of 1 - PCV) [facility] HealthcareStart: 76-51-7118TBWBNHWC VACCINE (1 of 2)SHINGRIX VACCINE (1 of 2)[facility]tart: 17-40-1608OSXQIQMOG (FIT-DNA)COLOGUARD (FIT-DNA) [facility]tart: 79-71-6322HhxxbwokvllDJQOPHZJIGSRblhedzay ClinicStart: 59-58-2982OTWCPXBVKF CANCER SCREENINGCOLORECTAL CANCER SCREENINGWilson Health Start: 43-19-6003OS COLONOGRAPHYCT COLONOGRAPHYJ.W. Ruby Memorial Hospitaltart: 1999 DIABETES SCREENDIABETES SCREENJ.W. Ruby Memorial Hospitaltart: 56-26-3473Xmmfwfkd ScreeningDiabetes ScreeningJ.W. Ruby Memorial Hospitaltart: 45-00-4086MIHYJ OCCULT BLOOD FECAL OCCULT BLOODJ.W. Ruby Memorial Hospitaltart: 28-17-0407Dhfub 1996 panel - Serum or PlasmaLipid ScreeningJ.W. Ruby Memorial Hospitaltart: 59-05-4703HISSZ SCREENLIPID SCREEN [facility]tart: 63-32-1828XHXYKFPEXXXTKILUBYXXGMIRRFKeddozfew Clinic Start: 12-50-9627MqghlccxialTnligdbaa ClinicStart: 38-40-6427Vkrihwqnl for malignant neoplasm of breastMaogramChristian HospitalStart: 84-89-0979Aibhi microalbumin profileJ.W. Ruby Memorial Hospitaltart: 36-41-5287SETSLD PCP TEAM CHRONIC DISEASE VISITANNUAL PCP TEAM CHRONIC DISEASE VISITJ.W. Ruby Memorial Hospitaltart: 03-70-6442EK CONTROLLED (<130/80)BP CONTROLLED (<130/80)[facility] Hospitaltart: 84-72-6914JKUJSVRJK C SCREENINGHEPATITIS C SCREENINGJ.W. Ruby Memorial Hospitaltart: 38-84-6758Noalcwjbh for malignant neoplasm of colonChristian HospitalDXA Skeletal system Views for bone densityDEXA bone density Imaging Routine Screening for osteoporosis Postmenopausal status, age-related Ordered: 10/23/2024Christian HospitalComment on above:Ordered: 10/23/2024IGP, RFX APTIMA HPV ASCUIGP, RFX APTIMA HPV ASCU Lab Routine Screening for malignant neoplasm of cervix Ordered: 10/23/2024[facility] Work Phone: comment on above:Ordered: 10/23/2024Patient Education [facility] Work Phone: Patient referralMet[facility]health [facility] Work Phone: End: 27-80-3156GD FOOT GENERAL 3V AP/LAT/OBL LEFTXR FOOT GENERAL 3V AP/LAT/OBL LEFT Radiology Routine Primary osteoarthritis of left foot 1 Occurrences starting 09/22/[address] [place] [address] Work Phone: Comment on above:1 Occurrences starting 09/22/2022 until 10/19/2023 End: 72-45-0182EG FOOT GENERAL 3V AP/LAT/OBL LEFTXR FOOT GENERAL 3V AP/LAT/OBL LEFT Radiology Routine Primary osteoarthritis of left foot 1 Occurrences starting 10/18/[address] [place] [address] Work Phone: Comment on above:1 Occurrences starting 10/18/2022 until 11/17/2023 End: 70-00-5013TM FOOT GENERAL 3V AP/LAT/OBL LEFTXR FOOT GENERAL 3V AP/LAT/OBL LEFT Radiology Routine Primary osteoarthritis of left foot 1 Occurrences starting 11/30/[address] [place] [address] Work Phone: Comment on above:1 Occurrences starting 11/30/[address] [place] [address] Immunizations Immunization DateImmunizationNotesCare HcgarkccDsojtsgk41-13-0578FZTHN-10 Sharona Lopes (Pfizer)Heraclio Samson MD Work Phone: [facility]03-23-2021COVID-19 Sharona Lopes (Pfizer)Heraclio Samson MD Work Phone: [facility]03-01-2021COVID-19 Sharona Lopes (Pfizer)Heraclio Samson MD Work Phone: [facility]12-03-2020influenza virus vaccine, unspecified formulationXr Rej Work Phone: [facility] Payers DatePayer CategoryPayerPolicy [id number]-pay2023MedicaidAETNA MEDICARE ADVANTAGE [id number] 2022MedicareAETNA MEDICARE AETNA MEDICARE PPO [id number] 2021-Present [phone] [address] [place] [address] [id number] 1960Medicare [id number] 2..1.949512.3.579.2. [id number] 2..1.469796.3.57[id number] 2.0.1.574156.3.579.[id number] 2.0.1.503986.3.579.2.44038-52-4408Vcajgsi9664049 2.0.1.899801.3.579.[id number] 2.0.1.697939.3.579.[id number] 2.0.1.465780.3.579.2.55842-23-9524Mvwjdeh3131736 2.0.1.036480.3.579.2.11926-69-6944Eoxjftn3057422 2.0.1.361550.3.579.[id number] 2.16.840.1.519998.3.579.2.239008-50-5196Ckxisow5127988 2.16.840.1.804683.3.579.2.307312-02-8415Hpnmooc5840053 2.16.840.1.066087.3.579.2.737139-14-5937Kcasdpp1744041 2.16.840.1.892313.3.579.2.279212-81-2821Sqhirzh2579892 2.16.840.1.359800.3.579.2.702734-82-9312Fqqtcmh9928591 2.16.840.1.372368.3.579.2.169163-49-2192Goawagu18783527 2.16.840.1.329844.3.579.2.295RxetdimQPNMO846AW 080hr651-2802-89c7-5x3w-9061c8yd580zFvzpkhf17584524 2.16.840.1.691798.3.579.2.038Lbyrtwm86246706 2.16.840.1.954594.3.579.2.531 Social History DateTypeDetailFacilityStart: 05-23-2022 End: 37-88-1077Ezvddjq smoking statusNever smoked tobacco (finding)[facility] BellevueTobacco smoking statusNeverGeneral Surgery BellevueStart: 08-18-2022 End: 40-00-3505Thy Assigned At BirthFemalWhitfield Medical Surgical Hospitalal Surgery [place] [facility] smoking status NHISTobacco smoking consumption unknownWilson [facility] Work Phone: Start: 33-87-7732Ijm Assigned At BirthNot on file [facility]tart: 08-18-2022 End: 02-55-7802Yrmhcai smoking status NHISEx-smokerWilson Health Work Phone: End: 33-80-5235Rnlapbj of tobacco useCurrent smokerWilson Health Work Phone: End: 62-82-3196Uftsocv of tobacco useCigarette SmokerWilson Health Work Phone: Start: 08-18-2022 End: 78-26-1865Ojeqysj use and exposureSmokeless tobacco non-userWilson Health Work Phone: Start: 68-46-2175Dqcixzt intakeCurrent drinker of alcohol (finding)[facility]tart: 08-18-2022 End: 93-62-9972Gagqhyv intakeJ.W. Ruby Memorial Hospitaltart: 00-19-5884Lpcdtwx Comment Social smokerJ.W. Ruby Memorial Hospitaltart: 08-30-2023 End: 74-05-2713Dhywtukua beverage intakeNot AskedNOMS HealthcareStart: 07-04-3083Gwpvlvi Commentcaffeine 1-2 cups/day; coffee/teaNOMS HealthcareStart: 11-01-2018 End: 25-30-4119IgaKiswmc (finding)[facility]tart: 13-76-5286Buf Assigned At [facility] General Surgery [place] Medical Equipment Procedure CodeEquipment CodeEquipment Original TextEquipment IdentifierDates Chips Bone Graft Cancellous Bone 4-10 Mm Container 15 Cc Volume - [id number]: 24-30-0286Nltlt Comp Impl Kit [id number] 2 [id number]: 09-05-2022 Goals DatePatient GoalDesired Activity/State Functional Status KstsGtisjtdqfaJyhnhdDxvelcml75-14-3108Pjhsnavzpd statusPatient at Baseline [facility] Work Phone: [phone]ei StatusN/AGeneral Surgery [place] Mental Status KfdsLizrlmxfwaUcojsoVhkovppm73-24-4383Xyxskrbzd functionCognitive Status Patient at BaselineMet[facility] Work Phone: Clinical Notes 05-31-2022 to 06-09-2025 Note Date & OzlfBvxkKnhtsizf94-57-3515 NoteGeneral Surgery Office/Clinic Note Chief Complaint consultation [...] History Colonoscopy (07/12/2022), Blep (more content not included)...[facility] SystemComment on above:Result Comment: Electronically Signed By: KENYETTA CAMPO, Luis Abraham\Date and Time Signed: 06/09/25 11:59 VGU74-52-0322 History of Present illness Narrative* Monet Clark [...] Review Audit Reviewed by Madie Lopez MA (Ironworker) on 01/20/25 at 1005 Medication Order Taking? Sig Documenting Provider Last Dose Status amLODIPine (Norvasc) 5 MG tablet [id number] No Take by mouth Daily Sharyn Ballard MD Taking Active calcitriol (Rocaltrol) 0.25 MCG capsule [id number] No Take 0.25 mcg by mouth in the morning. Sharyn Ballard MD Taking Active ciclopirox (Loprox) 0.77 % cream [id number] Apply thin layer to affected area on feet once a day, 30 day supply Sharyn Ballard MD Active fexofenadine (Shannan) 180 MG tablet [id number] No Take 180 mg by mouth in the morning. Sharyn Ballard MD Taking Active lisinopril 10 MG tablet [id number] No Take by mouth Daily Sharyn Ballard MD Taking Active Melatonin 1 MG capsule [id number] No Take by mouth Sharyn Ballard MD Taking Active omeprazole (PriLOSEC) [address] capsule [id number] No Take 40 mg by mouth in the morning. Take before meals. Do not crush or chew.. Sharyn Ballard MD Taking Active triamcinolone (Kenalog) 0.1 % cream 87926179 Apply to affected area on back, up [...] 1. Postoperative examination Z09 documented in this encounterChristian HospitalWrknxvrfoq49-58-5315 History of Present illness Narrative* Monet Clark [...] Comments Pap smear 05/24/22 wnl w/[facility] Mammogram [place] Review of Systems - Const: Denies appetite [...] Review Audit Reviewed by Madie Lopez MA (Ironworker) on 12/25/24 at 1301 Medication Order Taking? Sig Documenting Provider Last Dose Status amLODIPine (Norvasc) 5 MG tablet [id number] No Take by mouth Daily Sharyn Ballard MD Taking Active calcitriol (Rocaltrol) 0.25 MCG capsule [id number] No Take 0.25 mcg by mouth in the morning. Sharyn Ballard MD Taking Active ciclopirox (Loprox) 0.77 % cream [id number] Apply thin layer to affected area on feet once a day, 30 day supply Sharyn Ballard MD Active fexofenadine (Shannan) 180 MG tablet [id number] No Take 180 mg by mouth in the morning. Sharyn Ballard MD Taking Active lisinopril 10 MG tablet [id number] No Take by mouth Daily Sharyn Ballard MD Taking Active Melatonin 1 MG capsule [id number] No Take by mouth Sharyn Ballard MD Taking Active omeprazole (PriLOSEC) [address] capsule [id number] No Take 40 mg by mouth in the morning. Take before meals. Do not crush or chew.. Sharyn Ballard MD Taking Active triamcinolone (Kenalog) 0.1 % cream [id number] Apply to affected area on back, up [...] 1. Postoperative examination Z09 documented in this encounterChristian HospitalPofirrjgrm16-60-9054 History of Present illness Narrative* Monet Clark [...] Review Audit Reviewed by Madie Lopez MA (Ironworker) on 11/06/24 at 1317 Medication Order Taking? Sig Documenting Provider Last Dose Status amLODIPine (Norvasc) 5 MG tablet [id number] No Take by mouth Daily Sharyn Ballard MD Taking Active calcitriol (Rocaltrol) 0.25 MCG capsule [id number] No Take 0.25 mcg by mouth in the morning. Sharyn Ballard MD Taking Active ciclopirox (Loprox) 0.77 % cream 13324967 Apply thin layer to affected area on feet once a day, 30 day supply Sharyn Ballard MD Active fexofenadine (Shannan) 180 MG tablet [id number] No Take 180 mg by mouth in the morning. Sharyn Ballard MD Taking Active lisinopril 10 MG tablet [id number] No Take by mouth Daily Sharyn Ballard MD Taking Active Melatonin 1 MG capsule [id number] No Take by mouth Sharyn Ballard MD Taking Active omeprazole (PriLOSEC) [address] capsule [id number] No Take 40 mg by mouth in the morning. Take before meals. Do not crush or chew.. Sharyn Ballard MD Taking Active triamcinolone (Kenalog) 0.1 % cream [id number] Apply to affected area on back, up [...] FOOT SURGERY 09/2012 FOOT SURGERY Left 2019 [facility] 2010 Family History Problem Relation Name Age [...] 2. Cystocele, midline N81.11 documented in this encounterChristian HospitalKrgxspevcy62-00-5612 History of Present illness Narrative* Monet Clark [...] states up to date with mammogram at [place]. Denies vaginal bleeding/spotting. Visit Vitals BP 120/74 [...] Comments Pap smear 05/24/22 wnl w/[facility] Mammogram [place] Review of Systems - General: Chills denies. [...] Review Audit Reviewed by Madie Lopez MA (Ironworker) on 10/23/24 at 1121 Medication Order Taking? Sig Documenting Provider Last Dose Status Discontinued 10/23/24 1120 amLODIPine (Norvasc) 5 MG tablet [id number] No Take by mouth Daily Sharyn Ballard MD Taking Active calcitriol (Rocaltrol) 0.25 MCG capsule [id number] No Take 0.25 mcg by mouth in the morning. Sharyn Ballard MD Taking Active ciclopirox (Loprox) 0.77 % cream [id number] Apply thin layer to affected area on feet once a day, 30 day supply Sharyn Ballard MD Active fexofenadine (Hsannan) 180 MG tablet [id number] No Take 180 mg by mouth in the morning. Sharyn Ballard MD Taking Active lisinopril 10 MG tablet [id number] No Take by mouth Daily Sharyn Ballard MD Taking Active Melatonin 1 MG capsule [id number] No Take by mouth Sharyn Ballard MD Taking Active omeprazole (PriLOSEC) [address] capsule [id number] No Take 40 mg by mouth in the morning. Take before meals. Do not crush or chew.. Sharyn Ballard MD Taking Active triamcinolone (Kenalog) 0.1 % cream [id number] Apply to affected area on back, up [...] 7. Cystocele, midline N81.11 documented in this encounterChristian HospitalHpwylgvpws39-82-6381 History of Present illness Narrative* Sharyn Ballard [...] Examined Right arm Examined Patient wearing nail iraqi, Denies dark streaks under finger nails Left [...] Right Flank (3), Right Lower Back (5) [place] and brown stuck on verrucous scaly papule [...] limited to risks of scarring, darker or roll hand pigmentary changes, recurrence, incomplete removal and infection. [...] Next Visit: 1 year documented in this encounterChristian HospitalPiwmidjdbz13-37-1061 NoteHNO ID: [id number] Author: RT Carina(R) Service: Radiology Author Type: [...] BY: RT Carina(R) January 10, 2023 11:13 [facility]05-31-2023 NoteHNO ID: [id number] Author: Kaylie Charles MD Service: ? Author [...] records. This note was partially generated using [employer] voice recognition system, and there may be some incorrect words, spellings, and punctuation that were not noted in checking the note before saving. Kaylie Charles M.D.[facility]05-31-2023 History of Present illness Narrative* Roxanna Herring [...] 10, 2023 11:13 AM documented in this encounterWilson Health05-31-2023 History of Present illness Narrative* Kaylie Charles [...] records. This note was partially generated using H[employer] voice recognition system, and there may be some incorrect words, spellings, and punctuation that were not noted in checking the note before saving. Kaylie Charles M.D. documented in this encounterWilson Health04-20-2023 NoteHNO ID: [id number] Author: Antonieta Pa Cast Service: ? Author Type: ? Type: Progress Notes Filed: 11/30/2022 7:18 AM Note Text: PT ASSESSMENT - CASTING ROOM Elenita presents for cast removal. Applied pneumatic aircast walker to Left leg non-weight bearing Patient has been instructed in Care of boot.. Antonieta Pa Cast Beeper: [id number]'S [facility]04-19-2023 NoteHNO ID: [id number] Author: Kaylie Charles MD Service: ? Author [...] Follow-up in 4 weeks with x-rays KAREEM DominguezMer[facility]04-19-2023 NoteHNO ID: [id number] Author: Roxanna Herring, RT(R) Service: Radiology Author [...] BY: RT Carina(R) November 29, 2022 1:11 [facility]04-19-2023 History of Present illness Narrative* Kaylie [...] x-rays Kaylie Charles MD documented in this encounterWilson Health04-19-2023 History of Present illness Narrative* Roxanna Herring, [...] 29, 2022 1:11 PM documented in this encounterWilson Health04-03-2023 NoteHNO ID: [id number] Author: Antonieta Pa Cast Service: ? Author Type: ? Type: Progress Notes Filed: 11/13/2022 2:49 PM Note Text: PT ASSESSMENT - CASTING ROOM Elenita presents for cast removal. Applied short cast: to Left leg weight bearing Patient has been instructed in Care of cast.. Antonietabryson Pa Cast Beeper: [id number]'S Hospital [facility]04-03-2023 History of Present illness Narrative* Antonieta Pa Cast - 11/13/2022 2:48 PM EDT PT ASSESSMENT - CASTING ROOM Elenita presents for cast removal. Applied short cast: to Left leg weight bearing Patient has been instructed in Care of cast.. Antonieta Pa Cast Beeper: [id number] documented in this encounterWilson Health03-14-2023 Miscellaneous Notes* Telephone Encounter - Mable Gay RN - 10/24/2022 10:32 AM EDT Just here 10/18/22 Had Left leg weight bearing cast applied She's not sure if it's the right size? The cast hangs over the shoe part by over an inch She will try to upload some photos via [employer] Maybe this is normal but she was [...] Pt is asking for a call back [phone] documented in this encounterWilson Health03-09-2023 NoteHNO ID: [id number] Author: Antonieta Pa Cast Service: ? Author Type: ? Type: Progress Notes Filed: 10/19/2022 8:01 AM Note Text: PT ASSESSMENT - CASTING ROOM Elenita presents for cast removal. Applied short cast: to Left leg weight bearing Patient has been instructed in Care of cast.. Antonieta Pa Cast Beeper: [id number]'S Hospital [facility]03-08-2023 NoteHNO ID: [id number] Author: Kaylie Charles MD Service: ? Author [...] weeks with xrays out of cast KAREEM DominguezMercy Health [facility]iff[facility]03-08-2023 NoteHNO ID: [id number] Author: RT Ella(R) Service: Radiology Author Type: [...] AND RT Ella(R) October 18, 2022 2:18 [facility]03-08-2023 History of Present illness Narrative* Kaylie [...] cast Kaylie Charles MD documented in this encounterWilson Health03-08-2023 History of Present illness Narrative* Melanie Dotson [...] 18, 2022 2:18 PM documented in this encounterWilson Health02-08-2023 NoteHNO ID: [id number] Author: Sarah Dasilva LPN Service: ? Author Type: LICENSED NURSE Type: Progress Notes Filed: 09/20/2022 4:08 PM Note Text: PT ASSESSMENT - CASTING ROOM Elenita presents for cast removal. Applied short cast: to Left leg Patient has been instructed in Care of cast.. Sarah Dasilva LPN Beeper: [id number]'S Hospital [facility]02-07-2023 NoteHNO ID: [id number] Author: Kaylie Charles MD Service: ? Author [...] left foot out of the cast KAREEM DominguezMercy Health Tiffin [facility]02-07-2023 History of Present illness Narrative* Kaylie [...] cast Kaylie Charles MD documented in this encounterWilson Health02-03-2023 Miscellaneous Notes* Telephone Encounter - Yong Valiente [...] not asked Shama Vital documented in this encounterWilson Health02-02-2023 NoteHNO ID: [id number] Author: Kyle Pickett Service: ? Author Type: ? Type: Progress Notes Filed: 09/14/2022 8:56 AM Note Text: The appointment was cancelled for this patient. Kyle PickettChildren'S Hospital [facility]02-02-2023 History of Present illness Narrative* Kyle Pickett - 09/14/2022 8:56 AM EST The appointment was cancelled for this patient. Kyle Pickett documented in this encounterWilson Health01-27-2023 NoteHNO ID: [id number] Author: Sarah Dasilva LPN Service: ? Author Type: LICENSED NURSE Type: Progress Notes Filed: 09/08/2022 11:37 AM Note Text: PT ASSESSMENT - CASTING ROOM Elenita presents for cast removal. Applied short cast: to Left leg Patient has been instructed in Care of cast.. Sarah Dasilva LPN Beeper: [id number] History of Present illness Narrative* Sarah Dasilva LPN - 09/08/2022 11:35 AM EST PT ASSESSMENT - CASTING ROOM Elenita presents for cast removal. Applied short cast: to Left leg Patient has been instructed in Care of cast.. Sarah Dasilva LPN Beeper: [id number] documented in this [facility]01-06-2023 History and physical note * Hodan Townsend [...] Prior to Admission medications as of 08/18/22 9654 Medication Sig Last Dose Taking INV VITAMIN [...] fevers. Neuro: No history of TIA's, stroke, RETAIL ANALYTICS MANAGER tumor, impaired sensorium, hemiplegia, paraplegia or quadraplegia. No neurological symptoms or problems. Respiratory: No history of current cough or dyspnea, or pneumonia in the past 6 weeks. No history of respiratory/pulmonary symptoms or problems. Cardiovascular: +HTN Negative for Recent NH, Angina, CAD, Chest Pain, CHF, DVT/PE GI: [...] sent to PCP, Dr. Heraclio Samson, in [place], [place]. The Following Tests/Procedures Have Been Initiated: Labs not indicated per [facility] protocol, EKG not indicated per [facility] protocol Planned Anesthetic: General Instructions Given to Patient: Instructions located in the after visit summary. Patient given verbal and written preop instructions and voices comprehension and compliance. SIGNATURE: Hodan Townsend PA-C PATIENT NAME: Elenita Howard DATE: August 18, 2022 TIME: 3:48 PM documented in this encounterWilson Health01-05-2023 Instructions* Patient Instructions* Hodan Townsend PA-C - 08/17/2022 1:30 PM EST PATIENT PREOPERATIVE INSTRUCTIONS Kaylie Charles MD has scheduled you for your procedure at this surgery center: [facility]: [phone] --[address] [place] [address]. Arrival Time for Surgery: - The Surgery [...] Procedures: - YOU MUST HAVE A RESPONSIBLE MERCHANDISE HANDLER TAKE YOU HOME. A COAGULATING OPERATOR OR QUALITY ASSURANCE ASSISTANT CANNOT BE MADE A RESPONSIBLE MERCHANDISE HANDLER. - We recommend that a responsible person stays with you overnight to take care of you. - You cannot stay in a hotel alone after outpatient surgery. You will not be permitted to have yoursurgery, if you do not have someone to take care of you. If you already have an Advance Directive, please fax a copy to [phone] or email to for it to be [...] day. Hodan Townsend PA-C documented in this encounterWilson Health11-30-2022 NoteOPERATIVE NOTE OPERATION DATE: 07/12/2022 PREOPERATIVE DIAGNOSIS: [...] depend on pathology results. CC: Heraclio Samson M.D.[facility]10-19-2022 NoteHNO ID: [id number] Author: Kaylie Charles MD Service: ? Author [...] X-Rays The patient's pertinent medical history from [facility] has been reviewed. PFOMIS forms [...] such with the pa (more content not included)...[facility]10-19-2022 NoteHNO ID: [id number] Author: RT Ella(R) Service: Radiology Author Type: [...] BY: RT Ella(R) May 31, 2022 1:41 [facility]10-19-2022 History of Present illness Narrative* Kaylie [...] X-Rays The patient's pertinent medical history from [facility] has been reviewed. PFOMIS forms [...] records. This note was partially generated using [employer] voice recognition system, and there may be some incorrect words, spellings, and punctuation that were not noted in checking the note before saving. Kaylie Charles M.D. documented in this encounterWilson Health10-19-2022 History of Present illness Narrative* Melanie Dotson, [...] 31, 2022 1:41 PM [facility] No data available for this section General Surgery [facility] Evaluation note* Diagnosis Primary osteoarthritis of left foot- Primary Pes planus of left foot Acquired valgus deformity of left ankle documented in this encounter [facility] note* Diagnosis Pre-op evaluation- Primary Preoperative examination, unspecified Hypertension, unspecified type Obesity (BMI 30-39.9) Obesity, unspecified Primary osteoarthritis of left foot Pes planus of left foot Acquired valgus deformity of left ankle documented in [facility]* Diagnosis Primary osteoarthritis of left foot- Primary Primary osteoarthritis of left foot Pes planus of left foot Acquired valgus deformity of left ankle documented in this encounter [facility]* Diagnosis Primary osteoarthritis of left foot- Primary Primary osteoarthritis of left foot Pes planus of left foot Acquired valgus deformity of left ankle documented in this [facility]* Diagnosis Primary osteoarthritis of left foot- Primary Pes planus of left foot Acquired valgus deformity of left ankle Primary osteoarthritis of left foot- Primary documented in [facility]* Diagnosis Pain- Primary Generalized pain Primary osteoarthritis of left foot- Primary documented in this [facility] note* Diagnosis Left ankle pain, unspecified chronicity- Primary documented in this [facility]* Diagnosis Primary osteoarthritis of left foot- Primary APPOINTMENT CANCELLED [facility] Primary osteoarthritis of left foot- Primary [facility] Diagnosis Primary osteoarthritis of left foot- Primary documented [facility]* Diagnosis Primary osteoarthritis of left foot- Primary documented [facility]* Diagnosis Primary osteoarthritis of left foot- Primary documented [facility]* Diagnosis History of arthrodesis- Primary Arthrodesis status documented in this [facility]* Diagnosis Pain Generalized pain documented in this [facility]* Diagnosis Primary osteoarthritis of left foot documented [facility]* Diagnosis Primary osteoarthritis of left foot documented [facility]* Diagnosis Melanocytic nevus of trunk- Primary Benign neoplasm of skin of trunk, except scrotum Seborrheic keratosis Onychomycosis Dermatophytosis of nail Seborrheic keratosis, inflamed [facility] Encounter for gynecological examination without abnormal finding- Primary Screening for malignant neoplasm of cervix Screening for malignant neoplasm of the cervix Encounter for screening mammogram for breast cancer Screening for osteoporosis Special screening for osteoporosis Postmenopausal status, age-related Uterine prolapse Uterine prolapse without mention of vaginal wall prolapse Cystocele, midline [facility] Diagnosis Uterine prolapse Uterine prolapse without mention of vaginal wall prolapse Cystocele, midline documented [facility] noteNo assessment information availableGrant Hospital Work Phone: Evaluation note* Diagnosis Postoperative examination Follow-up examination, following unspecified surgery documented [facility] encounter [facility]* Diagnosis Postoperative examination Follow-up examination, following unspecified surgery [facility] No data available for this section General Surgery [facility] Discharge instructions Additional Instructions DISCHARGE INSTRUCTIONS [...] FOLLOW UP -Please call the office at ([phone]) to make follow appointment before leaving the hospital. -2 Weeks [facility] Work Phone: Progress note No data available for this section General Surgery [place] Reason for referral (narrative)* Diagnostic Procedure Only (Routine) - ClosedSpecialtyDiagnoses / ProceduresReferred By Contact Referred To ContactXR IMAGING Diagnoses Pain Procedures XR FOOT GENERAL 3V AP/LAT/OBL LEFT RADEX FOOT COMPLETE MINIMUM 3 VIEWS Kaylie Charles DDS [address] [place] [address] Xr Imaging Referral IDStatusReasonStart DateExpiration DateVisits RequestedVisits [id number] Auto-Generated Referral / [facility] for referral (narrative)* Diagnostic Procedure Only (Routine) - Pending ReviewSpecialtyDiagnoses / ProceduresReferred By Contact Referred To ContactXR IMAGING Diagnoses Primary osteoarthritis of left foot Procedures XR FOOT GENERAL 3V AP/LAT/OBL LEFT RADEX FOOT COMPLETE MINIMUM [address] [place] [address] [place] [address] Xr Imaging Referral IDStatusReasonStart DateExpiration DateVisits RequestedVisits [id number] Review Auto-Generated Referral / [facility] for referral (narrative)* Diagnostic Procedure Only (Routine) - Pending ReviewSpecialtyDiagnoses / ProceduresReferred By Contact Referred To ContactXR IMAGING Diagnoses Primary osteoarthritis of left foot Procedures XR FOOT GENERAL 3V AP/LAT/OBL LEFT RADEX FOOT COMPLETE MINIMUM [address] [place] [address] [place] [address] Xr Imaging Referral IDStatusReasonStart DateExpiration DateVisits RequestedVisits [id number] Review Auto-Generated Referral / [facility] for referral (narrative)* Diagnostic Procedure Only (Routine) - Pending ReviewSpecialtyDiagnoses / ProceduresReferred By Contact Referred To ContactXR IMAGING Diagnoses Primary osteoarthritis of left foot Procedures XR FOOT GENERAL 3V AP/LAT/OBL LEFT RADEX FOOT COMPLETE MINIMUM 3 [place] [address] [place] [address] Xr Imaging Referral IDStatusReasonStart DateExpiration DateVisits RequestedVisits [id number] Review Auto-Generated Referral / [facility] for referral (narrative)* Diagnostic Procedure Only (Routine) - ClosedSpecialtyDiagnoses / ProceduresReferred By ContactReferred To ContactXR IMAGING Diagnoses Pain Procedures XR FOOT GENERAL 3V AP/LAT/OBL LEFT RADEX FOOT COMPLETE MINIMUM 3 VIEWS Kaylie Charles, DMD [address] [place] [address] [place] [address] Referral IDStatusReasonStzanesville DateExpiration DateVisits RequestedVisits [id number] Auto-Generated Referral / [facility] for referral (narrative)* Diagnostic Procedure Only (Routine) - ClosedSpecialtyDiagnoses / ProceduresReferred By ContactReferred To ContactXR IMAGING Diagnoses Primary osteoarthritis of left foot Procedures XR FOOT GENERAL 3V AP/LAT/OBL LEFT RADEX FOOT COMPLETE MINIMUM [address] [place] [address] [place] [address] [place] [address] Referral IDStatusReasonStart DateExpiration DateVisits RequestedVisits [id number] Auto-Generated Referral / [facility] for referral (narrative)* Diagnostic Procedure Only (Routine) - ClosedSpecialtyDiagnoses / ProceduresReferred By ContactReferred To ContactXR IMAGING Diagnoses Primary osteoarthritis of left foot Procedures XR FOOT GENERAL 3V AP/LAT/OBL LEFT RADEX FOOT COMPLETE MINIMUM [address] [place] [address] [place] [address] [place] [address] Referral IDStatusReasonStzanesville DateExpiration DateVisits RequestedVisits [id number] Auto-Generated Referral / [facility] for referral (narrative)* Diagnostic Procedure Only (Routine) - ClosedSpecialtyDiagnoses / ProceduresReferred By ContactReferred To ContactXR IMAGING Diagnoses Primary osteoarthritis of left foot Procedures XR FOOT GENERAL 3V AP/LAT/OBL LEFT RADEX FOOT COMPLETE MINIMUM [address] [place] [address] [place] [address] [place] [address] Referral IDStatusReasonStzanesville DateExpiration DateVisits RequestedVisits [id number] Auto-Generated Referral / [facility] Summary Purpose Family History No Family History [...] HIGH COMPLEX [address] [place] [address] [place] [address] [facility] [address] [place] [address] Referral IDStatusReasonStart DateExpiration DateVisits RequestedVisits [id number] Review Auto-Generated Referral Chief Complaint and Reason [...] DateEnd Date Heraclio Samson MD [facility]CP - [facility]Ke[facility]09/10/15Team MemberRelationshipSpecialtyStart DateEnd Date Heraclio Samson MD [facility] - [facility]09/10/15Team MemberRelationshipSpecialtyStart DateEnd Date Unallocated, Noms MD Santino [address] [place] [address] PCP - [facility] Medicine10/30/24Team MemberRelationshipSpecialtyStart DateEnd Date Unallocated, Jordy De MD [address] [place] [id number] PCP - [facility] Medicine10/30/24Team MemberRelationshipSpecialtyStart DateEnd Date Unallocated, Noms MD Santino [address] [place] [id number] PCP - [facility]10/30/24 Team Status: Active Member Role Status Dates Heraclio Samson MD Primary Care Provider Active Team Status: Inactive Member Role Status Dates Monet Clark DO Attending Provider Active S tart: November 26, 2024 End: November 26, 2024Kirby Chowuniversity [facility] women[facility] hospitalkimberly Care ProviderActiveStart: November 26, 2024 End: November 26, 2024 Team Status: Inactive Member Role Status Dates Monet Clark DO Attending Provider Active S tart: December 11, 2024 End: December 11, 2024Heraclio Samson MDPriuniversity of south al[facility] children's and women's hospitalkimberly Care ProviderActiveStart: December 11, 2024 End: December 11, 2024Team MemberRelationshipSpecialtyStart DateEnd Date Unallocated, Noms Provider, [address] [place] [address] PCP - GeneralFamily Medicine10/30/24 Source Comments (unrecognize d section and content) In the event this informatio n is protected by the Federal Confidentiality of Alcohol and Drug Abuse Patient Records regulations: The Federal rules restrict any use of the information to criminally investigate or prosecute any alcohol or drug abuse patient.Wilson HealthIn the event this information is protected by the Federal Confidentiality of Alcohol and Drug Abuse Patient Records regulations: The Federal rules restrict any use of the information to criminally investigate or prosecute any alcohol or drug abuse patient.Wilson HealthIn the event this information is protected by the Federal Confidentiality of Alcohol and Drug Abuse Patient Records regulations: The Federal rules restrict any use of the information to criminally investigate or prosecute any alcohol or drug abuse patient.Wilson HealthIn the event this information is protected by the Federal Confidentiality of Alcohol and Drug Abuse Patient Records regulations: The Federal rules restrict any use of the information to criminally investigate or prosecute any alcohol or drug abuse patient.Wilson HealthIn the event this information is protected by the Federal Confidentiality of Alcohol and Drug Abuse Patient Records regulations: The Federal rules restrict any use of the information to criminally investigate or prosecute any alcohol or drug abuse patient.Wilson HealthIn the event this information is protected by the Federal Confidentiality of Alcohol and Drug Abuse Patient Records regulations: The Federal rules restrict any use of the information to criminally investigate or prosecute any alcohol or drug abuse patient.Wilson HealthIn the event this information is protected by the Federal Confidentiality of Alcohol and Drug Abuse Patient Records regulations: The Federal rules restrict any use of the information to criminally investigate or prosecute any alcohol or drug abuse patient.Wilson HealthIn the event this information is protected by the Federal Confidentiality of Alcohol and Drug Abuse Patient Records regulations: The Federal rules restrict any use of the information to criminally investigate or prosecute any alcohol or drug abuse patient.Wilson HealthIn the event this information is protected by the Federal Confidentiality of Alcohol and Drug Abuse Patient Records regulations: The Federal rules restrict any use of the information to criminally investigate or prosecute any alcohol or drug abuse patient.Wilson HealthIn the event this information is protected by the Federal Confidentiality of Alcohol and Drug Abuse Patient Records regulations: The Federal rules restrict any use of the information to criminally investigate or prosecute any alcohol or drug abuse patient.Wilson HealthIn the event this information is protected by the Federal Confidentiality of Alcohol and Drug Abuse Patient Records regulations: The Federal rules restrict any use of the information to criminally investigate or prosecute any alcohol or drug abuse patient.Wilson HealthIn the event this information is protected by the Federal Confidentiality of Alcohol and Drug Abuse Patient Records regulations: The Federal rules restrict any use of the information to criminally investigate or prosecute any alcohol or drug abuse patient.Wilson HealthIn the event this information is protected by the Federal Confidentiality of Alcohol and Drug Abuse Patient Records regulations: The Federal rules restrict any use of the information to criminally investigate or prosecute any alcohol or drug abuse patient.Wilson HealthIn the event this information is protected by the Federal Confidentiality of Alcohol and Drug Abuse Patient Records regulations: The Federal rules restrict any use of the information to criminally investigate or prosecute any alcohol or drug abuse patient.Wilson HealthIn the event this information is protected by the Federal Confidentiality of Alcohol and Drug Abuse Patient Records regulations: The Federal rules restrict any use of the information to criminally investigate or prosecute any alcohol or drug abuse patient.Wilson HealthIn the event this information is protected by the Federal Confidentiality of Alcohol and Drug Abuse Patient Records regulations: The Federal rules restrict any use of the information to criminally investigate or prosecute any alcohol or drug abuse patient.Wilson HealthIn the event this information is protected by the Federal Confidentiality of Alcohol and Drug Abuse Patient Records regulations: The Federal rules restrict any use of the information to criminally investigate or prosecute any alcohol or drug abuse patient.Wilson HealthIn the event this information is protected by the Federal Confidentiality of Alcohol and Drug Abuse Patient Records regulations: The Federal rules restrict any use of the information to criminally investigate or prosecute any alcohol or drug abuse patient.Wilson HealthIn the event this information is protected by the Federal Confidentiality of Alcohol and Drug Abuse Patient Records regulations: The Federal rules restrict any use of the information to criminally investigate or prosecute any alcohol or drug abuse patient.Wilson HealthIn the event this information is protected by the Federal Confidentiality of Alcohol and Drug Abuse Patient Records regulations: The Federal rules restrict any use of the information to criminally investigate or prosecute any alcohol or drug abuse patient.Wilson HealthIn the event this information is protected by the Federal Confidentiality of Alcohol and Drug Abuse Patient Records regulations: The Federal rules restrict any use of the information to criminally investigate or prosecute any alcohol or drug abuse patient.[facility] Reason for Visit (unrecogniz ed section and content) ReasonCommentsRadiology XRSpecialtyDiagnoses / ProceduresReferred By Contact Referred To ContactXR IMAGING Diagnoses Primary osteoarthritis of left foot Procedures XR FOOT GENERAL 3V AP/LAT/OBL LEFT RADEX FOOT COMPLETE MINIMUM [address] [place] [address] [place] [address] [place] [address] Referral IDStatusReasonStart DateExpiration DateVisits RequestedVisits [id number] Auto-Generated Referral [id number] DateCommentsRefill Request 08/30/2022ReasonOnset DateCommentsPost OpWound CheckAppointment Cancelled 09/14/2022ReasonCommentsPatient UpdateReasonCommentsPost OpWound CheckSuture RemovalReasonCommentscast issueReasonCommentsPost OpReasonCommentsFollow Up ReasonCommentsRadio Gen RMPSpecialtyDiagnoses / ProceduresReferred By Contact Referred To ContactXR IMAGING Diagnoses Pain Procedures XR FOOT GENERAL 3V AP/LAT/OBL LEFT RADEX FOOT COMPLETE MINIMUM 3 VIEWS Kaylie Charles, DARLIN [address] [place] [address] [place] [address] Referral IDStatusReasonStart DateExpiration DateVisits RequestedVisits [id number] Auto-Generated Referral /[id number] IDStatusReasonStart DateExpiration DateVisits RequestedVisits [id number] Auto-Generated Referral /[id number] IDStatusReasonStart DateExpiration DateVisits RequestedVisits [id number] Auto-Generated Referral /[id number] CheckReasonCommentsGynecologic ExamPt would like to discuss prolapse. Denies bowel/bladder/breast concerns Pt states up to date with mammogram at [place]. Denies vaginal bleeding/spotting.ReasonComments Follow-upPt presents for US follow up/ Pre OP. Denies concernsReasonComments Post-op Visit12/11/24 TLH/BSO anterior colporrhaphy. Denies vaginal bleeding/spotting. Denies bowel/bladder concerns. Denies any current pain. Denies any incision concerns. Denies intercourse.ReasonCommentsPost-op Visit 12/11/24 TLH/BSO anterior colporrhaphy. Denies vaginal bleeding. Denies bowel/bladder concerns. Denies any pain. Denies intercourse. INFORMATION SOURCE (unrecogn ized section and content) DATE CREATED AUTHOR 08/22/2022 [facility] DATE CREATED AUTHOR AUTHOR'S ORGANIZ ATION 10/14/2022 [facility] DATE CREATED AUTHOR AUTHOR'S ORGANIZ ATION 01/19/2023 [facility] DATE CREATED AUTHOR AUTHOR'S ORGANIZ ATION 12/22/2024 [facility] DATE CREATED AUTHOR AUTHOR'S ORGANIZ ATION 01/21/2025 [facility] DATE CREATED AUTHOR AUTHOR'S ORGANIZ ATION 06/12/2025 [facility] Goals (unrecognized section and content) Goals may [...] BE BASED ON THE PRIMARY CLINICAL RECORDS. [employer] provides no warranty or guarantee of the accuracy or completeness of information in this document.
--- OUTSIDE RECORDS SUMMARY | 2025-07-15 06:30 | XMS_ITS | Encounter Summary ---
Author Organization [facility] Address [address] [place] [address] Care Team Providers Care Engineering Scientist Name Role Phone Unallocated, Noms Provider Primary Care [facility] Encounter Details DateTypeDepartmentCare Team (Latest Contact Info)Flgugabfwyx71/02/2025Orders Only NORA Davila O[facility]YD[facility] [address] [place] [address] Monet Clark DO [address] [place] [address] Social History Tobacco UseTypesPacks/DayYears UsedDateSmoking Tobacco: FormerCigarettes Smokeless Tobacco: NeverAlcohol UseStandard Drinks/WeekCommentsNot Asked0 (1 standard drink = 0.6 oz pure alcohol)caffeine 1-2 cups/day; coffee/tea CommentsUnknownSex and Gender InformationValueDate RecordedSex Assigned at Not on fileLegal BocUgyotd56/15/2023 6:35 PM EDTGender IdentityNot on fileSexual OrientationNot on filedocumented as of this encounter Plan of Treatment DateTypeDepartmentCare Team (Latest Contact Info)Wrohuflvcjo67/28/2026 1:00 PM ESTOffice Visit [facility] [address] [place] [address] Melina Ballard MD [address] [place] [address] 01/20/2026 10:30 AM EDTOffice Visit NORA LEE [address] [place] [phone] Monet Clark DO [address] [place] [address] documented as of this encounter Visit Diagnoses Not on filedocumented in this encounter Care Teams Team MemberRelationshipSpecialtyStart DateEnd Date Unallocated, Nomaddie De MD [address] [place] [address] PCP - GeneralFamily Medicine10/30/24documented as of this encounter
[2025-07-15 07:03] VITALS: BP 141/91; PULSE 96; TEMP 36.2; O2SAT 97; BMI 32.2
[2025-07-15 07:53] VITALS: BP 104/57; PULSE 68; TEMP 37; O2SAT 100
[2025-07-15 08:08] VITALS: BP 123/73; PULSE 72; O2SAT 97
[2025-07-15 08:23] VITALS: BP 131/72; PULSE 68; O2SAT 99
--- NOTE | 2025-07-15 08:32 | PC.NURSE ---
REVIEWED DISCHARGE INSTRUCTINS. PATIENT VERBALIZES UNDERSTANDING WITH SPOUSE
== END 2025-07-15 08:23 | disposition home or self-care (01) ==
PROVIDERS: PCP Family Medicine; Visit Provider Surgery
PROC: (CPT 43239; principal; 2025-07-15 07:30)
DX: K21.9 Gastro-esophageal reflux disease without esophagitis (principal); R10.13 Epigastric pain; K31.7 Polyp of stomach and duodenum; Z86.0101 Personal history of adenomatous and serrated colon polyps; K44.9 Diaphragmatic hernia without obstruction or gangrene; K29.70 Gastritis, unspecified, without bleeding; K57.30 Diverticulosis of large intestine without perforation or abscess without bleeding; D12.2 Benign neoplasm of ascending colon; I10 Essential (primary) hypertension; E78.5 Hyperlipidemia, unspecified; Z90.710 Acquired absence of both cervix and uterus
CPT/HCPCS: 43239; 45385; 88305; 99999; J2371; J2704

== ENCOUNTER 2025-07-28 13:04 | Outpatient (OUT) | payer MEDICARE, SELFPAY ==
--- OUTSIDE RECORDS SUMMARY | 2025-07-15 19:36 | XMS_ITS | Continuity of Care Document ---
Author Organization [facility] Address [address] [place] [address] Phone Care Team Providers Care Counseling Specialist Name Role Phone Allen Padilla MD Attending Provider Care Teams Patient Care Team Team Status: Inactive Member Role/Relationship Status Dates Allen Padilla MD [facility] Attending Provider Active Start: July 15, 2025 End: July 15, 2025 Chief Complaint and Reason for Visit Chief Complaint Admit Date Unknown July 15, 2025 7 :51am Allergies, Adverse Reactions, Alerts Allergen Type Severity Reaction Last Updated Verified Status Comments latex Allergy Unknown Itching November 26, 2024 1:15pm Yes Active PenicillinsAllergyUnknownUnknown ReactionApril 2024 1:15pmYesActiveSulfa (Sulfonamide Antibiotics)AllergyUnknownRashApril 2024 1:15pmYesActive epinephrineAdverse ReactionUnknownNauseaApril 2024 1:15pmYesActivepossible reaction, not for sure, only had for dental procedure. nausea and light headed Social History Smoking Status Unknown if ever smoked Observation Status Observation Response Date of Response Legal Sex Female (finding) Sex Assigned At BirthFemaleJanuary 1955 Family History Relationship Condition Age at Onset Recorded Date/T paulino father Myocardial infarction Unknown History of heart surgeryUnknownHypertensionUnknownmotherHypertensionUnknown Congestive heart failureUnknownsisterMalignant neoplasm of endometriumUnknown Problems Active Problems Problem Diagnosis/Recorded Date Onset Date Stat us Cystocele December 11, 2024 8:50am Unknown Active Uterine prolapse December 11, 2024 8:50am Unknown Act urbano S/P laparoscopic hysterectomy December 11, 2024 8:52am Unk nown Active Medications Medication Status Dose Units Route Directions Qty Days Refills S tart Date Stop Date End Date Reason(s) Instructions Adherence Amlodipine 5 mg tablet Active 5 MG PO Every mor ivelisse November 25, 2024 11:00pmUnknownLisinopril 10 mg juihygMtyeig76FAQKGosqt morning November 25, 2024 11:00pmUnknownOmeprazole 40 mg capsule,delayed release(DR/EC) Otwuuw20XPVUOstob morningApril 2024 11:00pmUnknownDiphenhydramine- Acetaminophen (Acetaminophen Pm) 25-500 mg vyztrmYqeaxq1HRMXOZqzsn at bedtime November 25, 2024 11:00pmUnknownMelatonin 10 mg aspbnarRvivzx51MJAUPclna at bedtimeApril 2024 11:00pmUnknownCholecalciferol (Vitamin D3) (Vitamin D3) 25 mcg (1,000 unit) zvmddciYiexxs27ORQMMSjnzaDttam 2024 11:00pmUnknown Ascorbic Acid (Vitamin C) (C-500) 500 mg tablet extended hdkjzzpWsuvix157LGIG DailyApril 2024 11:00pmUnknownCyanocobalamin (Vitamin B-12) (Vitamin B-12) 1,000 mcg tezlatBiyzvc7925PGHSSUtwptFzlnc 2024 11:00pmUnknownElderberry Fruit 200 mg yxwgizrJkcqeu940WXJAYizqlEtnva 2024 11:00pmUnknownOmega 7-Dtr-Ohv-Fish Oil (Fish Oil) 1,000 (120-180) mg yyoktntBumfwy0MWVJKTwkmpHuzmn 2024 11:00pmUnknownCalcium Carbonate (Oyster Shell Calcium) 500 mg calcium (1,250 mg) brdwkrSwovkn960JXJNZjdsdSwvyg 2024 11:00pmUnknownIbuprofen 600 mg bcbhefQacrig896RDTFDluqu 6 hours as needed for egmt496Eelgi 2024 11:00pmUnknownTramadol 50 mg pxzfffEsqubb49KSWQSoica 6 hours as needed for pain 3070April 2024 11:00pmStatus post laparoscopic hysterectomy Acquired absence of both cervix and uterusUnknownDocusate Sodium (Colace) 100 mg qvwftvrMhfijm281MENPFwnuq daily as needed for fogoxvvbmulw902Ukd 2024 8:53amUnknown Immunizations Immunization Event Date Not Given Reason Dose Number Boiler House [employer]ic Lot Number Reason(s) Given Vaccine Information Statement (VIS) Detail Administration Location COVID-19 mRNA, Comirnaty (Pfizer) October 11 COVID-19 mRNA, Comirnaty (Pfizer)November 02OVID-19 mRNA, Comirnaty (Pfizer)July 30, 2021 Advance Directives Advance Directive Response Recorded Date/ Time Advance Directives No March 08 4:15pm Insurance Providers Guarantor Elenita Howard Address [address] [address]Cbkyqdl Info.Home Phone: Coverage Status Update:2024 Payer Group Member ID Coverage Type Subscriber Relationship to Subscriber Effective Date Expiration Date MMO Id: [id number] L Sanchez Id: [id number] [address] [address] [facility] [id number] L Sanchez Id: [id number] [address] [address] Home Phone: Self Encounters Encounter Location(s) Arrival/Admit Date Discharge/Departure Date Discharge/Departure Disposition Provider(s) Departed Referred -[facility] July 15, 2025 7:51am July 15, 2025 7:52am Discharged to home care or self care (routine discharge) Allen Padilla MD FACS
--- NOTE | 2025-07-28 13:06 | MM_ITS ---
Patient Name: FELIBERTO ARMENTA MR#: [id number] : 1955 Exam Date: 07/28/2025 Ordering Doctor: DR. KYLER DICK D.O. RADIOLOGY REPORT PROCEDURE: MM TOMOSYNTHESIS DIAGNOSTIC LT, 07/28/2025, 13:01 US BREAST LT LIMITED, 07/28/2025, 13:56 COMPARISON: MM TOMOSYNTHESIS SCREENING BI, 07/13/2025. MM TOMOSYNTHESIS SCREENING BI, 06/30/2024. MM TOMOSYNTHESIS SCREENING BI, 05/22/2023. MG MAMM SCREEN 3D ANGIE CAD, 04/18/2022. INDICATIONS: Abnormal Mammogram Calculator Name NCI Breast Cancer Risk Assessment Tool 5 Year Breast Cancer Risk 2.30% Lifetime Breast Cancer Risk 6.60% Personal Breast Cancer No Personal Ovarian Cancer No Treatments None Family Cancers Sister with ?uterine cancer at age 43. LOCATION: [facility] BREAST COMPOSITION: There are scattered areas of fibroglandular density. FINDINGS: Previously identified focal asymmetries involving the left breast persists on today's study and likely represent spiculated masses. Ultrasound imaging demonstrates hypoechoic mass at the 3 o'clock position of the left breast 6.2 cm from the nipple measuring 6 x 6 x 6 mm so with angular margins. Additional similar appearing masses seen at the 3 o'clock position of the left breast 16.4 cm from the nipple measuring 14 x 8 x 8 x 9 mm spread additional scabbing of the left axilla demonstrates a least 1 suspicious lymph node with what appears to be cortical thickening . DIAGNOSTIC CATEGORY 5--HIGHLY SUGGESTIVE OF MALIGNANCY. HIGH PROBABILITY OF MALIGNANCY BASED ON THE FOLLOWING: RECOMMENDATIONS: ULTRASOUND-GUIDED CORE BIOPSY: LEFT BREAST of both masses. Left axillary lymph node biopsy at the discretion of the referring clinician. Findings were discussed with the patient shortly after imaging. Dictated by: Magdy Syed DO on 07/28/2025 at 14:44 Approved by: Magdy Syed DO on 07/28/2025 at 14:49
--- OUTSIDE RECORDS SUMMARY | 2025-07-28 13:06 | XMS_ITS | Clinical Summary ---
Author Organization [facility] Address [address] [place] [address] Care Team Providers Care Fitness And Wellness Manager Name Role Phone Unallocated, Noms Provider Primary Care Provi roseanne Allergies Active AllergyReactionsCriticalityNoted DateCommentsAmoxicillin-Pot Clavulanate Kilkazp3608/23/2023ee VenomHives,Nlfpnnq3808/31/2021EpinephrineGI intolerance 08/23/20236283LxpbnDholwea11/12/2014SimvastatinGI intolerance,Wbiexee3008/13/2014Sulfa OsagaahgxvjXhwnvxc57/11/2024 Medications MedicationSigDispense QuantityRefillsLast FilledStart DateEnd DateStatus omeprazole [...] Problems No known active problems Encounters DateTypeDepartmentCare EsfnEdraucegjqt09/02/2025Results Follow-Up [facility] [address] [place] [address] Monet Clark, DO MAMMOGRAM*07/14/2025Orders Only [facility] [address] [place] [address] Monet Clark, DO 07/14/2025Telephone [facility] [address] [place] [address] Monet Clark, DO from Last 3 Months Family History Medical HistoryRelationNameCommentsHeart attackFatherHeart diseaseFatherCancer Father's SisterArthritisMotherCoronary artery diseasePaternal GrandfatherUterine cancerSisterRelationNameStatusCommentsFatherDeceasedFather's SisterMother DeceasedPaternal GrandfatherSister Social History Tobacco UseTypesPacks/DayYears UsedDateSmoking Tobacco: FormerCigarettes Smokeless Tobacco: Never Tobacco Cessation:Counseling Given: Not Answered Alcohol UseStandard Drinks/WeekCommentsNot Asked0 (1 standard drink = 0.6 oz pure alcohol)caffeine 1-2 cups/day; coffee/teaCommentsUnknownSex and Gender InformationValueDate RecordedSex Assigned at BirthNot on fileLegal Sex Kxjqac5510/25/2022 6:35 PM EDTGender IdentityNot on fileSexual OrientationNot on file Last Filed Vital Signs Vital SignReadingTime TakenCommentsBlood Puctrzqp132/80001/20/2025 10:05 AM EDT Pulse--Temperature--Respiratory Rate--Oxygen Saturation--Inhaled Oxygen Concentration--Uhstde15.8 kg (187 lb)01/20/2025 10:05 AM TBDGnfsoi859 cm (5' 3 ) 07/19/2022 12:00 PM ESTBody Mass Index33.13109/19/2021 12:00 PM EST Plan of Treatment DateTypeDepartmentCare Team (Latest Contact Info)Rrljkupkpwu32/28/2026 1:00 PM ESTOffice Visit [facility] [place] [facility] [address] [place] [address] Melina Ballard MD [address] [place], [place] [id number] 01/20/2026 10:30 AM EDTOffice Visit [facility] [address] [place] [address] Monet Clark DO [address] [place] [address] Health MaintenanceDue DateLast DoneCommentsCT Wpsaqunokonm21/13/1956FIT-DNA 1955FIT1955FOBT1955 8718Evpngghmvwybs01/13/1956Pneumococcal Vaccine: 65+ Years (1 of 1 - PCV)2004COVID-19 Vaccine ( - 2024- season) /, 11/02/2020, 10/11/2020Influenza Vaccine (#1)2025 07/15/2020, 06/07/2017Medicare Annual Wellness (AWV)/ Fxgdsnlko64/2267Qkgzqpdmxhs012Colorectal Cancer Ccvuvzjjo36/30/2032 Insurance Care Teams Team MemberRelationshipSpecialtyStart DateEnd Date Unallocated, Noms Provider, [address] [place] [address] PCP - GeneralFamily Medicine10/30/24
--- OUTSIDE RECORDS SUMMARY | 2025-07-28 13:06 | XMS_ITS | Clinical Summary ---
Author Organization [facility] Address [address] [place] [address] Care Team Providers Care Live Games Dealer Name Role Phone Flavio Gomez MD Primary Care Provider [phone] Allergies Active AllergyReactionsCriticalityNoted DateCommentsBee JwzjnMhgox94/19/2022 BxcteHwalvty57/12/2014SimvastatinGI Upset08/13/2014Sulfa (Sulfonamide Antibiotics)Rash09/24/2013 Medications MedicationSigDispense QuantityRefillsLast FilledStart DateEnd DateStatus amLODIPine (NORVASC) 5 mg tablet 08/15/2021ctive RESTASIS 0.05 % ophthalmic emulsion 08/26/2021ctive omeprazole (PRILOSEC) 40 mg capsule 07/14/2021ctive INV VITAMIN D3 5000 UNITS CAPSULE ([facility] 19-1548) Take 5,000 Units by mouth once [...] daily.10/31/2022ctive Active Problems ProblemNoted DateDiagnosed DateHistory of epnqkponxda93/31/2023Obesity, Class I, BMI 30-34.9009/04/2022Obesity (BMI 30-39.9)08/18/20220082Rnqpqiuuoylc22/05/2023 Primary osteoarthritis of left foot05/31/2022es planus of left foot05/31/2022 Acquired valgus deformity of left ankle05/31/2022 Family History Medical HistoryRelationCommentsHeart FailureFatherdied at age 53Heart Failure Motherdied at age 93CancerSisterdied at age 42RelationStatusCommentsFather DeceasedMotherDeceasedSisterDeceased Social History Tobacco UseTypesPacks/DayYears UsedDateSmoking Tobacco: YnxiynVdvdlzflga32223 - 1974Smokeless Tobacco: Never Tobacco Cessation:Counseling Given: Not Answered Comments:Social smoker Alcohol UseStandard Drinks/WeekCommentsYes4 (1 standard drink = 0.6 oz pure alcohol)Area Deprivation IndexAnswerDate RecordedNational Score (1-100), lower number is lower gtfz724201/10/2023State Score (1-10), lower number is lower risk4 3Data from: https://www.neighborhoodatlas.[facility].edu/. Last address used for [address] [facility]3CommentsNoSex and Gender InformationValueDate RecordedSex Assigned at BirthNot on fileLegal Sex Uqxehk3709/10/2015 1:49 PM ESTGender IdentityNot on fileSexual OrientationNot on file Last Filed Vital Signs Vital SignReadingTime TakenCommentsBlood Aeyesnhl144/75009/05/2022 4:00 PM EST Nyugv292609/05/2022 4:00 PM AWXJvmtrrkkgcj24.6 ??C (97.9 ??F)09/05/2022 3:16 PM ESTRespiratory Cffh159009/05/2022 4:00 PM ESTOxygen Sgcphkcfcm50%09/05/2022 4:00 PM ESTInhaled Oxygen Concentration--Kcnwva22.8 kg (187 lb)08/18/2022 2:35 PM EST Wgvvpb504.5 cm (5' 2 )08/18/2022 2:35 PM ESTBody Mass Index34. 2:35 PM EST Plan of Treatment Health MaintenanceDue DateLast DoneCommentsAnnual PCP Team Chronic Disease Visit 1972Anxiety Wwzeaxvtt01/13/1973Depression Mfvmrytdm50/13/1973Hepatitis C Tjkvfxwgs61/13/1973DTaP,Tdap,Td Vaccine (1 - Tdap)1973Mammogram Screening 1994CT Agpevsqnlfvt36/13/2000Cologuard (FIT-DNA)1999Colonoscopy 1999Colorectal Cancer Gnjlqykki51/13/2000Diabetes Ivysqavdp34/13/2000Fecal Occult Blood1999Lipid Bvtsgjfmu68/13/2530Pvmvfilnejvjt91/13/2000 Pneumococcal Vaccine: 50+ (1 of 1 - PCV)2004Shingrix Vaccine (1 of 2) 2004Bone Density Keggzvhrg27/13/2020Advance Directive Wmfgccshku51/01/2025 Medicare Advantage Annual Wellness Visit08/13/2024ovid-19 Vaccine (2024- season)/, 11/02/2020, 10/11/2020Influenza Vaccine (#1) /10/2019, 06/07/2017, 09/15/2009RSV Vaccine (1 - 1-dose 75+ series) 2029 Medical Devices ImplantedTypeAreaManufacturerDevice IdentifierShelf Expiration DateModel / Serial / LotChips Bone Graft Cancellous Bone 4-10 Mm Container 15 Cc Volume - [id number] Implanted:Qty: 1 on 09/05/2022 by Frandy Charles MD at [facility] BoneLeft: Bone - AnkleSEASPINE SALES [id number] / [id number] / [id number] Bone Graft Cancellous Bone 4-10 Mm Container 15 Cc Volume - [id number] Implanted:Qty: 1 on 09/05/2022 by Frandy Charles MD at [facility] BoneLeft: Bone - AnkleSEASPINE SALES [id number] / [id number] / [id number] Ti Joselin Comp Hdless Scr-St-80 Implanted:Qty: 1 on 09/05/2022 by Frandy Charles MD at [facility] ImplantLeft: Bone - AnkleBRENDA AND [id number] / / 6.5 Ti Joselin Comp Hdless Scr-St-35 Implanted:Qty: 1 on 09/05/2022 by Frandy Charles MD at [facility] ImplantLeft: Bone - AnkleJOHNSON AND FODAJPE78.333.735 / / 6.5 Ti Joselin Comp Hdless Scr-St-70 Implanted:Qty: 1 on 09/05/2022 by Frandy Charles MD at [facility] ImplantLeft: Bone - AnkleJOHNSON AND UFECWEP92.333.770 / / 6.5 Ti Joselin Comp Hdless Scr-St-75 Implanted:Qty: 1 on 09/05/2022 by Frandy Charles MD at [facility] ImplantLeft: Bone - AnkleJOHNSON AND CSNOHKS44.333.775 / / Elite Comp Impl Kit [id number] 2 Legs Implanted:Qty: 1 on 09/05/2022 by Frandy Charles MD at [facility] ImplantLeft: Bone - AnkleJOHNSON AND JOHNSONEL-2020S2 / / [id number] S Impl Kit/2 Legs 25 X 20 X 20/-S Implanted:Qty: 1 on 09/05/2022 by Frandy Charles MD at [facility] ImplantLeft: Bone - AnkleJOHNSON AND JOHNSONEL-2520S2 / / [id number] Comp Impl Kit [id number] 2 Legs Implanted:Qty: 1 on 09/05/2022 by Frandy Charles MD at [facility] ImplantLeft: Bone - AnkleSYNTHES INC SYNTHES USAEL-2020S2 / / [id number] Insurance Care Teams Team MemberRelationshipSpecialtyStart DateEnd Flavio Gomez MD [facility]10/[facility]
--- OUTSIDE RECORDS SUMMARY | 2025-07-28 13:07 | XMS_ITS | Patient Health Record ---
Author Organization [facility] in [place] Address [address] [place] [address] Care Team Providers Care Automotive Services Manager Name Role Phone Ryan Samson Primary Care Provider [phone] Allergies Allergen (clinical drug ingredient) Drug/Non Drug Allergy documented on EMR Reaction Allergy Type Onset Date Status amoxicillin / clavulanate Augmentin made her feel weird D rug Allergy ActiveSulfarashDrug AllergyActivesimvastatinSimvastatinbody achesDrug Allergy Active Results Component Value Reference Range Notes CBC AUTO DIFF Reviewed date:10/10/2024 12:57:33 PM Interpretation: Performing Lab: Notes/Report: [facility] , White Blood Count 4.0 4.0-11.0 10 3/uL Red Blood Count4.764.20-5.40 10 6/lISikmhqybpx18.412.0-16.0 g/dGXfcnerijyl07.5 36.0-48.0 %Mean Corpuscular Iejctk02.181.0-99.0 fLMean Corpuscular Hemoglobin 28.226.7-34.0 pgMean Corpuscular HGB Conc33.129.9-35.2 g/dLRed Cell Distribution Width13.511.0-15.0 %Platelet Pgegp204315-188 10 3/uLMean Platelet Volume9.99.5- 13.5 fLNeutrophils Percent Auto45.743.0-75.0 %Lymphocytes Percent Auto41.320.5- 60.0 %Monocytes Percent Auto8.41.7-12.0 %Eosinophils Percent Auto4.10.9-7.0 % Basophils Percent Auto0.50.2-2.0 %Immature Granulocytes Pct Auto0.00.0-0.5 % Neutrophils Absolute Auto1.81.4-6.5 10 3/uLLymphocytes Absolute Auto1.61.2-3.8 10 3/uLMonocytes Absolute Auto0.30.3-0.8 10 3/uLEosinophils Absolute Auto0.20.0- 0.7 10 3/uLBasophils Absolute Auto0.00.0-0.1 10 3/uLImmature Granulocytes Abs Auto0.000.00-0.03 10 3/uLPerforming Lab:see note - [facility] GLYCOHEMOGLOBIN A1C Reviewed date:10/10/2024 01:13:33 PM Interpretation: Performing Lab: Notes/Report: [facility] ,Glycohemoglobin A1C6.04.5-6.2 % ADA THERAPEUTIC TARGET < 7.0 ADA RECOMMENDED LIMIT 4.0 - 6.0 ACTION SUGGESTED > 7.0 Estimated Average Almojzo552Hwqewuqpeq Lab:see noteML - [facility] LB MM tomosynthesis screening BI Reviewed date:07/13/2025 01:59:09 PM Interpretation: Performing Lab: Notes/Report: Source Facility: [place] [address] Mammography Report Signed Patient: FELIBERTO HOWARD MR#: [id number] : 1955 Acct:[id number] Age/Sex: 69 / F ADM Date: 07/13/25 Loc: MAMMO Attending Dr: KYLER CLARK Ordering Physician: KYLER CLARK Results: Date of Service: 07/13/25 Follow Up: Procedure(s): MM tomosynthesis screening BI Accession Number(s): [id number] cc: Heraclio Samson M.D.; KYLER CLARK Patient Name: FELIBERTO HOWARD MR#: [id number] : 1955 Exam Date: 07/13/2025 Ordering Doctor: [...] ?uterine cancer at age 42. LOCATION: [facility] BREAST COMPOSITION: The breasts are heterogeneously dense, [...] Dictated By: Kishore Crabtree M.D. Signed By: 07/13/25 1353 DD/ 135 TD/TT: Enamel Buffer:US right upper quadrant Reviewed date:03/04/2025 01:03:14 PM Interpretation: Performing Lab: Notes/Report: Source Facility: [facility] [place] [address] [place] [address] Ultrasound Report Signed Patient: FELIBERTO HOWADR MR#: [id number] : 1955 Acct:[id number] Age/Sex: 69 / F ADM Date: 03/04/25 Loc: US Attending Dr: Heraclio Samson M.D. Ordering Physician: Heraclio Samson M.D. Date of Service: 03/04/25 Procedure(s): US right upper quadrant Accession Number(s): [id number] cc: Heraclio Samson M.D. [facility] [place] [id number] Patient Name: FELIBERTO HOWARD MRN: [id number] date: 1955 Sex: F Assigned Patient Location: [place] Current Patient Location: [place] Accession/Order Number: [id number] Exam Date: 03/04/2025 10:25 Report Date: 03/04/2025 [...] Jr., D.O. 03/04/2025 10:26 AM Dictation Location: [place] [address] Electronically authenticated by: [id number] Y Date: 03/04/2025 10:26 Dictated By: Magdy Syed M.D. Signed By: 03/04/25 1028 DD/ 1026 TD/TT: Enamel Buffer:TSH Reviewed date:10/12/2024 12:53:50 PM Interpretation: Performing Lab: Notes/Report: [facility] ,Thyroid Stimulating Hormone1.8260.358-3.740 uIU/mLPerforming Lab:see noteML - [facility] LBT4 Reviewed date:10/12/2024 12:53:50 PM Interpretation: Performing Lab: Notes/Report: [facility] ,T4 Thyroxine8.704.80-13.90 ug/dLPerforming Lab:see noteML - [facility] LBPROF 14(COMP METB) Reviewed date:10/12/2024 12:53:50 PM Interpretation: Performing Lab: Notes/Report: [facility] ,Qolpvg798583-521 mmol/LPotassium4.53.5-5.1 mmol/FSublqljl36839-225 mmol/LCarbon Cwaddhj00.821.0-32.0 mmol/LAnion Gap10.2Wgbaljl41892-090 mg/dLBlood Urea Iinukzbd27.07.0-18.0 mg/dLCreatinine0.870.55-1.02 mg/dLEstimated GFR ( Nasra>60>=60 mL/min/1.73m 2Estimated GFR (Non- Velia>60>=60 mL/min/1.73m 2BUN Creatinine Ratio17.3Pajobas3.28.5-10.1 mg/dLBilirubin Total0.40.2-1.0 mg/dL Aspartate Amino Cgwyzcpdovr4490-83 U/LAlanine Mwdpgwhiqxqdhtmq8788-51 U/L Alkaline Muufdersrwk4828-227 U/LTotal Protein7.76.4-8.2 g/dLAlbumin Level4.03.4- 5.0 g/dLGlobulin3.7Albumin Globulin Ratio1.1Performing Lab:see note - [facility] LBLIPID PROFILE Reviewed date:10/12/2024 12:53:50 PM Interpretation: Performing Lab: Notes/Report: [facility] ,Ctsbdgwvprsbe61<=150 mg/eAExeuwjyvzyl912<=200 mg/dLHDL Fujzciptrqx7112-68 mg/dL <40 mg/dl - HIGH CARDIOVASCULAR RISK > or =60 mg/dl - LOW CARDIOVASCULAR RISK LDL Cholesterol Cguhehzoul027.0 <100 mg/dl OPTIMAL >190 mg/dl VERY HIGH 160-189 mg/dl HIGH 130-159 mg/dl BORDERLINE HIGH 100-129 mg/dl NEAR OR ABOVE OPTIMAL VLDL PVRWJWWWVKU32.0Chol HDL Ratio3.1 7.1 - 11.0 MODERATE RISK 4.4 - 7.1 AVERAGE RISK >11.0 HIGH RISK 3.3 - 4.4 LOW RISK Performing Lab:see note - [facility] LBFREE T3 Reviewed date:10/12/2024 12:53:50 PM Interpretation: Performing Lab: Notes/Report: [facility] Aruna T32.872.18-3.98 pg/mLPerforming Lab:see traci - [facility] LB IRON Reviewed date:10/12/2024 12:53:50 PM Interpretation: Performing Lab: Notes/Report: [facility] ,Iron60.050.0-170.0 ug/dLPerforming Lab:see noteML - [facility] hepatobiliary w pharm Reviewed date:05/11/2025 02:34:52 PM Interpretation: Performing Lab: Notes/Report: Source Facility: [facility] [place] [address] [place] [address] Nuclear Medicine Report Signed Patient: FELIBERTO HOWARD MR#: [id number] : 1955 Acct:[id number] Age/Sex: 69 / F ADM Date: 05/11/25 Loc: [place] Attending Dr: Heraclio Samson M.D. Ordering Physician: Heraclio Samson M.D. Date of Service: 05/11/25 Procedure(s): [place] hepatobiliary w pharm Accession Number(s): [id number] cc: Heraclio Samson M.D. [facility] [place] [address] Patient Name: FELIBERTO HOWARD MRN: [id number] date: 1955 Sex: F Assigned Patient Location: [place] Current Patient Location: [place] Accession/Order Number: [id number] Exam Date: 05/11/2025 08:05 Report Date: 05/11/2025 13:07 At the request of: HERACLIO SAMSON MD Procedure: [place] hepatobiliary w pharm HIDA SCAN WITH CCK [...] is 29%. Normal is greater than 40%. [place] hepat[place]iliary w [place] IMPRESSION: LOW GALLBLADDER EJECTION FRACTION SUGGESTIVE OF BILIARY DYSKINESIA. Impression dictated by: Magdy Syed Jr. DTerrieOTerrie 05/11/2025 1:07 PM Dictation Location: [place] [address] Electronically authenticated by: [id number] Y Date: 05/11/2025 13:07 Dictated By: Magdy Syed M.D. Signed By: 05/11/25 1310 DD/ 1307 TD/TT: Enamel Buffer: Reason For Referral Reason recurrent despite PP I Diagnosis 1 GERD (gastroesophage al reflux disease) (K21.9) Referral Organization [facility] Medicine Referring Provider First Name Ryan Referring [...] year?2 to 3 times a week (3 points)Usltjv5Jbzqyecrxvauix Positive Problems Problem Type SNOMED Code ICD Code Onset Dates Problem Status W/U Status Risk Notes Problem Age-related osteoporosis (390999 002) Age-related osteoporosis without current pathological fracture (M81.0) ActiveconfirmedProblemBenign neoplastic disease (46026336)Benign neoplasm, unspecified site (D36.9)ActiveconfirmedProblemHyperlipidemia (22482103) Hyperlipidemia, unspecified (E78.5)ActiveconfirmedProblemHypertension (49521101) Hypertension (I10)ActiveconfirmedProblemGastroesophageal reflux disease (241518910)GERD (gastroesophageal reflux disease) (K21.9)ActiveconfirmedProblem 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)ActiveconfirmedProblemTinea unguium (180861601)Tinea unguium (B35.1) ActiveconfirmedProblemTinea pedis (5417485)Tinea pedis (B35.3)Activeconfirmed ProblemArthralgia of the ankle and/or foot (372871394)Pain in left ankle and joints of left foot (M25.572)ActiveconfirmedProblemPain in left foot (164714342932507)Pain in left foot (M79.672)ActiveconfirmedProblemRight upper quadrant pain (213916209)Right upper quadrant abdominal pain (R10.11)Active confirmedProblemAbnormal gait (23208861)Gait instability (R26.81)Activeconfirmed ProblemLocalized, primary osteoarthritis of the ankle and/or foot (697501082) Degenerative joint disease of ankle or foot, left (M19.072)Activeconfirmed ProblemPeroneal tenosynovitis (940506309)Peroneal tenosynovitis (M65.9)Active confirmedProblemTibialis posterior tendinitis (671062571)Tibialis posterior tendinitis (M76.829)Activeconfirmed Vital Signs Blood pressure diastolic 80 mm Hg 05/04/2025 Tuhdjm80 in05/04/2025lood pressure uokmixun529 mm Hg05/04/20250424Pmuuag184.8 lbs 05/04/2025BMI32.91 kg/m205/04/2025 Encounters Encounter Location Date Provider Diagnosis [facility] [address] [place] [address] 10/10/2024 Ryan Hoy Hyperlipidemia, unspecified E78.5 ; Hypertension I10 and Other fatigue R53.83 [facility] [address] [place] [address] 03/02/2025 Ryan Hoy Right upper quadrant abdominal pain R10.11 [facility] [address] [place] [address] 05/04/2025 Ryan Hoy Right upper quadrant abdominal pain R10.11 and GERD (gastroesophageal reflux disease) K21.9 [facility] [address] [place] [address] 10/12/2024 Ryan Hoy [facility] [place] [address] 01/21/2025Doug [facility]oyHyperlipidemia, unspecified [facility]78.[facility] [place] [address]/[facility] [place] [address]/ [facility] [place] [address]/10/2024[facility] [facility] [place] [address]/01/2025Doug HoyAbdominal pain R10.9 and Right upper quadrant abdominal pain [facility]10.11[facility] [place] [address]/[facility] [place] [address]/08/2024Doug Hoy Assessments Encounter Date Diagnosis (ICD Code) Assessment Notes Treatment Notes Treatment Clinical Notes Section Notes 10/10/2024 Hypertension (ICD-10 - I10) 03/02/2025Right upper quadrant abdominal pain (ICD-10 - R10.11)05/04/2025GERD (gastroesophageal reflux disease) (ICD-10 - K21.9)05/04/2025Right upper quadrant abdominal pain (ICD-10 - R10.11)10/10/2024Hyperlipidemia, unspecified (ICD-10 - E78.5)01/21/2025Hyperlipidemia, unspecified (ICD-10 - E78.5)05/18/2025bdominal pain (ICD-10 - R10.9)05/18/2025Right upper quadrant abdominal pain (ICD-10 - R10.11)10/10/2024Other fatigue (ICD-10 - R53.83) Plan Of Treatment [...] Date [employer] MED[employer] [address], [place] [address] [id number], JulieSelf - patient is the insured Medications Administered Medication Instructions Date of Administration Dosage Notes Bupivacaine mLleft nzwqmWjeouszmidd31/25/20162 mLleft yqidDujilpcxwlm86/14/20172 mLLEFT OSFLDOpvmhmponsc56/22/20172 mLleft subtailor wuvhjVotlbztnitz11/13/20182 mLLEFT TAGSCdtslsfasof36/18/20182 mLleft bflurFqrlwsfmqmc96/30/20192 mLleft foot Depo-Medrol, 40 mg/mL mLleft ankleDepo-Medrol, [...] KIDNER PROCEDURE LEFT MEDIAL FOOT X 3 Colonoscopy/Egd109/15/24
--- OUTSIDE RECORDS SUMMARY | 2025-07-28 13:07 | XMS_ITS | Encounter Summary ---
Author Organization [facility] Address [address] [place] [address] Care Team Providers Care Drawing Supervisor Name Role Phone Unallocated, Noms Provider Primary Care [facility] Encounter Details DateTypeDepartmentCare Team (Latest Contact Info)Byviwapbnam28/02/2025Results Follow-Up [facility] [address] [facility] [address] [place] [address] Monet Clark, [address] [facility] [address] [place] [address] MAMMOGRAM* Social History Tobacco UseTypesPacks/DayYears UsedDateSmoking Tobacco: FormerCigarettes Smokeless Tobacco: NeverAlcohol UseStandard Drinks/WeekCommentsNot Asked0 (1 standard drink = 0.6 oz pure alcohol)caffeine 1-2 cups/day; coffee/tea CommentsUnknownSex and Gender InformationValueDate RecordedSex Assigned at Not on fileLegal OptQfzwic60/15/2023 6:35 PM EDTGender IdentityNot on fileSexual OrientationNot [...] been added to this order with description [facility]. documented in this encounter Plan of Treatment DateTypeDepartmentCare Team (Latest Contact Info)Gphvvryrmcq32/28/2026 1:00 PM ESTOffice Visit [facility] [address] [place] [address] Melina Ballard MD [address] [place] [address] 01/20/2026 10:30 AM EDTOffice Visit NOMCarin LEE [address] [place] [address] Monet Clark DO [address] [place] [address] NameTypePriorityAssociated DiagnosesOrder ScheduleLeft diagnostic mammogram with tomosynthesisImagingRoutine Mammogram abnormal Expected: 07/14/2025, Expires: 09/14/2026Left breast US limitedImagingRoutine Mammogram abnormal Expected: 07/14/2025, Expires: 09/14/2026documented as of this encounter Visit Diagnoses Diagnosis Mammogram abnormal Abnormal mammogram, unspecified documented in this encounter Care Teams Team MemberRelationshipSpecialtyStart DateEnd Date Unallocated, Noms MD [address] [address] PCP - GeneralFamily Medicine10/30/24documented as of this encounter
--- OUTSIDE RECORDS SUMMARY | 2025-07-28 13:07 | XMS_ITS | Encounter Summary ---
Author Organization [facility] Address [address] [facility] [place] [address] Care Team Providers Care Data Analyst Etl Developer Name Role Phone Unallocated, Noms Provider Primary Care [facility] Encounter Details DateTypeDepartmentCare Team (Latest Contact Info)Jkzsrnnarkf97/02/2025Orders Only NORA Davila OBGYDanya [address] [place] [address] Monet Clark DO [address] [place] [address] Social History Tobacco UseTypesPacks/DayYears UsedDateSmoking Tobacco: FormerCigarettes Smokeless Tobacco: NeverAlcohol UseStandard Drinks/WeekCommentsNot Asked0 (1 standard drink = 0.6 oz pure alcohol)caffeine 1-2 cups/day; coffee/tea CommentsUnknownSex and Gender InformationValueDate RecordedSex Assigned at Not on fileLegal QgtGdlsgw66/15/2023 6:35 PM EDTGender IdentityNot on fileSexual OrientationNot on filedocumented as of this encounter Plan of Treatment DateTypeDepartmentCare Team (Latest Contact Info)Eruthcfvdhp45/28/2026 1:00 PM ESTOffice Visit [facility] [address] [place] [address] Melina Ballard MD [address] [facility] [address] [place] [address] 01/20/2026 10:30 AM EDTOffice Visit NORA LEE [address] [place] [address] Monet Clark DO [address] [place] [address] documented as of this encounter Visit Diagnoses Not on filedocumented in this encounter Care Teams Team MemberRelationshipSpecialtyStart DateEnd Date Unallocated, Nomaddie De MD [address] [place] [address] PCP - GeneralFamily Medicine10/30/24documented as of this encounter
--- OUTSIDE RECORDS SUMMARY | 2025-07-28 13:07 | XMS_ITS | Encounter Summary ---
Author Organization [facility] Address [address] [place] [address] Care Team Providers Care Discotheque Dancer Name Role Phone Unallocated, Noms Provider Primary Care [facility] Encounter Details DateTypeDepartmentCare Team (Latest Contact Info)Ctqgqhexurv39/02/2025Telephone NORA [place] [facility] [address] [facility] [address] [place] [address] Monet Clark, [address] [facility] [address] [place] [address] Social History Tobacco UseTypesPacks/DayYears UsedDateSmoking Tobacco: FormerCigarettes Smokeless Tobacco: NeverAlcohol UseStandard Drinks/WeekCommentsNot Asked0 (1 standard drink = 0.6 oz pure alcohol)caffeine 1-2 cups/day; coffee/tea CommentsUnknownSex and Gender InformationValueDate RecordedSex Assigned at Not on fileLegal QhyIvjioe15/15/2023 6:35 PM EDTGender IdentityNot on fileSexual OrientationNot [...] our call. He just has a question [phone] option for for a nurse, thank you. documented in this encounter Plan of Treatment DateTypeDepartmentCare Team (Latest Contact Info)Lfxhvioumfc12/28/2026 1:00 PM ESTOffice Visit [facility] [address] [place] [address] Melina Ballard MD [address] [place] [address] 01/20/2026 10:30 AM EDTOffice Visit [facility] [address] [place] [address] Monet Clark DO [address] [place] [address] documented as of this encounter Visit Diagnoses Not on filedocumented in this encounter Care Teams Team MemberRelationshipSpecialtyStart DateEnd Date Unallocated, Noms MD Santino [address] [place] [address] PCP - GeneralFamily Medicine10/30/24documented as of this encounter
--- NOTE | 2025-07-28 13:39 | US_ITS ---
Patient Name: FELIBERTO ARMENTA MR#: [id number] : 1955 Exam Date: 07/28/2025 Ordering Doctor: DR. KYLER DICK D.O. RADIOLOGY REPORT PROCEDURE: MM TOMOSYNTHESIS DIAGNOSTIC LT, 07/28/2025, 13:01 US BREAST LT LIMITED, 07/28/2025, 13:56 COMPARISON: MM TOMOSYNTHESIS SCREENING BI, 07/13/2025. MM TOMOSYNTHESIS SCREENING BI, 06/30/2024. MM TOMOSYNTHESIS SCREENING BI, 05/22/2023. MG MAMM SCREEN 3D ANGIE CAD, 04/18/2022. INDICATIONS: Abnormal Mammogram Calculator Name NCI Breast Cancer Risk Assessment Tool 5 Year Breast Cancer Risk 2.30% Lifetime Breast Cancer Risk 6.60% Personal Breast Cancer No Personal Ovarian Cancer No Treatments None Family Cancers Sister with ?uterine cancer at age 43. LOCATION: [facility] BREAST COMPOSITION: There are scattered areas of fibroglandular density. FINDINGS: Previously identified focal asymmetries involving the left breast persists on today's study and likely represent spiculated masses. Ultrasound imaging demonstrates hypoechoic mass at the 3 o'clock position of the left breast 6.2 cm from the nipple measuring 6 x 6 x 6 mm so with angular margins. Additional similar appearing masses seen at the 3 o'clock position of the left breast 16.4 cm from the nipple measuring 14 x 8 x 8 x 9 mm spread additional scabbing of the left axilla demonstrates a least 1 suspicious lymph node with what appears to be cortical thickening . DIAGNOSTIC CATEGORY 5--HIGHLY SUGGESTIVE OF MALIGNANCY. HIGH PROBABILITY OF MALIGNANCY BASED ON THE FOLLOWING: RECOMMENDATIONS: ULTRASOUND-GUIDED CORE BIOPSY: LEFT BREAST of both masses. Left axillary lymph node biopsy at the discretion of the referring clinician. Findings were discussed with the patient shortly after imaging. Dictated by: Magdy Syed DO on 07/28/2025 at 14:44 Approved by: Magdy Syed DO on 07/28/2025 at 14:49
== END 2025-07-28 13:05 | disposition home or self-care (01) ==
LOC: MAMMO 13:04
PROVIDERS: PCP Family Medicine; Visit Provider Obstetrics & Gynecology
DX: R92.8 Other abnormal and inconclusive findings on diagnostic imaging of breast (principal); Z80.8 Family history of malignant neoplasm of other organs or systems
CPT/HCPCS: 76642; 77065; G0279